=== PATIENT | male | born 1940 | race Caucasian/White ===

== ENCOUNTER → 2020-01-16 09:34 | Outpatient (CLI) | payer MEDICARE, OTHER, SELFPAY ==
--- NOTE | 2020-01-16 15:38 | PM.TREADMILL ---
Cardiac Stress Test Report Referral & Results Date Patient Seen: 01/16/20 Time Patient Seen: 15:38 Requesting provider: Vinicio Goodrich Indication: Atherosclerotic heart disease Rest ECG: sinus rhythm Procedure Note: After Lexiscan injection had minimal dyspnea, no chest discomfort No significant ST changes on ECG after Lexiscan injection; no ectopy No reversal agents needed Impression: Normal Lexiscan nuclear stress test Mibi images pending Please note: Actual ECG tracings can be found in the PACS system.
--- NOTE | 2020-01-17 02:52 | DI.NM.S_ITS ---
DATE OF SERVICE: 01/16/2020 PROCEDURE PERFORMED: Pharmacologic stress and rest myocardial perfusion study with gating to assess ejection fraction and regional wall motion, performed using a one-day protocol. ORDERING PROVIDER: Vinicio Goodrich PA-C INDICATIONS: The patient is an 79-year-old male status post CABG with recent evaluation for atypical chest discomfort. CARDIAC STRESS: Per protocol, 0.4 mg of regadenoson was infused, augmented by handgrip exercise. With this, he had minimal dyspnea, but no chest discomfort. His resting ECG shows sinus rhythm with subtle, nonspecific ST-segment abnormalities, which remain unchanged with stress. There were rare isolated PVCs and PACs, but no complex ectopy. Per protocol, 24.4 mCi of technetium-99m Myoview was injected and he was imaged 15 minutes later using a gated SPECT acquisition protocol. He had earlier been injected with 14.4 mCi of technetium- 99m Myoview at rest and imaged 30 minutes later again using a gated SPECT protocol. FINDINGS: 1. Raw data: There is fair myocardial tracer uptake. The lung-heart ratio was borderline elevated at 0.43, which can be a sign of pulmonary congestion. TID ratio is normal at 0.80. 2. Quantitated gated SPECT: Post-stress ejection fraction is estimated at 71% with probable subtle hypokinesis in the mid to distal anterior septum extending slightly into the anterior wall and apex, and possible hypokinesis in the proximal inferior wall. The resting ejection is calculated at 54%, although visually appears to be similar to the post stress images, again with a subtle wall motion abnormality in the distal anterior wall, anterior septum, and apex, as well as in the proximal inferior wall. Both that remain unchanged. Resting end-diastolic volume is at the upper limits of normal at 112 mL. 3. The post-stress supine images show a significant perfusion defect in the proximal to mid inferior wall with fairly normal perfusion distally. This defect persists on the prone images, suggesting it reflects a true perfusion defect. In addition, there is a moderate perfusion defect in the mid to distal anterior septum extending out to the apex. This defect improves, although does not completely resolve on the prone images, again suggesting that it reflects a true perfusion defect. The resting images show an identical perfusion pattern to that of the post-stress supine images without any significant improvement in either the inferior defect or the anteroseptal and apical defect. CONCLUSION: 1. Abnormal myocardial perfusion study. 2. Moderate-sized, severe fixed perfusion defect in the proximal to mid inferior wall consistent with previous inferior infarction. In addition, there is a small to moderate sized, moderate fixed perfusion defect in the mid to distal anterior septum extending slightly into the anterior wall and apex, consistent with previous nontransmural infarction. There is no reversibility to suggest myocardial ischemia. 3. Preserved left ventricular systolic function with subtle hypokinesis in the mid to distal anterior septum and apex and mild hypokinesis in the proximal to mid inferior wall that is more prominent on the resting images. The heart-lung ratio is borderline increased at 0.43, which can be a sign of pulmonary congestion. Clinical correlation is recommended. 4. No angina or ECG evidence of ischemia with pharmacologic stress. Regino Walker - NUHA/ricardo/jana doc#: [id number]/job#: [id number] dd: 01/16/2020 17:25:00 dt: 01/16/2020 18:36:00 DICTATING MD/COPIES TO: Bakari Avendaño MD; ELAINE Vazquez; Ariel Mota MD COPIES MNE: EUGENIE; ;
== END ==
PROVIDERS: Family Provider Family Medicine; PCP Family Medicine; Referring Provider Family Medicine; Visit Provider Physician Assistant
DX: R07.89 Other chest pain (principal); R94.39 Abnormal result of other cardiovascular function study; I25.10 Atherosclerotic heart disease of native coronary artery without angina pectoris; Z95.1 Presence of aortocoronary bypass graft
CPT/HCPCS: 78452; 93017; A9502; J2785

== ENCOUNTER 2020-06-05 12:51 | Emergency (ER) | payer OTHER, MEDICARE, SELFPAY ==
[2020-06-05] VITALS (12 sets, daily range): BP systolic 119–143; BP diastolic 61–75; PULSE 65–73; RESP 11–23; TEMP 35.7; O2SAT 94–96
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
[2020-06-05 13:22] LABS: Add Manual Diff / Slide Review NO; Basophils Absolute Auto 0 /uL (0-100); Basophils Percent Auto 0.5 % (0-2); Eosinophils Absolute Auto 100 /uL (0-450); Eosinophils Percent Auto 1.5 % (2-4); Hematocrit 39.8 % (41-53); Hemoglobin 12.7 g/dL (13.5-17.5); Lymphocytes Absolute Auto 1300 /uL (1100-4500); Lymphocytes Percent Auto 20.8 % (25-40); Mean Corpuscular HGB Conc 31.9 % (30-36); Mean Corpuscular Hemoglobin 25.9 PG (26-34); Mean Corpuscular Volume 81.2 fL (80-100); Monocytes Absolute Auto 400 /uL (0-900); Monocytes Percent Auto 6.5 % (3-14); Neutrophils Absolute Auto 4600 /uL (1500-7000); Neutrophils Percent Auto 70.7 % (50-75); Platelet Count 120 X10^3/uL (150-400); Red Cell Distribution Width 17.1 % (11.6-14.8); White Blood Cell Count 6.5 X10^3/uL (4.5-11.0)
[2020-06-05 13:37] LABS: Alanine Aminotransferase 21 IU/L (<50); Albumin 4.2 g/dL (3.5-5.0); Albumin Globulin Ratio 1.4 (1.0-2.8); Alkaline Phosphatase 95 U/L (38-126); Aspartate Aminotransferase 37 IU/L (17-59); BUN Creatinine Ratio 15.9 (6-22); Bilirubin Total 1.1 mg/dL (0.2-1.3); Blood Urea Nitrogen 21 mg/dL (9-20); Calcium 9.2 mg/dL (8.4-10.2); Carbon Dioxide 29 mmol/L (22-32); Chloride 104 mmol/L (98-107); Estimated Glomerular Filt Rate 52.2 mL/min (>60); Globulin 2.9 g/dL (1.7-4.1); Glucose 131 mg/dL (80-110); HEMOLYSIS < 15 (0-50); Lipase 266 U/L (23-300); Magnesium 1.7 mg/dL (1.6-2.3); Potassium 4.3 mmol/L (3.4-5.1); Sodium 141 mmol/L (137-145); Total Protein 7.1 g/dL (6.3-8.2)
[2020-06-05 13:47] LABS: Troponin I < 0.012 ng/mL (0.01-0.034)
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
[2020-06-05] MEDS: ACETAMINOPHEN 325 MG TABLET PO (16:05)
[2020-06-05] MEDS: OXYCODONE/ACETAMINOPHEN 5/325 TABLET 1 TAB PO (16:05)
== END 2020-06-05 16:41 | disposition home or self-care (01) ==
PROVIDERS: Emergency Provider Emergency Medicine; Family Provider Family Medicine; PCP Family Medicine
DX: R07.89 Other chest pain (principal); S09.90XA Unspecified injury of head, initial encounter; M54.2 Cervicalgia; Z79.01 Long term (current) use of anticoagulants; V89.2XXA Person injured in unspecified motor-vehicle accident, traffic, initial encounter
CPT/HCPCS: 36415; 70450; 71260; 72125; 74177; 80053; 83690; 83735; 84484; 85025; 93005; 99284; Q9967

== ENCOUNTER 2020-08-15 09:25 | Observation (INO) | payer MEDICARE, OTHER, SELFPAY ==
[2020-08-15] VITALS (10 sets, daily range): BP systolic 109–146; BP diastolic 64–82; PULSE 68–83; RESP 12–34; TEMP 36.6–36.8; O2SAT 89–97; BMI 31.4
--- NOTE | 2020-08-15 | DI.ECHO.S_ITS ---
[facility] +---------+ : : [address] : [address] : : : : [id number] : : : : Phone: [phone] Echocardiogram Report + + :Name: LIZBETH HUNTER Study Date: 08/15/2020 Height: 68 in : :[facility] Weight: 209 lb : : Gender: Male BSA: 2.1 m2 : :: 1940 Age: 79 yrs BP: 138/75 mmHg: :Reason For Study: TIA : :Ordering Physician: AFTAB, : :WANG Performed By: Jayla Griffin : :Referring: WANG UGALDE : + + Interpretation Summary Left ventricular ejection fraction is estimated to be 50 +/- 5%. Bubble study was inconclusive no definite evidence of an atrial septal defect. Suggest repeat bubble study with better visualization or consider [place] with bubble study Procedure: A two-dimensional transthoracic echocardiogram with color flow and Doppler was performed. Comparison is made with the echocardiogram of 04/29/2016. A saline contrast injection was performed to assess for cardiac shunting. The injection was performed through an intravenous line in the right arm. The study quality was technically difficult. The patient was in sinus rhythm with heart rates between 73-79 bpm during the exam. Left Ventricle: The left ventricle is normal in size. Left ventricular wall thickness is borderline increased. Left ventricular ejection fraction is estimated to be 50 +/- 5%. There are no obvious focal wall motion abnormalities noted but poor endocardial definition reduces the sensitivity for the detection of such. Diastolic parameters suggest probable normal left ventricular diastolic function and normal filling pressures. Right Ventricle: The right ventricle is normal in size, thickness and function. Right ventricular systolic function is mildly reduced. Atria: Both atria are normal in size. Bubble study was inconclusive no definite evidence of an atrial septal defect. Mitral Valve: The mitral valve is normal in structure and function. There is trace mitral regurgitation. Aortic Valve: The aortic valve is trileaflet. The aortic valve opens well. There is no aortic valve stenosis. No aortic regurgitation is present. Tricuspid Valve: The tricuspid valve is normal in structure and function. There is trace tricuspid regurgitation. Pulmonary artery pressures cannot be estimated because of the lack of a measurable TR jet velocity but the IVC suggests a CVP of around 3 mmHg. Pulmonic Valve: The pulmonic valve is not well visualized. There is no pulmonic valvular regurgitation. Great Vessels: The aortic root is normal size. The ascending aorta is mildly enlarged. The IVC is of normal diameter and collapses greater than 50% with a sniff. This suggests a low right atrial pressure of 3 mm Hg. Pericardium/ Pleura There is no pericardial effusion. There is no pleural effusion. MMode/2D Measurements & Calculations LVIDd: 4.5 cm LVOT diam: 2.1 cm LVIDs: 3.0 cm Ao root diam: 3.8 cm FS: 33.8 % asc Aorta Diam: 3.5 cm EPSS: 0.73 cm Ao Arch Diam (Prox Trans): 3.2 cm IVSd: 1.1 cm LVPWd: 1.1 cm LV gunderson. diameter/BSA (cm/m^2): 2.2 LV sys. diameter/BSA (cm/m^2): 1.4 LA A2 area: 21.4 cm2 RA long axis: 5.3 cm LA A4 area: 13.9 cm2 RA area: 15.0 cm2 LA length (vol): 4.8 cm RA vol: 35.7 ml LA vol: 52.4 ml RA : 17.1 ml/m2 LA vol index: 25.2 ml/m2 IVC diam: 1.1 cm RVD1 (basal): 3.3 cm TAPSE: 1.5 cm Doppler Measurements & Calculations Ao V2 max: 147.8 cm/sec LVOT Max Andrade: 107.9 cm/sec Ao V2 mean: 113.8 cm/sec LV V1 max P.7 mmHg Ao max P.7 mmHg LV V1 VTI: 19.4 cm Ao mean P.5 mmHg LAITH(I,D): 2.6 cm2 Ao V2 VTI: 26.1 cm LAITH(V,D): 2.6 cm2 sev ratio: 0.75 LAITH indexed to BSA (cm^2/m^2): 1.3 MV E max andrade: 80.4 cm/sec PA V2 max: 68.6 cm/sec MV A max andrade: 90.9 cm/sec PA V2 mean: 38.5 cm/sec MV E/A: 0.89 PA mean P.73 mmHg Med Peak E' Andrade: 6.0 cm/sec PA Accel Time: 0.06 sec E/E' med: 13.3 Lat Peak E' Andrade: 7.5 cm/sec E/E' lat: 10.7 E/e' average: 12.0 MV dec time: 0.20 sec SV(LVOT): 68.8 ml Reading Physician:02:10 PM
--- NOTE | 2020-08-15 09:32 | ED.AMS ---
HPI - Altered Mental Status General Chief Complaint: Neuro Symptoms/Deficit Stated Complaint: Altered mental status Time Seen by Provider: 08/15/20 09:31 Source: patient and EMS Mode of arrival: EMS History of Present Illness HPI narrative: Patient brought here from his cardiology office by EMS for altered mental status/expressive aphasia. No numbness tingling or weakness. Patient drove himself to the cardiology office for routine office visit. [facility]. Accu-Chek by EMS 66. Given dextrose and improved to 150. Symptoms seem to improved at this time patient still has some expressive aphasia. Onset uncertain at this time. Patient arrived at 8:55 a.m. at the cardiology office. He states he had no problems focusing or concentrating on arrival to the office. It is 9:34 a.m. right now. Patient is awake alert oriented x4. Code stroke called. Blood glucose 123 here in the department. Denies any recent lost fever chills cough cold congestion. No nausea vomiting diarrhea. MD complaint: altered mental status Related Data Home Medications Medication Instructions Recorded Confirmed ESOMEPRAZOLE SODIUM (NEXIUM) 20 mg PO QDAY #0 02/19/13 08/15/20 Lantus U-100 Insulin 50 unit SUBCUT DAILY #0 02/19/13 08/15/20 metformin [Glucophage] 500 mg PO BID #0 02/19/13 08/15/20 simvastatin [Zocor] 40 mg PO DAILY #0 02/19/13 08/15/20 gabapentin 300 mg PO BEDTIME 08/15/20 08/15/20 rivaroxaban [Xarelto] 15 mg PO QPM 08/15/20 08/15/20 Previous Rx's Medication Instructions Recorded oxycodone-acetaminophen 1 tab PO Q6H PRN #14 tab 06/05/20 polyethylene glycol 3350 [Miralax] 17 gram PO DAILY PRN #14 each 06/05/20 Allergies Allergy/AdvReac Type Severity Reaction Status Date / Time adhesive AdvReac Verified 08/15/20 10:05 Review of Systems Review of Systems Narrative: GENERAL: Denies chills, fatigue, malaise, fever, sweats. HEENT: Denies sinus pain, ear pain, sore throat, difficulty swallowing RESPIRATORY: Denies dyspnea, cough CARDIOVASCULAR: Denies chest pain, palpitations, edema, GASTROINTESTINAL: Denies nausea, vomiting, abdominal pain, diarrhea, constipation, melena. : Denies dysuria, frequency, hematuria MUSCULOSKELETAL: denies muscle or bony pain SKIN: Denies rash, skin lesions NEUROLOGIC: Denies weakness, headache, numbness, change in speech, complains confusion PSYCHIATRIC: No SI or HI or hallucinations ROS Unobtainable: All systems reviewed & are unremarkable except as noted in HPI and below Patient History Medical History (Updated 08/16/20 @ 03:47 by BRADEN Puga) Anticoagulated (Acute) ASCVD (arteriosclerotic cardiovascular disease) (Acute) Colon cancer (Acute) Diabetes type 2, controlled (Acute) Diabetic neuropathy (Acute) History of stroke (Acute) Hyperlipidemia (Acute) Hypertension (Acute) Surgical History (Updated 08/16/20 @ 03:46 by BRADEN Puga) History of partial colectomy (Acute) Status post aorto-coronary artery bypass graft (Inactive) Family History (Updated 08/16/20 @ 03:49 by BRADEN Puga) Father Medical history unknown Mother Hypertension Brother Cancer Grandmother Diabetes mellitus Brother Cancer Social History household members: none Smoking Status: Former smoker alcohol intake: current Exam Narrative Exam Narrative: GENERAL: patient appears stated age. Well-nourished, well-developed patient, in no distress, not toxic not dyspneic HEAD: Normocephalic. EYES: Pupils equal round and reactive. No scleral icterus. No injection no discharge ENT: Mucous membranes moist. No drooling no tongue elevation no trismus no malocclusion NECK: Trachea midline. Non tender CARDIOVASCULAR: Regular rate and rhythm without murmurs, gallops, or rubs. RESPIRATORY: Clear to auscultation. Breath sounds equal bilaterally. No wheezes, rales, or rhonchi. GASTROINTESTINAL: Abdomen soft, non-tender, nondistended. EXTREMITIES: No gross deformities. BACK: Nontender without deformity or crepitance. No flank tenderness. NEURO: AOx4. Clear speech but does have expressive aphasia. Having hard time identifying words to answer questions. Strong equal renal nurse, clear speech no facial droop, negative pronator drift. Strong bilateral ankle flexion extension. Light touch intact to bilateral face hands and legs. No tongue deviation. SKIN: Warm and dry PSYCH: Not anxious, is cooperative Initial Vital Signs Initial Vital Signs: Vital Signs Temperature 97.9 F 08/15/20 09:38 Pulse Rate 80 08/15/20 09:38 Respiratory Rate 14 08/15/20 09:38 Blood Pressure 138/75 08/15/20 09:38 Pulse Oximetry 97 08/15/20 09:38 Scores NIH Stroke Scale Level of Conciousness: Alert, keenly responsive Ask month/age: Answers both questions correctly. Open/close eyes, close hand: Performs both tasks correctly Best gaze horizontal: Normal Visual noyola: No visual loss Facial palsy: Normal symetrical movement Left arm drift: No drift for full 10 sec Right arm drift: No drift for full 10 sec Left leg drift: No drift for full 5 sec Right leg drift: No drift for full 5 sec Limb ataxia: Absent Sensory on face/arms/legs: Normal, no sensory loss Best language: Mild to moderate, slurs some words Dysarthria: Normal Extinction or inattention: No abnormality Total NIH Stroke scale score: 1 Course Course Course Narrative: Spoke with radiologist CT scan head plain CT, no acute process. Time 9:51 a.m.. Time 10:02 a.m.. Tele stroke physician on robotic camera in room with patient now. Decision to Admit Date: 08/15/20 Decision to Admit time: 11:06 Orders Ordered: Acetaminophen (Tylenol) 650 mg PO Q6HR PRN PRN Reason: Fever/Mild Pain (1-3) Last Admin: 08/15/20 21:34 Dose: 650 mg Documented by: LAURYN Al Hydrox/Mg Hydrox/Simethicone (Maalox Plus) 30 ml PO Q6HR PRN PRN Reason: Dyspepsia Aspirin (Aspirin Ec) 81 mg PO DAILY [facility] Last Admin: 08/16/20 08:12 Dose: 81 mg Documented by: Admin: 08/15/20 13:44 Dose: 81 mg Documented by: ISMAEL Atorvastatin Calcium (Lipitor) 40 mg PO BEDTIME [facility] Last Admin: 08/15/20 21:33 Dose: 40 mg Documented by: LAURYN Bisacodyl (Dulcolax) 10 mg MO DAILY PRN PRN Reason: Constipation Calcium Carbonate (Tums) 1,000 mg PO Q4HR PRN PRN Reason: Dyspepsia Dextrose (D50w) 25 gm IV PRN PRN; Protocol PRN Reason: Hypoglycemia Gabapentin (Neurontin) 300 mg PO BEDTIME [facility] Insulin Aspart (Novolog Flexpen) 0 unit SUBCUT ACHS [facility]; Protocol Last Admin: 08/16/20 07:59 Dose: 1 unit Documented by: ISMAEL Cosigned by: BRIAN Admin: 08/15/20 21:34 Dose: Not Given Documented by: Admin: 08/15/20 17:45 Dose: 300 unit Documented by: LAURYN Cosigned by: NATHANIEL Insulin Glargine (Lantus Solostar (Pen)) 50 unit SUBCUT DAILY [facility] Last Admin: 08/16/20 08:26 Dose: 50 unit Documented by: ISMAEL Cosigned by: NARAYAN Magnesium Hydroxide (Milk Of Magnesia) 30 ml PO DAILY PRN PRN Reason: Constipation Metformin HCl (Glucophage) 500 mg PO BID [facility] Last Admin: 08/16/20 08:12 Dose: 500 mg Documented by: ISMAEL Naloxone HCl (Narcan) 0.2 mg IV Q2MIN PRN PRN Reason: Opiate Reversal Ondansetron HCl (Zofran) 4 mg IV Q8HR PRN PRN Reason: Nausea And Vomiting Oxycodone/Acetaminophen (Percocet 5/325) 1 tab PO Q6H PRN PRN Reason: pain Polyethylene Glycol (Miralax) 17 gm PO DAILY PRN PRN Reason: constipation Rivaroxaban (Xarelto) 15 mg PO QPM [facility] Simvastatin (Zocor) 40 mg PO DAILY [facility] Last Admin: 08/16/20 08:12 Dose: 40 mg Documented by: ISMAEL Discontinued Medications Enoxaparin Sodium (Lovenox) 40 mg SUBCUT DAILY [facility] Sodium Chloride (Normal Saline 0.9%) 500 mls @ 1,000 mls/hr IV BOLUS ONE Stop: 08/15/20 10:14 Last Infusion: 08/15/20 11:45 Dose: 0 mls/hr Documented by: Admin: 08/15/20 09:56 Dose: 1,000 mls/hr Documented by: ANAYA Sodium Chloride (Normal Saline 0.9%) 1,000 mls @ 100 mls/hr IV CONT [facility] Last Infusion: 08/16/20 04:01 Dose: 100 mls/hr Documented by: Admin: 08/15/20 13:44 Dose: 100 mls/hr Documented by: ISMAEL Magnesium Sulfate (Magnesium Sulfate) 2 gm in 50 mls @ 25 mls/hr IV NOW ONE Stop: 08/15/20 21:53 Last Infusion: 08/15/20 23:47 Dose: 0 mls/hr Documented by: NEEMA Cosigned by: ZULEYKA Admin: 08/15/20 21:33 Dose: 25 mls/hr Documented by: LAURYN Cosigned by: JUANCARLOS Insulin Glargine (Lantus (Vial)) 50 unit SUBCUT DAILY JAREK Magnesium Chloride (Slow-Mag) 128 mg PO NOW ONE Stop: 08/15/20 17:31 Last Admin: 08/15/20 17:45 Dose: 128 mg Documented by: LAURYN Ondansetron HCl (Zofran) 4 mg IV NOW ONE Stop: 08/15/20 09:46 Last Admin: 08/15/20 09:56 Dose: 4 mg Documented by: ANAYA Reevaluation(s) Reevaluation #1: Patient waxing waning with his expressive aphasia. Time: 10:11 Reevaluation #2: Expressive aphasia has resolved Time: 11:06 Consultations Consultation #1: Spoke with stroke doctor, he is on robotic tele stroke in room patient right now. Time: 10:11 Consultation #2: Dr. Zaid Jones, stroke doctor, reviewed with patient by robot/video... No tPA at this time. Patient to be observed admitted. Patient has history of left-sided encephalomalacia on CT. Possible exacerbation due to hypoglycemia Time: :17 Consultation #3: Spoke with hospitalist Dr. Saravia, will admit observation Time: 11:06 Vital Signs Vital signs: Vital Signs - 8 hr 08/15/20 09:38 Temperature 97.9 F Pulse Rate 80 Respiratory Rate 14 Blood Pressure 138/75 Pulse Oximetry 97 MDM - Altered Mental Status Differential Diagnosis Differential diagnosis: Likely altered mental status and other (TIA/stroke) Medical Records Attestation: I reviewed the patient's medical records. Lab Data Attestation: I reviewed the patient's lab results. Result diagrams: 08/15/20 09:55 08/16/20 06:02 Labs: Lab Results 08/15/20 08/15/20 08/15/20 Range/Units 09:55 09:55 09:55 WBC 7.4 (4.5-11.0) X10^3/uL RBC 4.97 (4.5-5.9) X10^6/uL Hgb 13.3 L (13.5-17.5) g/dL Hct 41.7 (41-53) % MCV 83.9 (80-100) fL MCH 26.8 (26-34) PG MCHC 31.9 (30-36) % RDW 16.8 H (11.6-14.8) % Plt Count 117 L (150-400) X10^3/uL Neut % (Auto) 82.3 H (50-75) % Lymph % (Auto) 9.5 L (25-40) % [place] % (Auto) 6.8 (3-14) % Eos % (Auto) 0.4 L (2-4) % Baso % (Auto) 1.0 (0-2) % Neut # (Auto) 6100 (4023-4729) /uL Lymph # (Auto) 700 L (0390-9638) /uL [place] # (Auto) 500 (0-900) /uL Eos # (Auto) 0 (0-450) /uL Baso # (Auto) 100 (0-100) /uL PT 12.2 (10.1-12.7) SECONDS INR 1.1 (0.9-1.3) APTT 31 (26.4-36.2) SECONDS Sodium 137 (137-145) mmol/L Potassium 4.0 (3.4-5.1) mmol/L Chloride 102 (98-107) mmol/L Carbon Dioxide 29 (22-32) mmol/L BUN 22 H (9-20) mg/dL Creatinine 1.53 H (0.66-1.25) mg/dL Estimated GFR 44.0 L (>60) mL/min BUN/Creatinine Ratio 14.4 (6-22) Glucose 104 (80-110) mg/dL Hemoglobin A1c (4.0-6.0) % Calcium 9.2 (8.4-10.2) mg/dL Magnesium (1.6-2.3) mg/dL Total Bilirubin 1.4 H (0.2-1.3) mg/dL AST 34 (17-59) IU/L ALT 29 (<50) IU/L Alkaline Phosphatase 100 (38-126) U/L Total Creatine Kinase 69 (55-170) U/L CK-MB (CK-2) TNP CK-MB (CK-2) Rel Index TNP Troponin I < 0.012 (0.01-0.034) ng/mL Total Protein 7.3 (6.3-8.2) g/dL Albumin 4.2 (3.5-5.0) g/dL Globulin 3.1 (1.7-4.1) g/dL Albumin/Globulin Ratio 1.4 (1.0-2.8) Triglycerides (35-150) mg/dL Cholesterol (140-199) mg/dL LDL Cholesterol, Calc (<100) mg/dL HDL Cholesterol (40-60) mg/dL TSH (0.47-4.68) uIU/mL COVID-19 PCR (Negative) 08/15/20 08/15/20 08/15/20 Range/Units 09:55 09:55 09:55 WBC (4.5-11.0) X10^3/uL RBC (4.5-5.9) X10^6/uL Hgb (13.5-17.5) g/dL Hct (41-53) % MCV (80-100) fL MCH (26-34) PG MCHC (30-36) % RDW (11.6-14.8) % Plt Count (150-400) X10^3/uL Neut % (Auto) (50-75) % Lymph % (Auto) (25-40) % [place] % (Auto) (3-14) % Eos % (Auto) (2-4) % Baso % (Auto) (0-2) % Neut # (Auto) (9999-6024) /uL Lymph # (Auto) (2418-0021) /uL [place] # (Auto) (0-900) /uL Eos # (Auto) (0-450) /uL Baso # (Auto) (0-100) /uL PT (10.1-12.7) SECONDS INR (0.9-1.3) APTT (26.4-36.2) SECONDS Sodium (137-145) mmol/L Potassium (3.4-5.1) mmol/L Chloride (98-107) mmol/L Carbon Dioxide (22-32) mmol/L BUN (9-20) mg/dL Creatinine (0.66-1.25) mg/dL Estimated GFR (>60) mL/min BUN/Creatinine Ratio (6-22) Glucose (80-110) mg/dL Hemoglobin A1c 7.6 H (4.0-6.0) % Calcium (8.4-10.2) mg/dL Magnesium 1.5 L (1.6-2.3) mg/dL Total Bilirubin (0.2-1.3) mg/dL AST (17-59) IU/L ALT (<50) IU/L Alkaline Phosphatase (38-126) U/L Total Creatine Kinase (55-170) U/L CK-MB (CK-2) CK-MB (CK-2) Rel Index Troponin I (0.01-0.034) ng/mL Total Protein (6.3-8.2) g/dL Albumin (3.5-5.0) g/dL Globulin (1.7-4.1) g/dL Albumin/Globulin Ratio (1.0-2.8) Triglycerides 253 H (35-150) mg/dL Cholesterol 158 (140-199) mg/dL LDL Cholesterol, Calc 71 (<100) mg/dL HDL Cholesterol 36 L (40-60) mg/dL TSH 2.11 (0.47-4.68) uIU/mL COVID-19 PCR (Negative) 08/15/20 Range/Units 10:05 WBC (4.5-11.0) X10^3/uL RBC (4.5-5.9) X10^6/uL Hgb (13.5-17.5) g/dL Hct (41-53) % MCV (80-100) fL MCH (26-34) PG MCHC (30-36) % RDW (11.6-14.8) % Plt Count (150-400) X10^3/uL Neut % (Auto) (50-75) % Lymph % (Auto) (25-40) % [place] % (Auto) (3-14) % Eos % (Auto) (2-4) % Baso % (Auto) (0-2) % Neut # (Auto) (0238-2932) /uL Lymph # (Auto) (2807-9818) /uL [place] # (Auto) (0-900) /uL Eos # (Auto) (0-450) /uL Baso # (Auto) (0-100) /uL PT (10.1-12.7) SECONDS INR (0.9-1.3) APTT (26.4-36.2) SECONDS Sodium (137-145) mmol/L Potassium (3.4-5.1) mmol/L Chloride (98-107) mmol/L Carbon Dioxide (22-32) mmol/L BUN (9-20) mg/dL Creatinine (0.66-1.25) mg/dL Estimated GFR (>60) mL/min BUN/Creatinine Ratio (6-22) Glucose (80-110) mg/dL Hemoglobin A1c (4.0-6.0) % Calcium (8.4-10.2) mg/dL Magnesium (1.6-2.3) mg/dL Total Bilirubin (0.2-1.3) mg/dL AST (17-59) IU/L ALT (<50) IU/L Alkaline Phosphatase (38-126) U/L Total Creatine Kinase (55-170) U/L CK-MB (CK-2) CK-MB (CK-2) Rel Index Troponin I (0.01-0.034) ng/mL Total Protein (6.3-8.2) g/dL Albumin (3.5-5.0) g/dL Globulin (1.7-4.1) g/dL Albumin/Globulin Ratio (1.0-2.8) Triglycerides (35-150) mg/dL Cholesterol (140-199) mg/dL LDL Cholesterol, Calc (<100) mg/dL HDL Cholesterol (40-60) mg/dL TSH (0.47-4.68) uIU/mL COVID-19 PCR Negative (Negative) Point of Care Testing Glucose POC [address] scan - head: Radiologist's Impression: [address] [address] [address] Scan Report Signed Patient: Regino Walker JMR#: [id number] : 1940Acct:[id number] Age/Sex: 79 / MDate of Service: 08/15/20 Loc: ED Accession Number: [id number] Procedure: CT Stroke Ordering Provider: Daniel Ramirez MD PROCEDURE: CT STROKE INDICATIONS: Altered mental status TECHNIQUE: Noncontrast 4.5 mm thick angled axial sections acquired from the foramen magnum to the vertex, with coronal reformats. For radiation dose reduction, the following was used: automated exposure control, adjustment of mA and/or kV according to patient size. COMPARISON: [facility], CT, CT HEAD/BRAIN WO CON, 06/05/2020, 13:06. FINDINGS: Image quality: Excellent. CSF spaces: Basal cisterns are patent. No extra-axial fluid collections. The ventricles are symmetric in size and shape. Brain: No intracranial bleeds or masses. There is cerebral volume loss for age, with resultant ventricular and sulcal prominence. There are periventricular and deep white matter chronic small vessel ischemic changes. Chronic left cerebellar hemisphere and left centrum semiovale lacunar infarcts are stable. Chronic left parietal infarct is stable. There is intracranial internal carotid artery atherosclerosis. Skull and face: Calvarium and visualized facial bones appear intact, without suspicious lesions. Sinuses: Visualized sinuses and mastoids are clear. IMPRESSION: No acute intracranial disease process. Findings telephoned to Dr. Ramirez on August 15, 2020 at 9:51 a.m. This study fulfills neurological imaging criteria for inclusion or exclusion of acute stroke therapies based on available published neurological guidelines. Dictated by: Jessie Richey MD, PhD on 08/15/2020 at 9:48 Approved by: Jessie Richey MD, PhD on 08/15/2020 at 9:52 ECG Data Attestation: I personally reviewed and interpreted this ECG as follows: Interpretation: Normal sinus rhythm, rate 84, no ST elevation depression MDM Narrative Medical decision making narrative: Patient being evaluated for stroke/TIA. Blood glucose levels monitored and patient is symptomatic with glucose at 123 as well as 150. Appropriate for admission observation. Reviewed with stroke doctor. Informed hospitalist that patient did not get aspirin here, did gets well test but however staff to patient upstairs after swallow test, Dr. Saravia states she will give patient aspirin Discharge Plan Departure Patient Disposition: Admitted as Observation Clinical Impression: Transient cerebral ischemia Qualifiers: Transient cerebral ischemia type: unspecified Qualified Code(s): G45.9 - Transient cerebral ischemic attack, unspecified Discharge Date/Time: 08/15/20 11:31 Instructions: DI for Transient Ischemic Attack Referrals: Jona Chavez MD [Primary Care Provider] - Admit Date/Time: 08/15/20 11:05 Admit Provider: Mariza Saravia
--- NOTE | 2020-08-15 09:50 | DI.CT.S_ITS ---
PROCEDURE: CT STROKE INDICATIONS: Altered mental status TECHNIQUE: Noncontrast 4.5 mm thick angled axial sections acquired from the foramen magnum to the vertex, with coronal reformats. For radiation dose reduction, the following was used: automated exposure control, adjustment of mA and/or kV according to patient size. COMPARISON: [facility], CT, CT HEAD/BRAIN WO CON, 06/05/2020, 13:06. FINDINGS: Image quality: Excellent. CSF spaces: Basal cisterns are patent. No extra-axial fluid collections. The ventricles are symmetric in size and shape. Brain: No intracranial bleeds or masses. There is cerebral volume loss for age, with resultant ventricular and sulcal prominence. There are periventricular and deep white matter chronic small vessel ischemic changes. Chronic left cerebellar hemisphere and left centrum semiovale lacunar infarcts are stable. Chronic left parietal infarct is stable. There is intracranial internal carotid artery atherosclerosis. Skull and face: Calvarium and visualized facial bones appear intact, without suspicious lesions. Sinuses: Visualized sinuses and mastoids are clear. IMPRESSION: No acute intracranial disease process. Findings telephoned to Dr. Ramirez on August 15, 2020 at 9:51 a.m. This study fulfills neurological imaging criteria for inclusion or exclusion of acute stroke therapies based on available published neurological guidelines. Dictated by: Jessie Richey MD, PhD on 08/15/2020 at 9:48 Approved by: Jessie Richey MD, PhD on 08/15/2020 at 9:52
[2020-08-15] MEDS: SODIUM CHLORIDE 0.9% 500 ML 1000 ML IV (09:56)
[2020-08-15] MEDS: ONDANSETRON 4 MG/2 ML INJ IV (09:56)
[2020-08-15 10:01] LABS: Add Manual Diff / Slide Review NO; Basophils Absolute Auto 100 /uL (0-100); Eosinophils Absolute Auto 0 /uL (0-450); Eosinophils Percent Auto 0.4 % (2-4); Hematocrit 41.7 % (41-53); Hemoglobin 13.3 g/dL (13.5-17.5); Lymphocytes Absolute Auto 700 /uL (1100-4500); Lymphocytes Percent Auto 9.5 % (25-40); Mean Corpuscular HGB Conc 31.9 % (30-36); Mean Corpuscular Hemoglobin 26.8 PG (26-34); Mean Corpuscular Volume 83.9 fL (80-100); Monocytes Absolute Auto 500 /uL (0-900); Monocytes Percent Auto 6.8 % (3-14); Neutrophils Absolute Auto 6100 /uL (1500-7000); Neutrophils Percent Auto 82.3 % (50-75); Platelet Count 117 X10^3/uL (150-400); Red Blood Cell Count 4.97 X10^6/uL (4.5-5.9); Red Cell Distribution Width 16.8 % (11.6-14.8); White Blood Cell Count 7.4 X10^3/uL (4.5-11.0)
[2020-08-15 10:07] LABS: INR 1.1 (0.9-1.3); Prothrombin Time 12.2 SECONDS (10.1-12.7)
[2020-08-15 10:10] LABS: PTT Partial Thromboplastin Tim 31 SECONDS (26.4-36.2)
[2020-08-15 10:12] LABS: Alanine Aminotransferase 29 IU/L (<50); Albumin 4.2 g/dL (3.5-5.0); Albumin Globulin Ratio 1.4 (1.0-2.8); Alkaline Phosphatase 100 U/L (38-126); Aspartate Aminotransferase 34 IU/L (17-59); BUN Creatinine Ratio 14.4 (6-22); Bilirubin Total 1.4 mg/dL (0.2-1.3); Blood Urea Nitrogen 22 mg/dL (9-20); Calcium 9.2 mg/dL (8.4-10.2); Carbon Dioxide 29 mmol/L (22-32); Chloride 102 mmol/L (98-107); Creatine Kinase 69 U/L (55-170); Globulin 3.1 g/dL (1.7-4.1); Glucose 104 mg/dL (80-110); HEMOLYSIS < 15 (0-50); Sodium 137 mmol/L (137-145); Total Protein 7.3 g/dL (6.3-8.2)
--- NOTE | 2020-08-15 10:12 | PC.NURSE ---
Patient with some word finding difficulty.
--- NOTE | 2020-08-15 10:13 | PC.NURSE ---
At this time patient reports he feels as though he is back to normal. Still has some word finding difficulty but states this is normal for him and reports some short term memory problems. Since the beginning of this year.
[2020-08-15 10:23] LABS: Troponin I < 0.012 ng/mL (0.01-0.034)
[2020-08-15 10:31] LABS: COVID19 -Nasal RAPID Negative (Negative)
--- NOTE | 2020-08-15 11:28 | PC.NURSE ---
Report given to JESSICA Ferreira on AC #[id number]
--- NOTE | 2020-08-15 12:03 | DI.MRI.S_ITS ---
PROCEDURE: MR STROKE Pre- and post-contrast brain MRI, non-contrast brain MR angiogram, pre- and postcontrast neck MR angiogram INDICATIONS: Expressive aphasia r/o CVA/TIA TECHNIQUE: Brain: Noncontrast axial T1 spin echo, axial T2 fast spin echo, sagittal and axial FLAIR, coronal T2 fast spin echo, axial gradient echo, axial diffusion and ADC through the brain. After the administration of contrast, axial 3D VIBE of the cranial vasculature and brain. Brain MRA: Non-contrast 3-D time of flight MR angiogram, with multiple rvtslqh-pxqnndsmu-frcfevgmfi (MIP) reformats performed. Neck MRA: Axial and sagittal TruFISP through the neck. Coronal dynamic MR angiogram during administration of contrast in the arterial and venous phases, with 3-dimenstional qibqqon-uufiviboj-vdxdraeemn (MIP) reformats constructed from subtraction images. COMPARISON: None. FINDINGS: Image quality: Excellent. BRAIN: CSF spaces: Ventricles are normal in size and shape. Basal cisterns are patent. No extra-axial fluid collections. Brain: No intracranial bleeds or mass effects. Edmonds-white matter interface is normal. Diffusion weighted images show no acute ischemic insults. Brainstem appears normal. There are extensive deep and periventricular white matter changes. Encephalomalacia is noted within the left parietal lobe. Multiple lacunar infarcts are also noted. Normal intravascular flow voids are present. No abnormal intracranial enhancement. Skull and face: Calvarial marrow signal is normal. Orbits appear normal. Sinuses: Sinuses and mastoids are clear. BRAIN MR ANGIOGRAM: Anterior circulation: Intracranial internal carotid arteries are normal in size and enhancement. The flow within the paired anterior cerebral arteries is normal and symmetric. The flow within the middle cerebral arteries is normal and symmetric. The anterior communicating artery is seen. No stenoses, occlusions, or aneurysms. Posterior circulation: The visualized portions of the vertebral arteries demonstrate normal caliber, and join to form a normal appearing basilar artery. The flow within the posterior cerebral arteries is normal and symmetric. No stenoses, occlusions, or aneurysms. NECK MR ANGIOGRAM: Carotids: Motion artifact limits evaluation of the origin of the great vessels. There is likely bovine anatomy. No definite stenosis visualized at the origin of the miramontes carotid arteries. No definite stenosis at the origin of the left subclavian artery. The calibers and courses of both common carotid arteries are normal. The bifurcation regions appear normal bilaterally. The internal carotid arteries demonstrate normal course and caliber. Posterior circulation: The origins of the vertebral arteries appear patent. More superior portions of both vertebral arteries demonstrate normal course and caliber, and join to form a normal appearing basilar artery. Miscellaneous: Subclavian arteries appear patent. Pre-contrast images through the neck show no soft tissue abnormalities. IMPRESSION: BRAIN MRI: 1. No acute intracranial findings. Specifically, no increased restricted diffusion to suggest acute or subacute infarct. 2. Extensive findings likely associated with chronic microvascular ischemic changes and old left parietal lobe infarct. BRAIN MR ANGIOGRAM: 1. No stenosis, occlusion, or aneurysm. NECK MR ANGIOGRAM: 1. Limited evaluation of the origin of the great vessels secondary to motion artifact. However, there are no definite stenoses present. If further characterization of this region is warranted, CTA could be used. Dictated by: Emily Zelaya M.D. on 08/15/2020 at 17:33 Approved by: Emily Zelaya M.D. on 08/15/2020 at 17:40
[2020-08-15 12:30] LABS: Cholesterol 158 mg/dL (140-199); HDL Cholesterol 36 mg/dL (40-60); LDL Cholesterol Calculated 71 mg/dL (<100); Magnesium 1.5 mg/dL (1.6-2.3); Triglycerides 253 mg/dL (35-150)
[2020-08-15 12:32] LABS: Hemoglobin A1C% w Est Avg Glu 7.6 % (4.0-6.0)
--- NOTE | 2020-08-15 12:56 | PC.NURSE ---
pt admitted to room 209- completely alert oriented and appropriate- speech is clear and repeat NIH score 0, pt unsure of routine medications and will follow up on this with pcp/pharmacy- lungs are clear - he wears 0-2 liters nc o2 intermittently at home due to his interstitial lung disease. no noted edema but skin is poor with many scattered open areas on all limbs and upper back please refer to skin assessment. echo is being performed at present and tele shows sr 70's - ua sent per ed orders-
[2020-08-15 13:03] LABS: TSH w/ Reflex to FT4 2.11 uIU/mL (0.47-4.68)
[2020-08-15 13:07] LABS: Bacteria Urine None Seen; RBC Urine None Seen (0-5/HPF); WBC Urine None Seen (0-5/HPF)
[2020-08-15 13:08] LABS: Appearance Urine UA CLEAR; Bilirubin Urine UA NEGATIVE (NEGATIVE); Color Urine UA YELLOW; Glucose Urine UA NEGATIVE (Negative); Ketones Urine UA NEGATIVE (NEGATIVE); Leukocyte Esterase Urine UA NEGATIVE (NEGATIVE); Nitrite Urine UA NEGATIVE (Negative); Occult Blood Urine UA NEGATIVE (Negative); Protein Urine UA NEGATIVE (Negative); Urobilinogen Urine UA 0.2 E.U./dL (0.2)
[2020-08-15 13:18] LABS: Culture Indicated Urine Cult Not Indicated; Urine Comments Microscopic Normal
[2020-08-15] MEDS: ASPIRIN EC 81 MG TABLET PO (13:44)
[2020-08-15] MEDS: SODIUM CHLORIDE 0.9% 1,000 ML 100 ML IV (13:44)
--- NOTE | 2020-08-15 13:50 | PT.IIE ---
Surgical History (Last Reviewed 08/15/20 @ 09:39 by Daniel Ramirez MD) Status post aorto-coronary artery bypass graft (Inactive) Medical History (Last Reviewed 08/15/20 @ 09:39 by Daniel Ramirez MD) Anticoagulated (Acute) ASCVD (arteriosclerotic cardiovascular disease) (Acute) History of stroke (Acute) Hyperlipidemia (Acute) Hypertension (Acute) Physical Therapy Inpatient Evaluation/Re-Eval M1 PT/OT-IP Prior Functional Status Start: 08/15/20 15:39 Freq: NEEDED Status: Active Protocol: Document 08/15/20 13:50 AB (Rec: 08/15/20 16:05 [email or web address]) Medical Review Prior Functional Status Medical History Reviewed Yes Communication able to make needs known Mobility and Gait pt stated that he is modified independent with all mobilities and ambulation without AD Social History Household Members none Living Arrangements House Number of Floors (Floors) One Floor Number of Stairs To Enter/Railing? no steps to enter Home Environment High Toilet,Walk in Shower Home Equipment Four Wheel Walker,Straight Cane,Power Wheelchair/Scooter, Shower Seat with Backrest,Hand Held Shower,Grab Bars Near Toilet,Grab Bars In Shower Additional Social History Comment pt stated that he usually lives alone but currently, his grandson is staying with him but works from 10 am to 6 pm. daughter lives ~ 5 min away and checks on pt uses O2 24/7 M2 PT-IP Current Condition Start: 08/15/20 15:39 Freq: NEEDED Status: Active Protocol: Document 08/15/20 13:50 AB (Rec: 08/15/20 16:05 [email or web address]) Physical Therapy Current Condition Current Condition Evaluation Date 08/15/20 Treatment Diagnosis altered mental status; difficulty in walking Onset Date 08/15/20 Precautions Other Precautions O2 sat M3 PT-IP Subjective Start: 08/15/20 15:39 Freq: NEEDED Status: Active Protocol: Document 08/15/20 13:50 AB (Rec: 08/15/20 16:05 [email or web address]) Subjective Physical Therapy Visit Type Type Initial Evaluation Visit Start Time 13:50 Visit Stop Time 14:20 Total Visit Minutes 30 Number of DIRECTOR NURSING SERVICE Visits 0 Physical Therapy Visit Comments Patient Comments pt is agreeable to do PT Therapy Pain Assessment Pain Present Pain Present Denied Pain M4 PT-IP Mobility and Gait Start: 08/15/20 15:39 Freq: NEEDED Status: Active Protocol: Document 08/15/20 13:50 AB (Rec: 08/15/20 16:05 AB [email or web address]) PT-Bed Mobility Assessment Supine to Sit Supine to Sit Standby Assistance,Bedrails Sit to Supine Sit to Supine Standby Assistance PT-Transfer Assessment Sit to and From Stand Sit to and from Stand Standby Assistance,1 Person Assistance,Use of Upper Extremities Equipment Transfer Assistive Device None,Gait Belt Orthotic/Prosthetic Devices or Brace: No Comments Mobility Comments pt completed supine to sit SBA with bed rail. pt was able to sit on EOB SBA. completed sit to stand SBA and ambulated in room without AD SBA to CGA . presents with antalgic gait and pt stated that he feels ambulation is baseline. stated that he has h/o CVA with R sided weakness and still feels that R side is weak and also has decrease sensation on R plantar toes but has not had any falls at home. pt ambulated back to bed and completed sit to supine SBA. positioned pt in bed. call light and table placed within reach. Gait Assessment Gait Gait Assistance Required: Standby Assistance,Contact Guard Assist Distance (Feet) 30 Able to Maintain Weight Bearing Status Yes During Gait Assistive Devices Assistive Device Gait Belt Orthotic/Prosthetic Devices or Brace: No Gait Deviations General Gait Pattern Antalgic,Decreased Stride Length,Decreased Feet Clearance Factors Limiting Gait Function Factors Limiting Gait Function Decreased Activity Tolerance, Poor Balance,Respiratory Distress Comments Gait Comments pt ambulated in room ~ 30 ft with antalgic gait with unsteadiness during turns but without LOB. O2 sat decreased to 71% with 2L/min O2 and increased to 90% after ~ 30 sec seated rest. informed nurse. PT-Balance Assessment Sitting Balance and Reactions Static Sitting Balance Ability Good Dynamic Sitting Balance Ability Good Standing Balance and Reactions Static Standing Balance Ability Fair Dynamic Standing Balance Ability Fair M5 PT-IP Objective Assessments Start: 08/15/20 15:39 Freq: NEEDED Status: Active Protocol: Document 08/15/20 13:50 AB (Rec: 08/15/20 16:05 AB [email or web address]) Orientation Orientation/Cognition Level of Alertness Alert Orientation Name,Place,Situation Language Function Ability Hard of Hearing Safety Awareness Decreased Safety Awareness Gross Range of Motion Lower Extremity ROM Assessment Within Functional Limits Strength Lower Extremity Strength Assessment Right Impaired Hip 4-/5 Knee 4-/5 Sensation Assessment Sensation Gross Sensation Right LE Impaired Comments Sensation Comments stated that he can only feel ~ 25 % on L toes Muscle Tone Muscle Tone WNL Yes M6 PT-IP Treatment Start: 08/15/20 15:39 Freq: NEEDED Status: Active Protocol: Document 08/15/20 13:50 AB (Rec: 08/15/20 16:05 AB [email or web address]) Physical Therapy Treatment Education Education Provided Safety M7 PT-IP Assessment and Plan Start: 08/15/20 15:39 Freq: NEEDED Status: Active Protocol: Document 08/15/20 13:50 AB (Rec: 08/15/20 16:05 AB [email or web address]) PT Summary Assessment and Plan Potential Rehabilitation Potential Good Status of Condition at Evaluation Evolving Summary Impairments Pain,ROM,Strength,Balance, Coordination,Sensation,Tone, Cognition,Bed Mobility, Transfers,Gait,Activity Tolerance Assessment Summary pt requiring SBA to CGA with mobility and ambulated without AD. O2 sat decreased to 71% after ambulation with use of 2L/min O2. pt plans to go home and will be alone most of the day. may require outpt PT/cardiopulmonary rehab to improve activity tolerance. Goals Bed Mobility Goal Independent Transfer Goal Independent Gait Goal Independent Gait Distance 150 Days to Meet Goals 5 Frequency of Treatment Frequency Of Treatment Once a Day Treatment Plan Physical Therapy Treatment Plan Bed Mobility Training,Transfer Training,Gait Training, Therapeutic Exercise,Balance Retraining,Discharge Planning, Hot or Cold Pack,Neuromuscular Re-ed,Coordination Retraining Recommendations To Nursing Amount of Assist Needed 1 Person Assist Discharge Recommendations PT Discharge Recommendations Home with Assistance, Outpatient PT Transportation Needs at Discharge Private Vehicle
--- NOTE | 2020-08-15 14:43 | PC.NURSE ---
Patients lunch time blood sugar 82. No insulin needed. He did have a large incontinence of urine but states that he missed the urinal. NS infusing at 100cc/hr. He is on an ada diet and is tolerating food well. Called office in [place] and talked to repairer. They will be faxing his medication list over.
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
--- NOTE | 2020-08-15 17:03 | ST.OPIE ---
Visit Care Team Role Provider Type Jona Chavez MD Primary Care Provider Non-Staff Specialty: Medical Address: [address] [place] [address] [address], [place], [address] Email: Alejandro Romero MD Family Provider Non-Staff Specialty: Medical Address: [address] [place] [address], [id number] Email: Daniel Ramirez MD Emergency Provider Physician Referring Provider Specialty: Emergency Medicine Address: [address] [place] [address], [id number] Email: [email or web address] Mariza Saravia DO Admit Provider Physician Attending Provider Specialty: Internal Medicine Address: [address] [place] [address], [facility] Email: [email or web address] Speech-Language Pathology Initial Evaluation [employer] OPERATOR Adult Cognitive Linguistic Eval Start: 08/15/20 16:31 Freq: Status: Active Protocol: Document 08/15/20 16:31 [facility] (Rec: 08/15/20 17:01 [facility] [id number]) Adult Cognitive Linguistic Evaluation Session Time Visit Start Time 14:55 Visit Stop Time 15:30 Total Visit Minutes [address] Mariza Saravia Reason for Referral Expressive Aphasia Setting Assessment Location Acute Care Visit Type Note Type Initial evaluation Patient Information Identification Type Name,ID Card Medical History Per ED Report: Patient brought here from his cardiology office by EMS for altered mental status/ expressive aphasia. No numbness tingling or weakness. Patient drove himself to the cardiology office for routine office visit. [facility]. Accu-Chek by EMS 66. Given dextrose and improved to 150. Symptoms seem to improved at this time patient still has some expressive aphasia. Onset uncertain at this time. Patient arrived at 8:55 a.m. at the cardiology office. He states he had no problems focusing or concentrating on arrival to the office. It is 9:34 a.m. right now. Patient is awake alert oriented x4. Code stroke called. Blood glucose 123 here in the department. The pt has a hx of CVA x2 ( 2017 and 2019). He regularly uses 2L supplemental oxygen. Language(s) Spoken in the Home [place] Hearing Hearing Level Normal Vision Vision Status Not Impaired Previous Therapy Previous Speech-Language Therapy No Subjective Patient Report The pt was lying in bed watching TV with 2L O2 via nasal cannula. 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 Informal Assessment Receptive Language Normal Yes Receptive Language Impairment(s) Comprehension of simple yes/no questions,Comprehension of complex yes/no questions, Following 1-step commands, Following 2-step commands, Following 3-step commands, Right/left discrimination, Picture/Object identification, Comprehension of conversation, Reading Expressive Language Normal Yes Expressive Language Impairment(s) Automatic speech,Imitation, Sentence closure/completion, Confrontation naming,Divergent naming,Expression of basic wants/needs,Expression of complex thoughts/ideas,Written expression Pragmatic Language Normal Yes Speech Normal Yes Cognition Normal Appears to be in conversation; not formally tested Findings/Results Language Function Within normal limits Cognitive Function Within functional limits Findings The pt presents with speech and expressive/receptive language skills WNL. The pt scored 100% accuracy on all assessment tasks with exception of spelling the word knife, for which he wrote wu. When asked to read and use the word he wrote in a sentence, he did so using the word knife. After some prompting, the pt recognized and corrected his error. Throughout the evaluation, the pt exhibited good humor, appropriately used. Speech was 100% intelligible, and the pt stated he felt he was back to baseline. Swallow screen was administered with consecutive cup sips of water and a dry claudia cracker. The pt exhibited no overt s/sx of dysphagia and had no complaints of swallow difficulty. No speech, language, or dysphagia therapy is warranted at this time. The pt will be dc'd from FORGE PRESS OPERATOR services. Plan of Care Speech-Language Treatment No Patient/Caregiver Education Described results of evaluation,Patient expressed understanding of evaluation Discharge Recommendations Home
[2020-08-15] MEDS: INSULIN ASPART 100 UNIT/ML INSULN PEN SUBCUT (17:45)
[2020-08-15] MEDS: MAGNESIUM CHLORIDE 64 MG TABLET 128 MG PO (17:45)
[2020-08-15] MEDS: ATORVASTATIN 20 MG TABLET 40 MG PO (21:33)
[2020-08-15] MEDS: MAGNESIUM SULFATE 2 GM/50 ML PIGGYBACK IV (21:33)
[2020-08-15] MEDS: ACETAMINOPHEN 325 MG TABLET 650 MG PO (21:34)
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
[2020-08-16] MEDS: SODIUM CHLORIDE 0.9% 1,000 ML 100 ML IV (04:01)
[2020-08-16 04:32] VITALS: BP 146/86; PULSE 69; RESP 16; TEMP 36.1; O2SAT 93
[2020-08-16 06:42] LABS: BUN Creatinine Ratio 12.7 (6-22); Blood Urea Nitrogen 20 mg/dL (9-20); Calcium 9.1 mg/dL (8.4-10.2); Carbon Dioxide 34 mmol/L (22-32); Chloride 103 mmol/L (98-107); Estimated Glomerular Filt Rate 42.4 mL/min (>60); Glucose 161 mg/dL (80-110); HEMOLYSIS < 15 (0-50); Magnesium 2.2 mg/dL (1.6-2.3); Sodium 140 mmol/L (137-145)
[2020-08-16 06:43] LABS: Potassium 5.4 mmol/L (3.4-5.1)
[2020-08-16] MEDS: INSULIN ASPART 100 UNIT/ML INSULN PEN SUBCUT (07:59)
[2020-08-16 08:00] VITALS: BP 120/82; PULSE 69; RESP 16; TEMP 36.2; O2SAT 98
[2020-08-16] MEDS: ASPIRIN EC 81 MG TABLET PO (08:12)
[2020-08-16] MEDS: METFORMIN HCL 500 MG TABLET PO (08:12)
[2020-08-16] MEDS: SIMVASTATIN 40 MG TABLET PO (08:12)
[2020-08-16] MEDS: INSULIN GLARGINE 100 UNIT/ML 3ML PEN 50 UNIT SUBCUT (08:26)
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
[2020-08-16 11:22] VITALS: O2SAT 98
--- NOTE | 2020-08-16 11:26 | PC.NURSE ---
Assess- Patient is doing well this am. His blood sugar was 150. 1u of insulin given and 50u of lantus given. He is going to be discharging back home today. He denies pain. He is normally on 2l of 02 at home. Daughter will be here to pick patient up. NIH stroke scale score a 0. Up with 1person assist.
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
--- NOTE | 2020-08-16 13:35 | PT-IP ANOTE ---
Attempted to see pt @13:35, pt was already d/c.
--- NOTE | 2020-08-16 14:19 | CM.IDA ---
Initial DCP Assessment Note Pt is an 79 yo male, resident of [place], presents w/altered mental status and found to have had a TIA PCP: Raffaele Chavez/ [facility] Payer: [facility] Reviewed chart, pt discussed in multidisciplinary rounds this morning. Met w/patient, introduced role. Patient is in very good spirits, states he has been mostly indp at home, lives w/his 30 yo grandson, dtr lives down the street. Patient is on approx 2L of O2 at home. Patient's of 50 years w/in the last 6 months and patient states I have been waiting to join her patient tearful. Patient explains he has children, grandchildren and great grandchildren he enjoys greatly. Patient expects to return home if cleared by Dr Saravia today P: DC home w/family via private auto, no additional needs. RAYMOND Michael
== END 2020-08-16 13:31 | disposition home or self-care (01) ==
LOC: ED 10:47 → AC 11:06
PROVIDERS: Nurse Practitioner Adult Health; Admitting Provider Internal Medicine; Emergency Provider Emergency Medicine; Family Provider Family Medicine; PCP Family Medicine; Referring Provider Emergency Medicine; Visit Provider Internal Medicine
DX: G45.9 Transient cerebral ischemic attack, unspecified (principal); R29.818 Other symptoms and signs involving the nervous system; E11.40 Type 2 diabetes mellitus with diabetic neuropathy, unspecified; Z79.01 Long term (current) use of anticoagulants; I25.10 Atherosclerotic heart disease of native coronary artery without angina pectoris; E78.5 Hyperlipidemia, unspecified; I10 Essential (primary) hypertension; Z79.4 Long term (current) use of insulin; Z11.59 Encounter for screening for other viral diseases
CPT/HCPCS: 36415; 70450; 70548; 70553; 80048; 80053; 80061; 81001; 82550; 82962; 83036; 83735; 84443; 84484; 85025; 85610; 85730; 87635; 92523; 93005; 93306; 94618; 96361; 96372; 96374; 97162; 97165; 97530; 97535; 99285; 99291; 99292; G0378; J2405

== ENCOUNTER 2021-04-01 22:34 | Emergency (ER) | payer MEDICARE, OTHER, SELFPAY ==
[2020-08-15 12:03] VITALS: BMI 31.4
[2021-04-01 22:50] VITALS: BP 130/60; PULSE 90; RESP 20; TEMP 36.8; O2SAT 91; BMI 29.6
--- NOTE | 2021-04-01 23:08 | ED_ITS ---
HPI - Extremity Problem General Chief complaint: Extremity Problem,Nontraumatic Stated complaint: resolved foot pain Time Seen by Provider: 04/01/21 22:57 Source: patient Mode of arrival: EMS Limitations: no limitations History of Present Illness HPI Narrative: 80-year-old male former smoker with history of GERD, type 2 diabetes and hyperlipidemia, with a known neuropathy presents with episodes of sharp, lightening like pain on the dorsum of his left foot at the base of his 2nd toe over the course of the day. He denies any injury or overuse. He denies any fever or chills. He denies any redness, swelling nor numbness or tingling. He states he has tried taking various medications at home including Tylenol with no relief. The pain is worse with palpation and with attempt to ambulate and seems like it make it better with rest. There is no numbness, tingling or weakness. There are episodes of pain that seemed to come and go with no apparent pattern. MD Complaint: extremity pain and joint paint Onset (ago): hour(s) Pain Consistency: intermittent Location: left Quality: burning and stabbing Relieving factors: nothing Exacerbating factors: nothing Related Data Home Medications Medication Instructions Recorded Confirmed ESOMEPRAZOLE SODIUM (NEXIUM) 20 mg PO QDAY #0 02/19/13 08/15/20 Lantus U-100 Insulin 50 unit SUBCUT DAILY #0 02/19/13 08/15/20 metformin [Glucophage] 500 mg PO BID #0 02/19/13 08/15/20 simvastatin [Zocor] 40 mg PO DAILY #0 02/19/13 08/15/20 Xarelto 15 mg PO QPM 08/15/20 08/15/20 gabapentin 300 mg PO BEDTIME 08/15/20 08/15/20 Previous Rx's Medication Instructions Recorded oxycodone-acetaminophen 1 tab PO Q6H PRN #14 tab 06/05/20 polyethylene glycol 3350 [Miralax] 17 gram PO DAILY PRN #14 each 06/05/20 hydrocodone-acetaminophen 1 tab PO Q4-6H PRN #10 tab 04/02/21 Allergies Allergy/AdvReac Type Severity Reaction Status Date / Time adhesive AdvReac Verified 08/15/20 10:05 Review of Systems Constitutional Constitutional: Denies chills, Denies fatigue, Denies fever(s), Denies frequent falls, Denies lethargy and Denies weakness Eyes Eyes: Denies change in vision, Denies eye discharge, Denies irritation and Denies loss of vision ENT Ears, Nose, Mouth, and Throat: Denies change in voice, Denies dizziness, Denies neck pain, Denies sore throat and Denies throat swelling Cardiovascular Cardiovascular: Denies chest pain, Denies irregular heart rhythm, Denies lightheadedness, Denies palpitations, Denies dyspnea, Denies dyspnea on exertion and Denies orthopnea Respiratory Respiratory: Denies cough, Denies dyspnea, Denies dyspnea on exertion and Denies wheezing Gastrointestinal Gastrointestinal: Denies abdominal pain, Denies change in bowel habits, Denies diarrhea, Denies nausea and Denies vomiting Musculoskeletal Musculoskeletal: Reports arthralgias, Denies neck pain and Denies numbness Integumentary/Breasts Skin/Breast: Denies pruritus, Denies erythema, Denies rash and Denies wounds Neurologic Neurologic: Denies behavioral changes, Denies confusion, Denies dizziness, Den ies frequent falls, Denies loss of vision, Denies numbness and Denies weakness Psychiatric Psychiatric: Denies anxiety, Denies behavioral changes, Denies confusion, Denies depression, Denies homicidal ideation and Denies suicidal ideation Endocrine Endocrine: Denies fatigue, Denies flushing and Denies palpitations Hematologic/Lymphatic Hematologic/Lymphatic: Denies easy bruising Allergic/Immunologic Allergic/Immunologic: Denies urticaria, Denies throat swelling and Denies wheezing Patient History Medical History Anticoagulated ASCVD (arteriosclerotic cardiovascular disease) Colon cancer Diabetes type 2, controlled Diabetic neuropathy History of stroke Hyperlipidemia Hypertension Surgical History History of partial colectomy Status post aorto-coronary artery bypass graft Family History Father Medical history unknown Mother Hypertension Brother Cancer Grandmother Diabetes mellitus Brother Cancer Social History household members: none Smoking Status: Former smoker alcohol intake: current Smoking Status: Former smoker alcohol intake frequency: holidays/special occasions only Substance Use Type: does not use Exam Narrative Exam Narrative: GEN: AOx3 and in mild distress EYES: Pupils are equal, round, and reactive to light and accommodation. Extraoccular muscles are intact bilaterally. There is no subconjunctival hemorrhage or exudate. CHEST: Lungs are clear to auscultation bilaterally and free of wheezes, rales, or rhonchi. Heart rate is regular rhythm, there are no murmurs, clicks, rubs, or gallops. There is no chest wall tenderness. ABD: Abdomen is soft and nontender. There is no guarding or rebound. Bowel sounds are normal in all 4 quadrants. There is no mass or organomegaly. EXT: No obvious deformity, redness, warmth or swelling of left foot, neurovascularly intact. There is intermittent pain on palpation of the dorsum foot the bases 2nd toe. SKIN: Warm, pink, and dry. No erythema or rash Initial Vital Signs Initial Vital Signs: Vital Signs Temperature 98.2 F 04/01/21 22:50 Pulse Rate 90 04/01/21 22:50 Respiratory Rate 20 04/01/21 22:50 Blood Pressure 130/60 04/01/21 22:50 Pulse Oximetry 91 04/01/21 22:50 Course Orders Ordered: ED Orders 04/01/21 23:47 XR foot LT min 3V Stat C-Reactive Protein Quant Stat Complete Blood Count AUTO DIFF Stat Erythrocyte Sedimentation Rate Stat Uric Acid Stat Discontinued Medications Hydrocodone Bitart/Acetaminophen (Hydrocodone/Acet 5/325 Prepack) 1 bottle MISC SEEINSTR ONE Stop: 04/02/21 00:41 Last Admin: 04/02/21 01:07 Dose: 1 bottle Documented by: ERICA Vital Signs Vital signs: Vital Signs - 8 hr 04/01/21 22:50 Temperature 98.2 F Pulse Rate 90 Respiratory Rate 20 Blood Pressure 130/60 Pulse Oximetry 91 MDM - Extremity (Nontraumatic) Lab Data Result diagrams: 04/02/21 00:25 Labs: Lab Results 04/02/21 04/02/21 Range/Units 00:25 00:25 WBC 5.7 (4.5-11.0) X10^3/uL RBC 4.77 (4.5-5.9) X10^6/uL Hgb 13.9 (13.5-17.5) g/dL Hct 42.6 (41-53) % MCV 89.4 (80-100) fL MCH 29.2 (26-34) PG MCHC 32.7 (30-36) % RDW 14.3 (11.6-14.8) % Plt Count 113 L (150-400) X10^3/uL Neut % (Auto) 62.9 (50-75) % Lymph % (Auto) 27.1 (25-40) % [place] % (Auto) 7.9 (3-14) % Eos % (Auto) 1.1 L (2-4) % Baso % (Auto) 1.0 (0-2) % Neut # (Auto) 3600 (3745-0354) /uL Lymph # (Auto) 1600 (3370-0689) /uL [place] # (Auto) 500 (0-900) /uL Eos # (Auto) 100 (0-450) /uL Baso # (Auto) 100 (0-100) /uL ESR 4 (0-15) MM/HR Uric Acid 6.2 (3.5-8.5) mg/dL C-Reactive Protein 0.6 (<1.0) mg/dL Imaging Data Extremity x-ray #1: Radiologist's Impression: Soft tissue swelling in the dorsal forefoot, no bony abnormality MDM Narrative Medical decision making narrative: Multiple etiologies for patient's symptoms considered including: [Neuropathy versus gouty arthritis versus cellulitis versus other] Patient's symptoms improved over duration of stay with above-stated therapies. Swelling is noted on x-ray but hard to appreciate on physical exam. There is no erythema, warmth or reproducible pain. Cellulitis and gout considered but thought unlikely given lack of findings on exam or labs. Findings and discharge diagnosis discussed with patient/family followed by verbalization of understanding Return precautions discussed with patient/family whom verbalize understanding. Discharge Plan Departure Patient Disposition: Home Clinical Impression: Neuropathy Acute foot pain Qualifiers: Laterality: left Qualified Code(s): M79.672 - Pain in left foot Instructions: DI for Foot Pain Activity Restrictions/Additional Instructions: *You have been diagnosed with [left foot pain with very reassuring x-ray and labs, possibly a consequence of your neuropathy] *What to do: *Please continue to take your regular medications as directed. [x ] New medication prescriptions sent to your pharmacy: [ [facility]] [ ] New medication written as a paper prescription [ ] No new medications given *Please follow up with your primary care provider in 2-3 days, call for an appointment. Let them know you were seen in the Emergency Department and that we ask that you be seen in follow up. We will electronically transmit a record of today's note if your PCP is in our system *If you do not have a primary care provider please contact the [facility] Resource line at [phone]. They will ask some questions about your medical history and help get you set up with a doctor in the community. *Return to Emergency Department if you should have any new, worsening or concerning symptoms, such as [fever greater than 101 F, shaking chills, worsening pain, persistent vomiting or other bothersome symptoms] You have been prescribed narcotic medications. While on these medications you cannot drive or operate heavy machinery. Additionally you cannot sign legal documents or perform any duties such as this. Many people get constipated on narcotic medications so it would be advisable to discuss stool softeners with the pharmacist when you excelsior picker your prescription. Please understand that we cannot provide further refills of narcotics or controlled substances through the ED and your pain management will need to be through your Primary Care Provider Prescriptions: New hydrocodone-acetaminophen 5-325 mg tablet 1 tab PO Q4-6H PRN (Reason: pain) Qty: 10 RF: 0 No Action Lantus U-100 Insulin 100 UNIT/1 ML solution 50 unit SUBCUT DAILY Qty: 0 RF: 0 simvastatin [Zocor] 40 MG tablet 40 mg PO DAILY Qty: 0 RF: 0 metformin [Glucophage] 1,000 MG tablet 500 mg PO BID Qty: 0 RF: 0 ESOMEPRAZOLE SODIUM (NEXIUM) 20 mg PO QDAY Qty: 0 RF: 0 Xarelto 15 mg Tablet 15 mg PO QPM RF: 0 gabapentin 300 mg Capsule 300 mg PO BEDTIME RF: 0 oxycodone-acetaminophen 5-325 mg tablet 1 tab PO Q6H PRN (Reason: pain) Qty: 14 RF: 0 polyethylene glycol 3350 [Miralax] 17 gram powder in packet 17 gram PO DAILY PRN (Reason: constipation) Qty: 14 RF: 0 Referrals: Jona Chavez MD [Primary Care Provider] -
--- NOTE | 2021-04-01 23:47 | DI.RAD.S_ITS ---
PROCEDURE: XR FOOT LT MIN 3V INDICATIONS: left foot pain TECHNIQUE: 3 views of the foot were acquired. COMPARISON: None. FINDINGS: Bones: No fractures or dislocations. No suspicious bony lesions. Soft tissues: No tibiotalar joint effusion. Achilles tendon appears normal. Dorsal soft tissue swelling. IMPRESSION: Dorsal soft tissue swelling. No acute osseous abnormalities. Dictated by: Ashish Helton M.D. on 04/02/2021 at 8:47 Approved by: Ashish Helton M.D. on 04/02/2021 at 8:48
[2021-04-02 00:32] LABS: Add Manual Diff / Slide Review NO; Basophils Absolute Auto 100 /uL (0-100); Eosinophils Absolute Auto 100 /uL (0-450); Eosinophils Percent Auto 1.1 % (2-4); Hematocrit 42.6 % (41-53); Hemoglobin 13.9 g/dL (13.5-17.5); Lymphocytes Absolute Auto 1600 /uL (1100-4500); Lymphocytes Percent Auto 27.1 % (25-40); Mean Corpuscular HGB Conc 32.7 % (30-36); Mean Corpuscular Hemoglobin 29.2 PG (26-34); Mean Corpuscular Volume 89.4 fL (80-100); Monocytes Absolute Auto 500 /uL (0-900); Monocytes Percent Auto 7.9 % (3-14); Neutrophils Absolute Auto 3600 /uL (1500-7000); Neutrophils Percent Auto 62.9 % (50-75); Platelet Count 113 X10^3/uL (150-400); Red Blood Cell Count 4.77 X10^6/uL (4.5-5.9); Red Cell Distribution Width 14.3 % (11.6-14.8); White Blood Cell Count 5.7 X10^3/uL (4.5-11.0)
[2021-04-02 00:44] LABS: Uric Acid 6.2 mg/dL (3.5-8.5)
[2021-04-02 00:47] LABS: Erythrocyte Sedimentation Rate 4 MM/HR (0-15)
[2021-04-02 01:03] LABS: C-Reactive Protein Quant 0.6 mg/dL (<1.0)
[2021-04-02] MEDS: HYDROCODONE/ACET 5/325 PREPACK 1 BOTTLE MISC (01:07)
[2021-04-02 01:17] VITALS: BP 126/66; PULSE 82; RESP 18; O2SAT 97
== END 2021-04-02 02:16 | disposition home or self-care (01) ==
PROVIDERS: Emergency Provider Emergency Medicine; Family Provider Family Medicine; PCP Family Medicine
DX: G62.9 Polyneuropathy, unspecified (principal); M79.672 Pain in left foot
CPT/HCPCS: 36415; 73630; 84550; 85025; 85651; 86140; 99284

== ENCOUNTER 2022-04-08 12:27 | Emergency (ER) | payer MEDICARE, OTHER, SELFPAY ==
[2020-08-15 12:03] VITALS: BMI 31.4
[2022-04-08] VITALS (14 sets, daily range): BP systolic 107–175; BP diastolic 61–82; PULSE 59–86; RESP 17–24; TEMP 36.7; O2SAT 91–98; BMI 27.0
--- NOTE | 2022-04-08 12:36 | DI.RAD.S_ITS ---
PROCEDURE: XR CHEST 1V INDICATIONS: chest pain TECHNIQUE: One view of the chest was acquired. COMPARISON: [facility], , CHEST 1VW (PORTABLE), 08/01/2013, 17:12. FINDINGS: Surgical changes and devices: Sternal wires. Lungs and pleura: Diffuse interstitial opacities are present, mildly increased compared to prior exam. Mediastinum: Mediastinal contours appear normal. Heart size is normal. Bones and chest wall: No suspicious bony lesions. Overlying soft tissues appear unremarkable. IMPRESSION: Diffuse interstitial opacities suggestive of chronic lung disease. However, given increased appearance, opacities could be secondary to edema versus pneumonia. Dictated by: Junie Gomez M.D. on 04/08/2022 at 13:42 Approved by: Junie Gomez M.D. on 04/08/2022 at 13:43
--- NOTE | 2022-04-08 12:38 | ED.CHESTPAIN ---
HPI - Chest Pain <Lokesh Newman PA-C - Last Filed: 04/08/22 16:17> General Chief Complaint: Chest Pain Stated Complaint: Chest pain,SOB History of Present Illness HPI narrative: Pt is a 81 y/o male who presents to the ED C/o Right sided chest pain that started this morning. He states that he has never had this pain before, he describes the pain to be a sharp stabbing pain that radiates into the center of his chest. Pain is increased with inspiration. He has a HX of previous CVA and VT. He has had 2 CABG surgeries, last one was in 2018. He denies any nausea, vomiting, diarrhea, fever, cough. He is on home oxygen at 2 lpm. He was exposed to agent orange in the and has been told he has inflammatory lung disease. Pt denies taking any medication prior to arrival. Pt became concerned about his pain being a new pain, he called EMS. EMS reported no acute changes on EKG. He reported a history of DM Type II and is on Lantus. His sugar was elevated above 200. Related Data Home Medications Medication Instructions Recorded Confirmed ESOMEPRAZOLE SODIUM (NEXIUM) 20 mg PO QDAY ##0 02/19/13 08/15/20 insulin glargine 100 unit/mL 50 unit SUBCUT DAILY ##0 02/19/13 08/15/20 subcutaneous solution (Lantus U-100 Insulin) metformin 1,000 mg tablet 500 mg PO BID ##0 02/19/13 08/15/20 (Glucophage) simvastatin 40 mg tablet (Zocor) 40 mg PO DAILY ##0 02/19/13 08/15/20 gabapentin 300 mg capsule 300 mg PO BEDTIME 08/15/20 08/15/20 rivaroxaban 15 mg tablet (Xarelto) 15 mg PO QPM 08/15/20 08/15/20 Previous Rx's Medication Instructions Recorded oxycodone-acetaminophen 5 mg-325 1 tab PO Q6H PRN pain #14 tabs 06/05/20 mg tablet polyethylene glycol 3350 17 gram 17 gram PO DAILY PRN constipation 06/05/20 oral powder packet (Miralax) #14 ea hydrocodone 5 mg-acetaminophen 325 1 tab PO Q4-6H PRN pain #10 tabs 04/02/ mg tablet Allergies Allergy/AdvReac Type Severity Reaction Status Date / Time adhesive AdvReac Verified 08/15/20 10:05 Review of Systems <Lokesh Newman PA-C - Last Filed: 04/08/22 16:17> Review of Systems ROS Unobtainable: All systems reviewed & are unremarkable except as noted in HPI and below Constitutional Constitutional: Reports as per HPI Eyes Eyes: Reports system reviewed and no additional complaints, except as documented ENT Ears, Nose, Mouth, and Throat: Reports system reviewed and no additional complaints, except as documented Cardiovascular Cardiovascular: Reports system reviewed and no additional complaints, except as documented, Reports chest pain, Reports dyspnea and Reports dyspnea on exertion Respiratory Respiratory: Reports system reviewed and no additional complaints, except as documented, Reports dyspnea and Reports dyspnea on exertion Gastrointestinal Gastrointestinal: Reports system reviewed and no additional complaints, except as documented Patient History <Lokesh Newman PA-C - Last Filed: 04/08/22 16:17> Medical History Anticoagulated ASCVD (arteriosclerotic cardiovascular disease) Colon cancer Diabetes type 2, controlled Diabetic neuropathy History of stroke Hyperlipidemia Hypertension Surgical History History of partial colectomy Status post aorto-coronary artery bypass graft Family History Father Medical history unknown Mother Hypertension Brother Cancer Grandmother Diabetes mellitus Brother Cancer Social History household members: none Smoking Status: Former smoker alcohol intake: current Smoking Status: Former smoker alcohol intake frequency: holidays/special occasions only Substance Use Type: does not use Exam <Lokesh Newman PA-C - Last Filed: 04/08/22 16:17> Initial Vital Signs Initial Vital Signs: Vital Signs Temperature 98.1 F 04/08/22 12:30 Pulse Rate 79 04/08/22 12:30 Respiratory Rate 24 04/08/22 12:30 Blood Pressure 140/82 04/08/22 12:30 Pulse Oximetry 94 04/08/22 12:30 Oxygen Delivery Method 04/08/22 12:30 Oxygen Flow Rate 2 04/08/22 12:30 Const General: cooperative, healthy appearing and comfortable Nutritional Appearance: average body habitus [facility] Head: normal to inspection, normocephalic and atraumatic Ears: hearing grossly normal bilaterally and external ears normal Nose: external nose normal and nares normal Face and sinus: normal facial exam and sinuses nontender Mouth: oral mucosae normal Teeth and gingiva: dentition normal and gingiva normal Neck Neck: normal visual inspection, full ROM, no meningeal signs and supple Chest Chest: normal inspection of the chest and normal palpation of entire chest wall Breast inspection: normal inspection of the breasts Breast Palpation: normal palpation of the breasts Resp Effort & Inspection: normal respiratory effort and able to speak in complete sentences Auscultation: tactile fremitus present on the right Tactile Fremitus: tactile fremitus present Cardio Palpation: normal PMI Rate: regular rate Rhythm: regular rhythm Heart Sounds: S1 normal and S2 normal GI Inspection: normal to inspection Palpation: soft and no hepatosplenomegaly Percussion: normal to percussion Auscultation: normal bowel sounds <Domi Vidales DO - Last Filed: 04/09/22 09:16> Initial Vital Signs Initial Vital Signs: Vital Signs Temperature 98.1 F 04/08/22 12:30 Pulse Rate 79 04/08/22 12:30 Respiratory Rate 24 04/08/22 12:30 Blood Pressure 140/82 04/08/22 12:30 Pulse Oximetry 94 04/08/22 12:30 Oxygen Delivery Method 04/08/22 12:30 Oxygen Flow Rate 2 04/08/22 12:30 Scores <GRISELDA Kovacs Last Filed: 04/08/22 16:17> Wells' Criteria for PE Clinical signs and symptoms of DVT: No PE is #1 Dx or equally likely: No Heart rate > 100: No Immobilization at least 3 days or surg in previous 4 weeks: No History of PE or DVT: No Hemoptysis: No Malignancy w/Treatment within 6 months or palliative: No Wells' PE Score total: 0 <DO Kvng [place] Last Filed: 04/09/22 09:16> Wells' Criteria for PE Wells' PE Score total: 0 Course <GRISELDA Kovacs Last Filed: 04/08/22 16:17> Orders Ordered: Discontinued Medications Ketorolac Tromethamine (Ketorolac 30 Mg/Ml Vial) 30 mg IV NOW ONE Stop: 04/08/22 16:09 Last Admin: 04/08/22 16:12 Dose: 30 mg Documented By: MING Reevaluation(s) Reevaluation #1: Patient continuing to have right-sided abdominal pain that he believes is radiating into his right armpit. It is reproducible with palpation I think it is likely musculoskeletal related etiology. Some anti-inflammatories would be a good option for him at this point. Toradol was ordered Vital Signs Vital signs: Vital Signs - 8 hr 04/08/22 12:30 04/08/22 12:33 04/08/22 12:34 Temperature 98.1 F Pulse Rate 79 86 79 Respiratory Rate 24 22 Blood Pressure 140/82 Pulse Oximetry 94 Oxygen Delivery Method Nasal Cannula Oxygen Flow Rate 2 04/08/22 12:34 04/08/22 13:00 04/08/22 13:30 Temperature Pulse Rate 70 Respiratory Rate Blood Pressure 140/82 107/61 Pulse Oximetry 96 Oxygen Delivery Method Oxygen Flow Rate 04/08/22 13:30 04/08/22 14:00 04/08/22 14:31 Temperature Pulse Rate 69 66 65 Respiratory Rate 19 21 Blood Pressure Pulse Oximetry 96 91 98 Oxygen Delivery Method Oxygen Flow Rate 04/08/22 14:32 04/08/22 14:32 04/08/22 15:00 Temperature Pulse Rate 63 65 Respiratory Rate 19 22 Blood Pressure 175/80 H Pulse Oximetry 97 96 Oxygen Delivery Method Oxygen Flow Rate 04/08/22 15:01 04/08/22 15:01 04/08/22 15:30 Temperature Pulse Rate 64 66 Respiratory Rate 20 24 Blood Pressure 144/69 H Pulse Oximetry 95 92 Oxygen Delivery Method Oxygen Flow Rate 04/08/22 16:00 Temperature Pulse Rate 60 Respiratory Rate 18 Blood Pressure Pulse Oximetry 91 Oxygen Delivery Method Oxygen Flow Rate <Domi Vidales, DO - Last Filed: 04/09/22 09:16> Orders Ordered: Discontinued Medications Ketorolac Tromethamine (Ketorolac 30 Mg/Ml Vial) 30 mg IV NOW ONE Stop: 04/08/22 16:09 Last Admin: 04/08/22 16:12 Dose: 30 mg Documented By: MING Vital Signs Vital signs: Vital Signs - 8 hr 04/08/22 12:30 04/08/22 12:33 04/08/22 12:34 Temperature 98.1 F Pulse Rate 79 86 79 Respiratory Rate 24 22 Blood Pressure 140/82 Pulse Oximetry 94 Oxygen Delivery Method Nasal Cannula Oxygen Flow Rate 2 04/08/22 12:34 04/08/22 13:00 04/08/22 13:30 Temperature Pulse Rate 70 Respiratory Rate Blood Pressure 140/82 107/61 Pulse Oximetry 96 Oxygen Delivery Method Oxygen Flow Rate 04/08/22 13:30 04/08/22 14:00 04/08/22 14:31 Temperature Pulse Rate 69 66 65 Respiratory Rate 19 21 Blood Pressure Pulse Oximetry 96 91 98 Oxygen Delivery Method Oxygen Flow Rate 04/08/22 14:32 04/08/22 14:32 04/08/22 15:00 Temperature Pulse Rate 63 65 Respiratory Rate 19 22 Blood Pressure 175/80 H Pulse Oximetry 97 96 Oxygen Delivery Method Oxygen Flow Rate 04/08/22 15:01 04/08/22 15:01 04/08/22 15:30 Temperature Pulse Rate 64 66 Respiratory Rate 20 24 Blood Pressure 144/69 H Pulse Oximetry 95 92 Oxygen Delivery Method Oxygen Flow Rate 04/08/22 16:00 Temperature Pulse Rate 60 Respiratory Rate 18 Blood Pressure Pulse Oximetry 91 Oxygen Delivery Method Oxygen Flow Rate MDM - Chest Pain <Lokesh Newman PA-C - Last Filed: 04/08/22 16:17> Differential Diagnosis Differential diagnosis: Likely chest pain Lab Data Result diagrams: 04/08/22 12:41 04/08/22 12:41 Labs: Lab Results 04/08/22 04/08/22 04/08/22 Range/Units 12:41 12:41 12:41 WBC 5.9 (4.5-11.0) X10^3/uL RBC 4.70 (4.5-5.9) X10^6/uL Hgb 14.0 (13.5-17.5) g/dL Hct 42.1 (41-53) % MCV 89.5 (80-100) fL MCH 29.8 (26-34) PG MCHC 33.4 (30-36) % RDW 14.2 (11.6-14.8) % Plt Count 111 L (150-400) X10^3/uL Neut % (Auto) 65.4 (50-75) % Lymph % (Auto) 24.8 L (25-40) % [place] % (Auto) 7.0 (3-14) % Eos % (Auto) 2.0 (2-4) % Baso % (Auto) 0.8 (0-2) % Neut # (Auto) 3800 (3097-0649) /uL Lymph # (Auto) 1500 (3860-3165) /uL [place] # (Auto) 400 (0-900) /uL Eos # (Auto) 100 (0-450) /uL Baso # (Auto) 0 (0-100) /uL PT 11.8 (10.1-12.7) SECONDS INR 1.1 (0.9-1.3) APTT 32 (26.4-36.2) SECONDS D-Dimer 789 H (<230) ng/mL Sodium 139 (137-145) mmol/L Potassium 4.3 (3.4-5.1) mmol/L Chloride 103 (98-107) mmol/L Carbon Dioxide 30 (22-32) mmol/L BUN 19 (9-20) mg/dL Creatinine 1.22 (0.66-1.25) mg/dL Estimated GFR 59 L (>60) mL/min BUN/Creatinine Ratio 15.6 (6-22) Glucose 223 H (80-110) mg/dL Calcium 8.9 (8.4-10.2) mg/dL Total Bilirubin 1.6 H (0.2-1.3) mg/dL AST 43 (17-59) IU/L ALT 27 (<50) IU/L Alkaline Phosphatase 86 (38-126) U/L Total Creatine Kinase 50 L (55-170) U/L CK-MB (CK-2) TNP CK-MB (CK-2) Rel Index TNP Troponin I < 0.012 (0.01-0.034) ng/mL NT-Pro-B Natriuret Pep 207 (<450) pg/mL Total Protein 6.9 (6.3-8.2) g/dL Albumin 4.0 (3.5-5.0) g/dL Globulin 2.9 (1.7-4.1) g/dL Albumin/Globulin Ratio 1.4 (1.0-2.8) Lipase 130 (23-300) U/L SARS-CoV-2 (PCR) (Negative) 04/08/22 Range/Units 12:41 WBC (4.5-11.0) X10^3/uL RBC (4.5-5.9) X10^6/uL Hgb (13.5-17.5) g/dL Hct (41-53) % MCV (80-100) fL MCH (26-34) PG MCHC (30-36) % RDW (11.6-14.8) % Plt Count (150-400) X10^3/uL Neut % (Auto) (50-75) % Lymph % (Auto) (25-40) % [place] % (Auto) (3-14) % Eos % (Auto) (2-4) % Baso % (Auto) (0-2) % Neut # (Auto) (4842-4980) /uL Lymph # (Auto) (1434-6574) /uL [place] # (Auto) (0-900) /uL Eos # (Auto) (0-450) /uL Baso # (Auto) (0-100) /uL PT (10.1-12.7) SECONDS INR (0.9-1.3) APTT (26.4-36.2) SECONDS D-Dimer (<230) ng/mL Sodium (137-145) mmol/L Potassium (3.4-5.1) mmol/L Chloride (98-107) mmol/L Carbon Dioxide (22-32) mmol/L BUN (9-20) mg/dL Creatinine (0.66-1.25) mg/dL Estimated GFR (>60) mL/min BUN/Creatinine Ratio (6-22) Glucose (80-110) mg/dL Calcium (8.4-10.2) mg/dL Total Bilirubin (0.2-1.3) mg/dL AST (17-59) IU/L ALT (<50) IU/L Alkaline Phosphatase (38-126) U/L Total Creatine Kinase (55-170) U/L CK-MB (CK-2) CK-MB (CK-2) Rel Index Troponin I (0.01-0.034) ng/mL NT-Pro-B Natriuret Pep (<450) pg/mL Total Protein (6.3-8.2) g/dL Albumin (3.5-5.0) g/dL Globulin (1.7-4.1) g/dL Albumin/Globulin Ratio (1.0-2.8) Lipase (23-300) U/L SARS-CoV-2 (PCR) Negative (Negative) Imaging Data Chest x-ray: Radiologist's Impression: Close Chest CT (Signed) Emily Zelaya - 04/08/22 Chest X-Ray (Signed) Junie Gomez - 04/08/22 Foot X-Ray (Signed) SunithaPaddy hessalen - 04/01/21 Brain MRI (Signed) Emily Zelaya - 08/15/20 Telemetry Strips 08/15/[address] (Signed) Jessie Richey - 08/15/20 Echocardiogram Ultrasound (Signed) Jay Juarez - 08/15/[address] (Signed) Hiro Collins - 06/05/20 Chest/Abdomen/Pelvis CT (Signed) Hiro Collins - 06/05/[address] (Signed) Hiro Collins - 06/05/20 Radiology Report (Cancelled) Bakari Avendaño - 01/17/20 Myocardial Perfusion Scan Nuc Med (Signed) Bakari Avendaño - 01/17/20 Launch?[place] [address] XRay Report Signed Patient: Regino Walker MR#: [id number] : 1940 Acct:[id number] Age/Sex: 81 / M Date of Service: 04/08/22 Loc: ED Accession Number: [id number] ?? Procedure: XR chest 1V Ordering Provider: Lokesh Newman P.A-C PROCEDURE:? XR CHEST 1V ? INDICATIONS:? chest pain ? TECHNIQUE:? One view of the chest was acquired.? ? COMPARISON:? [facility], , CHEST 1VW (PORTABLE), 08/01/2013, 17:12. ? FINDINGS:? ? Surgical changes and devices:? Sternal wires. ? Lungs and pleura:? Diffuse interstitial opacities are present, mildly increased compared to prior exam. ? Mediastinum:? Mediastinal contours appear normal.? Heart size is normal.? ? Bones and chest wall:? No suspicious bony lesions.? Overlying soft tissues appear unremarkable.? ? IMPRESSION:? Diffuse interstitial opacities suggestive of chronic lung disease.? However, given increased appearance, opacities could be secondary to edema versus pneumonia. ? ? Dictated by: Junie Gomez M.D. on 04/08/2022 at 13:42 ? ? Approved by: Junie Gomez M.D. on 04/08/2022 at 13:43?? CT scan - chest: Radiologist's Impression: Close Chest CT (Signed) Emily Zelaya - 04/08/22 Chest X-Ray (Signed) Junie Gomez - 04/08/22 Foot X-Ray (Signed) Hope Helton - 04/01/21 Brain MRI (Signed) Emily Zelaya - 08/15/20 Telemetry Strips 08/15/[address] (Signed) Jessie Richey - 08/15/20 Echocardiogram Ultrasound (Signed) Jay Juarez - 08/15/[address] (Signed) Hiro Collins - 06/05/20 Chest/Abdomen/Pelvis CT (Signed) Hiro Collins - 06/05/[address] (Signed) Hiro Collins - 06/05/20 Radiology Report (Cancelled) Bakari Avendaño - 01/17/20 Myocardial Perfusion Scan Nuc Med (Signed) Bakari Avendaño - 01/17/20 Launch?[place] [address] XRay Report Signed Patient: Regino Walker MR#: [id number] : 1940 Acct:[id number] Age/Sex: 81 / M Date of Service: 04/08/22 Loc: Accession Number: [id number] ?? Procedure: XR chest 1V Ordering Provider: Lokesh Newman P.A-C PROCEDURE:? XR CHEST 1V ? INDICATIONS:? chest pain ? TECHNIQUE:? One view of the chest was acquired.? ? COMPARISON:? [facility], , CHEST 1VW (PORTABLE), 08/01/2013, 17:12. ? FINDINGS:? ? Surgical changes and devices:? Sternal wires. ? Lungs and pleura:? Diffuse interstitial opacities are present, mildly increased compared to prior exam. ? Mediastinum:? Mediastinal contours appear normal.? Heart size is normal.? ? Bones and chest wall:? No suspicious bony lesions.? Overlying soft tissues appear unremarkable.? ? IMPRESSION:? Diffuse interstitial opacities suggestive of chronic lung disease.? However, given increased appearance, opacities could be secondary to edema versus pneumonia. ? ? Dictated by: Junie Gomez M.D. on 04/08/2022 at 13:42 ? ? Approved by: Junie Gomez M.D. on 04/08/2022 at 13:43?? MDM Narrative Medical decision making narrative: Patient was seen today for his right-sided chest pain radiating into his right armpit. Pain was reproducible with palpation and is likely musculoskeletal in nature. Labs and x-rays do not show any evidence of any likely cause for his pain. Anti-inflammatories would be recommended and he should follow up with his PCP. Patient will be discharged home. <Domi Vidales DO - Last Filed: 04/09/22 09:16> Lab Data Labs: Lab Results 04/08/22 04/08/22 04/08/22 Range/Units 12:41 12:41 12:41 WBC 5.9 (4.5-11.0) X10^3/uL RBC 4.70 (4.5-5.9) X10^6/uL Hgb 14.0 (13.5-17.5) g/dL Hct 42.1 (41-53) % MCV 89.5 (80-100) fL MCH 29.8 (26-34) PG MCHC 33.4 (30-36) % RDW 14.2 (11.6-14.8) % Plt Count 111 L (150-400) X10^3/uL Neut % (Auto) 65.4 (50-75) % Lymph % (Auto) 24.8 L (25-40) % [place] % (Auto) 7.0 (3-14) % Eos % (Auto) 2.0 (2-4) % Baso % (Auto) 0.8 (0-2) % Neut # (Auto) 3800 (0178-9853) /uL Lymph # (Auto) 1500 (1899-1958) /uL [place] # (Auto) 400 (0-900) /uL Eos # (Auto) 100 (0-450) /uL Baso # (Auto) 0 (0-100) /uL PT 11.8 (10.1-12.7) SECONDS INR 1.1 (0.9-1.3) APTT 32 (26.4-36.2) SECONDS D-Dimer 789 H (<230) ng/mL Sodium 139 (137-145) mmol/L Potassium 4.3 (3.4-5.1) mmol/L Chloride 103 (98-107) mmol/L Carbon Dioxide 30 (22-32) mmol/L BUN 19 (9-20) mg/dL Creatinine 1.22 (0.66-1.25) mg/dL Estimated GFR 59 L (>60) mL/min BUN/Creatinine Ratio 15.6 (6-22) Glucose 223 H (80-110) mg/dL Calcium 8.9 (8.4-10.2) mg/dL Total Bilirubin 1.6 H (0.2-1.3) mg/dL AST 43 (17-59) IU/L ALT 27 (<50) IU/L Alkaline Phosphatase 86 (38-126) U/L Total Creatine Kinase 50 L (55-170) U/L CK-MB (CK-2) TNP CK-MB (CK-2) Rel Index TNP Troponin I < 0.012 (0.01-0.034) ng/mL NT-Pro-B Natriuret Pep 207 (<450) pg/mL Total Protein 6.9 (6.3-8.2) g/dL Albumin 4.0 (3.5-5.0) g/dL Globulin 2.9 (1.7-4.1) g/dL Albumin/Globulin Ratio 1.4 (1.0-2.8) Lipase 130 (23-300) U/L SARS-CoV-2 (PCR) (Negative) 04/08/22 Range/Units 12:41 WBC (4.5-11.0) X10^3/uL RBC (4.5-5.9) X10^6/uL Hgb (13.5-17.5) g/dL Hct (41-53) % MCV (80-100) fL MCH (26-34) PG MCHC (30-36) % RDW (11.6-14.8) % Plt Count (150-400) X10^3/uL Neut % (Auto) (50-75) % Lymph % (Auto) (25-40) % [place] % (Auto) (3-14) % Eos % (Auto) (2-4) % Baso % (Auto) (0-2) % Neut # (Auto) (2346-0072) /uL Lymph # (Auto) (4570-6283) /uL [place] # (Auto) (0-900) /uL Eos # (Auto) (0-450) /uL Baso # (Auto) (0-100) /uL PT (10.1-12.7) SECONDS INR (0.9-1.3) APTT (26.4-36.2) SECONDS D-Dimer (<230) ng/mL Sodium (137-145) mmol/L Potassium (3.4-5.1) mmol/L Chloride (98-107) mmol/L Carbon Dioxide (22-32) mmol/L BUN (9-20) mg/dL Creatinine (0.66-1.25) mg/dL Estimated GFR (>60) mL/min BUN/Creatinine Ratio (6-22) Glucose (80-110) mg/dL Calcium (8.4-10.2) mg/dL Total Bilirubin (0.2-1.3) mg/dL AST (17-59) IU/L ALT (<50) IU/L Alkaline Phosphatase (38-126) U/L Total Creatine Kinase (55-170) U/L CK-MB (CK-2) CK-MB (CK-2) Rel Index Troponin I (0.01-0.034) ng/mL NT-Pro-B Natriuret Pep (<450) pg/mL Total Protein (6.3-8.2) g/dL Albumin (3.5-5.0) g/dL Globulin (1.7-4.1) g/dL Albumin/Globulin Ratio (1.0-2.8) Lipase (23-300) U/L SARS-CoV-2 (PCR) Negative (Negative) Discharge Plan Departure Patient Disposition: Home Clinical Impression: Atypical chest pain Instructions: DI for Atypical Chest Pain Activity Restrictions/Additional Instructions: Your chest pain today is likely a result of musculoskeletal pain. You can take pain medications like ibuprofen for your pain and discomfort. If your symptoms worsen or you have any other difficulty you can always return to the emergency room for re-evaluation. Otherwise you can follow-up with your regular doctor. Thank you for the opportunity to care for you today. Prescriptions: No Action Lantus U-100 Insulin 100 UNIT/1 ML solution 50 unit SUBCUT DAILY Qty: 0 simvastatin [Zocor] 40 MG tablet 40 mg PO DAILY Qty: 0 metformin [Glucophage] 1,000 MG tablet 500 mg PO BID Qty: 0 ESOMEPRAZOLE SODIUM (NEXIUM) 20 mg PO QDAY Qty: 0 Xarelto 15 mg Tablet 15 mg PO QPM gabapentin 300 mg Capsule 300 mg PO BEDTIME hydrocodone-acetaminophen 5-325 mg tablet 1 tab PO Q4-6H PRN (Reason: pain) Qty: 10 0RF oxycodone-acetaminophen 5-325 mg tablet 1 tab PO Q6H PRN (Reason: pain) Qty: 14 0RF polyethylene glycol 3350 [Miralax] 17 gram powder in packet 17 gram PO DAILY PRN (Reason: constipation) Qty: 14 0RF Referrals: Jona Chavez MD [Primary Care Provider] - Visit Report Forms: Patient Portal/API <Domi Vidales, - Last Filed: 04/09/22 09:16> Cosign ED Attending Srinivasaature Attestation: I was immediately available in the department for consultation. Documentation has been reviewed. I agree with assessment and plan. After reviewing chart it appears that patient is on Xarelto and was told to take ibuprofen for possible musculoskeletal strain. Called patient this morning and spoke to him he says he still in quite a bit of pain it sounds like it is right upper quadrant and right-sided chest pain. Bilirubin is noted to be elevated patient says that he still has his gallbladder. Possible cholelithiasis. I instructed him to stop taking ibuprofen with sterile took a 2nd increased bleeding. I also strongly recommended him to return if pain continues to get worse as he may need further evaluation including his gallbladder. Patient understands. I also instructed him that he may call 911 and come by ambulance if needed.
[2022-04-08 13:05] LABS: Add Manual Diff / Slide Review NO; Basophils Absolute Auto 0 /uL (0-100); Basophils Percent Auto 0.8 % (0-2); Eosinophils Absolute Auto 100 /uL (0-450); Hematocrit 42.1 % (41-53); Lymphocytes Absolute Auto 1500 /uL (1100-4500); Lymphocytes Percent Auto 24.8 % (25-40); Mean Corpuscular HGB Conc 33.4 % (30-36); Mean Corpuscular Hemoglobin 29.8 PG (26-34); Mean Corpuscular Volume 89.5 fL (80-100); Monocytes Absolute Auto 400 /uL (0-900); Neutrophils Absolute Auto 3800 /uL (1500-7000); Neutrophils Percent Auto 65.4 % (50-75); Platelet Count 111 X10^3/uL (150-400); Red Cell Distribution Width 14.2 % (11.6-14.8); White Blood Cell Count 5.9 X10^3/uL (4.5-11.0)
--- NOTE | 2022-04-08 13:06 | PC.NURSE ---
Pt reports intermittent, sharp, chest pain in his upper right chest, 2/10 at rest and 9/10 at peak that began this morning around 0200. Pt given aspirin via EMS. Pt reports being on 2 L of O2 at home normally and it always a bit short of breath. Pt reports hx of 3 CT's and 3 strokes. RR 20, 97% on 2 L NC. Call light within reach.
[2022-04-08 13:17] LABS: Alanine Aminotransferase 27 IU/L (<50); Albumin Globulin Ratio 1.4 (1.0-2.8); Alkaline Phosphatase 86 U/L (38-126); Aspartate Aminotransferase 43 IU/L (17-59); BUN Creatinine Ratio 15.6 (6-22); Bilirubin Total 1.6 mg/dL (0.2-1.3); Blood Urea Nitrogen 19 mg/dL (9-20); Calcium 8.9 mg/dL (8.4-10.2); Carbon Dioxide 30 mmol/L (22-32); Chloride 103 mmol/L (98-107); Creatine Kinase 50 U/L (55-170); Estimated Glomerular Filt Rate 59 mL/min (>60); Globulin 2.9 g/dL (1.7-4.1); Glucose 223 mg/dL (80-110); HEMOLYSIS < 15 (0-50); Lipase 130 U/L (23-300); Potassium 4.3 mmol/L (3.4-5.1); Sodium 139 mmol/L (137-145); Total Protein 6.9 g/dL (6.3-8.2)
[2022-04-08 13:19] LABS: COVID19 -Nasal RAPID Negative (Negative); INR 1.1 (0.9-1.3); Prothrombin Time 11.8 SECONDS (10.1-12.7)
[2022-04-08 13:22] LABS: D Dimer 789 ng/mL (<230); PTT Partial Thromboplastin Tim 32 SECONDS (26.4-36.2)
[2022-04-08 13:28] LABS: NT-proBNP (BNP-Adult 18+) 207 pg/mL (<450); Troponin I < 0.012 ng/mL (0.01-0.034)
--- NOTE | 2022-04-08 14:20 | DI.CT.S_ITS ---
PROCEDURE: CT CHEST WO CON INDICATIONS: Chest pain (pneumonia vs edema) TECHNIQUE: Noncontrast 5 mm thick sections acquired from the pulmonary apices to the posterior costophrenic angles. 1 mm lung window, 5 mm thick coronal and sagittal and 7 mm axial MIP reformats were then acquired. For radiation dose reduction, the following was used: automated exposure control, adjustment of mA and/or kV according to patient size. COMPARISON: [facility], CT, CT CHEST ABD PEL W CON, 06/05/2020, 13:10. [facility], CR, CHEST 1VW (PORTABLE), 08/01/2013, 17:12. [facility], CR, XR CHEST 1V, 04/08/2022, 12:55. FINDINGS: Image quality: Excellent. Lungs and pleura: Extensive honeycombing fibrosis is present bilaterally, more confluent on the right than on the left. Bronchiectasis is present at the bilateral lung bases. The extent of fibrotic changes increased when compared with the CT dated June 05, 2020. There is some interlobular septal thickening within the fibrotic portions of the lungs suggesting superimposed edema. No pulmonary consolidation. No pleural effusion or pneumothorax. Mediastinum: Heart size is mildly enlarged. No pericardial effusion. No mediastinal adenopathy by size criteria. Thoracic aorta and central pulmonary arteries are normal in size. Scattered atheromatous calcifications are present within the aortic arch. Esophagus is normal in caliber. No hiatal hernia. Bones and chest wall: No suspicious bony lesions. No vertebral body compression fractures. No axillary or supraclavicular adenopathy by size criteria. Thyroid gland is unremarkable . Abdomen: Visualized upper abdominal solid organs and bowel loops appear normal in the absence of contrast. IMPRESSION: 1. Extensive bilateral honeycombing fibrosis, increased when compared with the study dated 06/05/20. Interlobular septal thickening suggests superimposed pulmonary edema. 2. No airspace consolidation to suggest aspiration or infection. Dictated by: Emily Zelaya M.D. on 04/08/2022 at 14:39 Approved by: Emily Zelaya M.D. on 04/08/2022 at 14:43
[2022-04-08] MEDS: KETOROLAC 30 MG/ML VIAL IV (16:12)
== END 2022-04-08 16:46 | disposition home or self-care (01) ==
PROVIDERS: Emergency Provider Physician Assistant; Family Provider Family Medicine; PCP Family Medicine
DX: R07.89 Other chest pain (principal); R06.00 Dyspnea, unspecified; Z20.822 Contact with and (suspected) exposure to COVID-19
CPT/HCPCS: 36415; 71045; 71250; 80053; 82550; 83690; 83880; 84484; 85025; 85379; 85610; 85730; 87635; 93005; 93010; 96374; 99284; 99285; C9803; J1885

== ENCOUNTER 2022-04-09 10:41 | Emergency (ER) | payer MEDICARE, OTHER, SELFPAY ==
[2020-08-15 12:03] VITALS: BMI 31.4
[2022-04-09] VITALS (10 sets, daily range): BP systolic 102–120; BP diastolic 57–80; PULSE 72–95; RESP 15–22; TEMP 37; O2SAT 88–94; BMI 27.0
--- NOTE | 2022-04-09 10:51 | ED_ITS ---
HPI - Chest Pain General Chief Complaint: Chest Pain Stated Complaint: Chest and Abdominal Pain, MD Requested back Time Seen by Provider: 04/09/22 10:45 Source: patient Mode of arrival: EMS Limitations: no limitations History of Present Illness HPI narrative: Patient is a 81-year-old male who has history of diabetes, coronary artery disease, CVA, on Xarelto hyperlipidemia, chronic oxygen, presenting today at my request. He was seen evaluated here yesterday for right-sided chest pain shooting up into his armpit. It started yesterday morning sharp and stabbing radiating to the center of his chest. He was instructed to take ibuprofen for the pain. It Was noted bilirubin was mildly elevated in he was instructed to return if pain got worse to return. Today patient actually does have some mild right upper quadrant pain. He denies any nausea or vomiting. He has not having any left-sided chest discomfort. Pain is still out of control Related Data Home Medications Medication Instructions Recorded Confirmed ESOMEPRAZOLE SODIUM (NEXIUM) 20 mg PO QDAY ##0 02/19/13 08/15/20 insulin glargine 100 unit/mL 50 unit SUBCUT DAILY ##0 02/19/13 08/15/20 subcutaneous solution (Lantus U-100 Insulin) metformin 1,000 mg tablet 500 mg PO BID ##0 02/19/13 08/15/20 (Glucophage) simvastatin 40 mg tablet (Zocor) 40 mg PO DAILY ##0 02/19/13 08/15/20 gabapentin 300 mg capsule 300 mg PO BEDTIME 08/15/20 08/15/20 rivaroxaban 15 mg tablet (Xarelto) 15 mg PO QPM 08/15/20 08/15/20 Previous Rx's Medication Instructions Recorded oxycodone-acetaminophen 5 mg-325 1 tab PO Q6H PRN pain #14 tabs 06/05/20 mg tablet polyethylene glycol 3350 17 gram 17 gram PO DAILY PRN constipation 06/05/20 oral powder packet (Miralax) #14 ea hydrocodone 5 mg-acetaminophen 325 1 tab PO Q4-6H PRN pain #10 tabs 04/02/ mg tablet hydrocodone 5 mg-acetaminophen 325 1 tab PO Q6H PRN pain #10 tabs 04/09/22 mg tablet hydrocodone 5 mg-acetaminophen 325 1 tab PO Q6H PRN pain #10 tabs 04/09/22 mg tablet Allergies Allergy/AdvReac Type Severity Reaction Status Date / Time adhesive AdvReac Verified 04/09/22 10:49 Review of Systems Review of Systems Narrative: GENERAL: Denies chills, fatigue, malaise, fever, sweats, travel HEENT: Denies sinus pain, ear pain, sore throat, difficulty swallowing, neck pain RESPIRATORY: Denies dyspnea, cough, wheezing, hemoptysis, sputum. CARDIOVASCULAR: See HPI GASTROINTESTINAL: See HPI : Denies dysuria, frequency, incontinence, hematuria, urinary retention, flank pain. MUSCULOSKELETAL: Denies weakness, joint pain, or bony pain SKIN: No rash, no erythema, no pruritus NEUROLOGIC: Denies weakness, dizziness, headache, numbness, change in speech, confusion PSYCHIATRIC: No concerning psychosocial issues. 12 point review of systems is negative except for those stated above and HPI Patient History Medical History Anticoagulated ASCVD (arteriosclerotic cardiovascular disease) Colon cancer Diabetes type 2, controlled Diabetic neuropathy History of stroke Hyperlipidemia Hypertension Surgical History History of partial colectomy Status post aorto-coronary artery bypass graft Family History Father Medical history unknown Mother Hypertension Brother Cancer Grandmother Diabetes mellitus Brother Cancer Social History household members: none Smoking Status: Former smoker alcohol intake: current Smoking Status: Former smoker alcohol intake frequency: holidays/special occasions only Substance Use Type: does not use Exam Initial Vital Signs Initial Vital Signs: Vital Signs Temperature 98.6 F 04/09/22 10:45 Pulse Rate 94 H 04/09/22 10:45 Respiratory Rate 15 04/09/22 10:45 Blood Pressure 120/75 04/09/22 10:45 Pulse Oximetry 91 04/09/22 10:45 Oxygen Delivery Method 04/09/22 10:45 Oxygen Flow Rate 2 04/09/22 10:45 GENERAL: Alert very pleasant 81-year-old male HEENT: Head atraumatic,EOMI, pupils reactive, face symmetric, moist mucous membranes CARDIOVASCULAR: Regular rate and rhythm without murmurs, rubs or gallops. RESPIRATORY: Breath sounds equal bilaterally, no wheezes rales or rhonchi. ABDOMEN: Soft, tender right upper quadrant positive Longo sign tender epigastric rest of abdomen is benign : No CVA tenderness EXTREMITIES: Normal range of motion, no clubbing or edema. Neurovascularly intact NEUROLOGICAL: Alert and oriented x4.Normal gait and speech. SKIN: Warm, dry, no laceration, no petechiae, no rashes or lesions. Course Orders Ordered: ED Orders 04/09/22 10:59 XR chest 1V Stat EKG-12 Lead Stat 04/09/22 11:00 US abdomen limited Stat 04/09/22 11:37 Complete Blood Count AUTO DIFF Stat Comprehensive Metabolic Panel Stat Lipase Stat Troponin & CK Cardiac Panel Stat 04/09/22 12:42 CT abdomen pelvis w con Stat Discontinued Medications Sodium Chloride (Normal Saline 0.9%) 1,000 mls @ 150 mls/hr IV CONT JAREK Last Infusion: 04/09/22 14:39 Dose: 0 mls/hr Documented By: Admin: 04/09/22 11:41 Dose: 150 mls/hr Documented By: MING Morphine Sulfate (Morphine 2 Mg/Ml Inj) 2 mg IV NOW ONE Stop: 04/09/22 11:01 Last Admin: 04/09/22 11:42 Dose: 2 mg Documented By: MING Vital Signs Vital signs: Vital Signs - 8 hr 04/09/22 11:30 04/09/22 11:51 04/09/22 11:51 Pulse Rate 83 84 Respiratory Rate Blood Pressure 102/57 L Pulse Oximetry 93 91 Oxygen Delivery Method Oxygen Flow Rate 04/09/22 12:00 04/09/22 12:02 04/09/22 12:05 Pulse Rate 79 78 76 Respiratory Rate 17 20 20 Blood Pressure Pulse Oximetry 93 93 93 Oxygen Delivery Method Oxygen Flow Rate 04/09/22 12:05 04/09/22 14:39 Pulse Rate 72 Respiratory Rate 22 Blood Pressure 102/61 115/80 Pulse Oximetry 94 Oxygen Delivery Method Nasal Cannula Oxygen Flow Rate 2 MDM - Chest Pain Lab Data Result diagrams: 04/09/22 11:37 04/09/22 11:37 Labs: Lab Results 04/09/22 04/09/22 Range/Units 11:37 11:37 WBC 5.9 (4.5-11.0) X10^3/uL RBC 4.67 (4.5-5.9) X10^6/uL Hgb 14.1 (13.5-17.5) g/dL Hct 42.1 (41-53) % MCV 90.3 (80-100) fL MCH 30.3 (26-34) PG MCHC 33.5 (30-36) % RDW 14.1 (11.6-14.8) % Plt Count 123 L (150-400) X10^3/uL Neut % (Auto) 69.0 (50-75) % Lymph % (Auto) 20.9 L (25-40) % [place] % (Auto) 7.0 (3-14) % Eos % (Auto) 2.0 (2-4) % Baso % (Auto) 1.1 (0-2) % Neut # (Auto) 4100 (3095-3343) /uL Lymph # (Auto) 1200 (3138-7032) /uL [place] # (Auto) 400 (0-900) /uL Eos # (Auto) 100 (0-450) /uL Baso # (Auto) 100 (0-100) /uL Sodium 140 (137-145) mmol/L Potassium 4.6 (3.4-5.1) mmol/L Chloride 103 (98-107) mmol/L Carbon Dioxide 31 (22-32) mmol/L BUN 22 H (9-20) mg/dL Creatinine 1.26 H (0.66-1.25) mg/dL Estimated GFR 57 L (>60) mL/min BUN/Creatinine Ratio 17.5 (6-22) Glucose 153 H (80-110) mg/dL Calcium 8.8 (8.4-10.2) mg/dL Total Bilirubin 1.9 H (0.2-1.3) mg/dL AST 31 (17-59) IU/L ALT 24 (<50) IU/L Alkaline Phosphatase 77 (38-126) U/L Total Creatine Kinase 44 L (55-170) U/L CK-MB (CK-2) TNP CK-MB (CK-2) Rel Index TNP Troponin I < 0.012 (0.01-0.034) ng/mL Total Protein 6.7 (6.3-8.2) g/dL Albumin 3.8 (3.5-5.0) g/dL Globulin 2.9 (1.7-4.1) g/dL Albumin/Globulin Ratio 1.3 (1.0-2.8) Lipase 600 H D (23-300) U/L Imaging Data US - abdomen: Radiologist's Impression: Ultrasound Report Signed Patient: Regino Walker MR#: [id number] : 1940 Acct:[id number] Age/Sex: 81 / M Date of Service: 04/09/22 Loc: ED Accession Number: [id number] ?? Procedure: US abdomen limited Ordering Provider: Domi Vidales D.O. PROCEDURE: US ABDOMEN LIMITED ? INDICATIONS:? RIGHT UPPER QUADRANT PAIN ? TECHNIQUE:? Real-time focused scanning was performed of the abdomen, with image documentation.? ? COMPARISON:? None. ? FINDINGS:? ? Liver is normal in size and echotexture. ? Liver has a diffusely increased echotexture which typically represents fatty infiltration; however, finding is nonspecific and other etiologies including hepatic cirrhosis can have a similar appearance. Please correlate with clinical and laboratory findings. ? Biliary tree is nondilated.? Common bile duct measures 4.9 millimeters. ? IMPRESSION:? No sonographic evidence of cholelithiasis or cholecystitis. If there is continued clinical concern for cholecystitis, a nuclear medicine HIDA scan should be considered for further evaluation. ? ? ? Dictated by: Jessie Richey MD, PhD on 04/09/2022 at 12:05 ? ? CT scan - abdomen/pelvis: Radiologist's Impression: Signed Patient: Regino Walker MR#: [id number] : 1940 Acct:[id number] Age/Sex: 81 / M Date of Service: 04/09/22 Loc: ED Accession Number: [id number] ?? Procedure: CT abdomen pelvis w con Ordering Provider: Domi Vidales D.O. PROCEDURE:? CT ABDOMEN PELVIS W CON ? INDICATIONS:? ruq pain, high lipase, high bili ? TECHNIQUE:? After the administration of oral and IV contrast, axial sections were acquired from the lung bases to the pubic symphysis.? Coronal and sagittal reformats were performed.? For radiation dose reduction, the following was used:? automated exposure control, adjustment of mA and/or kV according to patient size. ? COMPARISON:? [facility], CT, CT CHEST WO CON, 04/08/2022, 14:26.? [facility], CT, CT CHEST ABD PEL W CON, 06/05/2020, 13:10. ? FINDINGS:? Image quality:? Excellent.? ? Lung bases:? Bibasilar appearance of honeycombing and fibrosis as well as bronchiectasis are again noted. Heart:? No significant findings. ? ? ABDOMEN: Liver:? Diffuse hepatic steatosis is present. Gallbladder:? Unremarkable.? ? Biliary ducts:? Unremarkable.? ? Pancreas:? Unremarkable.? ? Spleen:? Enhancing splenic mass is unchanged.? This may represent hemangioma. Adrenal Glands:? Left adrenal nodularity is present, unchanged.? ? Kidneys and Ureters:? Punctate nonobstructing right superior pole renal calculus, unchanged. ? Stomach and Bowel:? Stomach, small bowel loops, and colon are unremarkable.? Peritoneum:? No abnormal intraperitoneal fluid.? No free air.? ? Ventral Wall: ? No hernia.? Abdominal Nodes:? No retroperitoneal or mesenteric adenopathy by size criteria.? Vessels:? Aortoiliac endovascular stent is noted, unchanged. ? PELVIS: Pelvic Organs:? Unremarkable.? ? Bladder:? Unremarkable.? ? Pelvic Nodes: No enlarged lymph nodes.? Miscellaneous:? Fat containing hernias are present. ? Bones:? Unremarkable.? IMPRESSION:? ? Hepatic steatosis. ? Gallbladder is unremarkable. ? No pancreatic inflammatory change. ? ? Dictated by: Junie Gomez M.D. on 04/09/2022 at 13:48 ? ? Approved by: Junie Gomez M.D. on 04/09/2022 at 13:54 ? ECG Data Interpretation: Normal sinus rhythm rate 75 AR interval 190 QRS [address] changes no T- wave inversions right bundle-branch block noted similar to previous EKG MDM Narrative Medical decision making narrative: Patient is quite tender in right upper quadrant epigastric area today. Blood work does show mild increase in bilirubin to 1.9 his history was 1.6 normal liver enzymes today lipase is also noted to be slightly elevated at 600. Patient's pain is significantly improved with morphine. Both ultrasound and CT do not show any cholelithiasis or dilation of common bile duct. He actually has no sign of sepsis which can also elevate bilirubin. 1415 Dr. Swan surgery has been updated patient's symptoms test results at this time as patient is able to tolerate fluids may go home no need for admission. Possible he has a small common bile duct stone but does not quite make sense. Test results are updated with patient and grandson. At this time no need is for admission monitor and increase fluids. Possible common bile duct stone meds very small. However without elevated liver enzymes according surgery no need for further testing. Patient's right-sided shoulder and chest pain may actually be referred pain from liver pancreas gallbladder area. It is not pinpoint or reproducible with specific palpation. Cardiac workup is again negative. Unlikely to be pulmonary embolism he is anticoagulated on Xarelto. Discharge Plan Departure Patient Disposition: Home Clinical Impression: Abdominal pain Activity Restrictions/Additional Instructions: *You have been diagnosed with abdominal pain *What to do: At this time please increase fluids is as tolerated. Take it easy. No obvious problem with gallbladder. You have very mild pancreatitis *Continue to take medications as directed [place] 1 tablet every 6 hours if needed for severe pain Do not take NSAIDs such as ibuprofen, Aleve, Advil, naproxen while you are taking Xarelto this will increased bleeding *Follow up with your primary care provider in 2-3 days or call [phone] *Return to ER if you should have increasing pain, chest pain, shortness of breath, fever, persistent vomiting or any new, worsening or concerning symptoms CONTROLLED SUBSTANCE DISCHARGE (Narcotoic/benzodiazepine/Flexeril/Phenergan) 1. You have been prescribed narcotic medications, it does have acetaminophen/Tylenol/paracetamol in it, DO NOT TAKE MORE THAN 4,00mg in 24 hours of Tylenol. TRAMADOL DOES NOT CONTAIN TYLENOL 2. Please understand that we cannot provide further refills of narcotics, benzodiazepines or controlled substances through the ED and her pain management will need to be through your provider. 3. While on these medications you cannot drive or operate heavy machinery. 4. You cannot sign legal documents or perform any duties such as this. 5. As long as you're taking opiate pain medications he should also be taking a stool softener such as Colace, Dulcolax, MiraLAX or prune juice, to help avoid constipation. Prescriptions: New hydrocodone-acetaminophen 5-325 mg tablet 1 tab PO Q6H PRN (Reason: pain) Qty: 10 0RF hydrocodone-acetaminophen 5-325 mg tablet 1 tab PO Q6H PRN (Reason: pain) Qty: 10 0RF No Action Lantus U-100 Insulin 100 UNIT/1 ML solution 50 unit SUBCUT DAILY Qty: 0 simvastatin [Zocor] 40 MG tablet 40 mg PO DAILY Qty: 0 metformin [Glucophage] 1,000 MG tablet 500 mg PO BID Qty: 0 ESOMEPRAZOLE SODIUM (NEXIUM) 20 mg PO QDAY Qty: 0 Xarelto 15 mg Tablet 15 mg PO QPM gabapentin 300 mg Capsule 300 mg PO BEDTIME hydrocodone-acetaminophen 5-325 mg tablet 1 tab PO Q4-6H PRN (Reason: pain) Qty: 10 0RF oxycodone-acetaminophen 5-325 mg tablet 1 tab PO Q6H PRN (Reason: pain) Qty: 14 0RF polyethylene glycol 3350 [Miralax] 17 gram powder in packet 17 gram PO DAILY PRN (Reason: constipation) Qty: 14 0RF Referrals: Jona Chavez MD [Primary Care Provider] - Visit Report Forms: Patient Portal/API
--- NOTE | 2022-04-09 10:59 | DI.RAD.S_ITS ---
PROCEDURE: XR CHEST 1V INDICATIONS: chest pain TECHNIQUE: One view of the chest was acquired. COMPARISON: [facility], CT, CT CHEST WO CON, 04/08/2022, 14:26. [facility], CR, XR CHEST 1V, 04/08/2022, 12:55. FINDINGS: Surgical changes and devices: Sternal wires. Lungs and pleura: There is an overall appearance of increased interstitial opacities. Unchanged elevation of the right hemidiaphragm. Mediastinum: Mediastinal contours appear normal. Heart size is enlarged. Bones and chest wall: No suspicious bony lesions. Overlying soft tissues appear unremarkable. IMPRESSION: Stable interval exam demonstrating interstitial opacities felt to be most likely related to chronic lung disease. No effusions or consolidations. Dictated by: Junie Gomez M.D. on 04/09/2022 at 12:07 Approved by: Junie Gomze M.D. on 04/09/2022 at 12:08
--- NOTE | 2022-04-09 11:00 | DI.US.S_ITS ---
PROCEDURE: US ABDOMEN LIMITED INDICATIONS: RIGHT UPPER QUADRANT PAIN TECHNIQUE: Real-time focused scanning was performed of the abdomen, with image documentation. COMPARISON: None. FINDINGS: Liver is normal in size and echotexture. Liver has a diffusely increased echotexture which typically represents fatty infiltration; however, finding is nonspecific and other etiologies including hepatic cirrhosis can have a similar appearance. Please correlate with clinical and laboratory findings. Biliary tree is nondilated. Common bile duct measures 4.9 millimeters. IMPRESSION: No sonographic evidence of cholelithiasis or cholecystitis. If there is continued clinical concern for cholecystitis, a nuclear medicine HIDA scan should be considered for further evaluation. Dictated by: Jessie Richey MD, PhD on 04/09/2022 at 12:05 Approved by: Jessie Richey MD, PhD on 04/09/2022 at 12:05
[2022-04-09] MEDS: SODIUM CHLORIDE 0.9% 1,000 ML 150 ML IV (11:41)
[2022-04-09] MEDS: MORPHINE 2 MG/ML INJ IV (11:42)
[2022-04-09 11:47] LABS: Add Manual Diff / Slide Review NO; Basophils Absolute Auto 100 /uL (0-100); Basophils Percent Auto 1.1 % (0-2); Eosinophils Absolute Auto 100 /uL (0-450); Hematocrit 42.1 % (41-53); Hemoglobin 14.1 g/dL (13.5-17.5); Lymphocytes Absolute Auto 1200 /uL (1100-4500); Lymphocytes Percent Auto 20.9 % (25-40); Mean Corpuscular HGB Conc 33.5 % (30-36); Mean Corpuscular Hemoglobin 30.3 PG (26-34); Mean Corpuscular Volume 90.3 fL (80-100); Monocytes Absolute Auto 400 /uL (0-900); Neutrophils Absolute Auto 4100 /uL (1500-7000); Platelet Count 123 X10^3/uL (150-400); Red Blood Cell Count 4.67 X10^6/uL (4.5-5.9); Red Cell Distribution Width 14.1 % (11.6-14.8); White Blood Cell Count 5.9 X10^3/uL (4.5-11.0)
[2022-04-09 12:01] LABS: Alanine Aminotransferase 24 IU/L (<50); Albumin 3.8 g/dL (3.5-5.0); Albumin Globulin Ratio 1.3 (1.0-2.8); Alkaline Phosphatase 77 U/L (38-126); Aspartate Aminotransferase 31 IU/L (17-59); BUN Creatinine Ratio 17.5 (6-22); Bilirubin Total 1.9 mg/dL (0.2-1.3); Blood Urea Nitrogen 22 mg/dL (9-20); Calcium 8.8 mg/dL (8.4-10.2); Carbon Dioxide 31 mmol/L (22-32); Chloride 103 mmol/L (98-107); Creatine Kinase 44 U/L (55-170); Estimated Glomerular Filt Rate 57 mL/min (>60); Globulin 2.9 g/dL (1.7-4.1); Glucose 153 mg/dL (80-110); HEMOLYSIS < 15 (0-50); Lipase 600 U/L (23-300); Potassium 4.6 mmol/L (3.4-5.1); Sodium 140 mmol/L (137-145); Total Protein 6.7 g/dL (6.3-8.2)
[2022-04-09 12:11] LABS: Troponin I < 0.012 ng/mL (0.01-0.034)
--- NOTE | 2022-04-09 12:42 | DI.CT.S_ITS ---
PROCEDURE: CT ABDOMEN PELVIS W CON INDICATIONS: ruq pain, high lipase, high bili TECHNIQUE: After the administration of oral and IV contrast, axial sections were acquired from the lung bases to the pubic symphysis. Coronal and sagittal reformats were performed. For radiation dose reduction, the following was used: automated exposure control, adjustment of mA and/or kV according to patient size. COMPARISON: [facility], CT, CT CHEST WO CON, 04/08/2022, 14:26. [facility], CT, CT CHEST ABD PEL W CON, 06/05/2020, 13:10. FINDINGS: Image quality: Excellent. Lung bases: Bibasilar appearance of honeycombing and fibrosis as well as bronchiectasis are again noted. Heart: No significant findings. ABDOMEN: Liver: Diffuse hepatic steatosis is present. Gallbladder: Unremarkable. Biliary ducts: Unremarkable. Pancreas: Unremarkable. Spleen: Enhancing splenic mass is unchanged. This may represent hemangioma. Adrenal Glands: Left adrenal nodularity is present, unchanged. Kidneys and Ureters: Punctate nonobstructing right superior pole renal calculus, unchanged. Stomach and Bowel: Stomach, small bowel loops, and colon are unremarkable. Peritoneum: No abnormal intraperitoneal fluid. No free air. Ventral Wall: No hernia. Abdominal Nodes: No retroperitoneal or mesenteric adenopathy by size criteria. Vessels: Aortoiliac endovascular stent is noted, unchanged. PELVIS: Pelvic Organs: Unremarkable. Bladder: Unremarkable. Pelvic Nodes: No enlarged lymph nodes. Miscellaneous: Fat containing hernias are present. Bones: Unremarkable. IMPRESSION: Hepatic steatosis. Gallbladder is unremarkable. No pancreatic inflammatory change. Dictated by: Junie Gomez M.D. on 04/09/2022 at 13:48 Approved by: Junie Gomez M.D. on 04/09/2022 at 13:54
--- NOTE | 2022-04-09 12:46 | PC.NURSE ---
Pt reports intermittent, right, upper chest pain that began early yesterday morning. Patient was seen in the ED yesterday. Pt reports hx of an appendectomy and 9 inches of colon removed. Pt normally on 2L of oxygen via [place] at home. On 2L NC here. Call light within reach. Encouraged to call for needs or any new or worsening symptoms.
== END 2022-04-09 15:00 | disposition home or self-care (01) ==
PROVIDERS: Emergency Provider Emergency Medicine; Family Provider Family Medicine; PCP Family Medicine
DX: R10.11 Right upper quadrant pain (principal); R79.89 Other specified abnormal findings of blood chemistry
CPT/HCPCS: 36415; 71045; 74177; 76705; 80053; 82550; 83690; 84484; 85025; 93005; 93010; 96361; 96374; 99284; 99285; J2270; Q9967

== ENCOUNTER 2022-09-25 06:54 | Emergency (ER) | payer MEDICARE, OTHER, SELFPAY ==
[2020-08-15 12:03] VITALS: BMI 31.4
[2022-09-25 06:54] VITALS: BP 144/66; PULSE 72; RESP 18; TEMP 36.6; O2SAT 98; BMI 28.1
--- NOTE | 2022-09-25 07:16 | ED.SKABFB ---
HPI - Skin/Abscess/Foreign Bdy General Chief complaint: Skin/Abscess/Foreign Body Stated complaint: Right Axilla pain Time Seen by Provider: 09/25/22 06:56 Source: patient Mode of arrival: Ambulatory Limitations: no limitations History of Present Illness HPI narrative: 81-year-old male former smoker with history of coronary artery disease, diabetes, hyperlipidemia and hypertension presents by EMS with a chief complaint of a painful rash underneath his right arm on the right side of his chest. He states it is popped up over the past week or so and anderson and tingles. He denies dizziness, weakness or lightheadedness. He denies any chest pain or shortness of breath, he denies other cardiac equivalent such as increased exercise intolerance, exertional type symptoms, unexplained diaphoresis, nausea, vomiting or other. He states he has this burning, sharp stabbing and sometimes tingly pain that is worse with palpation and sometimes use of his arm. He states even light palpation such as shirts and jackets seemed to worsen the pain. He denies any history of the same. He denies any trauma or overuse of his arm. Related Data Home Medications Medication Instructions Recorded Confirmed ESOMEPRAZOLE SODIUM (NEXIUM) 20 mg PO QDAY ##0 02/19/13 08/15/20 insulin glargine 100 unit/mL 50 unit SUBCUT DAILY ##0 02/19/13 08/15/20 subcutaneous solution (Lantus U-100 Insulin) metformin 1,000 mg tablet 500 mg PO BID ##0 02/19/13 08/15/20 (Glucophage) simvastatin 40 mg tablet (Zocor) 40 mg PO DAILY ##0 02/19/13 08/15/20 gabapentin 300 mg capsule 300 mg PO BEDTIME 08/15/20 08/15/20 rivaroxaban 15 mg tablet (Xarelto) 15 mg PO QPM 08/15/20 08/15/20 Previous Rx's Medication Instructions Recorded oxycodone-acetaminophen 5 mg-325 1 tab PO Q6H PRN pain #14 tabs 06/05/20 mg tablet polyethylene glycol 3350 17 gram 17 gram PO DAILY PRN constipation 06/05/20 oral powder packet (Miralax) #14 ea hydrocodone 5 mg-acetaminophen 325 1 tab PO Q4-6H PRN pain #10 tabs 04/02/ mg tablet hydrocodone 5 mg-acetaminophen 325 1 tab PO Q6H PRN pain #10 tabs 04/09/22 mg tablet hydrocodone 5 mg-acetaminophen 325 1 tab PO Q6H PRN pain #10 tabs 04/09/22 mg tablet hydrocodone 5 mg-acetaminophen 325 1 tab PO Q4-6H PRN pain #10 tabs 09/25/22 mg tablet valacyclovir 1 gram tablet 1,000 mg PO TID 10 days #30 tabs 09/25/22 Allergies Allergy/AdvReac Type Severity Reaction Status Date / Time adhesive AdvReac Verified 04/09/22 10:49 Review of Systems Review of Systems Narrative: GENERAL: Denies chills, fatigue, malaise, fever, sweats. HEENT: Denies sinus pain, ear pain, sore throat, difficulty swallowing, dizziness. RESPIRATORY: Denies dyspnea, cough, wheezing, hemoptysis, sputum. CARDIOVASCULAR: Denies chest pain, palpitations, orthopnea, edema, GASTROINTESTINAL: Denies nausea, vomiting, abdominal pain, diarrhea, constipation, melena. : Denies dysuria, frequency, incontinence, hematuria, urinary retention. MUSCULOSKELETAL: See HPI SKIN: See HPI NEUROLOGIC: Denies weakness, headache, numbness, change in speech, confusion, seizures, incoordination. PSYCHIATRIC: No concerning psychosocial issues. 12 point review of systems is negative except for those stated above Patient History Medical History Anticoagulated ASCVD (arteriosclerotic cardiovascular disease) Colon cancer Diabetes type 2, controlled Diabetic neuropathy History of stroke Hyperlipidemia Hypertension Surgical History History of partial colectomy Status post aorto-coronary artery bypass graft Family History Father Medical history unknown Mother Hypertension Brother Cancer Grandmother Diabetes mellitus Brother Cancer Social History household members: none Smoking Status: Former smoker alcohol intake: current Smoking Status: Former smoker alcohol intake frequency: holidays/special occasions only Substance Use Type: does not use Exam Narrative Exam Narrative: GENERAL: [81] year old patient appears stated age. Well-developed patient, in mild distress. HEAD: Atraumatic. Normocephalic. EYES: Pupils equal round and reactive. Extraocular motions intact. No scleral icterus. No injection or drainage. ENT: Nose without bleeding, purulent drainage. Throat without erythema, tonsillar hypertrophy or exudate. Airway patent. NECK: Trachea midline. Non tender CARDIOVASCULAR: Regular rate and rhythm without murmurs, gallops, or rubs. RESPIRATORY: Clear to auscultation. Breath sounds equal bilaterally. No wheezes, rales, or rhonchi. GASTROINTESTINAL: Abdomen soft, non-tender, nondistended. EXTREMITIES: No edema or joint tenderness. BACK: Nontender without deformity or crepitance. No flank tenderness. NEURO: AOx3. SKIN: Small painful vesicular lesions on an erythematous base on underside of right arm and small number on chest. These lesions are in the distribution of the T1 dermatome. Palpation along the dermatome elicits the pain that brought him in, he has no pain on the dorsal aspect of his arm. He is neurovascularly intact. There is no fluctuance or induration, no circumferential erythema Initial Vital Signs Initial Vital Signs: Vital Signs Temperature 97.9 F 09/25/22 06:54 Pulse Rate 72 09/25/22 06:54 Respiratory Rate 18 09/25/22 06:54 Blood Pressure 144/66 H 09/25/22 06:54 Pulse Oximetry 98 09/25/22 06:54 Oxygen Delivery Method 09/25/22 06:54 Course Course Course Narrative: Twelve lead performed by EMS without ischemic findings Orders Ordered: Discontinued Medications Hydrocodone Bitart/Acetaminophen (Hydrocodone/Acet 5/325 Prepack) 1 bottle MISC SEEINSTR ONE Stop: 09/25/22 07:16 Last Admin: 09/25/22 07:37 Dose: 1 bottle Documented By: SONAL Valacyclovir HCl (Valacyclovir 500 Mg Tablet) 1,000 mg PO NOW ONE Stop: 09/25/22 07:16 Last Admin: 09/25/22 07:37 Dose: 1,000 mg Documented By: SONAL Vital Signs Vital signs: Vital Signs - 8 hr 09/25/22 06:54 Temperature 97.9 F Pulse Rate 72 Respiratory Rate 18 Blood Pressure 144/66 H Pulse Oximetry 98 Oxygen Delivery Method Room Air MDM - Skin/Abscess/Foreign Bdy MDM Narrative Medical decision making narrative: 81-year-old male former smoker with history of coronary artery disease presents with a painful rash on the underside of his right arm for the past few days Multiple etiologies for patient's symptoms considered including: [Shingles, cellulitis, DVT, cardiac ischemia versus other Cardiac ischemia considered, but thought unlikely as patient reports no radiation, no diaphoresis, no provocation with exertion, and no vomiting. EKG nonischemic. Cellulitis and DVT considered, however there is very minimal erythema, no circumferential involvement. Additionally, patient is anticoagulated. Findings and discharge diagnosis discussed with patient/family followed by verbalization of understanding Return precautions discussed with patient/family whom verbalize understanding. Discharge Plan Departure Patient Disposition: Home Clinical Impression: Herpes zoster Instructions: DI for Shingles Activity Restrictions/Additional Instructions: *You have been diagnosed with [painful rash likely secondary to shingles. *What to do: *Please continue to take your regular medications as directed. [x ] New medication prescriptions sent to your pharmacy: [ [facility]] [ ] New medication written as a paper prescription [ ] No new medications given *Please follow up with your primary care provider in 2-3 days, call for an appointment. Let them know you were seen in the Emergency Department and that we ask that you be seen in follow up. We will electronically transmit a record of today's note if your PCP is in our system *If you do not have a primary care provider please contact the [facility] Resource line at [phone]. They will ask some questions about your medical history and help get you set up with a doctor in the community. *Return to Emergency Department if you should have any new, worsening or concerning symptoms, such as [fever greater than 101 F, shaking chills, worsening pain, persistent vomiting or other bothersome symptoms] You have been prescribed a short course of narcotic medications. These are potentially dangerous and addictive medications that should be used carefully. While on these medications you cannot drive or operate heavy machinery. Additionally, you cannot sign legal documents or perform any duties such as this. 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 Please understand that we cannot provide further refills of narcotics or controlled substances through the ED and your pain management will need to be through your Primary Care Provider Prescriptions: New valacyclovir 1 gram tablet 1,000 mg PO TID 10 Days Qty: 30 0RF hydrocodone-acetaminophen 5-325 mg tablet 1 tab PO Q4-6H PRN (Reason: pain) Qty: 10 0RF No Action Lantus U-100 Insulin 100 UNIT/1 ML solution 50 unit SUBCUT DAILY Qty: 0 simvastatin [Zocor] 40 MG tablet 40 mg PO DAILY Qty: 0 metformin [Glucophage] 1,000 MG tablet 500 mg PO BID Qty: 0 ESOMEPRAZOLE SODIUM (NEXIUM) 20 mg PO QDAY Qty: 0 Xarelto 15 mg Tablet 15 mg PO QPM gabapentin 300 mg Capsule 300 mg PO BEDTIME hydrocodone-acetaminophen 5-325 mg tablet 1 tab PO Q4-6H PRN (Reason: pain) Qty: 10 0RF hydrocodone-acetaminophen 5-325 mg tablet 1 tab PO Q6H PRN (Reason: pain) Qty: 10 0RF hydrocodone-acetaminophen 5-325 mg tablet 1 tab PO Q6H PRN (Reason: pain) Qty: 10 0RF oxycodone-acetaminophen 5-325 mg tablet 1 tab PO Q6H PRN (Reason: pain) Qty: 14 0RF polyethylene glycol 3350 [Miralax] 17 gram powder in packet 17 gram PO DAILY PRN (Reason: constipation) Qty: 14 0RF Referrals: Jona Chavez MD [Primary Care Provider] - Visit Report Forms: Patient Portal/API
[2022-09-25] MEDS: valACYclovir 500 MG TABLET 1000 MG PO (07:37)
[2022-09-25] MEDS: HYDROCODONE/ACET 5/325 PREPACK 1 BOTTLE MISC (07:37)
--- NOTE | 2022-09-25 07:46 | PC.NURSE ---
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 pt has prepack meds and given first dose of valcylcovir
[2022-09-25 07:47] VITALS: BP 136/70; PULSE 72; O2SAT 96
== END 2022-09-25 09:14 | disposition home or self-care (01) ==
PROVIDERS: Emergency Provider Emergency Medicine; Family Provider Family Medicine; PCP Family Medicine
DX: B02.9 Zoster without complications (principal)
CPT/HCPCS: 99283; 99284

== ENCOUNTER 2022-12-09 19:11 | Emergency (ER) | payer MEDICARE, OTHER, SELFPAY ==
[2020-08-15 12:03] VITALS: BMI 31.4
[2022-12-09] VITALS (9 sets, daily range): BP systolic 139–184; BP diastolic 78–95; PULSE 64–81; RESP 15–18; TEMP 36.4; O2SAT 94–99; BMI 28.0
--- NOTE | 2022-12-09 21:45 | PC.NURSE ---
received pt from Supriya RN, pt lying on stretcher aao x 3 waiting evaluation
--- NOTE | 2022-12-09 22:50 | PC.NURSE ---
pt continues to wait for evaluation states back is hurting and he has been lying in the same position since he has been here, offered to help the pt roll onto his side and place a pillow behind his back pt states no I need pain medicine first. Dr Vidales informed of pt's request for pain med
[2022-12-09] MEDS: HYDROMORPHONE 1 MG INJ IM (23:18)
--- NOTE | 2022-12-09 23:48 | ED.BACK ---
HPI - Back Pain/Injury <Domi Pambrenda, DO - Last Filed: 12/11/22 09:20> General Chief Complaint: Back Pain/Injury Stated Complaint: Back pain upon standing Time Seen by Provider: 12/09/22 23:48 Source: patient and EMS History of Present Illness HPI Narrative: Patient is an 82-year-old male chronic respiratory failure on 2 L of O2, coronary disease, diabetes, hyperlipidemia, hypertension presenting today with sudden onset of back pain. He said he was sitting in his recliner when he had sudden onset left sided flank and back pain. He says it hurts to move hurts so bad he had to call EMS. It is nonradiating. He is no chest pain he has no numbness tingling or weakness in his legs. No change in bowel or bladder habits. He says that this has happened to him previously he just has to get some pain medicines and in about a week he is able to move. He has not had fever chills. Earlier today he was able to get up and get around. He does live by himself. Related Data Home Medications Medication Instructions Recorded Confirmed ESOMEPRAZOLE SODIUM (NEXIUM) 20 mg PO QDAY ##0 02/19/13 08/15/20 insulin glargine 100 unit/mL 50 unit SUBCUT DAILY ##0 02/19/13 08/15/20 subcutaneous solution (Lantus U-100 Insulin) metformin 1,000 mg tablet 500 mg PO BID ##0 02/19/13 08/15/20 (Glucophage) simvastatin 40 mg tablet (Zocor) 40 mg PO DAILY ##0 02/19/13 08/15/20 gabapentin 300 mg capsule 300 mg PO BEDTIME 08/15/20 08/15/20 rivaroxaban 15 mg tablet (Xarelto) 15 mg PO QPM 08/15/20 08/15/20 Previous Rx's Medication Instructions Recorded oxycodone-acetaminophen 5 mg-325 1 tab PO Q6H PRN pain #14 tabs 06/05/20 mg tablet polyethylene glycol 3350 17 gram 17 gram PO DAILY PRN constipation 06/05/20 oral powder packet (Miralax) #14 ea hydrocodone 5 mg-acetaminophen 325 1 tab PO Q4-6H PRN pain #10 tabs 04/02/ mg tablet hydrocodone 5 mg-acetaminophen 325 1 tab PO Q6H PRN pain #10 tabs 04/09/ mg tablet hydrocodone 5 mg-acetaminophen 325 1 tab PO Q6H PRN pain #10 tabs 04/09/22 mg tablet hydrocodone 5 mg-acetaminophen 325 1 tab PO Q4-6H PRN pain #10 tabs 09/25/ mg tablet methocarbamol 750 mg tablet 750 mg PO Q6H PRN spasm #100 tabs 12/10/22 oxycodone-acetaminophen 5 mg-325 1 tab PO Q4H PRN pain #14 tabs 12/10/22 mg tablet (Percocet) Allergies Allergy/AdvReac Type Severity Reaction Status Date / Time adhesive AdvReac Verified 12/09/22 19:26 Review of Systems <Domi Vidales DO - Last Filed: 12/11/22 09:20> Review of Systems ROS Unobtainable: All systems reviewed & are unremarkable except as noted in HPI and below Patient History <Domi Vidales DO - Last Filed: 12/11/22 09:20> Medical History Anticoagulated ASCVD (arteriosclerotic cardiovascular disease) Colon cancer Diabetes type 2, controlled Diabetic neuropathy History of stroke Hyperlipidemia Hypertension Surgical History History of partial colectomy Status post aorto-coronary artery bypass graft Family History Father Medical history unknown Mother Hypertension Brother Cancer Grandmother Diabetes mellitus Brother Cancer Social History household members: none Smoking Status: Former smoker alcohol intake: current Smoking Status: Former smoker alcohol intake frequency: holidays/special occasions only Substance Use Type: does not use Exam <DO Kvng [place] Last Filed: 12/11/22 09:20> Initial Vital Signs Initial Vital Signs: Vital Signs Temperature 97.6 F 12/09/22 19:24 Pulse Rate 79 12/09/22 19:24 Respiratory Rate 15 12/09/22 19:24 Blood Pressure 160/87 H 12/09/22 19:24 Pulse Oximetry 99 12/09/22 19:24 Oxygen Delivery Method Room Air 12/09/22 19:24 GENERAL: Alert 82-year-old male no acute distress and in [no acute] distress. HEENT: Head atraumatic,EOMI, pupils reactive, face symmetric, [moist] mucous membranes CARDIOVASCULAR: Regular rate and rhythm without murmurs, rubs or gallops. RESPIRATORY: Breath sounds equal bilaterally, no wheezes rales or rhonchi. ABDOMEN: Soft, nontender. Normoactive bowel sounds all 4 quadrants. No guarding or rebound. BACK: No vertebral tenderness no step off left flank pain extremely tender to touch definitely worse with movement and palpation. : No CVA tenderness EXTREMITIES: Normal range of motion, no clubbing or edema. Neurovascularly intact NEUROLOGICAL: Alert and oriented x4. And no cranial nerve deficits SKIN: Warm, dry, no laceration, no petechiae, no rashes or lesions. <Bakari Chávez MD - Last Filed: 12/10/22 11:46> Initial Vital Signs Initial Vital Signs: Vital Signs Temperature 97.6 F 12/09/22 19:24 Pulse Rate 79 12/09/22 19:24 Respiratory Rate 15 12/09/22 19:24 Blood Pressure 160/87 H 12/09/22 19:24 Pulse Oximetry 99 12/09/22 19:24 Oxygen Delivery Method Room Air 12/09/22 19:24 Course <Domi Vidales DO - Last Filed: 12/11/22 09:20> Orders Ordered: Discontinued Medications Cyclobenzaprine HCl (Cyclobenzaprine 10 Mg Tablet) 10 mg PO NOW ONE Stop: 12/10/22 00:00 Last Admin: 12/10/22 00:13 Dose: 10 mg Documented By: OSCAR Hydromorphone HCl (Hydromorphone 1 Mg Inj) 1 mg IM NOW ONE Stop: 12/09/22 23:11 Last Admin: 12/09/22 23:18 Dose: 1 mg Documented By: OSCAR Sodium Chloride (Normal Saline 0.9%) 1,000 mls @ 200 mls/hr IV CONT JAREK Last Infusion: 12/10/22 10:00 Dose: 0 mls/hr Documented By: Admin: 12/10/22 08:31 Dose: 200 mls/hr Documented By: LENKA Vital Signs Vital signs: Vital Signs - 8 hr 12/10/22 04:38 12/10/22 04:38 12/10/22 05:00 Pulse Rate 78 Respiratory Rate Blood Pressure 140/81 116/65 Pulse Oximetry 94 Oxygen Delivery Method Oxygen Flow Rate 12/10/22 05:00 12/10/22 05:30 12/10/22 05:30 Pulse Rate 73 72 Respiratory Rate 20 15 Blood Pressure 123/62 Pulse Oximetry 97 97 Oxygen Delivery Method Oxygen Flow Rate 12/10/22 06:00 12/10/22 07:00 12/10/22 07:00 Pulse Rate 74 Respiratory Rate 15 Blood Pressure 111/55 L 129/69 Pulse Oximetry 96 Oxygen Delivery Method Oxygen Flow Rate 12/10/22 07:30 12/10/22 07:30 12/10/22 08:04 Pulse Rate 76 82 Respiratory Rate 18 24 Blood Pressure 132/67 Pulse Oximetry 98 Oxygen Delivery Method Oxygen Flow Rate 12/10/22 08:05 12/10/22 08:05 12/10/22 08:30 Pulse Rate 84 Respiratory Rate 15 Blood Pressure 149/78 H 142/65 H Pulse Oximetry Oxygen Delivery Method Oxygen Flow Rate 12/10/22 08:30 12/10/22 09:00 12/10/22 09:01 Pulse Rate 79 80 Respiratory Rate 15 22 Blood Pressure 127/69 Pulse Oximetry 93 95 Oxygen Delivery Method Oxygen Flow Rate 12/10/22 09:01 12/10/22 09:29 12/10/22 09:30 Pulse Rate 80 84 Respiratory Rate 16 32 H Blood Pressure 156/95 H Pulse Oximetry 96 94 Oxygen Delivery Method Oxygen Flow Rate 12/10/22 09:30 12/10/22 10:00 Pulse Rate 85 84 Respiratory Rate 23 Blood Pressure Pulse Oximetry 95 95 Oxygen Delivery Method Nasal Cannula Oxygen Flow Rate 2 <Bakari Chávez MD - Last Filed: 12/10/22 11:46> Course Additional Information: Care was assumed from Dr. Vidales at change of shift this morning. He has chronic low back pain, pain is more severe and he is focused in the left paraspinal region. He is no associated abdominal pain. Has no lower extremity numbness or weakness. He denies dysuria or hematuria. He is no history of kidney stones. He does have a history of AAA with a stent about 5 years ago. He is no chest pain, palpitations, weakness or dizziness. CTA of the chest, abdomen pelvis demonstrates the stent, shows no acute aortic pathology. He is improved with the analgesics provided by Dr. Vidales. I gave him a small prescription of oxycodone, as well as Robaxin to assist with his back pain. Physical therapy is recommended.Rl HARO Orders Ordered: Discontinued Medications Cyclobenzaprine HCl (Cyclobenzaprine 10 Mg Tablet) 10 mg PO NOW ONE Stop: 12/10/22 00:00 Last Admin: 12/10/22 00:13 Dose: 10 mg Documented By: OSCAR Hydromorphone HCl (Hydromorphone 1 Mg Inj) 1 mg IM NOW ONE Stop: 12/09/22 23:11 Last Admin: 12/09/22 23:18 Dose: 1 mg Documented By: OSCAR Sodium Chloride (Normal Saline 0.9%) 1,000 mls @ 200 mls/hr IV CONT JAREK Last Infusion: 12/10/22 10:00 Dose: 0 mls/hr Documented By: Admin: 12/10/22 08:31 Dose: 200 mls/hr Documented By: LENKA Vital Signs Vital signs: Vital Signs - 8 hr 12/10/22 04:38 12/10/22 04:38 12/10/22 05:00 Pulse Rate 78 Respiratory Rate Blood Pressure 140/81 116/65 Pulse Oximetry 94 Oxygen Delivery Method Oxygen Flow Rate 12/10/22 05:00 12/10/22 05:30 12/10/22 05:30 Pulse Rate 73 72 Respiratory Rate 20 15 Blood Pressure 123/62 Pulse Oximetry 97 97 Oxygen Delivery Method Oxygen Flow Rate 12/10/22 06:00 12/10/22 07:00 12/10/22 07:00 Pulse Rate 74 Respiratory Rate 15 Blood Pressure 111/55 L 129/69 Pulse Oximetry 96 Oxygen Delivery Method Oxygen Flow Rate 12/10/22 07:30 12/10/22 07:30 12/10/22 08:04 Pulse Rate 76 82 Respiratory Rate 18 24 Blood Pressure 132/67 Pulse Oximetry 98 Oxygen Delivery Method Oxygen Flow Rate 12/10/22 08:05 12/10/22 08:05 12/10/22 08:30 Pulse Rate 84 Respiratory Rate 15 Blood Pressure 149/78 H 142/65 H Pulse Oximetry Oxygen Delivery Method Oxygen Flow Rate 12/10/22 08:30 12/10/22 09:00 12/10/22 09:01 Pulse Rate 79 80 Respiratory Rate 15 22 Blood Pressure 127/69 Pulse Oximetry 93 95 Oxygen Delivery Method Oxygen Flow Rate 12/10/22 09:01 12/10/22 09:29 12/10/22 09:30 Pulse Rate 80 84 Respiratory Rate 16 32 H Blood Pressure 156/95 H Pulse Oximetry 96 94 Oxygen Delivery Method Oxygen Flow Rate 12/10/22 09:30 12/10/22 10:00 Pulse Rate 85 84 Respiratory Rate 23 Blood Pressure Pulse Oximetry 95 95 Oxygen Delivery Method Nasal Cannula Oxygen Flow Rate 2 MDM - Back Pain/Injury <Domi Vidales, DO - Last Filed: 12/11/22 09:20> Lab Data 12/10/22 03:42 12/10/22 03:42 Labs: Lab Results 12/10/22 12/10/22 12/10/22 Range/Units 03:42 03:42 03:42 WBC 5.5 (4.5-11.0) X10^3/uL RBC 4.97 (4.5-5.9) X10^6/uL Hgb 15.1 (13.5-17.5) g/dL Hct 46.5 (41-53) % MCV 93.4 (80-100) fL MCH 30.4 (26-34) PG MCHC 32.6 (30-36) % RDW 14.8 (11.6-14.8) % Plt Count 121 L (150-400) X10^3/uL Neut % (Auto) 61.3 (50-75) % Lymph % (Auto) 29.6 (25-40) % [place] % (Auto) 7.1 (3-14) % Eos % (Auto) 1.2 L (2-4) % Baso % (Auto) 0.8 (0-2) % Neut # (Auto) 3400 (5256-2886) /uL Lymph # (Auto) 1600 (1750-1132) /uL [place] # (Auto) 400 (0-900) /uL Eos # (Auto) 100 (0-450) /uL Baso # (Auto) 0 (0-100) /uL Sodium 139 (137-145) mmol/L Potassium 4.0 (3.4-5.1) mmol/L Chloride 97 L (98-107) mmol/L Carbon Dioxide 32 (22-32) mmol/L BUN 20 (9-20) mg/dL Creatinine 1.16 (0.66-1.25) mg/dL Estimated GFR > 60 (>60) mL/min BUN/Creatinine Ratio 17.2 (6-22) Glucose 200 H (80-110) mg/dL Lactate 2.5 H (0.7-2.1) mmol/L Calcium 8.9 (8.4-10.2) mg/dL Total Bilirubin 2.2 H (0.2-1.3) mg/dL AST 28 (17-59) IU/L ALT 23 (<50) IU/L Alkaline Phosphatase 106 (38-126) U/L Total Creatine Kinase 36 L (55-170) U/L CK-MB (CK-2) TNP CK-MB (CK-2) Rel Index TNP Troponin I < 0.012 (0.01-0.034) ng/mL Total Protein 7.3 (6.3-8.2) g/dL Albumin 4.1 (3.5-5.0) g/dL Globulin 3.2 (1.7-4.1) g/dL Albumin/Globulin Ratio 1.3 (1.0-2.8) Lipase 104 (23-300) U/L Procalcitonin (<0.5) ng/mL 12/10/22 12/10/22 12/10/22 Range/Units 03:42 06:45 06:45 WBC (4.5-11.0) X10^3/uL RBC (4.5-5.9) X10^6/uL Hgb (13.5-17.5) g/dL Hct (41-53) % MCV (80-100) fL MCH (26-34) PG MCHC (30-36) % RDW (11.6-14.8) % Plt Count (150-400) X10^3/uL Neut % (Auto) (50-75) % Lymph % (Auto) (25-40) % [place] % (Auto) (3-14) % Eos % (Auto) (2-4) % Baso % (Auto) (0-2) % Neut # (Auto) (1235-3972) /uL Lymph # (Auto) (6928-5243) /uL [place] # (Auto) (0-900) /uL Eos # (Auto) (0-450) /uL Baso # (Auto) (0-100) /uL Sodium (137-145) mmol/L Potassium (3.4-5.1) mmol/L Chloride (98-107) mmol/L Carbon Dioxide (22-32) mmol/L BUN (9-20) mg/dL Creatinine (0.66-1.25) mg/dL Estimated GFR (>60) mL/min BUN/Creatinine Ratio (6-22) Glucose (80-110) mg/dL Lactate 1.4 (0.7-2.1) mmol/L Calcium (8.4-10.2) mg/dL Total Bilirubin (0.2-1.3) mg/dL AST (17-59) IU/L ALT (<50) IU/L Alkaline Phosphatase (38-126) U/L Total Creatine Kinase (55-170) U/L CK-MB (CK-2) CK-MB (CK-2) Rel Index Troponin I < 0.012 (0.01-0.034) ng/mL Total Protein (6.3-8.2) g/dL Albumin (3.5-5.0) g/dL Globulin (1.7-4.1) g/dL Albumin/Globulin Ratio (1.0-2.8) Lipase (23-300) U/L Procalcitonin 0.06 (<0.5) ng/mL ECG Data Interpretation: Sinus rhythm rate 78 [place] interval 188 QRS [address] depression noted in V2 and V3 without ST elevation sedate from previous EKG in 2021. EKG 2. Sinus rhythm rate 73 [place] interval 194 QRS [address] depression in V2 without reciprocal elevation similar to EKG earlier today MDM Narrative Medical decision making narrative: Patient is an 82-year-old male with history of acute coronary disease hypertension presenting today with back pain. Back pain is non provoked started at rest in a chair. He is definitely reproducible with position and palpation. Patient is given cyclobenzaprine and Dilaudid in the ED he is able to move a little bit more. Difficult to ambulate even with walker. Patient lives alone. Blood work is done he is found have an elevated lactate of 2.5 without infectious symptoms. He is given fluid. It negative procalcitonin. Patient is also found to have possibly some ST depression. However tech reports that EKG was slightly technically difficult. There is no electrolyte abnormality or acute kidney injury. Dissection is considered especially with his risk factors however it really is reproducible and positional so I think less likely. He really is not tender over his lumbar spine. Patient will need evaluation by physical therapy. Patient is signed out to Dr. Chávez. Possible placement versus admission <Bakari Chávez MD - Last Filed: 12/10/22 11:46> Lab Data Labs: Lab Results 12/10/22 12/10/22 12/10/22 Range/Units 03:42 03:42 03:42 WBC 5.5 (4.5-11.0) X10^3/uL RBC 4.97 (4.5-5.9) X10^6/uL Hgb 15.1 (13.5-17.5) g/dL Hct 46.5 (41-53) % MCV 93.4 (80-100) fL MCH 30.4 (26-34) PG MCHC 32.6 (30-36) % RDW 14.8 (11.6-14.8) % Plt Count 121 L (150-400) X10^3/uL Neut % (Auto) 61.3 (50-75) % Lymph % (Auto) 29.6 (25-40) % [place] % (Auto) 7.1 (3-14) % Eos % (Auto) 1.2 L (2-4) % Baso % (Auto) 0.8 (0-2) % Neut # (Auto) 3400 (6758-3743) /uL Lymph # (Auto) 1600 (2263-6877) /uL [place] # (Auto) 400 (0-900) /uL Eos # (Auto) 100 (0-450) /uL Baso # (Auto) 0 (0-100) /uL Sodium 139 (137-145) mmol/L Potassium 4.0 (3.4-5.1) mmol/L Chloride 97 L (98-107) mmol/L Carbon Dioxide 32 (22-32) mmol/L BUN 20 (9-20) mg/dL Creatinine 1.16 (0.66-1.25) mg/dL Estimated GFR > 60 (>60) mL/min BUN/Creatinine Ratio 17.2 (6-22) Glucose 200 H (80-110) mg/dL Lactate 2.5 H (0.7-2.1) mmol/L Calcium 8.9 (8.4-10.2) mg/dL Total Bilirubin 2.2 H (0.2-1.3) mg/dL AST 28 (17-59) IU/L ALT 23 (<50) IU/L Alkaline Phosphatase 106 (38-126) U/L Total Creatine Kinase 36 L (55-170) U/L CK-MB (CK-2) TNP CK-MB (CK-2) Rel Index TNP Troponin I < 0.012 (0.01-0.034) ng/mL Total Protein 7.3 (6.3-8.2) g/dL Albumin 4.1 (3.5-5.0) g/dL Globulin 3.2 (1.7-4.1) g/dL Albumin/Globulin Ratio 1.3 (1.0-2.8) Lipase 104 (23-300) U/L Procalcitonin (<0.5) ng/mL 12/10/22 12/10/22 12/10/22 Range/Units 03:42 06:45 06:45 WBC (4.5-11.0) X10^3/uL RBC (4.5-5.9) X10^6/uL Hgb (13.5-17.5) g/dL Hct (41-53) % MCV (80-100) fL MCH (26-34) PG MCHC (30-36) % RDW (11.6-14.8) % Plt Count (150-400) X10^3/uL Neut % (Auto) (50-75) % Lymph % (Auto) (25-40) % [place] % (Auto) (3-14) % Eos % (Auto) (2-4) % Baso % (Auto) (0-2) % Neut # (Auto) (2192-7711) /uL Lymph # (Auto) (9447-5254) /uL [place] # (Auto) (0-900) /uL Eos # (Auto) (0-450) /uL Baso # (Auto) (0-100) /uL Sodium (137-145) mmol/L Potassium (3.4-5.1) mmol/L Chloride (98-107) mmol/L Carbon Dioxide (22-32) mmol/L BUN (9-20) mg/dL Creatinine (0.66-1.25) mg/dL Estimated GFR (>60) mL/min BUN/Creatinine Ratio (6-22) Glucose (80-110) mg/dL Lactate 1.4 (0.7-2.1) mmol/L Calcium (8.4-10.2) mg/dL Total Bilirubin (0.2-1.3) mg/dL AST (17-59) IU/L ALT (<50) IU/L Alkaline Phosphatase (38-126) U/L Total Creatine Kinase (55-170) U/L CK-MB (CK-2) CK-MB (CK-2) Rel Index Troponin I < 0.012 (0.01-0.034) ng/mL Total Protein (6.3-8.2) g/dL Albumin (3.5-5.0) g/dL Globulin (1.7-4.1) g/dL Albumin/Globulin Ratio (1.0-2.8) Lipase (23-300) U/L Procalcitonin 0.06 (<0.5) ng/mL Discharge Plan Departure Patient Disposition: Home Clinical Impression: Strain of lumbar region, Chronic back pain Instructions: DI for Low Back Pain Activity Restrictions/Additional Instructions: Continue your current medications for back pain. Oxycodone every 4-6 hours for added pain control. Robaxin every 6 hours for spasm. Talk to your PCM about physical therapy for the back pain. Return to the ER as needed. Prescriptions: New oxycodone-acetaminophen [Percocet] 5-325 mg tablet 1 tab PO Q4H PRN (Reason: pain) Qty: 14 0RF methocarbamol 750 mg tablet 750 mg PO Q6H PRN (Reason: spasm) Qty: 100 0RF No Action Lantus U-100 Insulin 100 UNIT/1 ML solution 50 unit SUBCUT DAILY Qty: 0 simvastatin [Zocor] 40 MG tablet 40 mg PO DAILY Qty: 0 metformin [Glucophage] 1,000 MG tablet 500 mg PO BID Qty: 0 ESOMEPRAZOLE SODIUM (NEXIUM) 20 mg PO QDAY Qty: 0 Xarelto 15 mg Tablet 15 mg PO QPM gabapentin 300 mg Capsule 300 mg PO BEDTIME hydrocodone-acetaminophen 5-325 mg tablet 1 tab PO Q4-6H PRN (Reason: pain) Qty: 10 0RF hydrocodone-acetaminophen 5-325 mg tablet 1 tab PO Q6H PRN (Reason: pain) Qty: 10 0RF hydrocodone-acetaminophen 5-325 mg tablet 1 tab PO Q6H PRN (Reason: pain) Qty: 10 0RF oxycodone-acetaminophen 5-325 mg tablet 1 tab PO Q6H PRN (Reason: pain) Qty: 14 0RF polyethylene glycol 3350 [Miralax] 17 gram powder in packet 17 gram PO DAILY PRN (Reason: constipation) Qty: 14 0RF hydrocodone-acetaminophen 5-325 mg tablet 1 tab PO Q4-6H PRN (Reason: pain) Qty: 10 0RF Referrals: Jona Chavez MD [Primary Care Provider] - Stand Alone Forms: Patient Portal/API
[2022-12-10] VITALS (23 sets, daily range): BP systolic 111–156; BP diastolic 55–95; PULSE 67–85; RESP 12–32; O2SAT 91–98
[2022-12-10] MEDS: CYCLOBENZAPRINE 10 MG TABLET PO (00:13)
--- NOTE | 2022-12-10 00:48 | PC.NURSE ---
pulled pt up in bed and raised the HOB, encouraged pt to move explaining that if he didn't move it would be worse as he would stiffen up. pt has not wanted to move because it might cause pain
--- NOTE | 2022-12-10 03:09 | PC.NURSE ---
attempted to assist pt up to walk, pt was able to sit up on side of bed with great effort but was unable to come to a standing position without having a lot of pain, instructed pt to just sit for a few minutes and let his back become used to that position and then we would try to walk
--- NOTE | 2022-12-10 03:32 | PC.NURSE ---
attempted to get pt up to walk with walker, pt attempted to stand x 2 and stated he was unable d/t the pain
[2022-12-10 06:03] LABS: Alanine Aminotransferase 23 IU/L (<50); Albumin 4.1 g/dL (3.5-5.0); Albumin Globulin Ratio 1.3 (1.0-2.8); Alkaline Phosphatase 106 U/L (38-126); Aspartate Aminotransferase 28 IU/L (17-59); BUN Creatinine Ratio 17.2 (6-22); Bilirubin Total 2.2 mg/dL (0.2-1.3); Blood Urea Nitrogen 20 mg/dL (9-20); Calcium 8.9 mg/dL (8.4-10.2); Carbon Dioxide 32 mmol/L (22-32); Chloride 97 mmol/L (98-107); Creatine Kinase 36 U/L (55-170); Estimated Glomerular Filt Rate > 60 mL/min (>60); Globulin 3.2 g/dL (1.7-4.1); Glucose 200 mg/dL (80-110); HEMOLYSIS 15 (0-50); Lactate (Lactic Acid) 2.5 mmol/L (0.7-2.1); Lipase 104 U/L (23-300); Sodium 139 mmol/L (137-145); Total Protein 7.3 g/dL (6.3-8.2); Troponin I < 0.012 ng/mL (0.01-0.034)
[2022-12-10 06:04] LABS: Add Manual Diff / Slide Review NO; Basophils Absolute Auto 0 /uL (0-100); Basophils Percent Auto 0.8 % (0-2); Eosinophils Absolute Auto 100 /uL (0-450); Eosinophils Percent Auto 1.2 % (2-4); Hematocrit 46.5 % (41-53); Hemoglobin 15.1 g/dL (13.5-17.5); Lymphocytes Absolute Auto 1600 /uL (1100-4500); Lymphocytes Percent Auto 29.6 % (25-40); Mean Corpuscular HGB Conc 32.6 % (30-36); Mean Corpuscular Hemoglobin 30.4 PG (26-34); Mean Corpuscular Volume 93.4 fL (80-100); Monocytes Absolute Auto 400 /uL (0-900); Monocytes Percent Auto 7.1 % (3-14); Neutrophils Absolute Auto 3400 /uL (1500-7000); Neutrophils Percent Auto 61.3 % (50-75); Platelet Count 121 X10^3/uL (150-400); Procalcitonin 0.06 ng/mL (<0.5); Red Blood Cell Count 4.97 X10^6/uL (4.5-5.9); Red Cell Distribution Width 14.8 % (11.6-14.8); White Blood Cell Count 5.5 X10^3/uL (4.5-11.0)
[2022-12-10 06:42] LABS: Reflexed Lactate in 2 Hours Y
[2022-12-10 07:12] LABS: Lactate 2HR (Lactic Acid Rflx) 1.4 mmol/L (0.7-2.1)
[2022-12-10 07:24] LABS: Troponin I < 0.012 ng/mL (0.01-0.034)
--- NOTE | 2022-12-10 07:26 | DI.CT.S_ITS ---
PROCEDURE: CT ANGIO CHEST ABDOMEN PELVIS INDICATIONS: Back pain. H/O AAA with stent placement TECHNIQUE: Precontrast 5 mm thick sections acquired from the lung apices to the iliac crests. After the administration of intravenous contrast, 2.5 mm thick sections again acquired from the lung apices to the iliac crests. Maximum intensity projection (MIP) oblique sagittal and coronal reformats were then acquired. For radiation dose reduction, the following was used: automated exposure control. COMPARISON: [facility], CT, CT CHEST WO CON, 04/08/2022, 14:26. [facility], CT, CT ABDOMEN PELVIS W CON, 04/09/2022, 12:48. FINDINGS: Image quality: Excellent. AORTA: No areas of hemodynamically significant stenosis or vascular occlusion. There are scattered areas of atherosclerotic calcification within the thoracic and abdominal aorta. Three is aneurysmal dilation of the distal aorta with mural thrombus and aortoiliac stent. CHEST: Lungs and pleura: No acute airspace opacities. No pleural effusions or pneumothorax. Central and peripheral airways are patent and normal in caliber. Extensive honeycombing/fibrosis is present, more prominent on the right. Bronchiectasis is present bilaterally. Overall appearance is stable. Mediastinum: Heart size is normal. No pericardial effusion. No mediastinal or hilar adenopathy by size criteria. Central pulmonary arteries are normal in size. Esophagus is normal in caliber. No hiatal hernias. Bones and chest wall: No axillary adenopathy by size criteria. Thyroid gland demonstrates 3 mm low-attenuation focus within the left lobe, unchanged. No suspicious bony lesions. No vertebral body compression fractures. ABDOMEN: Vasculature: Celiac trunk and mesenteric arteries are patent. Renal arteries are also patent. Solid organs: Liver is normal in size and enhancement. Gallbladder is unremarkable. Biliary system is non dilated. Pancreas enhances normally. Splenic enhancing lesion are unchanged. No adrenal nodules. Both kidneys are normal in size and enhancement, without hydronephrosis. Peritoneum and bowel: No free fluid or air. Bowel loops are nonobstructive. There is mild nonspecific thickening at the rectum. No discrete mass. Nodes and vessels: No retroperitoneal or mesenteric adenopathy by size criteria. Inferior vena cava is normal in morphology. Miscellaneous: No ventral hernias. PELVIS: Genitourinary: Bladder wall thickness is normal. Miscellaneous: No inguinal hernias or adenopathy. No ventral hernias. Bones: No suspicious bony lesions. No vertebral body compression fractures. IMPRESSION: Stable aneurysmal dilation of the distal aorta with aortoiliac stent. Mild nonspecific thickening at the rectum without discrete mass. While this may be secondary to incomplete distention, followup is recommended to exclude mass. Dictated by: Junie Gomez M.D. on 12/10/2022 at 8:23 Approved by: Junie Gomez M.D. on 12/10/2022 at 8:55
[2022-12-10] MEDS: SODIUM CHLORIDE 0.9% 1,000 ML 200 ML IV (08:31)
--- NOTE | 2022-12-10 11:28 | CM.SWNOTE ---
Addendum entered by RAYMOND Michael 12/10/22 15:15: ADD: BLAYNE Powell has kindly agreed to send this HH referral to [facility]. F2F completed and signed by Dr Chávez, order now in. 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 Patient lives alone and ED provider concerned about dispo, placement (?) Eventually, patient's back pain improved and patient was medically cleared from the ED. Patient passed an ambulation trial and was helped into wheelchair by RN, patient arranged a friend to transport him home Met w/patient briefly, reviewed discharge plan; patient confirms he lives alone and daughter Annabelle calls him daily. Patient has no current home health or caregiver services, states he would be agreeable to home health RN/PT/OT/POWER TRANSMISSION ENGINEER. Reviewed HH agency choices electronically via IPAD, patient states no preference Asked patient what he will do when he needs more help at home? Patient says he will hire caregivers and I have plenty of money. Patient's grandchildren and great grandchildren stop by often to help him as needed around his home Plan: Discharge home from the ED w/friends and family to assist as needed, services JW
--- NOTE | 2022-12-10 11:30 | PT-IP ANOTE ---
Pt already was leaving for DC per nursing and was set up w/HH.
== END 2022-12-10 11:57 | disposition home or self-care (01) ==
PROVIDERS: Emergency Medicine; Emergency Provider Emergency Medicine; Family Provider Family Medicine; PCP Family Medicine
DX: Z79.899 Other long term (current) drug therapy (principal); S39.012A Strain of muscle, fascia and tendon of lower back, initial encounter; M54.9 Dorsalgia, unspecified
CPT/HCPCS: 36415; 71275; 74174; 80053; 82550; 83605; 83690; 84145; 84484; 85025; 93005; 96360; 96372; 99284; 99285; J1170; Q9967

== ENCOUNTER 2023-05-06 13:24 | Inpatient (IN) | payer MEDICARE, OTHER, SELFPAY ==
[2020-08-15 12:03] VITALS: BMI 31.4
[2023-05-06] VITALS (65 sets, daily range): BP systolic 77–129; BP diastolic 47–64; PULSE 66–93; RESP 12–49; TEMP 37.1–37.9; O2SAT 88–98; BMI 27.3
--- NOTE | 2023-05-06 13:45 | DI.RAD.S_ITS ---
PROCEDURE: XR CHEST 1V INDICATIONS: suspected sepsis TECHNIQUE: One view of the chest was acquired. COMPARISON: CT, CT CHEST WO CON, 04/08/2022, 14:26. [facility], CR, XR CHEST 1V, 04/08/2022, 12:55. [facility], CR, XR CHEST 1V, 04/09/2022, 11:11. FINDINGS: Surgical changes and devices: Sternotomy. Lungs and pleura: Diffuse interstitial infiltrates bilaterally, unchanged. No pleural effusions or pneumothorax. Mediastinum: Mediastinal contours appear normal. Heart size is mildly increased. Bones and chest wall: No suspicious bony lesions. Overlying soft tissues appear unremarkable. IMPRESSION: Diffuse interstitial infiltrates appear unchanged. Differential diagnoses are pulmonary edema secondary to congestive heart failure versus chronic interstitial lung disease. Dictated by: Ashish Helton M.D. on 05/06/2023 at 14:22 Approved by: Ashish Helton M.D. on 05/06/2023 at 14:23
[2023-05-06] MEDS: SODIUM CHLORIDE 0.9% 1,000 ML 1000 ML IV (14:09)
--- NOTE | 2023-05-06 14:19 | DI.CT.S_ITS ---
PROCEDURE: CT HEAD/BRAIN WO CON INDICATIONS: Confusion TECHNIQUE: Noncontrast 4.5 mm thick angled axial sections acquired from the foramen magnum to the vertex, with coronal and sagittal reformats. For radiation dose reduction, the following was used: automated exposure control, adjustment of mA and/or kV according to patient size. COMPARISON: [facility], CT, CT HEAD/BRAIN WO CON, 06/05/2020, 13:06. FINDINGS: Image quality: Excellent. CSF spaces: Basal cisterns are patent. No extra-axial fluid collections. The ventricles are symmetric in size and shape. Brain: Encephalomalacia in the left parietal lobe appears unchanged compared to the last exam, consistent with old infarct. No intracranial bleeds or masses. There is cerebral volume loss for age, with resultant ventricular and sulcal prominence. There are periventricular and deep white matter chronic small vessel ischemic changes. There is intracranial internal carotid artery atherosclerosis. Skull and face: Calvarium and visualized facial bones appear intact, without suspicious lesions. Sinuses: Visualized sinuses and mastoids are clear. IMPRESSION: 1. No acute intracranial abnormalities. 2. Old left MCA infarct. 3. Cerebral volume loss and chronic microvascular ischemic changes. Dictated by: Ashish Helton M.D. on 05/06/2023 at 15:01 Approved by: Ashish Helton M.D. on 05/06/2023 at 15:02
--- NOTE | 2023-05-06 14:23 | DI.CT.S_ITS ---
PROCEDURE: CT CHEST ABD PEL W CON INDICATIONS: Sepsis TECHNIQUE: After the administration of intravenous contrast, axial sections acquired from the supraclavicular neck to the pubic symphysis. Coronal and sagittal reformats were performed. For radiation dose reduction, the following was used: automated exposure control, adjustment of mA and/or kV according to patient size. COMPARISON: [facility], CT, CT CHEST WO CON, 04/08/2022, 14:26. [facility], CT, CT ANGIO CHEST ABDOMEN PELVIS, 12/10/2022, 7:51. CT, CT ABDOMEN PELVIS W CON, 04/09/2022, 12:48. [facility], CR, XR CHEST 1V, 05/06/2023, 13:59. [facility], CT, CT CHEST ABD PEL W CON, 06/05/2020, 13:10. FINDINGS: Image quality: Excellent. CHEST: Lower Neck: No enlarged lymph nodes. Thyroid: There is a 3 mm low-density nodule in the left thyroid lobe, probably a cyst. Axillae: No enlarged lymph nodes. Chest Wall: Unremarkable. Lungs and Airways: Bilateral subpleural septal thickening and pulmonary fibrosis. No focal consolidation. Pleura: No pneumothorax or pleural effusions. Heart: Heart size is mildly increased. No pericardial effusion. CABG. Thoracic Vessels: The aorta and pulmonary arteries demonstrate normal size. Mediastinum and Elissa: No enlarged lymph nodes. Esophagus: No wall thickening. Small hiatal hernia. ABDOMEN: Liver: Unremarkable. Gallbladder: Unremarkable. Biliary ducts: Unremarkable. Pancreas: Unremarkable. Spleen: Normal size. Stable 1.5 cm enhancing nodule in spleen. Adrenal Glands: Unremarkable. Kidneys and Ureters: Unremarkable. Stomach and Bowel: Stomach, small bowel loops, and colon are unremarkable. Postsurgical changes in distal colon. There is a large amount of stool in colon. Peritoneum: No abnormal intraperitoneal fluid. No free air. Ventral Wall: No hernia. Abdominal Nodes: No retroperitoneal or mesenteric adenopathy by size criteria. Vessels: Infrarenal abdominal aortic aneurysm measuring 3.7 cm in diameter. There is an intraluminal graft in the distal aorta. Severe atherosclerosis. PELVIS: Pelvic Organs: Prostate is enlarged. Bladder: Unremarkable. Pelvic Nodes: No enlarged lymph nodes. Miscellaneous: No inguinal hernias are seen. 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 Degenerative changes in thoracic and lumbar spine. IMPRESSION: 1. Bilateral interstitial thickening and pulmonary fibrosis, consistent with chronic interstitial pneumonia such as UIP. 2. Cannot rule out superimposed acute pneumonic process. 3. No acute abnormalities in abdomen or pelvis. 4. Hepatic steatosis. 5. Stable 1.5 cm enhancing nodule in spleen. 6. A 3.7 cm diameter infrarenal abdominal aortic aneurysm with an in the luminal graft. Dictated by: Ashish Helton M.D. on 05/06/2023 at 15:39 Approved by: Ashish Helton M.D. on 05/06/2023 at 15:49
--- NOTE | 2023-05-06 14:24 | ED.GENADULT ---
HPI - General Adult General Chief complaint: Shortness of Breath/Dyspnea Stated complaint: fall, feeling unwell Time Seen by Provider: 05/06/23 14:09 Source: patient and EMS Mode of arrival: EMS History of Present Illness HPI narrative: Patient brought in by ambulance from home for complaints weakness dizziness nausea and vomiting. Denies any headache chest pain abdominal pain. Has not been able urinate very much. Has not eaten very much. Patient states symptoms started this past Thursday. I spoke with daughter, she saw him this past Thursday and he was doing well except for she was concerned about him keeping hydrated and eating. Patient today felt very weak he slid off the bed without falling. Denies any injury. He tried calling 911 but took a while to get to the phone, but once they arrive he declined transport. Daughter called to check on him and felt he was not doing well and called EMS again and they brought him here. Patient is awake alert oriented itself and date of and year and month and where he is at and where he lives. He does look disheveled and dehydrated. Blood pressure noted. He is on oxygen at home but requiring more supplemental oxygen. Blood pressure is low. However not toxic appearing Related Data Home Medications Medication Instructions Recorded Confirmed ESOMEPRAZOLE SODIUM (NEXIUM) 20 mg PO QDAY ##0 02/19/13 05/06/23 insulin glargine 100 unit/mL 50 unit SUBCUT DAILY ##0 02/19/13 05/06/23 subcutaneous solution (Lantus U-100 Insulin) simvastatin 40 mg tablet (Zocor) 40 mg PO DAILY ##0 02/19/13 05/06/23 rivaroxaban 15 mg tablet (Xarelto) 15 mg PO QPM 08/15/20 05/06/23 dulaglutide 3 mg/0.5 mL mg SUBCUT 05/06/23 subcutaneous pen injector (Trulicity) Previous Rx's Medication Instructions Recorded polyethylene glycol 3350 17 gram 17 gram PO DAILY PRN constipation 06/05/20 oral powder packet (Miralax) #14 ea hydrocodone 5 mg-acetaminophen 325 1 tab PO Q4-6H PRN pain #10 tabs 12/15/22 mg tablet gabapentin 300 mg capsule 300 mg PO BEDTIME 90 days #90 caps 05/12/23 Allergies Allergy/AdvReac Type Severity Reaction Status Date / Time adhesive AdvReac Verified 12/09/22 19:26 Review of Systems Review of Systems Narrative: GENERAL: negative chills, positive fatigue, malaise, negative fever, sweats. HEENT: negative sinus pain, ear pain, sore throat RESPIRATORY: negative dyspnea, cough CARDIOVASCULAR: negative chest pain, palpitations GASTROINTESTINAL: Positive nausea, vomiting, negative abdominal pain : negative dysuria, frequency, hematuria MUSCULOSKELETAL: negative muscle or bony pain SKIN: negative rash, skin lesions NEUROLOGIC: negative weakness, numbness positive confusion ROS Unobtainable: All systems reviewed & are unremarkable except as noted in HPI and below Patient History Medical History (Updated 05/06/23 @ 23:18 by Patric Durbin MD) Anticoagulated ASCVD (arteriosclerotic cardiovascular disease) Colon cancer Diabetes type 2, controlled Diabetic neuropathy History of stroke Hyperlipidemia Hypertension Transient cerebral ischemia Surgical History History of partial colectomy Status post aorto-coronary artery bypass graft Family History Father Medical history unknown Mother Hypertension Brother Cancer Grandmother Diabetes mellitus Brother Cancer Social History household members: none Smoking Status: Former smoker alcohol intake: current Smoking Status: Former smoker alcohol intake frequency: holidays/special occasions only Substance Use Type: does not use Exam Narrative Exam Narrative: GENERAL: in no distress, not toxic not dyspneic HEAD: Normocephalic. EYES: Pupils equal round ENT: Dry lips and tongue NECK: Trachea midline. CARDIOVASCULAR: Regular rate and rhythm without murmurs RESPIRATORY: Clear to auscultation. Breath sounds equal bilaterally. No wheezes, rales, or rhonchi. GASTROINTESTINAL: Abdomen soft, non-tender EXTREMITIES: No gross deformities. BACK: No flank tenderness. NEURO: AOx3. Patient has clear speech no facial droop light touch intact bilateral face and hands with strong equal jig operator. Fast exam is negative SKIN: Warm and dry, decreased skin turgor PSYCH: Not anxious, is cooperative Initial Vital Signs Initial Vital Signs: Vital Signs Temperature 98.7 F 05/06/23 13:34 Pulse Rate 90 05/06/23 13:34 Respiratory Rate 22 05/06/23 13:34 Blood Pressure 92/52 L 05/06/23 13:34 Pulse Oximetry 95 05/06/23 13:34 Oxygen Delivery Method Nasal Cannula 05/06/23 13:34 Oxygen Flow Rate 6 05/06/23 13:34 Course Orders Ordered: Hydrocodone Bitart/Acetaminophen (Hydrocodone/Acet 5/325 Tablet) 1 tab PO Q4H PRN PRN Reason: pain Last Admin: 05/11/23 21:08 Dose: 1 tab Documented By: Admin: 05/09/23 05:34 Dose: 1 tab Documented By: MIKE Atorvastatin Calcium (Atorvastatin 20 Mg Tablet) 20 mg PO BEDTIME [facility] Last Admin: 05/11/23 21:08 Dose: 20 mg Documented By: Admin: 05/10/23 20:19 Dose: 20 mg Documented By: BETSEY Dextrose (Dextrose 50 % In Water 25 Gm/50 Ml Syringe) 25 gm IV PRN PRN; Protocol PRN Reason: Hypoglycemia Gabapentin (Gabapentin 300 Mg Capsule) 300 mg PO BEDTIME [facility] Last Admin: 05/11/23 21:08 Dose: 300 mg Documented By: Admin: 05/10/23 20:19 Dose: 300 mg Documented By: Admin: 05/09/23 20:51 Dose: 300 mg Documented By: Admin: 05/08/23 21:23 Dose: 300 mg Documented By: Admin: 05/07/23 21:01 Dose: 300 mg Documented By: Insulin Glargine (Insulin Glargine 100 Unit/Ml 3ml Pen) 30 unit SUBCUT BID [facility] Last Admin: 05/12/23 08:42 Dose: 30 unit Documented By: SONAL Co-signed By: RUFINO Admin: 05/11/23 21:08 Dose: 30 unit Documented By: Co-signed By: FRANCISCO Admin: 05/11/23 08:19 Dose: 30 unit Documented By: NICOLAS Co-signed By: JOSEPHINE Admin: 05/10/23 20:20 Dose: 30 unit Documented By: BETSEY Co-signed By: Insulin Human Lispro (Insulin Lispro 100 Unit/Ml 3ml Vial) 0 unit SUBCUT ACHS JAREK; Protocol Last Admin: 05/12/23 12:05 Dose: Not Given Documented By: Admin: 05/12/23 08:09 Dose: Not Given Documented By: Admin: 05/11/23 21:15 Dose: 10 unit Documented By: Co-signed By: FRANCISCO Admin: 05/11/23 17:11 Dose: 7 unit Documented By: CLP Co-signed By: ROMANA Admin: 05/11/23 12:25 Dose: 10 unit Documented By: CLP Co-signed By: RUFINO Admin: 05/11/23 08:19 Dose: 2 unit Documented By: CLP Co-signed By: JOSEPHINE Admin: 05/10/23 20:20 Dose: 5 unit Documented By: TLS Co-signed By: Admin: 05/10/23 17:08 Dose: 10 unit Documented By: SAMANTHA Co-signed By: ROMANA Admin: 05/10/23 12:02 Dose: 12 unit Documented By: SAMANTHA Co-signed By: ROMANA Naloxone HCl (Naloxone 0.4 Mg/Ml Vial) 0.2 mg IV Q2MIN PRN PRN Reason: Opiate Reversal Ondansetron HCl (Ondansetron 4 Mg/2 Ml Inj) 4 mg IV NOW PRN PRN Reason: Nausea And Vomiting Ondansetron HCl (Ondansetron 4 Mg Odt) 4 mg SL NOW PRN PRN Reason: Nausea And Vomiting Pantoprazole Sodium (Pantoprazole Dr 40 Mg Tablet) 40 mg PO QACBREAK [facility] Last Admin: 05/12/23 06:08 Dose: 40 mg Documented By: Admin: 05/11/23 06:39 Dose: 40 mg Documented By: Admin: 05/10/23 06:29 Dose: 40 mg Documented By: Admin: 05/09/23 05:34 Dose: 40 mg Documented By: Admin: 05/08/23 05:36 Dose: 40 mg Documented By: Admin: 05/07/23 06:40 Dose: 40 mg Documented By: BELTRAN Prednisone (Prednisone 20 Mg Tablet) 20 mg PO DAILY [facility] Last Admin: 05/12/23 08:41 Dose: 20 mg Documented By: SONAL Rivaroxaban (Rivaroxaban 10 Mg Tablet) 15 mg PO QPM [facility] Last Admin: 05/11/23 17:14 Dose: 15 mg Documented By: Admin: 05/10/23 16:58 Dose: 15 mg Documented By: Admin: 05/09/23 16:37 Dose: 15 mg Documented By: Admin: 05/08/23 17:22 Dose: 15 mg Documented By: Admin: 05/07/23 17:04 Dose: 15 mg Documented By: MS(2) Sodium Chloride (Sodium Chloride 0.9% Flush) 10 ml IV PRN PRN PRN Reason: Flush Sodium Chloride (Sodium Chloride 0.9% Flush) 10 ml IV BID [facility] Last Admin: 05/12/23 08:42 Dose: 10 ml Documented By: Admin: 05/11/23 21:38 Dose: Not Given Documented By: FR Discontinued Medications Sodium Chloride (Normal Saline 0.9%) 1,000 mls @ 1,000 mls/hr IV BOLUS ONE Stop: 05/06/23 14:44 Last Infusion: 05/06/23 16:49 Dose: 0 mls/hr Documented By: SONAL(2) Admin: 05/06/23 14:09 Dose: 1,000 mls/hr Documented By: JOHN Lactated Ringer's (Lactated Ringers) 2,449.41 mls @ 816.47 mls/hr 30 ml/kg infuse over 3 hr (2449.41 ml) IV NOW ONE Stop: 05/06/23 19:23 Last Admin: 05/06/23 16:41 Dose: 816.47 mls/hr Documented By: SONAL(2) Piperacillin Sod/Tazobactam (Sod 4.5 gm/ Sodium Chloride) 100 mls @ 200 mls/hr IV NOW ONE Stop: 05/06/23 16:25 Last Infusion: 05/06/23 18:16 Dose: 0 mls/hr Documented By: SONAL(2) Admin: 05/06/23 16:48 Dose: 200 mls/hr Documented By: SONAL(2) Cefepime HCl 1 gm/ Sodium (Chloride) 100 mls @ 200 mls/hr IV Q12H [facility] Last Admin: 05/08/23 07:41 Dose: 200 mls/hr Documented By: Infusion: 05/07/23 22:26 Dose: 0 mls/hr Documented By: Admin: 05/07/23 21:00 Dose: 200 mls/hr Documented By: Infusion: 05/07/23 08:40 Dose: 0 mls/hr Documented By: Admin: 05/07/23 08:10 Dose: 200 mls/hr Documented By: Infusion: 05/06/23 21:56 Dose: 0 mls/hr Documented By: Admin: 05/06/23 21:03 Dose: 200 mls/hr Documented By: BELTRAN Ceftriaxone Sodium 1,000 mg/ (Sodium Chloride) 100 mls @ 200 mls/hr IV Q24H [facility] Stop: 05/10/23 18:00 Last Admin: 05/10/23 16:58 Dose: 200 mls/hr Documented By: Infusion: 05/09/23 17:07 Dose: 200 mls/hr Documented By: Admin: 05/09/23 16:37 Dose: 200 mls/hr Documented By: Infusion: 05/08/23 17:56 Dose: 0 mls/hr Documented By: Admin: 05/08/23 17:12 Dose: 200 mls/hr Documented By: JOSEPHINE Azithromycin 500 mg/ Dextrose 250 mls @ 250 mls/hr IV NOW ONE Stop: 05/08/23 18:59 Last Admin: 05/08/23 17:55 Dose: 250 mls/hr Documented By: JOSEPHINE Azithromycin 500 mg/ Dextrose 250 mls @ 250 mls/hr IV Q24H [facility] Stop: 05/10/23 18:59 Last Admin: 05/10/23 17:52 Dose: 250 mls/hr Documented By: Infusion: 05/09/23 19:05 Dose: 0 mls/hr Documented By: Admin: 05/09/23 18:01 Dose: 250 mls/hr Documented By: SAMANTHA Insulin Glargine (Insulin Glargine 100 Unit/Ml 3ml Pen) 20 unit SUBCUT DAILY [facility] Last Admin: 05/09/23 07:51 Dose: 20 unit Documented By: SAMANTHA Co-signed By: ROMANA Admin: 05/08/23 12:07 Dose: 20 unit Documented By: JOSEPHINE Co-signed By: ROMANA Insulin Glargine (Insulin Glargine 100 Unit/Ml 3ml Pen) 20 unit SUBCUT BID [facility] Last Admin: 05/10/23 08:22 Dose: 20 unit Documented By: SAMANTHA Co-signed By: ROMANA Admin: 05/09/23 20:51 Dose: 20 unit Documented By: MIKE Co-signed By: Insulin Glargine (Insulin Glargine 100 Unit/Ml 3ml Pen) 10 unit SUBCUT NOW ONE Stop: 05/10/23 10:16 Last Admin: 05/10/23 12:01 Dose: 10 unit Documented By: SAMANTHA Co-signed By: ROMANA Insulin Human Lispro (Insulin Lispro 100 Unit/Ml 3ml Vial) 0 unit SUBCUT [facility]; Protocol Last Admin: 05/06/23 23:34 Dose: 1 unit Documented By: BELTRAN Co-signed By: WENDI Insulin Human Lispro (Insulin Lispro 100 Unit/Ml 3ml Vial) 0 unit SUBCUT [facility]; Protocol Last Admin: 05/10/23 08:22 Dose: 1 unit Documented By: SAMANTHA Co-signed By: ROMANA Admin: 05/09/23 20:50 Dose: 7 unit Documented By: MIKE Co-signed By: Admin: 05/09/23 16:46 Dose: 8 unit Documented By: SAMANTHA Co-signed By: ROMANA Admin: 05/09/23 12:05 Dose: 7 unit Documented By: SAMANTHA Co-signed By: ROMANA Admin: 05/09/23 07:52 Dose: 3 unit Documented By: SAMANTHA Co-signed By: ROMANA Admin: 05/08/23 21:23 Dose: 5 unit Documented By: MIKE Co-signed By: FRANCISCO Admin: 05/08/23 17:03 Dose: 7 unit Documented By: JOSEPHINE Co-signed By: ROMANA Admin: 05/08/23 12:06 Dose: 3 unit Documented By: JOSEPHINE Co-signed By: ROMANA Admin: 05/08/23 08:08 Dose: 1 unit Documented By: JOSEPHINE Co-signed By: ROMANA Admin: 05/07/23 21:01 Dose: 5 unit Documented By: Co-signed By: WENDI Admin: 05/07/23 16:52 Dose: 8 unit Documented By: TENA2) Co-signed By: ANOOP Admin: 05/07/23 12:20 Dose: 3 unit Documented By: JOSEPHINE Co-signed By: (2) Admin: 05/07/23 08:11 Dose: 1 unit Documented By: JOSEPHINE Co-signed By: ANOOP Admin: 05/06/23 23:37 Dose: 1 unit Documented By: BELTRAN Co-signed By: WENDI Linezolid (Linezolid 600 Mg Tablet) 600 mg PO BID [facility] Last Admin: 05/07/23 08:10 Dose: 600 mg Documented By: Admin: 05/06/23 21:03 Dose: 600 mg Documented By: BELTRAN Prednisone (Prednisone 20 Mg Tablet) 40 mg PO DAILY AJREK Stop: 05/11/23 09:01 Last Admin: 05/11/23 08:21 Dose: 40 mg Documented By: Admin: 05/10/23 08:21 Dose: 40 mg Documented By: Admin: 05/09/23 08:03 Dose: 40 mg Documented By: Admin: 05/08/23 09:02 Dose: 40 mg Documented By: Admin: 05/07/23 08:09 Dose: 40 mg Documented By: JOSEPHINE Vital Signs Vital signs: Vital Signs - 8 hr 05/06/23 13:34 05/06/23 14:43 05/06/23 14:57 Temperature 98.7 F Pulse Rate 90 66 90 Respiratory Rate 22 23 Blood Pressure 92/52 L Pulse Oximetry 95 95 Oxygen Delivery Method Nasal Cannula Nasal Cannula Nasal Cannula Oxygen Flow Rate 6 5 5 05/06/23 14:58 05/06/23 14:58 05/06/23 15:00 Temperature Pulse Rate 89 Respiratory Rate 26 H Blood Pressure 106/60 106/55 L Pulse Oximetry 96 Oxygen Delivery Method Nasal Cannula Oxygen Flow Rate 5 05/06/23 15:00 05/06/23 15:16 05/06/23 15:17 Temperature Pulse Rate 89 90 Respiratory Rate 25 H 25 H Blood Pressure 92/55 L Pulse Oximetry 96 96 Oxygen Delivery Method Nasal Cannula Nasal Cannula Oxygen Flow Rate 5 5 05/06/23 15:17 05/06/23 15:30 05/06/23 15:30 Temperature Pulse Rate 90 89 Respiratory Rate 25 H 36 H Blood Pressure 94/54 L Pulse Oximetry 96 96 Oxygen Delivery Method Nasal Cannula Oxygen Flow Rate 5 05/06/23 15:35 05/06/23 15:35 05/06/23 15:40 Temperature Pulse Rate 87 Respiratory Rate 25 H Blood Pressure 100/55 L 99/55 L Pulse Oximetry 96 Oxygen Delivery Method Oxygen Flow Rate 05/06/23 15:40 05/06/23 15:45 05/06/23 15:45 Temperature Pulse Rate 87 87 Respiratory Rate 33 H 24 Blood Pressure 105/62 Pulse Oximetry 96 96 Oxygen Delivery Method Oxygen Flow Rate 05/06/23 15:50 05/06/23 15:50 05/06/23 15:55 Temperature Pulse Rate 87 Respiratory Rate 32 H Blood Pressure 97/55 L 95/53 L Pulse Oximetry 97 Oxygen Delivery Method Oxygen Flow Rate 05/06/23 15:55 05/06/23 16:00 05/06/23 16:00 Temperature Pulse Rate 87 87 Respiratory Rate 25 H 28 H Blood Pressure 81/50 L Pulse Oximetry 97 96 Oxygen Delivery Method Oxygen Flow Rate 05/06/23 16:05 05/06/23 16:05 05/06/23 16:10 Temperature Pulse Rate 87 Respiratory Rate 29 H Blood Pressure 82/51 L 85/53 L Pulse Oximetry 93 Oxygen Delivery Method Oxygen Flow Rate 05/06/23 16:10 05/06/23 16:15 05/06/23 16:15 Temperature Pulse Rate 87 88 Respiratory Rate 24 26 H Blood Pressure 88/54 L Pulse Oximetry 95 96 Oxygen Delivery Method Oxygen Flow Rate 05/06/23 16:20 05/06/23 16:20 05/06/23 16:25 Temperature Pulse Rate 88 Respiratory Rate 24 Blood Pressure 84/51 L 81/52 L Pulse Oximetry 97 Oxygen Delivery Method Oxygen Flow Rate 05/06/23 16:25 05/06/23 16:30 05/06/23 16:30 Temperature Pulse Rate 86 86 Respiratory Rate 25 H 25 H Blood Pressure 77/47 L Pulse Oximetry 96 96 Oxygen Delivery Method Oxygen Flow Rate 05/06/23 16:34 05/06/23 16:34 05/06/23 16:35 Temperature Pulse Rate 86 Respiratory Rate 30 H Blood Pressure 91/54 L 89/53 L Pulse Oximetry 96 Oxygen Delivery Method Nasal Cannula Oxygen Flow Rate 05/06/23 16:35 05/06/23 16:40 05/06/23 16:40 Temperature Pulse Rate 86 86 Respiratory Rate 27 H 27 H Blood Pressure 90/50 L Pulse Oximetry 96 97 Oxygen Delivery Method Nasal Cannula Oxygen Flow Rate 5 05/06/23 16:45 05/06/23 16:45 05/06/23 16:50 Temperature Pulse Rate 86 Respiratory Rate 27 H Blood Pressure 99/58 L 92/55 L Pulse Oximetry 97 Oxygen Delivery Method Oxygen Flow Rate 05/06/23 16:50 05/06/23 16:54 05/06/23 16:54 Temperature Pulse Rate 85 85 Respiratory Rate 25 H Blood Pressure 97/54 L Pulse Oximetry 97 97 Oxygen Delivery Method Nasal Cannula Oxygen Flow Rate 5 05/06/23 16:55 05/06/23 16:55 05/06/23 16:57 Temperature Pulse Rate 85 Respiratory Rate 28 H Blood Pressure 105/57 L 83/48 L Pulse Oximetry 97 Oxygen Delivery Method Oxygen Flow Rate 05/06/23 16:57 05/06/23 17:00 05/06/23 17:00 Temperature Pulse Rate 87 86 Respiratory Rate 24 12 Blood Pressure 106/55 L Pulse Oximetry 97 97 Oxygen Delivery Method Nasal Cannula Oxygen Flow Rate 5 05/06/23 17:03 05/06/23 17:03 05/06/23 17:06 Temperature Pulse Rate 86 85 Respiratory Rate 22 24 Blood Pressure 94/54 L Pulse Oximetry 97 98 Oxygen Delivery Method Oxygen Flow Rate 05/06/23 17:06 05/06/23 17:09 05/06/23 17:09 Temperature Pulse Rate 85 Respiratory Rate 33 H Blood Pressure 99/52 L 95/52 L Pulse Oximetry 97 Oxygen Delivery Method Oxygen Flow Rate 05/06/23 17:12 05/06/23 17:12 05/06/23 17:15 Temperature Pulse Rate 85 Respiratory Rate 25 H Blood Pressure 92/50 L 96/52 L Pulse Oximetry 97 Oxygen Delivery Method Oxygen Flow Rate 05/06/23 17:15 05/06/23 17:18 05/06/23 17:18 Temperature Pulse Rate 85 86 Respiratory Rate 46 H 25 H Blood Pressure 105/55 L Pulse Oximetry 96 96 Oxygen Delivery Method Oxygen Flow Rate 05/06/23 17:21 05/06/23 17:21 05/06/23 17:22 Temperature Pulse Rate 85 Respiratory Rate 24 Blood Pressure 95/51 L 98/57 L Pulse Oximetry 94 Oxygen Delivery Method Oxygen Flow Rate 05/06/23 17:22 05/06/23 17:24 05/06/23 17:24 Temperature Pulse Rate 85 86 Respiratory Rate 24 25 H Blood Pressure 100/55 L Pulse Oximetry 94 95 Oxygen Delivery Method Oxygen Flow Rate 05/06/23 17:27 05/06/23 17:27 05/06/23 17:30 Temperature Pulse Rate 86 Respiratory Rate 25 H Blood Pressure 98/54 L 97/53 L Pulse Oximetry 96 Oxygen Delivery Method Oxygen Flow Rate 05/06/23 17:30 05/06/23 17:33 05/06/23 17:33 Temperature Pulse Rate 85 84 Respiratory Rate 25 H 25 H Blood Pressure 94/51 L Pulse Oximetry 97 96 Oxygen Delivery Method Oximask Oxygen Flow Rate 5 05/06/23 17:36 05/06/23 17:36 05/06/23 17:39 Temperature Pulse Rate 85 Respiratory Rate 24 Blood Pressure 100/58 L 107/57 L Pulse Oximetry 97 Oxygen Delivery Method Oxygen Flow Rate 05/06/23 17:39 Temperature Pulse Rate 87 Respiratory Rate 25 H Blood Pressure Pulse Oximetry 96 Oxygen Delivery Method Oximask Oxygen Flow Rate 5 Medical Decision Making Lab Data 05/11/23 14:20 05/11/23 14:20 Labs: Lab Results 05/06/23 05/06/23 05/06/23 Range/Units 13:40 13:40 13:40 WBC 14.3 H (4.5-11.0) X10^3/uL RBC 4.51 (4.5-5.9) X10^6/uL Hgb 13.6 (13.5-17.5) g/dL Hct 41.0 (41-53) % MCV 91.0 (80-100) fL MCH 30.1 (26-34) PG MCHC 33.1 (30-36) % RDW 14.1 (11.6-14.8) % Plt Count 110 L (150-400) X10^3/uL Neut % (Auto) 91.3 H (50-75) % Lymph % (Auto) 3.5 L (25-40) % Graves % (Auto) 5.0 (3-14) % Eos % (Auto) 0.0 L (2-4) % Baso % (Auto) 0.2 (0-2) % Neut # (Auto) 50367 H (2627-5665) /uL Lymph # (Auto) 500 L (6702-8671) /uL Graves # (Auto) 700 (0-900) /uL Eos # (Auto) 0 (0-450) /uL Baso # (Auto) 0 (0-100) /uL PT 35.3 H (10.1-12.7) SECONDS INR 3.0 H (0.9-1.3) APTT 39 H (26-36) SECONDS Sodium 134 L (137-145) mmol/L Potassium 4.2 (3.4-5.1) mmol/L Chloride 98 (98-107) mmol/L Carbon Dioxide 27 (22-32) mmol/L BUN 21 H (9-20) mg/dL Creatinine 1.43 H (0.66-1.25) mg/dL Estimated GFR 49 L (>60) mL/min BUN/Creatinine Ratio 14.7 (6-22) Glucose 285 H (80-110) mg/dL Lactate (0.7-2.1) mmol/L Calcium 8.4 (8.4-10.2) mg/dL Total Bilirubin 3.3 H (0.2-1.3) mg/dL AST 26 (17-59) IU/L ALT 19 (<50) IU/L Alkaline Phosphatase 81 (38-126) U/L Total Protein 6.7 (6.3-8.2) g/dL Albumin 3.7 (3.5-5.0) g/dL Globulin 3.0 (1.7-4.1) g/dL Albumin/Globulin Ratio 1.2 (1.0-2.8) Lipase 52 (23-300) U/L Procalcitonin 0.32 (<0.5) ng/mL Chlamy pneumoniae PCR (Not Detect) Adenovirus (PCR) (Not Detect) B. pertussis DNA (PCR) (Not Detecte) B.parapertussis DNA PCR (Not Detecte) Coronavirus OC43 (PCR) (Not Detect) Coronavirus HKU1 (PCR) (Not Detect) Coronavirus 229E (PCR) (Not Detect) SARS-CoV-2 (PCR) (Not Detecte) Coronavirus NL63 (PCR) (Not Detect) Human Metapneumovir PCR (Not Detect) Influenza Type A (PCR) (Not Detect) Influenza Type B (PCR) (Not Detect) M. pneumoniae (PCR) (Not Detect) Parainfluenza 1 (PCR) (Not Detect) Parainfluenza 2 (PCR) (Not Detect) Parainfluenza 3 (PCR) (Not Detect) Parainfluenza 4 (PCR) (Not Detect) RSV (PCR) (Not Detect) Entero/Rhino (PCR) (Not Detect) 05/06/23 05/06/23 05/06/23 Range/Units 13:40 13:48 16:00 WBC (4.5-11.0) X10^3/uL RBC (4.5-5.9) X10^6/uL Hgb (13.5-17.5) g/dL Hct (41-53) % MCV (80-100) fL MCH (26-34) PG MCHC (30-36) % RDW (11.6-14.8) % Plt Count (150-400) X10^3/uL Neut % (Auto) (50-75) % Lymph % (Auto) (25-40) % Graves % (Auto) (3-14) % Eos % (Auto) (2-4) % Baso % (Auto) (0-2) % Neut # (Auto) (0645-6669) /uL Lymph # (Auto) (5800-3054) /uL Graves # (Auto) (0-900) /uL Eos # (Auto) (0-450) /uL Baso # (Auto) (0-100) /uL PT (10.1-12.7) SECONDS INR (0.9-1.3) APTT (26-36) SECONDS Sodium (137-145) mmol/L Potassium (3.4-5.1) mmol/L Chloride (98-107) mmol/L Carbon Dioxide (22-32) mmol/L BUN (9-20) mg/dL Creatinine (0.66-1.25) mg/dL Estimated GFR (>60) mL/min BUN/Creatinine Ratio (6-22) Glucose (80-110) mg/dL Lactate 2.2 H 1.6 (0.7-2.1) mmol/L Calcium (8.4-10.2) mg/dL Total Bilirubin (0.2-1.3) mg/dL AST (17-59) IU/L ALT (<50) IU/L Alkaline Phosphatase (38-126) U/L Total Protein (6.3-8.2) g/dL Albumin (3.5-5.0) g/dL Globulin (1.7-4.1) g/dL Albumin/Globulin Ratio (1.0-2.8) Lipase (23-300) U/L Procalcitonin (<0.5) ng/mL Chlamy pneumoniae PCR Not detected (Not Detect) Adenovirus (PCR) Not detected (Not Detect) B. pertussis DNA (PCR) Not detected (Not Detecte) B.parapertussis DNA PCR Not detected (Not Detecte) Coronavirus OC43 (PCR) Not detected (Not Detect) Coronavirus HKU1 (PCR) Not detected (Not Detect) Coronavirus 229E (PCR) Not detected (Not Detect) SARS-CoV-2 (PCR) Not detected (Not Detecte) Coronavirus NL63 (PCR) Not detected (Not Detect) Human Metapneumovir PCR Not detected (Not Detect) Influenza Type A (PCR) Not detected (Not Detect) Influenza Type B (PCR) Not detected (Not Detect) M. pneumoniae (PCR) Not detected (Not Detect) Parainfluenza 1 (PCR) Not detected (Not Detect) Parainfluenza 2 (PCR) Not detected (Not Detect) Parainfluenza 3 (PCR) Not detected (Not Detect) Parainfluenza 4 (PCR) Not detected (Not Detect) RSV (PCR) Not detected (Not Detect) Entero/Rhino (PCR) Not detected (Not Detect) Imaging Data Chest x-ray: Radiologist's Impression: [address] [address] XRay Report Signed Patient: Regino Walker MR#: [id number] : 1940 Acct:[id number] Age/Sex: 82 / M Date of Service: 05/06/23 Loc: Accession Number: [id number] ?? Procedure: XR chest 1V Ordering Provider: Daniel Ramirez MD PROCEDURE:? XR CHEST 1V ? INDICATIONS:? suspected sepsis ? TECHNIQUE:? One view of the chest was acquired.? ? COMPARISON:? CT, CT CHEST WO CON, 04/08/2022, 14:26.? [facility], CR, XR CHEST 1V, 04/08/2022, 12:55.? [facility], CR, XR CHEST 1V, 04/09/2022, 11:11. ? FINDINGS:? ? Surgical changes and devices:? Sternotomy.? ? Lungs and pleura:? Diffuse interstitial infiltrates bilaterally, unchanged.? No pleural effusions or pneumothorax.? ? Mediastinum:? Mediastinal contours appear normal.? Heart size is mildly increased.? ? Bones and chest wall:? No suspicious bony lesions.? Overlying soft tissues appear unremarkable.? ? IMPRESSION:? Diffuse interstitial infiltrates appear unchanged.? Differential diagnoses are pulmonary edema secondary to congestive heart failure versus chronic interstitial lung disease. ? ? Dictated by: Ashish Helton M.D. on 05/06/2023 at 14:22 ? ? Approved by: Ashish Helton M.D. on 05/06/2023 at 14:23 ? [facility] Narrative Medical decision making narrative: Patient brought in by ambulance from home for complaints weakness dizziness nausea and vomiting. Denies any headache chest pain abdominal pain. Has not been able urinate very much. Has not eaten very much. Patient states symptoms started this past Thursday. I spoke with daughter, she saw him this past Thursday and he was doing well except for she was concerned about him keeping hydrated and eating. Patient today felt very weak he slid off the bed without falling. Denies any injury. He tried calling 911 but took a while to get to the phone, but once they arrive he declined transport. Daughter called to check on him and felt he was not doing well and called EMS again and they brought him here. Patient is awake alert oriented itself and date of and year and month and where he is at and where he lives. He does look disheveled and dehydrated. Blood pressure noted. He is on oxygen at home but requiring more supplemental oxygen. Blood pressure is low. However not toxic appearing After history and exam CBC CMP EKG troponin chest x-ray CT head CT chest abdomen pelvis normal saline viral swab urinalysis [facility] CC: Dizzy weak Complicating co-morbidities: History of MT stroke Data collected from: Patient daughter and EMS, I did speak with daughter by phone Medical records reviewed: No recent visit for this complaint Differential considered: Includes but not limited to heart attack stroke dementia UTI sepsis pneumonia bowel obstruction Exam documented above, pertinent findings include: Disheveled appearing, dry lips and tongue Lab Test results independently reviewed as above. Pertinent findings: Independently reviewed EKG normal sinus rhythm right bundle-branch block rate [address] elevation or depression Imaging studies independently reviewed: Chest x-ray no acute finding Consultations: 5:[address] Brown, hospitalist, who will admit patient, however would like to observe blood pressure down here 1st to be over systolic of 100 Treatments: Normal saline lactated Ringer's Zosyn Re-evaluations: Reviewed results with patient. He does understand needs to be admitted for IV antibiotics and fluid resuscitation. Blood pressure much better after IV fluids not requiring vasopressors. No central line indicated at this time. Blood pressure 107/57. 2 L IV fluids given so far. No urine in the bladder with in and out catheterization. Discussion: Appropriate for admission. No central line indicated this time or vasopressors. Patient responding very well to IV fluids. Patient likely dehydrated, laboratory studies CMP shows likely prerenal source of low blood pressure. Address being with daughter he is not been eating or drinking very well at home. Likely malnourished Diagnosis: Sepsis/pneumonia Discharge Plan Departure Patient Disposition: Admitted As Inpatient Clinical Impression: Sepsis, Pneumonia Admit Date/Time: 05/06/23 18:01 Admit Provider: Prince Brown
[2023-05-06 14:25] LABS: Prothrombin Time 35.3 SECONDS (10.1-12.7)
[2023-05-06 14:27] LABS: PTT Partial Thromboplastin Tim 39 SECONDS (26-36)
[2023-05-06 14:28] LABS: Add Manual Diff / Slide Review NO; Basophils Absolute Auto 0 /uL (0-100); Basophils Percent Auto 0.2 % (0-2); Eosinophils Absolute Auto 0 /uL (0-450); Hemoglobin 13.6 g/dL (13.5-17.5); Lymphocytes Absolute Auto 500 /uL (1100-4500); Lymphocytes Percent Auto 3.5 % (25-40); Mean Corpuscular HGB Conc 33.1 % (30-36); Mean Corpuscular Hemoglobin 30.1 PG (26-34); Monocytes Absolute Auto 700 /uL (0-900); Neutrophils Absolute Auto 13100 /uL (1500-7000); Neutrophils Percent Auto 91.3 % (50-75); Platelet Count 110 X10^3/uL (150-400); Red Blood Cell Count 4.51 X10^6/uL (4.5-5.9); Red Cell Distribution Width 14.1 % (11.6-14.8); White Blood Cell Count 14.3 X10^3/uL (4.5-11.0)
[2023-05-06 14:29] LABS: Alanine Aminotransferase 19 IU/L (<50); Albumin 3.7 g/dL (3.5-5.0); Albumin Globulin Ratio 1.2 (1.0-2.8); Alkaline Phosphatase 81 U/L (38-126); Aspartate Aminotransferase 26 IU/L (17-59); BUN Creatinine Ratio 14.7 (6-22); Bilirubin Total 3.3 mg/dL (0.2-1.3); Blood Urea Nitrogen 21 mg/dL (9-20); Calcium 8.4 mg/dL (8.4-10.2); Carbon Dioxide 27 mmol/L (22-32); Chloride 98 mmol/L (98-107); Estimated Glomerular Filt Rate 49 mL/min (>60); Glucose 285 mg/dL (80-110); HEMOLYSIS < 15 (0-50); Lipase 52 U/L (23-300); Potassium 4.2 mmol/L (3.4-5.1); Sodium 134 mmol/L (137-145); Total Protein 6.7 g/dL (6.3-8.2)
[2023-05-06 14:30] LABS: Lactate (Lactic Acid) 2.2 mmol/L (0.7-2.1)
[2023-05-06 14:46] LABS: Procalcitonin 0.32 ng/mL (<0.5)
[2023-05-06 15:07] LABS: Adenovirus Not Detected (Not Detect); B. parapertussis Not Detected (Not Detecte); Bordetella pertussis Not Detected (Not Detecte); Chlamydophila pneumoniae Not Detected (Not Detect); Coronavirus 229E Not Detected (Not Detect); Coronavirus HKU1 Not Detected (Not Detect); Coronavirus NL 63 Not Detected (Not Detect); Coronavirus OC43 Not Detected (Not Detect); Human Metapneumovirus Not Detected (Not Detect); Human Rhinovirus/Enterovirus Not Detected (Not Detect); Influenza A Not Detected (Not Detect); Influenza B Not Detected (Not Detect); Mycoplasma pneumoniae Not Detected (Not Detect); Parainfluenza Virus 1 Not Detected (Not Detect); Parainfluenza Virus 2 Not Detected (Not Detect); Parainfluenza Virus 3 Not Detected (Not Detect); Parainfluenza Virus 4 Not Detected (Not Detect); Respiratory Syncytial Virus Not Detected (Not Detect); SARS- CoV-2 Not Detected (Not Detecte)
[2023-05-06 16:07] LABS: Reflexed Lactate in 2 Hours Y
[2023-05-06 16:37] LABS: Lactate 2HR (Lactic Acid Rflx) 1.6 mmol/L (0.7-2.1)
[2023-05-06] MEDS: LACTATED RINGERS 2,449.41 ML 816.47 ML IV (16:41)
[2023-05-06] MEDS: PIPERACILLIN/TAZO 4.5 GM in SODIUM CHLORIDE 0.9% 100 ML IV (16:48)
--- NOTE | 2023-05-06 18:15 | PC.NURSE ---
Straight cath pt after 2L fluids, no urine output. Bladder scan = 7ml. Physician aware.
--- NOTE | 2023-05-06 19:19 | PC.NURSE ---
Admit Note Pt to room 226 at approx 1830 from ER. Transferred via slider board. Alert and oriented x3. Cell phone at bedside and clothing in belongings bag and in room. Declines need to lock up any valuables. On 5L oxymask SpO2 95%. SOB with repositioning and desats to 87%. BP stable see VS. Temp 100.3. Denies need to void, IVF from ER finishing. Oriented to room and to call light/bed/tv controls. Bed alarm on and call light within reach.
--- NOTE | 2023-05-06 20:15 | PM.CN.EICU ---
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 By report patient admits to not eating much and has been feeling weak. On presentation, CT chest showed bilateral subpleural reticular changes c/w UIP pattern. He was noted to be hypotensive which he received 30 mL/kg crystalloid bolus and started on broad spectrum abx. Admitted to ICU for sepsis workup. At the time of my assessment patient is awake and on [address] chest: 1.? Bilateral interstitial thickening and pulmonary fibrosis, consistent with chronic interstitial pneumonia such as UIP.? ? 2.? Cannot rule out superimposed acute pneumonic process. ? 3.? No acute abnormalities in abdomen or pelvis. ? 4. Hepatic steatosis. ? 5. Stable 1.5 cm enhancing nodule in spleen.? ? 6. A 3.7 cm diameter infrarenal abdominal aortic aneurysm with an in the luminal graft. [facility] Medical History Anticoagulated ASCVD (arteriosclerotic cardiovascular disease) Colon cancer Diabetes type 2, controlled Diabetic neuropathy History of stroke Hyperlipidemia Hypertension Surgical History History of partial colectomy Status post aorto-coronary artery bypass graft Family History Father Medical history unknown Mother Hypertension Brother Cancer Grandmother Diabetes mellitus Brother Cancer Social History household members: none Smoking Status: Former smoker alcohol intake: current Current Medications Current Medications Medications: Home Medications ESOMEPRAZOLE SODIUM (NEXIUM) 20 mg PO QDAY ##0 02/19/13 [History Confirmed 05/06/23] insulin glargine 100 unit/mL subcutaneous solution (Lantus U-100 Insulin) 50 unit SUBCUT DAILY ##0 02/19/13 [History Confirmed 05/06/23] simvastatin 40 mg tablet (Zocor) 40 mg PO DAILY ##0 02/19/13 [History Confirmed 05/06/23] polyethylene glycol 3350 17 gram oral powder packet (Miralax) 17 gram PO DAILY PRN constipation #14 ea 06/05/20 [Rx Confirmed 05/06/23] gabapentin 300 mg capsule 300 mg PO BEDTIME 08/15/20 [History Confirmed 05/06/23] rivaroxaban 15 mg tablet (Xarelto) 15 mg PO QPM 08/15/20 [History Confirmed 05/06/23] hydrocodone 5 mg-acetaminophen 325 mg tablet 1 tab PO Q4-6H PRN pain #10 tabs 09/25/22 [Rx Confirmed 05/06/23] dulaglutide 3 mg/0.5 mL subcutaneous pen injector (Trulicity) mg SUBCUT 05/06/23 [History] Exam Vital Signs (past 8 hours): - 05/06/23 13:34 05/06/23 14:43 05/06/23 14:57 Temperature 98.7 F Pulse Rate 90 66 90 Respiratory Rate 22 23 Blood Pressure 92/52 L Pulse Oximetry 95 95 Oxygen Delivery Method Nasal Cannula Nasal Cannula Nasal Cannula Oxygen Flow Rate 6 5 5 05/06/23 14:58 05/06/23 14:58 05/06/23 15:00 Temperature Pulse Rate 89 Respiratory Rate 26 H Blood Pressure 106/60 106/55 L Pulse Oximetry 96 Oxygen Delivery Method Nasal Cannula Oxygen Flow Rate 5 05/06/23 15:00 05/06/23 15:16 05/06/23 15:17 Temperature Pulse Rate 89 90 Respiratory Rate 25 H 25 H Blood Pressure 92/55 L Pulse Oximetry 96 96 Oxygen Delivery Method Nasal Cannula Nasal Cannula Oxygen Flow Rate 5 5 05/06/23 15:17 05/06/23 15:30 05/06/23 15:30 Temperature Pulse Rate 90 89 Respiratory Rate 25 H 36 H Blood Pressure 94/54 L Pulse Oximetry 96 96 Oxygen Delivery Method Nasal Cannula Oxygen Flow Rate 5 05/06/23 15:35 05/06/23 15:35 05/06/23 15:40 Temperature Pulse Rate 87 Respiratory Rate 25 H Blood Pressure 100/55 L 99/55 L Pulse Oximetry 96 Oxygen Delivery Method Oxygen Flow Rate 05/06/23 15:40 05/06/23 15:45 05/06/23 15:45 Temperature Pulse Rate 87 87 Respiratory Rate 33 H 24 Blood Pressure 105/62 Pulse Oximetry 96 96 Oxygen Delivery Method Oxygen Flow Rate 05/06/23 15:50 05/06/23 15:50 05/06/23 15:55 Temperature Pulse Rate 87 Respiratory Rate 32 H Blood Pressure 97/55 L 95/53 L Pulse Oximetry 97 Oxygen Delivery Method Oxygen Flow Rate 05/06/23 15:55 05/06/23 16:00 05/06/23 16:00 Temperature Pulse Rate 87 87 Respiratory Rate 25 H 28 H Blood Pressure 81/50 L Pulse Oximetry 97 96 Oxygen Delivery Method Oxygen Flow Rate 05/06/23 16:05 05/06/23 16:05 05/06/23 16:10 Temperature Pulse Rate 87 Respiratory Rate 29 H Blood Pressure 82/51 L 85/53 L Pulse Oximetry 93 Oxygen Delivery Method Oxygen Flow Rate 05/06/23 16:10 05/06/23 16:15 05/06/23 16:15 Temperature Pulse Rate 87 88 Respiratory Rate 24 26 H Blood Pressure 88/54 L Pulse Oximetry 95 96 Oxygen Delivery Method Oxygen Flow Rate 05/06/23 16:20 05/06/23 16:20 05/06/23 16:25 Temperature Pulse Rate 88 Respiratory Rate 24 Blood Pressure 84/51 L 81/52 L Pulse Oximetry 97 Oxygen Delivery Method Oxygen Flow Rate 05/06/23 16:25 05/06/23 16:30 05/06/23 16:30 Temperature Pulse Rate 86 86 Respiratory Rate 25 H 25 H Blood Pressure 77/47 L Pulse Oximetry 96 96 Oxygen Delivery Method Oxygen Flow Rate 05/06/23 16:34 05/06/23 16:34 05/06/23 16:35 Temperature Pulse Rate 86 Respiratory Rate 30 H Blood Pressure 91/54 L 89/53 L Pulse Oximetry 96 Oxygen Delivery Method Nasal Cannula Oxygen Flow Rate 05/06/23 16:35 05/06/23 16:40 05/06/23 16:40 Temperature Pulse Rate 86 86 Respiratory Rate 27 H 27 H Blood Pressure 90/50 L Pulse Oximetry 96 97 Oxygen Delivery Method Nasal Cannula Oxygen Flow Rate 5 05/06/23 16:45 05/06/23 16:45 05/06/23 16:50 Temperature Pulse Rate 86 Respiratory Rate 27 H Blood Pressure 99/58 L 92/55 L Pulse Oximetry 97 Oxygen Delivery Method Oxygen Flow Rate 05/06/23 16:50 05/06/23 16:54 05/06/23 16:54 Temperature Pulse Rate 85 85 Respiratory Rate 25 H Blood Pressure 97/54 L Pulse Oximetry 97 97 Oxygen Delivery Method Nasal Cannula Oxygen Flow Rate 5 05/06/23 16:55 05/06/23 16:55 05/06/23 16:57 Temperature Pulse Rate 85 Respiratory Rate 28 H Blood Pressure 105/57 L 83/48 L Pulse Oximetry 97 Oxygen Delivery Method Oxygen Flow Rate 05/06/23 16:57 05/06/23 17:00 05/06/23 17:00 Temperature Pulse Rate 87 86 Respiratory Rate 24 12 Blood Pressure 106/55 L Pulse Oximetry 97 97 Oxygen Delivery Method Nasal Cannula Oxygen Flow Rate 5 05/06/23 17:03 05/06/23 17:03 05/06/23 17:06 Temperature Pulse Rate 86 85 Respiratory Rate 22 24 Blood Pressure 94/54 L Pulse Oximetry 97 98 Oxygen Delivery Method Oxygen Flow Rate 05/06/23 17:06 05/06/23 17:09 05/06/23 17:09 Temperature Pulse Rate 85 Respiratory Rate 33 H Blood Pressure 99/52 L 95/52 L Pulse Oximetry 97 Oxygen Delivery Method Oxygen Flow Rate 05/06/23 17:12 05/06/23 17:12 05/06/23 17:15 Temperature Pulse Rate 85 Respiratory Rate 25 H Blood Pressure 92/50 L 96/52 L Pulse Oximetry 97 Oxygen Delivery Method Oxygen Flow Rate 05/06/23 17:15 05/06/23 17:18 05/06/23 17:18 Temperature Pulse Rate 85 86 Respiratory Rate 46 H 25 H Blood Pressure 105/55 L Pulse Oximetry 96 96 Oxygen Delivery Method Oxygen Flow Rate 05/06/23 17:21 05/06/23 17:21 05/06/23 17:22 Temperature Pulse Rate 85 Respiratory Rate 24 Blood Pressure 95/51 L 98/57 L Pulse Oximetry 94 Oxygen Delivery Method Oxygen Flow Rate 05/06/23 17:22 05/06/23 17:24 05/06/23 17:24 Temperature Pulse Rate 85 86 Respiratory Rate 24 25 H Blood Pressure 100/55 L Pulse Oximetry 94 95 Oxygen Delivery Method Oxygen Flow Rate 05/06/23 17:27 05/06/23 17:27 05/06/23 17:30 Temperature Pulse Rate 86 Respiratory Rate 25 H Blood Pressure 98/54 L 97/53 L Pulse Oximetry 96 Oxygen Delivery Method Oxygen Flow Rate 05/06/23 17:30 05/06/23 17:33 05/06/23 17:33 Temperature Pulse Rate 85 84 Respiratory Rate 25 H 25 H Blood Pressure 94/51 L Pulse Oximetry 97 96 Oxygen Delivery Method Oximask Oxygen Flow Rate 5 05/06/23 17:36 05/06/23 17:36 05/06/23 17:39 Temperature Pulse Rate 85 Respiratory Rate 24 Blood Pressure 100/58 L 107/57 L Pulse Oximetry 97 Oxygen Delivery Method Oxygen Flow Rate 05/06/23 17:39 05/06/23 17:42 05/06/23 17:42 Temperature Pulse Rate 87 87 Respiratory Rate 25 H 31 H Blood Pressure 97/54 L Pulse Oximetry 96 94 Oxygen Delivery Method Oximask Oxygen Flow Rate 5 05/06/23 17:45 05/06/23 17:45 05/06/23 17:48 Temperature Pulse Rate 86 86 Respiratory Rate 23 29 H Blood Pressure 100/57 L Pulse Oximetry 92 96 Oxygen Delivery Method Oximask Oxygen Flow Rate 5 05/06/23 17:48 05/06/23 17:51 05/06/23 17:51 Temperature Pulse Rate 87 Respiratory Rate 26 H Blood Pressure 98/56 L 102/58 L Pulse Oximetry 94 Oxygen Delivery Method Oxygen Flow Rate 05/06/23 17:54 05/06/23 17:54 05/06/23 17:57 Temperature Pulse Rate 90 89 Respiratory Rate 27 H 33 H Blood Pressure 106/56 L Pulse Oximetry 92 90 L Oxygen Delivery Method Oxygen Flow Rate 05/06/23 17:57 05/06/23 18:00 05/06/23 18:00 Temperature Pulse Rate 89 Respiratory Rate 39 H Blood Pressure 105/59 L 107/58 L Pulse Oximetry 89 L Oxygen Delivery Method Oxygen Flow Rate 05/06/23 18:03 05/06/23 18:03 05/06/23 18:07 Temperature Pulse Rate 87 93 H Respiratory Rate 33 H 29 H Blood Pressure 107/55 L Pulse Oximetry 88 L 96 Oxygen Delivery Method Oxygen Flow Rate 05/06/23 18:09 05/06/23 18:09 05/06/23 18:38 Temperature 100.3 F H Pulse Rate 90 87 Respiratory Rate 29 H 28 H Blood Pressure 113/56 L 129/62 Pulse Oximetry 98 96 Oxygen Delivery Method Oxygen Flow Rate 5 05/06/23 19:18 Temperature Pulse Rate Respiratory Rate Blood Pressure Pulse Oximetry Oxygen Delivery Method Oximask Oxygen Flow Rate Oxygen Delivery Method Oximask Oxygen Flow Rate 5 Narrative Exam Narrative: NAD; speaking in full sentence Objective Labs 05/06/23 13:40 05/06/23 13:40 Labs: Laboratory Results - last 24 hr 05/06/23 05/06/23 05/06/23 13:40 13:40 13:40 WBC 14.3 H RBC 4.51 Hgb 13.6 Hct 41.0 MCV 91.0 MCH 30.1 MCHC 33.1 RDW 14.1 Plt Count 110 L Neut % (Auto) 91.3 H Lymph % (Auto) 3.5 L [place] % (Auto) 5.0 Eos % (Auto) 0.0 L Baso % (Auto) 0.2 Neut # (Auto) 20410 H Lymph # (Auto) 500 L [place] # (Auto) 700 Eos # (Auto) 0 Baso # (Auto) 0 PT 35.3 H INR 3.0 H APTT 39 H Sodium 134 L Potassium 4.2 Chloride 98 Carbon Dioxide 27 BUN 21 H Creatinine 1.43 H Estimated GFR 49 L BUN/Creatinine Ratio 14.7 Glucose 285 H Lactate Calcium 8.4 Total Bilirubin 3.3 H AST 26 ALT 19 Alkaline Phosphatase 81 Total Protein 6.7 Albumin 3.7 Globulin 3.0 Albumin/Globulin Ratio 1.2 Lipase 52 Procalcitonin 0.32 Chlamy pneumoniae PCR Adenovirus (PCR) B. pertussis DNA (PCR) B.parapertussis DNA PCR Coronavirus OC43 (PCR) Coronavirus HKU1 (PCR) Coronavirus 229E (PCR) SARS-CoV-2 (PCR) Coronavirus NL63 (PCR) Human Metapneumovir PCR Influenza Type A (PCR) Influenza Type B (PCR) M. pneumoniae (PCR) Parainfluenza 1 (PCR) Parainfluenza 2 (PCR) Parainfluenza 3 (PCR) Parainfluenza 4 (PCR) RSV (PCR) Entero/Rhino (PCR) 05/06/23 05/06/23 05/06/23 13:40 13:48 16:00 WBC RBC Hgb Hct MCV MCH MCHC RDW Plt Count Neut % (Auto) Lymph % (Auto) [place] % (Auto) Eos % (Auto) Baso % (Auto) Neut # (Auto) Lymph # (Auto) [place] # (Auto) Eos # (Auto) Baso # (Auto) PT INR APTT Sodium Potassium Chloride Carbon Dioxide BUN Creatinine Estimated GFR BUN/Creatinine Ratio Glucose Lactate 2.2 H 1.6 Calcium Total Bilirubin AST ALT Alkaline Phosphatase Total Protein Albumin Globulin Albumin/Globulin Ratio Lipase Procalcitonin Chlamy pneumoniae PCR Not detected Adenovirus (PCR) Not detected B. pertussis DNA (PCR) Not detected B.parapertussis DNA PCR Not detected Coronavirus OC43 (PCR) Not detected Coronavirus HKU1 (PCR) Not detected Coronavirus 229E (PCR) Not detected SARS-CoV-2 (PCR) Not detected Coronavirus NL63 (PCR) Not detected Human Metapneumovir PCR Not detected Influenza Type A (PCR) Not detected Influenza Type B (PCR) Not detected M. pneumoniae (PCR) Not detected Parainfluenza 1 (PCR) Not detected Parainfluenza 2 (PCR) Not detected Parainfluenza 3 (PCR) Not detected Parainfluenza 4 (PCR) Not detected RSV (PCR) Not detected Entero/Rhino (PCR) Not detected Assessment & Plan Assessment & Plan narrative: # Acute on chronic hypoxeia respiratory failure -- Secondary to PNA vs AE-ILD vs COPD exacerbation -- Start prednisone 40 mg PO and linezolod/cefepime -- Check resp cx -- Recommend checking urinary legionella/strep -- HOB elevation -- Goal SpO2 > 88% # Severe sepsis -- Secondary to PNA -- Resp viral panel negative -- Cont abx as above -- Follow up cx data # DM -- Recommend adding ISS -- Goal BS < 180 D/w bedside RN Time Spent With Patient Time with patient: less than 30 minutes
[2023-05-06 20:20] LABS: MRSA (Nasal) PCR Not Detected (Not Detect)
[2023-05-06] MEDS: CEFEPIME 1 GM in SODIUM CHLORIDE 0.9% 100 ML IV (21:03)
[2023-05-06] MEDS: LINEZOLID 600 MG TABLET PO (21:03)
--- NOTE | 2023-05-06 23:04 | P.HP_ITS ---
History of Present Illness History of Present Illness Date Patient Seen: 05/06/23 Chief complaint: fall, feeling unwell Narrative: 82 y/o with PMH of oxygen dependent ILD, on 2 L of O2 continuously, developed nausea, lost appetite, became weaker and progressively more short of breath in l ast 3-4 days. [facility] Medical History (Updated 05/06/23 @ 23:18 by Patric Durbin MD) Anticoagulated ASCVD (arteriosclerotic cardiovascular disease) Colon cancer Diabetes type 2, controlled Diabetic neuropathy History of stroke Hyperlipidemia Hypertension Transient cerebral ischemia Surgical History History of partial colectomy Status post aorto-coronary artery bypass graft Family History Father Medical history unknown Mother Hypertension Brother Cancer Grandmother Diabetes mellitus Brother Cancer Social History household members: none Smoking Status: Former smoker alcohol intake: current Meds Home Medications and Allergies Home Medications Medication Instructions Recorded Confirmed Type ESOMEPRAZOLE SODIUM (NEXIUM) 20 mg PO QDAY ##0 02/19/13 05/06/23 History insulin glargine 100 unit/mL 50 unit SUBCUT DAILY ##0 02/19/13 05/06/23 History subcutaneous solution (Lantus U-100 Insulin) simvastatin 40 mg tablet (Zocor) 40 mg PO DAILY ##0 02/19/13 05/06/23 History polyethylene glycol 3350 17 gram 17 gram PO DAILY PRN constipation 06/05/20 05/06/23 Rx oral powder packet (Miralax) #14 ea gabapentin 300 mg capsule 300 mg PO BEDTIME 08/15/20 05/06/23 History rivaroxaban 15 mg tablet (Xarelto) 15 mg PO QPM 08/15/20 05/06/23 History hydrocodone 5 mg-acetaminophen 325 1 tab PO Q4-6H PRN pain #10 tabs 09/25/22 05/06/23 Rx mg tablet dulaglutide 3 mg/0.5 mL mg SUBCUT 05/06/23 History subcutaneous pen injector (Trulicity) Allergies Allergy/AdvReac Type Severity Reaction Status Date / Time adhesive AdvReac Verified 12/09/22 19:26 Review of Systems Review of Systems Narrative: poor historian Constitutional Comments: no fever or chills Cardiovascular Comments: w/o palpitations or chest pain Respiratory Comments: short of breath Gastrointestinal Comments: nausea Genitourinary Comments: w/o dysuria Exam Vital Signs (past 8 hours): - 05/06/23 15:16 05/06/23 15:17 05/06/23 15:17 Temperature Pulse Rate 90 90 Respiratory Rate 25 H 25 H Blood Pressure 92/55 L Pulse Oximetry 96 96 Oxygen Delivery Method Nasal Cannula Nasal Cannula Oxygen Flow Rate 5 5 05/06/23 15:30 05/06/23 15:30 05/06/23 15:35 Temperature Pulse Rate 89 87 Respiratory Rate 36 H 25 H Blood Pressure 94/54 L Pulse Oximetry 96 96 Oxygen Delivery Method Oxygen Flow Rate 05/06/23 15:35 05/06/23 15:40 05/06/23 15:40 Temperature Pulse Rate 87 Respiratory Rate 33 H Blood Pressure 100/55 L 99/55 L Pulse Oximetry 96 Oxygen Delivery Method Oxygen Flow Rate 05/06/23 15:45 05/06/23 15:45 05/06/23 15:50 Temperature Pulse Rate 87 Respiratory Rate 24 Blood Pressure 105/62 97/55 L Pulse Oximetry 96 Oxygen Delivery Method Oxygen Flow Rate 05/06/23 15:50 05/06/23 15:55 05/06/23 15:55 Temperature Pulse Rate 87 87 Respiratory Rate 32 H 25 H Blood Pressure 95/53 L Pulse Oximetry 97 97 Oxygen Delivery Method Oxygen Flow Rate 05/06/23 16:00 05/06/23 16:00 05/06/23 16:05 Temperature Pulse Rate 87 87 Respiratory Rate 28 H 29 H Blood Pressure 81/50 L Pulse Oximetry 96 93 Oxygen Delivery Method Oxygen Flow Rate 05/06/23 16:05 05/06/23 16:10 05/06/23 16:10 Temperature Pulse Rate 87 Respiratory Rate 24 Blood Pressure 82/51 L 85/53 L Pulse Oximetry 95 Oxygen Delivery Method Oxygen Flow Rate 05/06/23 16:15 05/06/23 16:15 05/06/23 16:20 Temperature Pulse Rate 88 Respiratory Rate 26 H Blood Pressure 88/54 L 84/51 L Pulse Oximetry 96 Oxygen Delivery Method Oxygen Flow Rate 05/06/23 16:20 05/06/23 16:25 05/06/23 16:25 Temperature Pulse Rate 88 86 Respiratory Rate 24 25 H Blood Pressure 81/52 L Pulse Oximetry 97 96 Oxygen Delivery Method Oxygen Flow Rate 05/06/23 16:30 05/06/23 16:30 05/06/23 16:34 Temperature Pulse Rate 86 Respiratory Rate 25 H Blood Pressure 77/47 L 91/54 L Pulse Oximetry 96 Oxygen Delivery Method Oxygen Flow Rate 05/06/23 16:34 05/06/23 16:35 05/06/23 16:35 Temperature Pulse Rate 86 86 Respiratory Rate 30 H 27 H Blood Pressure 89/53 L Pulse Oximetry 96 96 Oxygen Delivery Method Nasal Cannula Oxygen Flow Rate 5 05/06/23 16:40 05/06/23 16:40 05/06/23 16:45 Temperature Pulse Rate 86 Respiratory Rate 27 H Blood Pressure 90/50 L 99/58 L Pulse Oximetry 97 Oxygen Delivery Method Nasal Cannula Oxygen Flow Rate 5 05/06/23 16:45 05/06/23 16:50 05/06/23 16:50 Temperature Pulse Rate 86 85 Respiratory Rate 27 H Blood Pressure 92/55 L Pulse Oximetry 97 97 Oxygen Delivery Method Oxygen Flow Rate 05/06/23 16:54 05/06/23 16:54 05/06/23 16:55 Temperature Pulse Rate 85 85 Respiratory Rate 25 H 28 H Blood Pressure 97/54 L Pulse Oximetry 97 97 Oxygen Delivery Method Nasal Cannula Oxygen Flow Rate 5 05/06/23 16:55 05/06/23 16:57 05/06/23 16:57 Temperature Pulse Rate 87 Respiratory Rate 24 Blood Pressure 105/57 L 83/48 L Pulse Oximetry 97 Oxygen Delivery Method Nasal Cannula Oxygen Flow Rate 5 05/06/23 17:00 05/06/23 17:00 05/06/23 17:03 Temperature Pulse Rate 86 Respiratory Rate 12 Blood Pressure 106/55 L 94/54 L Pulse Oximetry 97 Oxygen Delivery Method Oxygen Flow Rate 05/06/23 17:03 05/06/23 17:06 05/06/23 17:06 Temperature Pulse Rate 86 85 Respiratory Rate 22 24 Blood Pressure 99/52 L Pulse Oximetry 97 98 Oxygen Delivery Method Oxygen Flow Rate 05/06/23 17:09 05/06/23 17:09 05/06/23 17:12 Temperature Pulse Rate 85 Respiratory Rate 33 H Blood Pressure 95/52 L 92/50 L Pulse Oximetry 97 Oxygen Delivery Method Oxygen Flow Rate 05/06/23 17:12 05/06/23 17:15 05/06/23 17:15 Temperature Pulse Rate 85 85 Respiratory Rate 25 H 46 H Blood Pressure 96/52 L Pulse Oximetry 97 96 Oxygen Delivery Method Oxygen Flow Rate 05/06/23 17:18 05/06/23 17:18 05/06/23 17:21 Temperature Pulse Rate 86 Respiratory Rate 25 H Blood Pressure 105/55 L 95/51 L Pulse Oximetry 96 Oxygen Delivery Method Oxygen Flow Rate 05/06/23 17:21 05/06/23 17:22 05/06/23 17:22 Temperature Pulse Rate 85 85 Respiratory Rate 24 24 Blood Pressure 98/57 L Pulse Oximetry 94 94 Oxygen Delivery Method Oxygen Flow Rate 05/06/23 17:24 05/06/23 17:24 05/06/23 17:27 Temperature Pulse Rate 86 86 Respiratory Rate 25 H 25 H Blood Pressure 100/55 L Pulse Oximetry 95 96 Oxygen Delivery Method Oxygen Flow Rate 05/06/23 17:27 05/06/23 17:30 05/06/23 17:30 Temperature Pulse Rate 85 Respiratory Rate 25 H Blood Pressure 98/54 L 97/53 L Pulse Oximetry 97 Oxygen Delivery Method Oxygen Flow Rate 05/06/23 17:33 05/06/23 17:33 05/06/23 17:36 Temperature Pulse Rate 84 85 Respiratory Rate 25 H 24 Blood Pressure 94/51 L Pulse Oximetry 96 97 Oxygen Delivery Method Oximask Oxygen Flow Rate 05/06/23 17:36 05/06/23 17:39 05/06/23 17:39 Temperature Pulse Rate 87 Respiratory Rate 25 H Blood Pressure 100/58 L 107/57 L Pulse Oximetry 96 Oxygen Delivery Method Oximask Oxygen Flow Rate 05/06/23 17:42 05/06/23 17:42 05/06/23 17:45 Temperature Pulse Rate 87 Respiratory Rate 31 H Blood Pressure 97/54 L 100/57 L Pulse Oximetry 94 Oxygen Delivery Method Oxygen Flow Rate 05/06/23 17:45 05/06/23 17:48 05/06/23 17:48 Temperature Pulse Rate 86 86 Respiratory Rate 23 29 H Blood Pressure 98/56 L Pulse Oximetry 92 96 Oxygen Delivery Method Oximask Oxygen Flow Rate 05/06/23 17:51 05/06/23 17:51 05/06/23 17:54 Temperature Pulse Rate 87 Respiratory Rate 26 H Blood Pressure 102/58 L 106/56 L Pulse Oximetry 94 Oxygen Delivery Method Oxygen Flow Rate 05/06/23 17:54 05/06/23 17:57 05/06/23 17:57 Temperature Pulse Rate 90 89 Respiratory Rate 27 H 33 H Blood Pressure 105/59 L Pulse Oximetry 92 90 L Oxygen Delivery Method Oxygen Flow Rate 05/06/23 18:00 05/06/23 18:00 05/06/23 18:03 Temperature Pulse Rate 89 Respiratory Rate 39 H Blood Pressure 107/58 L 107/55 L Pulse Oximetry 89 L Oxygen Delivery Method Oxygen Flow Rate 05/06/23 18:03 05/06/23 18:07 05/06/23 18:09 Temperature Pulse Rate 87 93 H 90 Respiratory Rate 33 H 29 H 29 H Blood Pressure Pulse Oximetry 88 L 96 98 Oxygen Delivery Method Oxygen Flow Rate 05/06/23 18:09 05/06/23 18:38 05/06/23 19:18 Temperature 100.3 F H Pulse Rate 87 Respiratory Rate 28 H Blood Pressure 113/56 L 129/62 Pulse Oximetry 96 Oxygen Delivery Method Oximask Oxygen Flow Rate 05/06/23 19:00 05/06/23 19:00 05/06/23 19:30 Temperature Pulse Rate 90 Respiratory Rate 23 Blood Pressure 115/60 118/64 Pulse Oximetry 95 Oxygen Delivery Method Oxygen Flow Rate 05/06/23 19:30 05/06/23 20:00 05/06/23 20:00 Temperature 99.8 F H Pulse Rate 90 91 H Respiratory Rate 35 H 18 Blood Pressure 116/63 Pulse Oximetry 95 96 Oxygen Delivery Method Oxygen Flow Rate 5 05/06/23 20:30 05/06/23 20:30 05/06/23 21:00 Temperature Pulse Rate 91 H 91 H Respiratory Rate 27 H 25 H Blood Pressure 110/57 L Pulse Oximetry 96 95 Oxygen Delivery Method Oxygen Flow Rate 05/06/23 21:01 05/06/23 21:01 05/06/23 19:00 Temperature Pulse Rate 92 H Respiratory Rate 31 H Blood Pressure 116/56 L Pulse Oximetry 95 Oxygen Delivery Method Oximask Oxygen Flow Rate 5 05/06/23 21:30 05/06/23 21:30 05/06/23 22:00 Temperature Pulse Rate 89 Respiratory Rate 25 H Blood Pressure 106/56 L 102/57 L Pulse Oximetry 96 Oxygen Delivery Method Oxygen Flow Rate 05/06/23 22:00 Temperature Pulse Rate 85 Respiratory Rate 49 H Blood Pressure Pulse Oximetry 97 Oxygen Delivery Method Oxygen Flow Rate 5 Oxygen Delivery Method Oximask Oxygen Flow Rate 5 Narrative Exam Narrative: laying in bed in no distress, appears tired, weak HENMT Other: hearing loss Chest Other: diminished breath sounds on bases, crackles Cardio Other: RRR GI Other: not distended Extrem Other: 1 + legs edema Psych Other: mild cognitive deficits Objective Labs 05/06/23 13:40 05/06/23 13:40 Labs: Laboratory Results - last 24 hr 05/06/23 05/06/23 05/06/23 13:40 13:40 13:40 WBC 14.3 H RBC 4.51 Hgb 13.6 Hct 41.0 MCV 91.0 MCH 30.1 MCHC 33.1 RDW 14.1 Plt Count 110 L Neut % (Auto) 91.3 H Lymph % (Auto) 3.5 L [place] % (Auto) 5.0 Eos % (Auto) 0.0 L Baso % (Auto) 0.2 Neut # (Auto) 23514 H Lymph # (Auto) 500 L [place] # (Auto) 700 Eos # (Auto) 0 Baso # (Auto) 0 PT 35.3 H INR 3.0 H APTT 39 H Sodium 134 L Potassium 4.2 Chloride 98 Carbon Dioxide 27 BUN 21 H Creatinine 1.43 H Estimated GFR 49 L BUN/Creatinine Ratio 14.7 Glucose 285 H Lactate Calcium 8.4 Total Bilirubin 3.3 H AST 26 ALT 19 Alkaline Phosphatase 81 Total Protein 6.7 Albumin 3.7 Globulin 3.0 Albumin/Globulin Ratio 1.2 Lipase 52 Procalcitonin 0.32 Nasal Screen MRSA (PCR) Chlamy pneumoniae PCR Adenovirus (PCR) B. pertussis DNA (PCR) B.parapertussis DNA PCR Coronavirus OC43 (PCR) Coronavirus HKU1 (PCR) Coronavirus 229E (PCR) SARS-CoV-2 (PCR) Coronavirus NL63 (PCR) Human Metapneumovir PCR Influenza Type A (PCR) Influenza Type B (PCR) M. pneumoniae (PCR) Parainfluenza 1 (PCR) Parainfluenza 2 (PCR) Parainfluenza 3 (PCR) Parainfluenza 4 (PCR) RSV (PCR) Entero/Rhino (PCR) 05/06/23 05/06/23 05/06/23 13:40 13:48 16:00 WBC RBC Hgb Hct MCV MCH MCHC RDW Plt Count Neut % (Auto) Lymph % (Auto) [place] % (Auto) Eos % (Auto) Baso % (Auto) Neut # (Auto) Lymph # (Auto) [place] # (Auto) Eos # (Auto) Baso # (Auto) PT INR APTT Sodium Potassium Chloride Carbon Dioxide BUN Creatinine Estimated GFR BUN/Creatinine Ratio Glucose Lactate 2.2 H 1.6 Calcium Total Bilirubin AST ALT Alkaline Phosphatase Total Protein Albumin Globulin Albumin/Globulin Ratio Lipase Procalcitonin Nasal Screen MRSA (PCR) Chlamy pneumoniae PCR Not detected Adenovirus (PCR) Not detected B. pertussis DNA (PCR) Not detected B.parapertussis DNA PCR Not detected Coronavirus OC43 (PCR) Not detected Coronavirus HKU1 (PCR) Not detected Coronavirus 229E (PCR) Not detected SARS-CoV-2 (PCR) Not detected Coronavirus NL63 (PCR) Not detected Human Metapneumovir PCR Not detected Influenza Type A (PCR) Not detected Influenza Type B (PCR) Not detected M. pneumoniae (PCR) Not detected Parainfluenza 1 (PCR) Not detected Parainfluenza 2 (PCR) Not detected Parainfluenza 3 (PCR) Not detected Parainfluenza 4 (PCR) Not detected RSV (PCR) Not detected Entero/Rhino (PCR) Not detected 05/06/23 18:55 WBC RBC Hgb Hct MCV MCH MCHC RDW Plt Count Neut % (Auto) Lymph % (Auto) [place] % (Auto) Eos % (Auto) Baso % (Auto) Neut # (Auto) Lymph # (Auto) [place] # (Auto) Eos # (Auto) Baso # (Auto) PT INR APTT Sodium Potassium Chloride Carbon Dioxide BUN Creatinine Estimated GFR BUN/Creatinine Ratio Glucose Lactate Calcium Total Bilirubin AST ALT Alkaline Phosphatase Total Protein Albumin Globulin Albumin/Globulin Ratio Lipase Procalcitonin Nasal Screen MRSA (PCR) Not detected Chlamy pneumoniae PCR Adenovirus (PCR) B. pertussis DNA (PCR) B.parapertussis DNA PCR Coronavirus OC43 (PCR) Coronavirus HKU1 (PCR) Coronavirus 229E (PCR) SARS-CoV-2 (PCR) Coronavirus NL63 (PCR) Human Metapneumovir PCR Influenza Type A (PCR) Influenza Type B (PCR) M. pneumoniae (PCR) Parainfluenza 1 (PCR) Parainfluenza 2 (PCR) Parainfluenza 3 (PCR) Parainfluenza 4 (PCR) RSV (PCR) Entero/Rhino (PCR) Assessment & Plan Assessment and plan (1) Pneumonia: Status: Acute (2) Sepsis: Status: Acute (3) History of stroke: Problem details: Following bypass surgery, with a 2nd stroke event. Status: Acute (4) Hypertension: Status: Acute (5) Acute on chronic respiratory failure with hypoxemia: Status: Acute (6) ILD (interstitial lung disease): Status: Acute Plan 1. Acute on Chronic Hypoxemic Respiratory Failure / ILD / PNA / Sepsis Admitted to ICU with significantly higher oxygen requirement. Underlying PNA, sepsis and ILD, Started on broad coverage with Linezolide and Cefepime, as recommended by video production intern. Prednisone, IVFs. Wean of current 5 L when possible. 2. Hx of recurrent CVAs, Impaired mobility / CAD - s/p CABG - Xarelto, at home - statin - w/o evidence of ACS 3. DM - SS for now - controlled with insulin, metformin, trulicuty - neuropathic pain - gabapentin, norco GI prophylaxis - PPI
[2023-05-06] MEDS: INSULIN LISPRO 100 UNIT/ML 3ML VIAL SUBCUT ×2 (23:34→23:37)
[2023-05-07] VITALS (25 sets, daily range): BP systolic 99–143; BP diastolic 56–83; PULSE 76–93; RESP 17–34; TEMP 36.5–37.5; O2SAT 89–98
--- NOTE | 2023-05-07 00:46 | PC.NURSE ---
2019--Dr Yuan beamed into pt's room via monitor; spoke w/ pt; status report given and orders rec'd
--- NOTE | 2023-05-07 00:52 | PC.NURSE ---
1973--telehealth w/ Dr Durbin; heart and breath sounds sent electronically; he spoke w/ pt and status report given; orders rec'd
[2023-05-07] MEDS: PANTOPRAZOLE DR 40 MG TABLET PO (06:40)
--- NOTE | 2023-05-07 06:57 | PC.NURSE ---
pt going in and out of A-fib; EKG done;
[2023-05-07] MEDS: predniSONE 20 MG TABLET 40 MG PO (08:09)
[2023-05-07] MEDS: CEFEPIME 1 GM in SODIUM CHLORIDE 0.9% 100 ML IV ×2 (08:10→21:00)
[2023-05-07] MEDS: LINEZOLID 600 MG TABLET PO (08:10)
[2023-05-07] MEDS: INSULIN LISPRO 100 UNIT/ML 3ML VIAL SUBCUT ×4 (08:11→21:01)
[2023-05-07 11:54] LABS: Add Manual Diff / Slide Review NO; Basophils Absolute Auto 0 /uL (0-100); Basophils Percent Auto 0.2 % (0-2); Eosinophils Absolute Auto 0 /uL (0-450); Eosinophils Percent Auto 0.1 % (2-4); Hematocrit 39.8 % (41-53); Hemoglobin 13.3 g/dL (13.5-17.5); Lymphocytes Absolute Auto 700 /uL (1100-4500); Lymphocytes Percent Auto 7.3 % (25-40); Mean Corpuscular HGB Conc 33.4 % (30-36); Mean Corpuscular Hemoglobin 30.4 PG (26-34); Monocytes Absolute Auto 500 /uL (0-900); Neutrophils Absolute Auto 8500 /uL (1500-7000); Neutrophils Percent Auto 87.4 % (50-75); Platelet Count 82 X10^3/uL (150-400); Red Blood Cell Count 4.37 X10^6/uL (4.5-5.9); Red Cell Distribution Width 14.4 % (11.6-14.8); White Blood Cell Count 9.7 X10^3/uL (4.5-11.0)
[2023-05-07 12:11] LABS: Alanine Aminotransferase 22 IU/L (<50); Albumin 3.4 g/dL (3.5-5.0); Albumin Globulin Ratio 1.1 (1.0-2.8); Alkaline Phosphatase 77 U/L (38-126); Aspartate Aminotransferase 34 IU/L (17-59); BUN Creatinine Ratio 13.8 (6-22); Blood Urea Nitrogen 18 mg/dL (9-20); Calcium 8.2 mg/dL (8.4-10.2); Carbon Dioxide 27 mmol/L (22-32); Chloride 98 mmol/L (98-107); Estimated Glomerular Filt Rate 55 mL/min (>60); Glucose 273 mg/dL (80-110); HEMOLYSIS < 15 (0-50); Potassium 4.1 mmol/L (3.4-5.1); Sodium 133 mmol/L (137-145); Total Protein 6.4 g/dL (6.3-8.2)
--- NOTE | 2023-05-07 13:10 | CM.DANOTE ---
Patient is an 82 yo male who was admitted on 05/06/23 for Weakness/Pneumonia. Pt has [employer] and [employer] for insurance and his PCP is Jona Chavez. EMR was reviewed. Per MD, pt oxygen dependent at baseline 2LO2 and admitted for pneumonia and sepsis and not yet medically stable to discharge. Pt with increased O2 needs. Met w/patient, introduced role. Patient states he has been mostly indp at home, used to have his 30 yo grandson living with him but grandson has moved out recently but stops by a couple days a week for assist and to go shopping at the store and frank/DEEJAY Annabelle still lives down the street along with additional local supportive family. Patient is on approx 2L of O2 at home. Patient's of 50 years last year. Patient explains he has children, grandchildren and great grandchildren he enjoys greatly. Patient expects to return home. Pt denies any hx of SNF or HH and has DME if needed and states family can provide transport. No PT orders yet at this time and unclear if he needs PT or if nursing staff can assess for ambulation needs. Plan: SW to follow closely to determine if PT eval needed to r/o return home with family assist and HH and any further identified discharge planning needs. RAYMOND Ramos Discharge Planning/Care Management Advanced directive, confirm from FAMILY Start: 05/06/23 18:50 Freq: Q24H Status: Active Protocol: Document 05/06/23 18:50 AKP (Rec: 05/06/23 18:50 AKP [id number]) Advance Directive, confirm on record Time 18:50 Person contacted [facility] to bring in Copy received No CM Discharge Assessment Start: 05/07/23 13:05 Freq: Status: Active Protocol: Document 05/07/23 13:05 BF (Rec: 05/07/23 13:09 BF [id number]) Discharge Planning Assessment Assigned Yard Supervisor RAYMOND Parrish/Assigned Designee Name Annabelle Mobley Contact Information [phone] Advance Directives? Yes Advance Directives on File Yes History Provided By Patient,Family Member,Medical Record Has Patient been admitted in last 30 No days? Prior Living Arrangements House Household Members none Type of transporation used prior to Relies on Others admit Independent with ADL's Yes: mostly Is patient alert and oriented? Yes Needs Assistance With Meal Prep,Managing Medications ,Home Chores / Shopping Caregiver for Another No DME Already Rented / Owned FWW / Walker Comment r/o HH pending progress Barriers to Discharge No Discharge Plan Home Transportation Arrangement family to transport at d/c Referrals Initiated None needed Additional Comment r/o HH needs Whiteboard Updated in Patient Room with Yes name and ext. # of Yard Supervisor Review Status In Process Please Provide Date Initial DC 05/07/23 Assessment Was Performed Next Review Type Continued Stay Review
--- NOTE | 2023-05-07 16:59 | P.PN_ITS ---
Subjective Subjective Interval history: Less dyspnea and confusion. No pain. Exam Vital Signs (past 8 hours): - 05/07/23 09:00 05/07/23 09:01 05/07/23 09:01 Temperature Pulse Rate 93 H 92 H Respiratory Rate 28 H 34 H Blood Pressure 116/83 Pulse Oximetry 95 94 Oxygen Flow Rate 05/07/23 10:00 05/07/23 12:50 05/07/23 12:53 Temperature 97.9 F Pulse Rate 82 83 Respiratory Rate 22 24 Blood Pressure 121/58 L Pulse Oximetry 92 89 L 93 Oxygen Flow Rate 4 4 Oxygen Delivery Method Nasal Cannula Oxygen Flow Rate 4 Narrative Exam Narrative: NAD, fluent speech Lungs clear Heart regular Abdomen soft and non-tender No leg edema Objective Labs 05/07/23 11:40 05/07/23 11:40 Labs: Laboratory Results - last 24 hr 05/06/23 05/07/23 05/07/23 18:55 11:40 11:40 WBC 9.7 RBC 4.37 L Hgb 13.3 L Hct 39.8 L MCV 91.0 MCH 30.4 MCHC 33.4 RDW 14.4 Plt Count 82 L Neut % (Auto) 87.4 H Lymph % (Auto) 7.3 L [place] % (Auto) 5.0 Eos % (Auto) 0.1 L Baso % (Auto) 0.2 Neut # (Auto) 8500 H Lymph # (Auto) 700 L [place] # (Auto) 500 Eos # (Auto) 0 Baso # (Auto) 0 Sodium 133 L Potassium 4.1 Chloride 98 Carbon Dioxide 27 BUN 18 Creatinine 1.30 H Estimated GFR 55 L BUN/Creatinine Ratio 13.8 Glucose 273 H Calcium 8.2 L Total Bilirubin 3.0 H AST 34 ALT 22 Alkaline Phosphatase 77 Total Protein 6.4 Albumin 3.4 L Globulin 3.0 Albumin/Globulin Ratio 1.1 Nasal Screen MRSA (PCR) Not detected [facility] Medical History (Updated 05/06/23 @ 23:18 by Patric Durbin MD) Anticoagulated ASCVD (arteriosclerotic cardiovascular disease) Colon cancer Diabetes type 2, controlled Diabetic neuropathy History of stroke Hyperlipidemia Hypertension Transient cerebral ischemia Surgical History History of partial colectomy Status post aorto-coronary artery bypass graft Family History Father Medical history unknown Mother Hypertension Brother Cancer Grandmother Diabetes mellitus Brother Cancer Social History household members: none Smoking Status: Former smoker alcohol intake: current Assessment & Plan Assessment & Plan narrative: 1. Pneumonia, POAI. 2. Acute on chronic hypoxic respiratory failure, POAI 3. ILD with dyspnea, POAI 4. Remove CVA 5. DM 2 Plan: -stop vanco -cont cefepime -increase correctional insulin -cont prednisone -wean O2 as able. Time Spent With Patient Time with patient: less than 30 minutes
[2023-05-07] MEDS: RIVAROXABAN 10 MG TABLET 15 MG PO (17:04)
[2023-05-07] MEDS: GABAPENTIN 300 MG CAPSULE PO (21:01)
[2023-05-08] VITALS (31 sets, daily range): BP systolic 110–142; BP diastolic 68–78; PULSE 65–103; RESP 16–38; TEMP 36.2–36.6; O2SAT 79–98
[2023-05-08] MEDS: PANTOPRAZOLE DR 40 MG TABLET PO (05:36)
[2023-05-08] MEDS: CEFEPIME 1 GM in SODIUM CHLORIDE 0.9% 100 ML IV (07:41)
[2023-05-08] MEDS: INSULIN LISPRO 100 UNIT/ML 3ML VIAL SUBCUT ×4 (08:08→21:23)
--- NOTE | 2023-05-08 08:09 | DI.RAD.S_ITS ---
PROCEDURE: XR CHEST 1V INDICATIONS: dyspnea TECHNIQUE: One view of the chest was acquired. COMPARISON: [facility], CT, CT CHEST ABD PEL W CON, 05/06/2023, 14:52. [facility], CR, XR CHEST 1V, 05/06/2023, 13:59. [facility], CR, XR CHEST 1V, 04/09/2022, 11:11. FINDINGS: Surgical changes and devices: None. Lungs and pleura: Diffuse interstitial lung disease, unchanged from prior. No superimposed airspace opacities. Mediastinum: Mediastinal contours appear normal. Heart size is normal. Bones and chest wall: No suspicious bony lesions. Overlying soft tissues appear unremarkable. IMPRESSION: Diffuse interstitial lung disease, without superimposed airspace disease. Dictated by: Robert Cross M.D. on 05/08/2023 at 8:26 Approved by: Robert Cross M.D. on 05/08/2023 at 8:27
[2023-05-08] MEDS: predniSONE 20 MG TABLET 40 MG PO (09:02)
--- NOTE | 2023-05-08 09:19 | P.PN_ITS ---
Subjective Subjective Interval history: Feeling better, less dyspnea. Feels weak, not out of bed yesterday. Exam Vital Signs (past 8 hours): - 05/08/23 04:00 05/08/23 08:00 05/08/23 09:10 Temperature 97.2 F L 97.4 F L Pulse Rate 86 77 Respiratory Rate 19 21 Blood Pressure 142/75 H 140/77 Pulse Oximetry 95 96 94 Oxygen Delivery Method Nasal Cannula Oxygen Flow Rate 4 4 4 Oxygen Delivery Method Nasal Cannula Oxygen Flow Rate 4 Narrative Exam Narrative: NAD, oriented, normal speech. Lungs clear except base rales. Heart regular and without murmur Abdomen soft and non-tender No leg edema Objective Imaging Chest x-ray: Radiologist's impression: IMPRESSION:? Diffuse interstitial lung disease, without superimposed airspace disease. Labs 05/07/23 11:40 05/07/23 11:40 Labs: Laboratory Results - last 24 hr 05/07/23 05/07/23 11:40 11:40 WBC 9.7 RBC 4.37 L Hgb 13.3 L Hct 39.8 L MCV 91.0 MCH 30.4 MCHC 33.4 RDW 14.4 Plt Count 82 L Neut % (Auto) 87.4 H Lymph % (Auto) 7.3 L [place] % (Auto) 5.0 Eos % (Auto) 0.1 L Baso % (Auto) 0.2 Neut # (Auto) 8500 H Lymph # (Auto) 700 L [place] # (Auto) 500 Eos # (Auto) 0 Baso # (Auto) 0 Sodium 133 L Potassium 4.1 Chloride 98 Carbon Dioxide 27 BUN 18 Creatinine 1.30 H Estimated GFR 55 L BUN/Creatinine Ratio 13.8 Glucose 273 H Calcium 8.2 L Total Bilirubin 3.0 H AST 34 ALT 22 Alkaline Phosphatase 77 Total Protein 6.4 Albumin 3.4 L Globulin 3.0 Albumin/Globulin Ratio 1.1 [facility] Medical History (Updated 05/06/23 @ 23:18 by Patric Durbin MD) Anticoagulated ASCVD (arteriosclerotic cardiovascular disease) Colon cancer Diabetes type 2, controlled Diabetic neuropathy History of stroke Hyperlipidemia Hypertension Transient cerebral ischemia Surgical History History of partial colectomy Status post aorto-coronary artery bypass graft Family History Father Medical history unknown Mother Hypertension Brother Cancer Grandmother Diabetes mellitus Brother Cancer Social History household members: none Smoking Status: Former smoker alcohol intake: current Assessment & Plan Assessment & Plan narrative: 1. Pneumonia, POAI (present on admission and improving). 2. Acute on chronic hypoxic respiratory failure, POAI 3. ILD with dyspnea, POAI 4. Remove CVA 5. DM 2 Plan: -stop vanco as of 05/08 -change antibiotics to ceftriaxone and azitho standard course -increase correctional insulin -cont prednisone -wean O2 as able. -out of bed, PT and OT Dispo: home 1-2 days pending PT. On 2 liters O2 at home. Time Spent With Patient Time with patient: less than 30 minutes
--- NOTE | 2023-05-08 10:47 | OT.IP.EVAL ---
Current Diagnoses Sepsis, unspecified organism (05/06/23) Essential (primary) hypertension (05/06/23) Pneumonia, unspecified organism (05/06/23) Interstitial pulmonary disease, unspecified (05/06/23) Acute and chronic respiratory failure with hypoxia (05/06/23) Personal history of transient ischemic attack (TIA), and cerebral infarction without residual deficits (05/06/23) Past Medical History (Last Updated 05/06/23 @ 23:17 by Patric Durbin MD) Anticoagulated ASCVD (arteriosclerotic cardiovascular disease) Colon cancer Diabetes type 2, controlled Diabetic neuropathy History of stroke Hyperlipidemia Hypertension Transient cerebral ischemia Surgical History (Last Reviewed 05/06/23 @ 23:09 by Patric Durbin MD) History of partial colectomy Status post aorto-coronary artery bypass graft Occupational Therapy Inpatient Evaluation/Re-Eval M1 PT/OT-IP Prior Functional Status Start: 05/08/23 11:43 Freq: NEEDED Status: Active Protocol: Document 05/08/23 16:31 CGR (Rec: 05/08/23 16:47 CGR [id number]) Medical Review Prior Functional Status Medical History Reviewed Yes Diet/Fluid Consistency Regular Communication No communication issues at baseline noted Mobility and Gait Pt states that he gait trained short distances without AD at baseline Activities of Daily Living and IADL's Pt reports he was I for ADLs and that he did wear his 2L O2 in the shower Social History Household Members none Living Arrangements House Number of Floors (Floors) One Floor Number of Stairs To Enter/Railing? no steps to enter Home Environment High Toilet,Walk in Shower Home Equipment Four Wheel Walker,Straight Cane,Power Wheelchair/Scooter, Hand Held Shower,Grab Bars Near Toilet,Grab Bars In Shower Employment Status Retired Additional Social History Comment Pt states that he has a standard walker at home and he wears 2L O2 all the time. His grandson checks in on him and assists with errands and transportation. His grandson comes over on Thursday to do cleaning and some cooking and takes the patient shopping on thursday. M2 OT-IP Current Condition Start: 05/08/23 16:31 Freq: Status: Active Protocol: Document 05/08/23 16:31 CGR (Rec: 05/08/23 16:47 CGR [id number]) Occupational Therapy Current Condition Current Condition Evaluation Date 05/08/23 Treatment Diagnosis weakness, PNA Diagnosis Onset Date 05/06/23 M3 OT- IP Subjective and Pain Start: 05/08/23 16:31 Freq: Status: Active Protocol: Document 05/08/23 16:31 CGR (Rec: 05/08/23 16:47 CGR [id number]) OT- Subjective Occupational Therapy Visit Type Type Initial Evaluation Visit Start Time 10:22 Visit Stop Time 10:47 Total Visit Minutes 25 Notes Nursing entered the room after transfer to chair d/t decline in O2 stats OT Pain Assessment Pain When Pain Assessed At Rest Pain Present Pain Present Denied Pain M4 OT- IP ADL's Start: 05/08/23 16:31 Freq: Status: Active Protocol: Document 05/08/23 16:31 CGR (Rec: 05/08/23 16:47 CGR [id number]) OT [id number] Comments OT Self-Feeding Comments not meal time OT ADL-Grooming General Evaluation Grooming Ability Standby Assistance Areas Needing Assistance Face Washing Comments OT Grooming Comments seated in chair OT ADL-Oral Care General Eval Oral Care Ability Standby Assistance Areas of Assistance Brushing Teeth Comments Oral Care Comments seated in chair OT ADL-Dressing General Eval Lower Body Dressing Ability Total Assistance Areas Needing Assistance Socks Comments OT Dressing Comments supine in bed OT ADL-Toileting Comments OT Toileting Comments not performed OT ADL-Bathing Comments OT Bathing Comments not performed M5 OT- IP IADL's Start: 05/08/23 16:31 Freq: Status: Active Protocol: Document 05/08/23 16:31 CGR (Rec: 05/08/23 16:47 CGR [id number]) OT-Instrumental Activities of Daily Living Deficits IADL Deficits Identified No Deficits Home Safety Awareness Awareness of Need for Assistance at Home Good Awareness Ability to Problem Solve Emergency Able to Problem Solve Situations Medication Management Medication Management No Deficits Identified Money Management Money Management Caregiver Provides Assistance Meal Preparation Meal Preparation Caregiver Provides Assist Silo Erector Silo Erector Caregiver Provides Assist Driving Driving Comments Pt does not drive at baseline M6 OT- IP Functional Cognition Start: 05/08/23 16:31 Freq: Status: Active Protocol: Document 05/08/23 16:31 CGR (Rec: 05/08/23 16:47 CGR [id number]) Cognitive Factors Limiting Selfcare Function Cognitive Ability Level of Alertness Alert Patient Orientation Name,Age,Birthday,Month,Date, Year,Day of Week,Place, Situation Attention Span Ability Capable of Focused Attention, Capable of Sustained Attention Ability to Follow Commands Able to Follow Multi-Step Commands OT- Vision and Hearing OT- Hearing Assessment OT- Hearing Assessment Hearing Impaired OT- Vision Assessment Visual Acuity Glasses For Reading Visual Attentiveness WFL Occular Pursuits WFL Visual Convergence WFL M7 OT- IP Mobility and Balance Start: 05/08/23 16:31 Freq: Status: Active Protocol: Document 05/08/23 16:31 CGR (Rec: 05/08/23 16:47 CGR [id number]) OT- Bed Mobility Assessment Supine to Sit Supine to Sit Assist Standby Assistance Scooting Scooting to Edge of Bed Standby Assistance OT-Transfer Assessment Sit to and From Stand Sit to and from Stand Standby Assistance Transfers Transfer Ability Standby Assistance Technique Transfer Destination Bed,Chair Transfer Technique Stand Step Pivot Devices Transfer Assistive Devices Gait Belt,Front Wheeled Walker Comments Mobility Comments Pt transfered from flat bed to chair. o2 drop delayed after activity. dropped to 82% with transfer to chair. O2 increased to 5 L by nursing ( was at 4L) and it increased to mid 90s. OT- Gait Assessment Comments Gait Ability Comments not performed OT- Balance Assessment Sitting Balance and Reactions Static Sitting Balance Ability Normal Dynamic Sitting Balance Ability Normal M8 OT- IP Objective Assessments Start: 05/08/23 16:31 Freq: Status: Active Protocol: Document 05/08/23 16:31 CGR (Rec: 05/08/23 16:47 CGR [id number]) OT Gross Range of Motion Upper Extremity Range of Motion Assessment Within Functional Limits OT Strength Upper Extremity Strength Assessment Within Functional Limits Comments Strength Comments B shlds 3+/5, arms and hands 4 /5 OT- Coordination Assessment Upper Extremity Finger to Nose Test Within Functional Limits Finger Tapping Test Within Functional Limits OT-Muscle Tone Assessment Muscle Tone WNL Yes M9 OT- IP Assessment and Plan Start: 05/08/23 16:31 Freq: Status: Active Protocol: Document 05/08/23 16:31 CGR (Rec: 05/08/23 16:47 CGR [id number]) OT Summary Assessment and Plan Potential Rehabilitation Potential Good Analytic Complexity at Evaluation Moderate Summary OT Impairments Strength,Balance,Functional Mobility,Grooming,Dressing, Toileting,Bathing,Toilet Transfers,Shower Transfers, Activity Tolerance Progress Towards Goals Progressing Toward Goals Assessment Summary Pt presents as a moderate complexity evaluation s/p admit for PNA. Pt with low o2 stats with movement. Pt is on 2l at baseline and states significant decline in o2 stats with movement. At this time, pt would benefit from sNF, however, it is hopeful that pt will progress quickly for discharge home with family assist. Goals Self-Feeding Goal Independent Grooming Goal Independent Dressing Goal Independent Toileting Goal Independent Bathing Goal Independent Toilet Transfer Goal Independent Shower Transfer Goal Independent Days to Meet Goals 10 Frequency of Treatment Frequency Of Treatment Once a Day Treatment Plan OT Treatment Plan ADL Training,Functional Mobility,Patient/Family Education,Discharge Planning Other Treatment Recommendations and Next ADLs standing Treatment Focus Discharge Recommendations OT Discharge Recommendations Home with 04/05 Assist Available Transportation Needs at Discharge Private Vehicle
[2023-05-08 11:54] LABS: Add Manual Diff / Slide Review NO; Basophils Absolute Auto 100 /uL (0-100); Basophils Percent Auto 0.5 % (0-2); Eosinophils Absolute Auto 0 /uL (0-450); Eosinophils Percent Auto 0.3 % (2-4); Hematocrit 43.6 % (41-53); Hemoglobin 14.5 g/dL (13.5-17.5); Lymphocytes Absolute Auto 800 /uL (1100-4500); Lymphocytes Percent Auto 7.4 % (25-40); Mean Corpuscular HGB Conc 33.3 % (30-36); Mean Corpuscular Hemoglobin 30.2 PG (26-34); Mean Corpuscular Volume 90.8 fL (80-100); Monocytes Absolute Auto 700 /uL (0-900); Monocytes Percent Auto 6.2 % (3-14); Neutrophils Absolute Auto 9100 /uL (1500-7000); Neutrophils Percent Auto 85.6 % (50-75); Platelet Count 113 X10^3/uL (150-400); Red Cell Distribution Width 14.4 % (11.6-14.8); White Blood Cell Count 10.6 X10^3/uL (4.5-11.0)
[2023-05-08] MEDS: INSULIN GLARGINE 100 UNIT/ML 3ML PEN 20 UNIT SUBCUT (12:07)
[2023-05-08 12:17] LABS: Alanine Aminotransferase 23 IU/L (<50); Albumin 3.7 g/dL (3.5-5.0); Albumin Globulin Ratio 1.1 (1.0-2.8); Alkaline Phosphatase 84 U/L (38-126); Aspartate Aminotransferase 28 IU/L (17-59); BUN Creatinine Ratio 17.5 (6-22); Blood Urea Nitrogen 22 mg/dL (9-20); Calcium 8.8 mg/dL (8.4-10.2); Carbon Dioxide 34 mmol/L (22-32); Chloride 97 mmol/L (98-107); Estimated Glomerular Filt Rate 57 mL/min (>60); Globulin 3.4 g/dL (1.7-4.1); Glucose 215 mg/dL (80-110); HEMOLYSIS < 15 (0-50); Sodium 136 mmol/L (137-145); Total Protein 7.1 g/dL (6.3-8.2)
--- NOTE | 2023-05-08 12:26 | PT.IIE ---
Current Diagnoses Sepsis, unspecified organism (05/06/23) Essential (primary) hypertension (05/06/23) Pneumonia, unspecified organism (05/06/23) Interstitial pulmonary disease, unspecified (05/06/23) Acute and chronic respiratory failure with hypoxia (05/06/23) Personal history of transient ischemic attack (TIA), and cerebral infarction without residual deficits (05/06/23) Surgical History (Last Reviewed 05/06/23 @ 23:09 by Patric Durbin MD) History of partial colectomy Status post aorto-coronary artery bypass graft Medical History (Last Updated 05/06/23 @ 23:17 by Patric Durbin MD) Anticoagulated ASCVD (arteriosclerotic cardiovascular disease) Colon cancer Diabetes type 2, controlled Diabetic neuropathy History of stroke Hyperlipidemia Hypertension Transient cerebral ischemia Physical Therapy Inpatient Evaluation/Re-Eval M1 PT/OT-IP Prior Functional Status Start: 05/08/23 11:43 Freq: NEEDED Status: Active Protocol: Document 05/08/23 11:50 MB (Rec: 05/08/23 12:25 MB [id number]) Medical Review Prior Functional Status Medical History Reviewed Yes Diet/Fluid Consistency Regular Communication No communication issues at baseline noted Mobility and Gait Pt states that he gait trained short distances without AD at baseline Activities of Daily Living and IADL's Pt reports he was I for ADLs and that he did wear his 2L O2 in the shower Social History Household Members none Living Arrangements House Number of Floors (Floors) One Floor Home Environment Tub/Shower Home Equipment Straight Cane Employment Status Retired Additional Social History Comment Pt states that he has a standard walker at home and he wears 2L O2 all the time. His grandson checks in on him and assists with errands and transportation. M2 PT-IP Current Condition Start: 05/08/23 11:43 Freq: NEEDED Status: Active Protocol: Document 05/08/23 11:50 MB (Rec: 05/08/23 12:25 MB [id number]) Physical Therapy Current Condition Current Condition Evaluation Date 05/08/23 Treatment Diagnosis Fall out of bed, O2 desaturation M3 PT-IP Subjective Start: 05/08/23 11:43 Freq: NEEDED Status: Active Protocol: Document 05/08/23 11:50 MB (Rec: 05/08/23 12:25 MB [id number]) Subjective Physical Therapy Visit Type Type Initial Evaluation Visit Start Time 11:50 Visit Stop Time 12:06 Total Visit Minutes 16 Number of MEDICAL PATHOLOGY TEACHER Visits 0 Physical Therapy Visit Comments Patient Comments It always drops. When I walk out to the garage, it drops to the 60s. When PT asks pt about his O2 desaturation with OT earlier this a.m. Patient Goals To go home once he is stronger and can walk M4 PT-IP Mobility and Gait Start: 05/08/23 11:43 Freq: NEEDED Status: Active Protocol: Document 05/08/23 11:50 MB (Rec: 05/08/23 12:25 MB [id number]) PT-Bed Mobility Assessment Rolling Type of Rolling Roll to Right,Roll to Left Level of Assist Standby Assistance Supine to Sit Supine to Sit Standby Assistance,1 Person Assistance Sit to Supine Sit to Supine Standby Assistance,1 Person Assistance Scooting Scooting Up and Down in Bed Standby Assistance PT-Transfer Assessment Sit to and From Stand Sit to and from Stand Contact Guard Assistance,1 Person Assistance,Use of Upper Extremities Equipment Transfer Assistive Device Gait Belt,Front Wheeled Walker Orthotic/Prosthetic Devices or Brace: No Gait Assessment Gait Gait Assistance Required: Contact Guard Assist Distance (Feet) 5 Able to Maintain Weight Bearing Status No During Gait Assistive Devices Assistive Device Gait Belt,Front Wheeled Walker Orthotic/Prosthetic Devices or Brace: No Gait Deviations General Gait Pattern Decreased Stride Length, Decreased Feet Clearance Factors Limiting Gait Function Factors Limiting Gait Function Decreased Activity Tolerance Comments Gait Comments Pt presents with O2 desaturation on 4L O2 with mobility. His O2 sats are 93% at rest and decrease to 83% after getting back OOB to chair and it takes 3 minutes of cued nasal breathing in sitting for sats to increase to 88% and then to 93%. Pt moves with slow gait and forward, flexed posture, decreased step-length and foot clearance. PT-Balance Assessment Sitting Balance and Reactions Static Sitting Balance Ability Good Dynamic Sitting Balance Ability Good Standing Balance and Reactions Static Standing Balance Ability Fair Dynamic Standing Balance Ability Fair Device Used RW M5 PT-IP Objective Assessments Start: 05/08/23 11:43 Freq: NEEDED Status: Active Protocol: Document 05/08/23 11:50 MB (Rec: 05/08/23 12:25 MB [id number]) Orientation Orientation/Cognition Level of Alertness Alert Orientation Name,Age,Birthday,Month,Date, Year,Day of Week,Place, Situation Language Function Ability No Deficits Noted Safety Awareness Understands Safety Issues Memory Description No Deficits Noted Gross Range of Motion Lower Extremity ROM Assessment Within Functional Limits Strength Lower Extremity Strength Assessment Within Functional Limits Hip R 3+/5, left 4/5 Knee B 4-/5 flexion and extension Ankle B DF 4/5 Comments Strength Comments Pt has mild B foot edema M7 PT-IP Assessment and Plan Start: 05/08/23 11:43 Freq: NEEDED Status: Active Protocol: Document 05/08/23 11:50 MB (Rec: 05/08/23 12:25 MB [id number]) PT Summary Assessment and Plan Potential Rehabilitation Potential Fair Status of Condition at Evaluation Evolving Summary Impairments Bed Mobility,Transfers,Gait, Activity Tolerance Progress Towards Goals Progressing Toward Goals Assessment Summary Pt is an 82 y/o male presenting with O2 desaturation on 4L with mobility today. He wears 2L O2 at all times at baseline and had a fall/slide OOB at home. His grandson checks in on him regularly, as well as his daughter. They both live nearby in [place], where he lives. He would like to return home with services. He understands that medical alert button may be an appropriate thing for him at this time. He does well with bed mobility and requires standby to [facility] for transfer and short stepping with RW but he has limited activity tolerance. He has a SW at home and he may benefit from RW to assist with balance and decreased work effort with gait. Will con't to assess gait with RW. Goals Bed Mobility Goal Independent Transfer Goal Independent,Front Wheeled Walker Gait Goal Independent,Front Wheel Walker Gait Distance 75 Days to Meet Goals 5 Frequency of Treatment Frequency Of Treatment Once a Day Treatment Plan Physical Therapy Treatment Plan Bed Mobility Training,Transfer Training,Gait Training, Therapeutic Exercise,Balance Retraining,Discharge Planning, Neuromuscular Re-ed Recommendations To Nursing Amount of Assist Needed 1 Person Assist Discharge Recommendations PT Discharge Recommendations Home with 24/ Assist Available,Home Health Other Discharge Recommendations Pt may need a RW for use at d/ c Transportation Needs at Discharge Private Vehicle
--- NOTE | 2023-05-08 13:00 | PC.NURSE ---
Day shift: Pt A&Ox4. Pt using bedpan for BMs, reports having numerous stools at home at baseline. Stool appears loose, minimum odor, very small, frequent movements. Provider aware. Pt up with OT, oxygen desaturation delayed a minute or two after exertion, briefly increased O2 from 4L to 5L, pt recovered quickly. Pt back down to 4L NC 96%. Pt 1 PA to ambulate, desaturates to 88%, recovers briskly. Daughter and granddaughter visiting with pt. VSS, telemetry a fib CVR with short bursts of RVR that are self limited (5-10 beats). Pt able to work with PT in afternoon, desaturation to 84%, able to recover after approximately 2-3 minutes without O2 titration up with oxygen saturation 96%. Care ongoing, will continue to monitor.
--- NOTE | 2023-05-08 15:44 | CM.DPC ---
DCP Cont: Hospitalist indicated that patient is not yet ready for discharge, is currently on 4 liters, is normally on 2 liters at home. P.T. did recommend home health. Met with patient in his room. Introduced self and role. He was sitting up in chair, alert. Confirmed that he resides alone, daughter, Annabelle, who is also a caregiver, lives nearby. Mentioned home health services, and what they provide, patient is ok with this, does not know any of the agencies, but can contact his daughter, Annabelle. Called Annabelle, she thinks home health is a good idea, has no preferences on agencies. She did state that she was [facility] with [facility] to [facility] to get home caregivers, but unable to qualify. Let her know that this [place] [employer] Service Representative can also get an HIDE TRIMMER to go over caregiving resources. [facility] is listed on calendar this week. Called Ana Winter, home health community health coordinator and updated her on referral. Faxed over face sheet, H&P, face to face, and P.t. notes to [facility]. Asking for RN, P.T, O.T, and HIDE TRIMMER. P: DCP to continue to follow. Plan is home with [facility] when stable, they will just need orders and DC Summary. Valentina Mustafa, JESSICA/Pharmacists
[2023-05-08] MEDS: cefTRIAXone 1,000 MG in SODIUM CHLORIDE 0.9% 100 ML 200 MG IV (17:12)
[2023-05-08] MEDS: RIVAROXABAN 10 MG TABLET 15 MG PO (17:22)
[2023-05-08] MEDS: AZITHROMYCIN 500 MG in DEXTROSE 5% IN WATER 250 ML 250 MG IV (17:55)
[2023-05-08] MEDS: GABAPENTIN 300 MG CAPSULE PO (21:23)
[2023-05-09] VITALS (10 sets, daily range): BP systolic 128–159; BP diastolic 70–85; PULSE 70–91; RESP 16–27; TEMP 36.2–36.4; O2SAT 92–98
[2023-05-09] MEDS: HYDROCODONE/ACET 5/325 TABLET 1 TAB PO (05:34)
[2023-05-09] MEDS: PANTOPRAZOLE DR 40 MG TABLET PO (05:34)
[2023-05-09 06:13] LABS: BUN Creatinine Ratio 24.8 (6-22); Blood Urea Nitrogen 30 mg/dL (9-20); Calcium 8.9 mg/dL (8.4-10.2); Carbon Dioxide 31 mmol/L (22-32); Chloride 98 mmol/L (98-107); Estimated Glomerular Filt Rate 59 mL/min (>60); Glucose 260 mg/dL (80-110); HEMOLYSIS < 15 (0-50); Sodium 136 mmol/L (137-145)
[2023-05-09 06:15] LABS: Add Manual Diff / Slide Review NO; Basophils Absolute Auto 0 /uL (0-100); Basophils Percent Auto 0.2 % (0-2); Eosinophils Absolute Auto 0 /uL (0-450); Hematocrit 42.1 % (41-53); Hemoglobin 14.2 g/dL (13.5-17.5); Lymphocytes Absolute Auto 600 /uL (1100-4500); Lymphocytes Percent Auto 10.1 % (25-40); Mean Corpuscular HGB Conc 33.7 % (30-36); Mean Corpuscular Hemoglobin 30.2 PG (26-34); Mean Corpuscular Volume 89.6 fL (80-100); Monocytes Absolute Auto 300 /uL (0-900); Monocytes Percent Auto 5.1 % (3-14); Neutrophils Absolute Auto 5500 /uL (1500-7000); Neutrophils Percent Auto 84.6 % (50-75); Platelet Count 108 X10^3/uL (150-400); Red Cell Distribution Width 14.3 % (11.6-14.8); White Blood Cell Count 6.5 X10^3/uL (4.5-11.0)
[2023-05-09] MEDS: INSULIN GLARGINE 100 UNIT/ML 3ML PEN 20 UNIT SUBCUT ×2 (07:51→20:51)
[2023-05-09] MEDS: INSULIN LISPRO 100 UNIT/ML 3ML VIAL SUBCUT ×4 (07:52→20:50)
[2023-05-09] MEDS: predniSONE 20 MG TABLET 40 MG PO (08:03)
--- NOTE | 2023-05-09 10:32 | CM.DPNOTE ---
Discharge Planning Note: Met with patient who is sitting up in chair this morning. He is alert and oriented and very pleasant. He has a supportive local family in [place] but he lives alone. He has been self care and his daughter Annabelle and grandson either visit or call him daily. Spoke with Annabelle and discussed his discharge planning. She nor grandson are able to stay with him upon his return home but will check on him physically daily and help as needed; Annabelle is a caregiver for her sister 04/05. We discussed getting him on Meals on Wheels, provided contact information for patient in the [facility] booklet and let Annabelle know this. Patient desires to return home upon discharge. PLAN: When medically cleared, discharge home, transport by family. Lily Levi RN/DCP
--- NOTE | 2023-05-09 12:35 | PT.IPTN ---
Current Diagnoses Sepsis, unspecified organism (05/06/23) Essential (primary) hypertension (05/06/23) Pneumonia, unspecified organism (05/06/23) Interstitial pulmonary disease, unspecified (05/06/23) Acute and chronic respiratory failure with hypoxia (05/06/23) Personal history of transient ischemic attack (TIA), and cerebral infarction without residual deficits (05/06/23) Physical Therapy Treatment Note M2 PT-IP Current Condition Start: 05/08/23 11:43 Freq: NEEDED Status: Active Protocol: Document 05/08/23 11:50 MB (Rec: 05/08/23 12:25 MB [id number]) Physical Therapy Current Condition Current Condition Evaluation Date 05/08/23 Treatment Diagnosis Fall out of bed, O2 desaturation M3 PT-IP Subjective Start: 05/08/23 11:43 Freq: NEEDED Status: Active Protocol: Document 05/09/23 13:01 TS (Rec: 05/09/23 13:19 TS [id number]) Subjective Physical Therapy Visit Type Type Treatment Note Visit Start Time 12:35 Visit Stop Time 12:58 Total Visit Minutes 23 Number of WEATHERIZATION OPERATIONS MANAGER Visits 1 Physical Therapy Visit Comments Patient Comments PT reports he is feeling better but still feels weak in his legs, reports some lightheadedness earlier in the day, agreeable to PT. Patient Goals To go home once he is stronger and can walk M4 PT-IP Mobility and Gait Start: 05/08/23 11:43 Freq: NEEDED Status: Active Protocol: Document 05/09/23 13:01 TS (Rec: 05/09/23 13:19 TS [id number]) PT-Transfer Assessment Sit to and From Stand Sit to and from Stand Contact Guard Assistance Equipment Transfer Assistive Device Gait Belt,Front Wheeled Walker Orthotic/Prosthetic Devices or Brace: No Comments Mobility Comments Pt found resting on 2L of o2, 93%-95%, increased to 4L for mobility. Pt reported some lightheadedness sitting earlier in the day. Sit to stand CGA with FWW, pt provided cues for pushing up on arms of chair to come into standing. Pt ambulated CGA ~60 ' with slow step thru gait with FWW, after ~40' pt reported he felt like he was going to pass out, was brought back to chair. Spo2 86% on 4L of o2, required ~30secs to recover to 95%. Pts o2 drops to ~83% when talking to therapist on 4L. BP taken sitting in chair 135/73, in standing 140/63. Pt was left back in chair with nursing, on 2L of o2 @93%, pt requesting to use bathroom. Gait Assessment Gait Gait Assistance Required: Contact Guard Assist Distance (Feet) 60 Able to Maintain Weight Bearing Status No During Gait Assistive Devices Assistive Device Gait Belt,Front Wheeled Walker Orthotic/Prosthetic Devices or Brace: No Gait Deviations General Gait Pattern Decreased Stride Length, Decreased Feet Clearance Factors Limiting Gait Function Factors Limiting Gait Function Decreased Activity Tolerance, Decreased Strength,Poor Balance,Respiratory Distress Comments Gait Comments See mobility comments. PT-Balance Assessment Sitting Balance and Reactions Static Sitting Balance Ability Normal Dynamic Sitting Balance Ability Good Standing Balance and Reactions Static Standing Balance Ability Fair Dynamic Standing Balance Ability Fair Device Used RW M5 PT-IP Objective Assessments Start: 05/08/23 11:43 Freq: NEEDED Status: Active Protocol: Document 05/08/23 11:50 MB (Rec: 05/08/23 12:25 MB [id number]) Orientation Orientation/Cognition Level of Alertness Alert Orientation Name,Age,Birthday,Month,Date, Year,Day of Week,Place, Situation Language Function Ability No Deficits Noted Safety Awareness Understands Safety Issues Memory Description No Deficits Noted Gross Range of Motion Lower Extremity ROM Assessment Within Functional Limits Strength Lower Extremity Strength Assessment Within Functional Limits Hip R 3+/5, left 4/5 Knee B 4-/5 flexion and extension Ankle B DF 4/5 Comments Strength Comments Pt has mild B foot edema M7 PT-IP Assessment and Plan Start: 05/08/23 11:43 Freq: NEEDED Status: Active Protocol: Document 05/09/23 13:01 TS (Rec: 05/09/23 13:19 TS [id number]) PT Summary Assessment and Plan Potential Rehabilitation Potential Fair Summary Impairments Bed Mobility,Transfers,Gait, Activity Tolerance Progress Towards Goals Progressing Toward Goals Assessment Summary Pt made some progress with his mobility this session. Pt continues to be CGA for sit to stand with FWW. He progressed his gait to ~60' CGA w/FWW, c /o increasing dizziness after ~40', was brought back to chair. Pt continues to desat to low-mid 80's on 4L of o2 with mobility, recovers ~30 secs to 95%. PT continues to recommend 24/7 assist available at home with HHPT. Pt states he will not go to SNF. Goals Bed Mobility Goal Independent Transfer Goal Independent,Front Wheeled Walker Gait Goal Independent,Front Wheel Walker Gait Distance 75 Days to Meet Goals 5 Frequency of Treatment Frequency Of Treatment Once a Day Treatment Plan Physical Therapy Treatment Plan Bed Mobility Training,Transfer Training,Gait Training, Therapeutic Exercise,Balance Retraining,Discharge Planning, Neuromuscular Re-ed Recommendations To Nursing Amount of Assist Needed 1 Person Assist Discharge Recommendations PT Discharge Recommendations Home with 24/7 Assist Available,Home Health Other Discharge Recommendations Pt may need a RW for use at d/ c Transportation Needs at Discharge Private Vehicle
[2023-05-09] MEDS: cefTRIAXone 1,000 MG in SODIUM CHLORIDE 0.9% 100 ML 200 MG IV (16:37)
[2023-05-09] MEDS: RIVAROXABAN 10 MG TABLET 15 MG PO (16:37)
--- NOTE | 2023-05-09 16:56 | P.PN_ITS ---
Subjective Subjective Interval history: Nursing concerned that blood sugars not well controlled at this time. Discussed with nursing increasing glargine dose. Slowly improving but still very weak. Exam Vital Signs (past 8 hours): - 05/09/23 09:00 05/09/23 11:50 05/09/23 16:23 Temperature 97.2 F L Pulse Rate 72 79 Respiratory Rate 20 25 H Blood Pressure 128/80 159/85 H Pulse Oximetry 98 95 Oxygen Delivery Method Nasal Cannula Oxygen Flow Rate 2 Fraction of Inspired Oxygen 36 Oxygen Delivery Method Nasal Cannula Oxygen Flow Rate 2 Narrative Exam Narrative: NAD, oriented, normal speech. Lungs clear with no wheezes or crackles. Heart regular and without murmur Abdomen soft and non-tender No leg edema Normal mood and affect. Objective Labs 05/09/23 05:53 05/09/23 05:53 Labs: Laboratory Results - last 24 hr 05/09/23 05/09/23 05:53 05:53 WBC 6.5 RBC 4.70 Hgb 14.2 Hct 42.1 MCV 89.6 MCH 30.2 MCHC 33.7 RDW 14.3 Plt Count 108 L Neut % (Auto) 84.6 H Lymph % (Auto) 10.1 L [place] % (Auto) 5.1 Eos % (Auto) 0.0 L Baso % (Auto) 0.2 Neut # (Auto) 5500 Lymph # (Auto) 600 L [place] # (Auto) 300 Eos # (Auto) 0 Baso # (Auto) 0 Sodium 136 L Potassium 4.0 Chloride 98 Carbon Dioxide 31 BUN 30 H Creatinine 1.21 Estimated GFR 59 L BUN/Creatinine Ratio 24.8 H Glucose 260 H Calcium 8.9 PFSH Medical History (Updated 05/06/23 @ 23:18 by Patric Durbin MD) Anticoagulated ASCVD (arteriosclerotic cardiovascular disease) Colon cancer Diabetes type 2, controlled Diabetic neuropathy History of stroke Hyperlipidemia Hypertension Transient cerebral ischemia Surgical History History of partial colectomy Status post aorto-coronary artery bypass graft Family History Father Medical history unknown Mother Hypertension Brother Cancer Grandmother Diabetes mellitus Brother Cancer Social History household members: none Smoking Status: Former smoker alcohol intake: current Assessment & Plan Assessment & Plan narrative: 1. Pneumonia, POAI (present on admission and improving). Being treated with a combination of azithromycin and ceftriaxone. Continue. 2. Acute on chronic hypoxic respiratory failure, POAI. Currently on 2 liters/minute and 95% continue to follow clinically. 3. ILD with dyspnea, POAI . On prednisone 40 mg daily. 4. Remote CVA -chronic impaired mobility 5. DM 2 -not well controlled. Increase glargine to 20 units b.i.d. subQ Follow labs and clinically. Inpatient visit 35 minutes, greater than 50% of the time spent with counseling/coordination of care. Code status: Full code DVT prophylaxis: Patient is on rivaroxaban 15 mg daily and does not need added treatment Surrogate decision maker: Daughter Annabelle Templeton
[2023-05-09] MEDS: AZITHROMYCIN 500 MG in DEXTROSE 5% IN WATER 250 ML 250 MG IV (18:01)
[2023-05-09] MEDS: GABAPENTIN 300 MG CAPSULE PO (20:51)
[2023-05-10] VITALS (8 sets, daily range): BP systolic 114–159; BP diastolic 59–83; PULSE 69–84; RESP 16–20; TEMP 36.1–37.1; O2SAT 92–99
[2023-05-10 04:55] LABS: Add Manual Diff / Slide Review NO; Basophils Absolute Auto 0 /uL (0-100); Basophils Percent Auto 0.3 % (0-2); Eosinophils Absolute Auto 100 /uL (0-450); Eosinophils Percent Auto 0.9 % (2-4); Hematocrit 43.4 % (41-53); Hemoglobin 14.5 g/dL (13.5-17.5); Lymphocytes Absolute Auto 600 /uL (1100-4500); Lymphocytes Percent Auto 9.5 % (25-40); Mean Corpuscular HGB Conc 33.4 % (30-36); Mean Corpuscular Hemoglobin 30.2 PG (26-34); Mean Corpuscular Volume 90.5 fL (80-100); Monocytes Absolute Auto 400 /uL (0-900); Monocytes Percent Auto 7.6 % (3-14); Neutrophils Absolute Auto 4800 /uL (1500-7000); Neutrophils Percent Auto 81.7 % (50-75); Platelet Count 127 X10^3/uL (150-400); White Blood Cell Count 5.9 X10^3/uL (4.5-11.0)
[2023-05-10 05:12] LABS: Alanine Aminotransferase 20 IU/L (<50); Albumin 3.5 g/dL (3.5-5.0); Albumin Globulin Ratio 1.2 (1.0-2.8); Alkaline Phosphatase 85 U/L (38-126); Aspartate Aminotransferase 22 IU/L (17-59); BUN Creatinine Ratio 22.2 (6-22); Bilirubin Total 0.9 mg/dL (0.2-1.3); Blood Urea Nitrogen 26 mg/dL (9-20); C-Reactive Protein Quant 5.3 mg/dL (<1.0); Calcium 8.9 mg/dL (8.4-10.2); Carbon Dioxide 32 mmol/L (22-32); Chloride 99 mmol/L (98-107); Estimated Glomerular Filt Rate > 60 mL/min (>60); Glucose 201 mg/dL (80-110); HEMOLYSIS < 15 (0-50); Potassium 3.8 mmol/L (3.4-5.1); Sodium 138 mmol/L (137-145); Total Protein 6.5 g/dL (6.3-8.2)
[2023-05-10] MEDS: PANTOPRAZOLE DR 40 MG TABLET PO (06:29)
[2023-05-10] MEDS: predniSONE 20 MG TABLET 40 MG PO (08:21)
[2023-05-10] MEDS: INSULIN GLARGINE 100 UNIT/ML 3ML PEN 20 UNIT SUBCUT (08:22)
[2023-05-10] MEDS: INSULIN LISPRO 100 UNIT/ML 3ML VIAL SUBCUT ×4 (08:22→20:20)
--- NOTE | 2023-05-10 09:33 | P.PN_ITS ---
Subjective Subjective Interval history: Starting to be mobile. Was able to walk to the bathroom today. On his usual dose of oxygen at 2 liters/minute that his his regular supplementation 04/05. Blood sugar remains an issue for control and patient's states that he is significant weaker than baseline Exam Vital Signs (past 8 hours): - 05/10/23 04:00 05/10/23 09:04 05/10/23 09:00 Temperature 97.0 F L 98.8 F Pulse Rate 69 70 Respiratory Rate 16 17 Blood Pressure 123/68 114/59 L Pulse Oximetry 97 97 Oxygen Delivery Method Nasal Cannula Oxygen Flow Rate 2 2 Fraction of Inspired Oxygen 28 SaO2/FiO2 Ratio 335 Oxygen Delivery Method Nasal Cannula Oxygen Flow Rate 2 Narrative Exam Narrative: NAD, oriented, normal speech. Lungs clear with no wheezes or crackles. Heart regular and without murmur Abdomen soft and non-tender No leg edema Normal mood and affect. Objective Labs 05/10/23 04:25 05/10/23 04:25 Labs: Laboratory Results - last 24 hr 05/10/23 05/10/23 04:25 04:25 WBC 5.9 RBC 4.80 Hgb 14.5 Hct 43.4 MCV 90.5 MCH 30.2 MCHC 33.4 RDW 14.0 Plt Count 127 L Neut % (Auto) 81.7 H Lymph % (Auto) 9.5 L [place] % (Auto) 7.6 Eos % (Auto) 0.9 L Baso % (Auto) 0.3 Neut # (Auto) 4800 Lymph # (Auto) 600 L [place] # (Auto) 400 Eos # (Auto) 100 Baso # (Auto) 0 Sodium 138 Potassium 3.8 Chloride 99 Carbon Dioxide 32 BUN 26 H Creatinine 1.17 Estimated GFR > 60 BUN/Creatinine Ratio 22.2 H Glucose 201 H Calcium 8.9 Total Bilirubin 0.9 AST 22 ALT 20 Alkaline Phosphatase 85 C-Reactive Protein 5.3 H Total Protein 6.5 Albumin 3.5 Globulin 3.0 Albumin/Globulin Ratio 1.2 [facility] Medical History (Updated 05/06/23 @ 23:18 by Patric Durbin MD) Anticoagulated ASCVD (arteriosclerotic cardiovascular disease) Colon cancer Diabetes type 2, controlled Diabetic neuropathy History of stroke Hyperlipidemia Hypertension Transient cerebral ischemia Surgical History History of partial colectomy Status post aorto-coronary artery bypass graft Family History Father Medical history unknown Mother Hypertension Brother Cancer Grandmother Diabetes mellitus Brother Cancer Social History household members: none Smoking Status: Former smoker alcohol intake: current Assessment & Plan Assessment & Plan narrative: 1. Pneumonia, POAI (present on admission and improving).? Being treated with a combination of azithromycin and ceftriaxone.? Continue.? 2. Acute on chronic hypoxic respiratory failure, POA.? Currently on 2 liter s/minute and 97% continue to follow clinically. Stable. Normally at home patient is on 2 liters/minute. 3. ILD with dyspnea, POAI .? On prednisone 40 mg daily. After 5 days we will decrease dose. 4. Remote CVA -chronic impaired mobility. Continue rivaroxaban and simvastatin. 5. DM 2 -not well controlled.? Increase glargine to 30 units b.i.d. subQ and increase sliding scale insulin to high dose. Follow labs and clinically. Code status: Full code DVT prophylaxis:? Patient is on rivaroxaban 15 mg daily and does not need added treatment Surrogate decision maker:? Jorge Templeton Time Spent With Patient Time with patient: 30 to 49 minutes with 50% spent counseling/coordinating care
--- NOTE | 2023-05-10 10:20 | PT.IPTN ---
Current Diagnoses Sepsis, unspecified organism (05/06/23) Essential (primary) hypertension (05/06/23) Pneumonia, unspecified organism (05/06/23) Interstitial pulmonary disease, unspecified (05/06/23) Acute and chronic respiratory failure with hypoxia (05/06/23) Personal history of transient ischemic attack (TIA), and cerebral infarction without residual deficits (05/06/23) Physical Therapy Treatment Note M2 PT-IP Current Condition Start: 05/08/23 11:43 Freq: NEEDED Status: Active Protocol: Document 05/08/23 11:50 MB (Rec: 05/08/23 12:25 MB [id number]) Physical Therapy Current Condition Current Condition Evaluation Date 05/08/23 Treatment Diagnosis Fall out of bed, O2 desaturation M3 PT-IP Subjective Start: 05/08/23 11:43 Freq: NEEDED Status: Active Protocol: Document 05/10/23 10:00 KS (Rec: 05/10/23 11:35 KS [id number]) Subjective Physical Therapy Visit Type Type Treatment Note Visit Start Time 10:00 Visit Stop Time 10:20 Total Visit Minutes 20 Number of LITHOGRAPHIC PRESS FEEDER Visits 2 Physical Therapy Visit Comments Patient Comments Increased O2 to 3L for mobility. Patient Goals To go home once he is stronger and can walk M4 PT-IP Mobility and Gait Start: 05/08/23 11:43 Freq: NEEDED Status: Active Protocol: Document 05/10/23 10:00 KS (Rec: 05/10/23 11:35 KS [id number]) PT-Transfer Assessment Sit to and From Stand Sit to and from Stand Contact Guard Assistance,1 Person Assistance,Use of Upper Extremities Equipment Transfer Assistive Device Gait Belt,Front Wheeled Walker Orthotic/Prosthetic Devices or Brace: No Transfers Transfer Destination Chair Transfer Technique ambulated Transfer Ability Level of Assist Contact Guard Assistance,1 Person Assistance,Use of Upper Extremities Comments Mobility Comments Pt in chair upon arrival on 2L , O2 low 90s. CGA for sit<> Stand, ambulation w/ FWW ~25ft . Pt returned to chair and O2 desat to 77%, pt feeling light headed. O2 increased to 3L and improved to 93% in 1 min. Pt performed additional 20 ft ambulation w/ FWW CGA and desat to 88% on 3L denied lightheadedness. Decreased O2 back to 2L and stable back at 92-93%. Pt left in chair w/ all needs in reach. Gait Assessment Gait Gait Assistance Required: Contact Guard Assist Distance (Feet) 45 Able to Maintain Weight Bearing Status No During Gait Assistive Devices Assistive Device Gait Belt,Front Wheeled Walker Orthotic/Prosthetic Devices or Brace: No Gait Deviations General Gait Pattern Decreased Stride Length, Decreased Feet Clearance Factors Limiting Gait Function Factors Limiting Gait Function Decreased Activity Tolerance, Decreased Strength,Poor Balance,Respiratory Distress Comments Gait Comments See mobility comments. PT-Balance Assessment Sitting Balance and Reactions Static Sitting Balance Ability Normal Dynamic Sitting Balance Ability Good Standing Balance and Reactions Static Standing Balance Ability Fair Dynamic Standing Balance Ability Fair Device Used FWW M5 PT-IP Objective Assessments Start: 05/08/23 11:43 Freq: NEEDED Status: Active Protocol: Document 05/08/23 11:50 MB (Rec: 05/08/23 12:25 MB [id number]) Orientation Orientation/Cognition Level of Alertness Alert Orientation Name,Age,Birthday,Month,Date, Year,Day of Week,Place, Situation Language Function Ability No Deficits Noted Safety Awareness Understands Safety Issues Memory Description No Deficits Noted Gross Range of Motion Lower Extremity ROM Assessment Within Functional Limits Strength Lower Extremity Strength Assessment Within Functional Limits Hip R 3+/5, left 4/5 Knee B 4-/5 flexion and extension Ankle B DF 4/5 Comments Strength Comments Pt has mild B foot edema M6 PT-IP Treatment Start: 05/08/23 11:43 Freq: NEEDED Status: Active Protocol: Document 05/10/23 11:35 KS (Rec: 05/10/23 11:35 KS [id number]) Physical Therapy Treatment Education Education Provided Safety M7 PT-IP Assessment and Plan Start: 05/08/23 11:43 Freq: NEEDED Status: Active Protocol: Document 05/10/23 10:00 KS (Rec: 05/10/23 11:35 KS [id number]) PT Summary Assessment and Plan Potential Rehabilitation Potential Fair Summary Impairments Bed Mobility,Transfers,Gait, Activity Tolerance Progress Towards Goals Progressing Toward Goals Assessment Summary Pt cont to desat w/ mobility, but overall required less supplemental O2 today as compared to yesterday. Desat to high 70s on 2L during mobility, but high 80s on 3L during mobility. Stable in low 90s on 2 while sitting. CGA for mobility w/ FWW. Pt prefers SW and has one at home . PT continues to recommend 24 /7 assist available at home with HHPT. Pt states he will not go to SNF and has good family support. Goals Bed Mobility Goal Independent Transfer Goal Independent,Front Wheeled Walker Gait Goal Independent,Front Wheel Walker Gait Distance 75 Days to Meet Goals 5 Frequency of Treatment Frequency Of Treatment Once a Day Treatment Plan Physical Therapy Treatment Plan Bed Mobility Training,Transfer Training,Gait Training, Therapeutic Exercise,Balance Retraining,Discharge Planning, Neuromuscular Re-ed Recommendations To Nursing Amount of Assist Needed 1 Person Assist Discharge Recommendations PT Discharge Recommendations Home with 24/7 Assist Available,Home Health Transportation Needs at Discharge Private Vehicle
[2023-05-10] MEDS: INSULIN GLARGINE 100 UNIT/ML 3ML PEN 10 UNIT SUBCUT (12:01)
[2023-05-10] MEDS: cefTRIAXone 1,000 MG in SODIUM CHLORIDE 0.9% 100 ML 200 MG IV (16:58)
[2023-05-10] MEDS: RIVAROXABAN 10 MG TABLET 15 MG PO (16:58)
[2023-05-10] MEDS: AZITHROMYCIN 500 MG in DEXTROSE 5% IN WATER 250 ML 250 MG IV (17:52)
[2023-05-10] MEDS: GABAPENTIN 300 MG CAPSULE PO (20:19)
[2023-05-10] MEDS: ATORVASTATIN 20 MG TABLET PO (20:19)
[2023-05-10] MEDS: INSULIN GLARGINE 100 UNIT/ML 3ML PEN 30 UNIT SUBCUT (20:20)
[2023-05-11] VITALS (7 sets, daily range): BP systolic 114–139; BP diastolic 68–77; PULSE 66–88; RESP 16–24; TEMP 36.1–36.6; O2SAT 93–97
[2023-05-11] MEDS: PANTOPRAZOLE DR 40 MG TABLET PO (06:39)
[2023-05-11] MEDS: INSULIN GLARGINE 100 UNIT/ML 3ML PEN 30 UNIT SUBCUT ×2 (08:19→21:08)
[2023-05-11] MEDS: INSULIN LISPRO 100 UNIT/ML 3ML VIAL SUBCUT ×4 (08:19→21:15)
[2023-05-11] MEDS: predniSONE 20 MG TABLET 40 MG PO (08:21)
--- NOTE | 2023-05-11 09:28 | PT.IPTN ---
Current Diagnoses Sepsis, unspecified organism (05/06/23) Essential (primary) hypertension (05/06/23) Pneumonia, unspecified organism (05/06/23) Interstitial pulmonary disease, unspecified (05/06/23) Acute and chronic respiratory failure with hypoxia (05/06/23) Personal history of transient ischemic attack (TIA), and cerebral infarction without residual deficits (05/06/23) Physical Therapy Treatment Note M2 PT-IP Current Condition Start: 05/08/23 11:43 Freq: NEEDED Status: Active Protocol: Document 05/08/23 11:50 MB (Rec: 05/08/23 12:25 MB [id number]) Physical Therapy Current Condition Current Condition Evaluation Date 05/08/23 Treatment Diagnosis Fall out of bed, O2 desaturation M3 PT-IP Subjective Start: 05/08/23 11:43 Freq: NEEDED Status: Active Protocol: Document 05/11/23 10:00 TS (Rec: 05/11/23 10:22 TS [id number]) Subjective Physical Therapy Visit Type Type Treatment Note Visit Start Time 09:28 Visit Stop Time 09:53 Total Visit Minutes 25 Notes Vitals BP: 124/68 sitting, 110/56 standing, 95/53 after mobility in standing. Spo2 94% 2L at rest, 81% 3L with mobility, 84% on 4L with mobility. Number of EMBOSSING MACHINE TENDER Visits 3 Physical Therapy Visit Comments Patient Comments Pt reports he's feeling better this morning and feels he may be doing well enough to go home, does not want to go to rehab, agreeable to PT. M4 PT-IP Mobility and Gait Start: 05/08/23 11:43 Freq: NEEDED Status: Active Protocol: Document 05/11/23 10:00 TS (Rec: 05/11/23 10:22 TS [id number]) PT-Transfer Assessment Sit to and From Stand Sit to and from Stand Standby Assistance,Use of Upper Extremities Equipment Transfer Assistive Device Gait Belt,Front Wheeled Walker Orthotic/Prosthetic Devices or Brace: No Comments Mobility Comments Pt found resting in chair on 2L of o2 @94%, BP 124/68. Sit to stand SBA with FWW, pt denied any dizziness, BP 110/ 56. Increased o2 to 3L for ambulation, pt ambulated ~80' CGA, after ~40' o2 desat to 81 % on 3L, increased to 4L. Pt ambulated back to room, c/o increasing dizziness, BP 95/53 , Spo2 84% on 4L. Pt put back on 2L at rest, recovered to low 90's after ~30 secs. Pt was left in chair with call light nearby, all needs met, RN notified. Gait Assessment Gait Gait Assistance Required: Contact Guard Assist Distance (Feet) 80 Able to Maintain Weight Bearing Status No During Gait Assistive Devices Assistive Device Gait Belt,Front Wheeled Walker Orthotic/Prosthetic Devices or Brace: No Gait Deviations General Gait Pattern Decreased Stride Length, Decreased Feet Clearance Factors Limiting Gait Function Factors Limiting Gait Function Decreased Activity Tolerance, Decreased Strength,Poor Balance,Respiratory Distress Comments Gait Comments See mobility comments. PT-Balance Assessment Sitting Balance and Reactions Static Sitting Balance Ability Normal Dynamic Sitting Balance Ability Good Standing Balance and Reactions Static Standing Balance Ability Good Dynamic Standing Balance Ability Fair Device Used FWW M5 PT-IP Objective Assessments Start: 05/08/23 11:43 Freq: NEEDED Status: Active Protocol: Document 05/08/23 11:50 MB (Rec: 05/08/23 12:25 MB [id number]) Orientation Orientation/Cognition Level of Alertness Alert Orientation Name,Age,Birthday,Month,Date, Year,Day of Week,Place, Situation Language Function Ability No Deficits Noted Safety Awareness Understands Safety Issues Memory Description No Deficits Noted Gross Range of Motion Lower Extremity ROM Assessment Within Functional Limits Strength Lower Extremity Strength Assessment Within Functional Limits Hip R 3+/5, left 4/5 Knee B 4-/5 flexion and extension Ankle B DF 4/5 Comments Strength Comments Pt has mild B foot edema M6 PT-IP Treatment Start: 05/08/23 11:43 Freq: NEEDED Status: Active Protocol: Document 05/11/23 10:00 TS (Rec: 05/11/23 10:22 TS [id number]) Physical Therapy Treatment Education Education Provided Safety M7 PT-IP Assessment and Plan Start: 05/08/23 11:43 Freq: NEEDED Status: Active Protocol: Document 05/11/23 10:00 TS (Rec: 05/11/23 10:22 TS [id number]) PT Summary Assessment and Plan Potential Rehabilitation Potential Fair Summary Impairments Bed Mobility,Transfers,Gait, Activity Tolerance Progress Towards Goals Progressing Toward Goals Assessment Summary Pt continues to c/o increasing dizziness with ambulation and desat of o2. BP in sitting was 124/68, decreased to 95/53 after gait. He did progress his gait to ~80' CGA this session. Spo2 at rest 94% on 2L, decreased to 81% on 3L and 84% on 4L with mobility. Pt took ~30 secs at rest to recover to low 90's on 2L. Pt continues to be CGA/SBA for all mobility. PT continues to recommend home with 24/7 assist and HHPT. Pt will not go to rehab. Goals Bed Mobility Goal Independent Transfer Goal Independent,Front Wheeled Walker Gait Goal Independent,Front Wheel Walker Gait Distance 75 Days to Meet Goals 5 Frequency of Treatment Frequency Of Treatment Once a Day Treatment Plan Physical Therapy Treatment Plan Bed Mobility Training,Transfer Training,Gait Training, Therapeutic Exercise,Balance Retraining,Discharge Planning, Neuromuscular Re-ed Recommendations To Nursing Amount of Assist Needed 1 Person Assist Discharge Recommendations PT Discharge Recommendations Home with 24/7 Assist Available,Home Health Transportation Needs at Discharge Private Vehicle
--- NOTE | 2023-05-11 11:14 | OT.IP.TRT ---
Current Diagnoses Sepsis, unspecified organism (05/06/23) Essential (primary) hypertension (05/06/23) Pneumonia, unspecified organism (05/06/23) Interstitial pulmonary disease, unspecified (05/06/23) Acute and chronic respiratory failure with hypoxia (05/06/23) Personal history of transient ischemic attack (TIA), and cerebral infarction without residual deficits (05/06/23) Occupational Therapy Treatment Note M2 OT-IP Current Condition Start: 05/08/23 16:31 Freq: Status: Active Protocol: Document 05/08/23 16:31 CGR (Rec: 05/08/23 16:47 CGR [id number]) Occupational Therapy Current Condition Current Condition Evaluation Date 05/08/23 Treatment Diagnosis weakness, PNA Diagnosis Onset Date 05/06/23 M3 OT- IP Subjective and Pain Start: 05/08/23 16:31 Freq: Status: Active Protocol: Document 05/11/23 13:26 CGR (Rec: 05/11/23 13:33 CGR [id number]) OT- Subjective Occupational Therapy Visit Type Type Progress Note Visit Start Time 11:02 Visit Stop Time 11:14 Total Visit Minutes 12 Notes Pt agreeable to getting up to toilet. OT Pain Assessment Pain When Pain Assessed At Rest Pain Present Pain Present Denied Pain M4 OT- IP ADL's Start: 05/08/23 16:31 Freq: Status: Active Protocol: Document 05/11/23 13:26 CGR (Rec: 05/11/23 13:33 CGR [id number]) OT [id number] Comments OT Self-Feeding Comments not meal time OT ADL-Grooming Comments OT Grooming Comments not performed, pt states he just completed OT ADL-Oral Care Comments Oral Care Comments not performed, pt states he just completed OT ADL-Dressing Comments OT Dressing Comments not performed OT ADL-Toileting General Evaluation Toileting Ability Standby Assistance Comments OT Toileting Comments Pt performed all aspects of toileting without physical assist OT ADL-Bathing Comments OT Bathing Comments Pt declined, pt states his daughter should be here soon and he doesn't want to be fatigued. M5 OT- IP IADL's Start: 05/08/23 16:31 Freq: Status: Active Protocol: Document 05/08/23 16:31 CGR (Rec: 05/08/23 16:47 CGR [id number]) OT-Instrumental Activities of Daily Living Deficits IADL Deficits Identified No Deficits Home Safety Awareness Awareness of Need for Assistance at Home Good Awareness Ability to Problem Solve Emergency Able to Problem Solve Situations Medication Management Medication Management No Deficits Identified Money Management Money Management Caregiver Provides Assistance Meal Preparation Meal Preparation Caregiver Provides Assist Gear Hobber Operator Gear Hobber Operator Caregiver Provides Assist Driving Driving Comments Pt does not drive at baseline M6 OT- IP Functional Cognition Start: 05/08/23 16:31 Freq: Status: Active Protocol: Document 05/08/23 16:31 CGR (Rec: 05/08/23 16:47 CGR [id number]) Cognitive Factors Limiting Selfcare Function Cognitive Ability Level of Alertness Alert Patient Orientation Name,Age,Birthday,Month,Date, Year,Day of Week,Place, Situation Attention Span Ability Capable of Focused Attention, Capable of Sustained Attention Ability to Follow Commands Able to Follow Multi-Step Commands OT- Vision and Hearing OT- Hearing Assessment OT- Hearing Assessment Hearing Impaired OT- Vision Assessment Visual Acuity Glasses For Reading Visual Attentiveness WFL Occular Pursuits WFL Visual Convergence WFL M7 OT- IP Mobility and Balance Start: 05/08/23 16:31 Freq: Status: Active Protocol: Document 05/11/23 13:26 CGR (Rec: 05/11/23 13:33 CGR [id number]) OT-Transfer Assessment Sit to and From Stand Sit to and from Stand Standby Assistance Transfers Transfer Ability Standby Assistance Technique Transfer Destination Chair,Toilet Transfer Technique Stand Step Pivot Devices Transfer Assistive Devices Gait Belt,Front Wheeled Walker Comments Mobility Comments Pt with increased mobility on this date. Pt was able to ambulate to and from the toilet while maintaining O2 stats in the 90s. OT- Balance Assessment Sitting Balance and Reactions Static Sitting Balance Ability Normal Dynamic Sitting Balance Ability Normal M8 OT- IP Objective Assessments Start: 05/08/23 16:31 Freq: Status: Active Protocol: Document 05/08/23 16:31 CGR (Rec: 05/08/23 16:47 CGR [id number]) OT Gross Range of Motion Upper Extremity Range of Motion Assessment Within Functional Limits OT Strength Upper Extremity Strength Assessment Within Functional Limits Comments Strength Comments B shlds 3+/5, arms and hands 4 /5 OT- Coordination Assessment Upper Extremity Finger to Nose Test Within Functional Limits Finger Tapping Test Within Functional Limits OT-Muscle Tone Assessment Muscle Tone WNL Yes M9 OT- IP Assessment and Plan Start: 05/08/23 16:31 Freq: Status: Active Protocol: Document 05/11/23 13:26 CGR (Rec: 05/11/23 13:33 CGR [id number]) OT Summary Assessment and Plan Potential Rehabilitation Potential Good Analytic Complexity at Evaluation Moderate Summary OT Impairments Strength,Balance,Functional Mobility,Grooming,Dressing, Toileting,Bathing,Toilet Transfers,Shower Transfers, Activity Tolerance Progress Towards Goals Progressing Toward Goals Assessment Summary Pt presents as a moderate complexity evaluation s/p admit for PNA. Pt with maintained O2 stats in the 90s throughout session. Pt declined further activity at this time. Goals Self-Feeding Goal Independent Grooming Goal Independent Dressing Goal Independent Toileting Goal Independent Bathing Goal Independent Toilet Transfer Goal Independent Shower Transfer Goal Independent Days to Meet Goals 10 Frequency of Treatment Frequency Of Treatment Once a Day Treatment Plan OT Treatment Plan ADL Training,Functional Mobility,Patient/Family Education,Discharge Planning Other Treatment Recommendations and Next ADLs standing Treatment Focus Discharge Recommendations OT Discharge Recommendations Home with 04/05 Assist Available Transportation Needs at Discharge Private Vehicle
--- NOTE | 2023-05-11 13:42 | PM.PN.1 ---
Subjective Subjective Interval history: Feeling better and walking more. However after walking the patient gets somewhat lightheaded when he is just going to sit down. Therefore does not have the stamina yet to be discharged to home. No new complaints. Exam Vital Signs (past 8 hours): - 05/11/23 08:00 05/11/23 09:30 05/11/23 13:00 Temperature 97.8 F Pulse Rate 86 88 Respiratory Rate 16 Blood Pressure 124/68 139/76 Pulse Oximetry 95 97 Oxygen Delivery Method Nasal Cannula Oxygen Flow Rate 2 2 Fraction of Inspired Oxygen 28 SaO2/FiO2 Ratio 339 Oxygen Delivery Method Nasal Cannula Oxygen Flow Rate 2 Narrative Exam Narrative: NAD, oriented, normal speech. Lungs clear with no wheezes or crackles. Heart regular and without murmur Abdomen soft and non-tender No leg edema Normal mood and affect. Objective Labs 05/10/23 04:25 05/10/23 04:25 [facility] Medical History (Updated 05/06/23 @ 23:18 by Patric Durbin MD) Anticoagulated ASCVD (arteriosclerotic cardiovascular disease) Colon cancer Diabetes type 2, controlled Diabetic neuropathy History of stroke Hyperlipidemia Hypertension Transient cerebral ischemia Surgical History History of partial colectomy Status post aorto-coronary artery bypass graft Family History Father Medical history unknown Mother Hypertension Brother Cancer Grandmother Diabetes mellitus Brother Cancer Social History household members: none Smoking Status: Former smoker alcohol intake: current Assessment & Plan Assessment & Plan narrative: 1. Pneumonia, POAI (present on admission and improving).? Being treated with a combination of azithromycin and ceftriaxone.? Antibiotics have completed.? 2. Acute on chronic hypoxic respiratory failure, POA.? Currently on 2 liters/minute and 97% continue to follow clinically.? Stable.? Normally at home patient is on 2 liters/minute. 3. ILD with dyspnea, POAI .? On prednisone 40 mg daily.? After 5 days we will decrease dose. That occurs tomorrow. 4. Remote CVA -chronic impaired mobility.? Continue rivaroxaban and simvastatin. 5. DM 2 -not well controlled.? Increase glargine to 30 units b.i.d. subQ and increase sliding scale insulin to high dose. Continue to follow. Follow labs and clinically. Code status: Full code DVT prophylaxis:? Patient is on rivaroxaban 15 mg daily and does not need added treatment Surrogate decision maker:? Daughter Annabelle Templeton Time Spent With Patient Time with patient: 30 to 49 minutes with 50% spent counseling/coordinating care
[2023-05-11 14:31] LABS: Hematocrit 43.8 % (41-53); Hemoglobin 14.5 g/dL (13.5-17.5); Mean Corpuscular HGB Conc 33.1 % (30-36); Mean Corpuscular Hemoglobin 30.1 PG (26-34); Mean Corpuscular Volume 91.1 fL (80-100); Platelet Count 138 X10^3/uL (150-400); Red Blood Cell Count 4.81 X10^6/uL (4.5-5.9); Red Cell Distribution Width 14.1 % (11.6-14.8); White Blood Cell Count 6.8 X10^3/uL (4.5-11.0)
[2023-05-11 14:34] LABS: Add Manual Diff / Slide Review YES
[2023-05-11 14:44] LABS: Alanine Aminotransferase 29 IU/L (<50); Albumin 3.7 g/dL (3.5-5.0); Albumin Globulin Ratio 1.2 (1.0-2.8); Alkaline Phosphatase 114 U/L (38-126); Aspartate Aminotransferase 35 IU/L (17-59); BUN Creatinine Ratio 21.1 (6-22); Blood Urea Nitrogen 24 mg/dL (9-20); Calcium 8.8 mg/dL (8.4-10.2); Carbon Dioxide 29 mmol/L (22-32); Chloride 95 mmol/L (98-107); Estimated Glomerular Filt Rate > 60 mL/min (>60); Glucose 379 mg/dL (80-110); HEMOLYSIS < 15 (0-50); Potassium 4.1 mmol/L (3.4-5.1); Sodium 134 mmol/L (137-145); Total Protein 6.7 g/dL (6.3-8.2)
[2023-05-11 14:45] LABS: Neutrophils Absolute Manual 6120 /uL (3000-5900); RBC Morphology Normal Morphology; Total Cells Counted 100
--- NOTE | 2023-05-11 15:02 | CM.DPC ---
DCP Continued: TABLE GAMES DUAL RATE SUPERVISOR reviewed EMR. Per provider in rounds, patient will not d/c today. TABLE GAMES DUAL RATE SUPERVISOR entered room and introduced self and role. Patient was sitting up and appeared A/Ox4. Patient is verbally okay with [facility] d/c plan. Patient would like something in writing that was a prescription for a fall/emergency alert system for home. Patient reports that his family lives nearby and are very supportive of him and taking care of him. TABLE GAMES DUAL RATE SUPERVISOR called Ana at [facility] to confirm they can accept patient. They can and have tried to call multiple numbers to schedule services with no answer from patient or family. Plan: patient will d/c home when medically stable with family support and [facility]. Likely transport with family. CM team will continue to follow closely. RAYMOND Bautista
[2023-05-11] MEDS: RIVAROXABAN 10 MG TABLET 15 MG PO (17:14)
[2023-05-11] MEDS: HYDROCODONE/ACET 5/325 TABLET 1 TAB PO (21:08)
[2023-05-11] MEDS: ATORVASTATIN 20 MG TABLET PO (21:08)
[2023-05-11] MEDS: GABAPENTIN 300 MG CAPSULE PO (21:08)
[2023-05-12] VITALS: BP 122/76; PULSE 72; RESP 22; TEMP 36.2; O2SAT 91
[2023-05-12 04:00] VITALS: BP 120/72; PULSE 75; RESP 17; TEMP 36.7; O2SAT 96
[2023-05-12] MEDS: PANTOPRAZOLE DR 40 MG TABLET PO (06:08)
[2023-05-12 08:21] VITALS: BP 123/84; PULSE 66; RESP 17; TEMP 36.6; O2SAT 98
[2023-05-12] MEDS: predniSONE 20 MG TABLET PO (08:41)
[2023-05-12] MEDS: SODIUM CHLORIDE 0.9% FLUSH 10 ML IV (08:42)
[2023-05-12] MEDS: INSULIN GLARGINE 100 UNIT/ML 3ML PEN 30 UNIT SUBCUT (08:42)
[2023-05-12 08:56] VITALS: O2SAT 96
--- NOTE | 2023-05-12 09:20 | P.DS_ITS ---
History of Present Illness History of Present Illness Date Patient Seen: 05/12/23 Time Patient Seen: 09:20 Chief complaint: fall, feeling unwell Narrative: Per admitting provider, 82 y/o with PMH of oxygen dependent ILD, on 2 L of O2 continuously, developed nausea, lost appetite, became weaker and progressively more short of breath in last 3-4 days. Discharge Providers Provider Date of admission: 05/06/23 18:01 Discharge Date: 05/12/23 Primary care physician: Jona Chavez MD Consults: 05/06/23 18:15 Consult to Tele-clinical implementation specialist Routine Comment: Consulting Provider: Mariia Tele-intensivists Reason for consultation: Statistical Typist services 05/06/23 22:30 Consult to Tele-clinical implementation specialist Routine Comment: Consulting Provider: Mariia [employer] Reason for consultation: Statistical Typist services 05/08/23 08:10 Consult to Occupational Therapy Evaluate & Treat Comment: Physician Instructions: Evaluate and treat Consult to Physical Therapy Evaluate & Treat Comment: Physician Instructions: Evaluate and Treat Discharge provider: Andre London DO Summary Hospital Course Discharge Diagnosis: 1. Bacterial Pneumonia, present on admission 2. Acute on chronic hypoxic respiratory failure 3. ILD with possible exacerbation 4. Remote CVA -chronic impaired mobility. 5. DM 2 on insulin Hospital Course: This is an 82 year old male with PMH of ILD, chronic respirtaory failure, prior CVA and diabetes who was admitted with acute on chronic respiratory failure seco ndary to a bacterial pnuemonia and possible ILD flare he improved with steroids and antibiotics to the point of resuming on previous 2 L of home oxygen. He completed antiboitics and steroid courses while in the hospital. No other changes to his home medications were recommended at the time of discharge. Time Spent with Patient Time spent: Greater than 30 minutes Exam Vital Signs (past 8 hours): - 05/12/23 04:00 05/12/23 08:21 05/12/23 08:56 Temperature 98.1 F 98 F Pulse Rate 75 66 Respiratory Rate 17 17 Blood Pressure 120/72 123/84 Pulse Oximetry 96 98 96 Oxygen Delivery Method Nasal Cannula Oxygen Flow Rate 2 2 2 Fraction of Inspired Oxygen 28 SaO2/FiO2 Ratio 339 Oxygen Delivery Method Nasal Cannula Oxygen Flow Rate 2 Narrative Exam Narrative: NAD, oriented, normal speech. Lungs clear with no wheezes or crackles. Heart regular and without murmur Abdomen soft and non-tender No leg edema Normal mood and affect. Objective Labs 05/11/23 14:20 05/11/23 14:20 Labs: Laboratory Results - last 24 hr 05/11/23 05/11/23 14:20 14:20 WBC 6.8 RBC 4.81 Hgb 14.5 Hct 43.8 MCV 91.1 MCH 30.1 MCHC 33.1 RDW 14.1 Plt Count 138 L Neut % (Auto) Not Reportable Lymph % (Auto) Not Reportable [place] % (Auto) Not Reportable Eos % (Auto) Not Reportable Baso % (Auto) Not Reportable Lymph # (Auto) Not Reportable [place] # (Auto) Not Reportable Baso # (Auto) Not Reportable Total Counted 100 Seg Neutrophils % 90.0 H Lymphocytes % (Manual) 6.0 L Monocytes % (Manual) 2.0 Metamyelocytes % 1.0 H Myelocytes % 1.0 H Neutrophils # (Manual) 6120 H RBC Morphology Normal morphology Sodium 134 L Potassium 4.1 Chloride 95 L Carbon Dioxide 29 BUN 24 H Creatinine 1.14 Estimated GFR > 60 BUN/Creatinine Ratio 21.1 Glucose 379 H D Calcium 8.8 Total Bilirubin 1.0 AST 35 ALT 29 Alkaline Phosphatase 114 Total Protein 6.7 Albumin 3.7 Globulin 3.0 Albumin/Globulin Ratio 1.2 [facility] Medical History (Updated 05/06/23 @ 23:18 by Patric Durbin MD) Anticoagulated ASCVD (arteriosclerotic cardiovascular disease) Colon cancer Diabetes type 2, controlled Diabetic neuropathy History of stroke Hyperlipidemia Hypertension Transient cerebral ischemia Surgical History History of partial colectomy Status post aorto-coronary artery bypass graft Family History Father Medical history unknown Mother Hypertension Brother Cancer Grandmother Diabetes mellitus Brother Cancer Social History household members: none Smoking Status: Former smoker alcohol intake: current Discharge Plan Discharge Plan Patient Disposition: Home Health Service Provider Discharge Comment: You were admitted to the hospital with pneumonia and possible flare of your lung disease, now improved. No further antibiotics or steroids are needed. No changes to home medications are recommended at discharge. Please follow up with your primary care provider in the next few w eeks to review hospitalization. Discharge orders & Medications Prescriptions: Continued insulin glargine [Lantus U-100 Insulin] 100 UNIT/1 ML solution 50 unit SUBCUT DAILY Qty: 0 simvastatin [Zocor] 40 MG tablet 40 mg PO DAILY Qty: 0 ESOMEPRAZOLE SODIUM (NEXIUM) 20 mg PO QDAY Qty: 0 Xarelto 15 mg Tablet 15 mg PO QPM polyethylene glycol 3350 [Miralax] 17 gram powder in packet 17 gram PO DAILY PRN (Reason: constipation) Qty: 14 0RF hydrocodone-acetaminophen 5-325 mg tablet 1 tab PO Q4-6H PRN (Reason: pain) Qty: 10 0RF Trulicity 3 mg/0.5 mL pen injector SUBCUT Patient Comments: [NO ORIGINAL SIG] Rx Instructions: patient can not recall how many MG he takes each Thursday gabapentin 300 mg Capsule 300 mg PO BEDTIME 90 Days Qty: 90 0RF Follow up/Referrals: Jona Chavez MD [Primary Care Provider] - Diet/Activity/Treatments Diet: Diet as Tolerated Diet comment: No restrictions Activity: As tolerated no restrictions Visit Report/Discharge Packet Stand Alone Forms: Patient Portal/API, Stroke Signs & Symptoms Discharge Data Primary Care Provider: Jona Chavez Discharges patient from system. Discharge Date/Time: 05/12/23 13:17
--- NOTE | 2023-05-12 09:46 | PT.IPTN ---
Current Diagnoses Sepsis, unspecified organism (05/06/23) Essential (primary) hypertension (05/06/23) Pneumonia, unspecified organism (05/06/23) Interstitial pulmonary disease, unspecified (05/06/23) Acute and chronic respiratory failure with hypoxia (05/06/23) Personal history of transient ischemic attack (TIA), and cerebral infarction without residual deficits (05/06/23) Physical Therapy Treatment Note M2 PT-IP Current Condition Start: 05/08/23 11:43 Freq: NEEDED Status: Active Protocol: Document 05/08/23 11:50 MB (Rec: 05/08/23 12:25 MB [id number]) Physical Therapy Current Condition Current Condition Evaluation Date 05/08/23 Treatment Diagnosis Fall out of bed, O2 desaturation M3 PT-IP Subjective Start: 05/08/23 11:43 Freq: NEEDED Status: Active Protocol: Document 05/12/23 10:08 TS (Rec: 05/12/23 10:33 TS [id number]) Subjective Physical Therapy Visit Type Type Treatment Note Visit Start Time 09:46 Visit Stop Time 10:06 Total Visit Minutes 20 Notes Vitals:BP 117/71 sitting, 95/ 55 standing. Spo2 96% on 2L, Spo2 low 70's on 4L after mobility. Number of COYOTE HUNTER Visits 4 Physical Therapy Visit Comments Patient Comments Pt reports he is going home today and his daughter will pick him up at noon, agreeable to PT. M4 PT-IP Mobility and Gait Start: 05/08/23 11:43 Freq: NEEDED Status: Active Protocol: Document 05/12/23 10:08 TS (Rec: 05/12/23 10:33 TS [id number]) PT-Transfer Assessment Sit to and From Stand Sit to and from Stand Standby Assistance Equipment Transfer Assistive Device Gait Belt,Front Wheeled Walker Orthotic/Prosthetic Devices or Brace: No Comments Mobility Comments Pt found resting in chair resting on 2L Spo2 96%, BP 117 /71 in sitting. Sit to stand SBA with BUE support pushing from arms of chair transfering to FWW. BP in standing 95/55, pt denied any dizziness or lightheadedness. Pt ambulated on 4L of o2 ~175' with FWW SBA . Pt with some confusion on where his room is, required x2 cues for redirection to correct room. Spo2 on 4L after mobility low 70's, pt c/o increasing dizziness, required to sit down. Pt recovered on 4L at rest to low 90's after ~ 30 secs. Pt was left in chair with call light nearby, nursing staff in room. Gait Assessment Gait Gait Assistance Required: Standby Assistance Distance (Feet) 175 Able to Maintain Weight Bearing Status No During Gait Assistive Devices Assistive Device Gait Belt,Front Wheeled Walker Orthotic/Prosthetic Devices or Brace: No Factors Limiting Gait Function Factors Limiting Gait Function Decreased Activity Tolerance, Decreased Strength,Poor Balance,Respiratory Distress Comments Gait Comments Pt ambulated ~175 on 4L of o2 with FWW and step thru gait. He is slgihtly unsteady but has no buckling or LOB. Spo2 desat to low 70's with gait on 4L. See mobility comments. PT-Balance Assessment Sitting Balance and Reactions Static Sitting Balance Ability Normal Dynamic Sitting Balance Ability Good Standing Balance and Reactions Static Standing Balance Ability Good Dynamic Standing Balance Ability Fair Device Used FWW M5 PT-IP Objective Assessments Start: 05/08/23 11:43 Freq: NEEDED Status: Active Protocol: Document 05/08/23 11:50 MB (Rec: 05/08/23 12:25 MB [id number]) Orientation Orientation/Cognition Level of Alertness Alert Orientation Name,Age,Birthday,Month,Date, Year,Day of Week,Place, Situation Language Function Ability No Deficits Noted Safety Awareness Understands Safety Issues Memory Description No Deficits Noted Gross Range of Motion Lower Extremity ROM Assessment Within Functional Limits Strength Lower Extremity Strength Assessment Within Functional Limits Hip R 3+/5, left 4/5 Knee B 4-/5 flexion and extension Ankle B DF 4/5 Comments Strength Comments Pt has mild B foot edema M6 PT-IP Treatment Start: 05/08/23 11:43 Freq: NEEDED Status: Active Protocol: Document 05/12/23 10:08 TS (Rec: 05/12/23 10:33 TS [id number]) Physical Therapy Treatment Education Education Provided Safety M7 PT-IP Assessment and Plan Start: 05/08/23 11:43 Freq: NEEDED Status: Active Protocol: Document 05/12/23 10:08 TS (Rec: 05/12/23 10:33 TS [id number]) PT Summary Assessment and Plan Potential Rehabilitation Potential Fair Summary Impairments Bed Mobility,Transfers,Gait, Activity Tolerance Progress Towards Goals Progressing Toward Goals Assessment Summary Pt progressed his gait to ~175 ' this session SBA with FWW. He denied any dizziness or lightheadedness prior to mobility, after mobility pt c/ o increasing dizziness(see above for vitals). His o2 continues to desat to ~low 70' s with gait on 4L, pt uses 2L at baseline. PT continues to recommend return home with 24/ 7 assist available and HHPT. Goals Bed Mobility Goal Independent Transfer Goal Independent,Front Wheeled Walker Gait Goal Independent,Front Wheel Walker Gait Distance 75 Days to Meet Goals 5 Frequency of Treatment Frequency Of Treatment Once a Day Treatment Plan Physical Therapy Treatment Plan Bed Mobility Training,Transfer Training,Gait Training, Therapeutic Exercise,Balance Retraining,Discharge Planning, Neuromuscular Re-ed Recommendations To Nursing Amount of Assist Needed Standby Assistance Discharge Recommendations PT Discharge Recommendations Home with 24/7 Assist Available,Home Health Transportation Needs at Discharge Private Vehicle
--- NOTE | 2023-05-12 11:24 | DIET.CONS2 ---
Dietary Inpatient Consultation Note Admission Date: 05/06/2023 18:01 RD consulted for DM education. Pt on DM meds at home. RD not available onsite for consultation. Nursing printed [email or web address] education and meal plan for pt and gave education. Diet: 05/07/23 Breakfast Heart Healthy Diet Diet Modifications: Sodium Level: 2 gm Sodium Nutrition Percent Meal Consumed 90% 05/12/23 09:27 Percent Meal Consumed 100% 05/11/23 18:00 Percent Meal Consumed 100% 05/11/23 13:00 Percent Meal Consumed 100% 05/11/23 09:30 Percent Meal Consumed 100% 05/10/23 18:04 Electronically Signed by: Tiffany Joyner 05/12/23 11:24 Clinical Dietitian [address] [address]
--- NOTE | 2023-05-12 11:40 | CM.DPC ---
Addendum entered by RAYMOND Bautista 05/12/23 11:49: COMMERCIAL ENERGY RATER called Ana at [facility] to report patient will be d/c today. Ana said patient's start date for care is tomorrow and they are all set. SL Original Note: DCP Continued: COMMERCIAL ENERGY RATER reviewed EMR. COMMERCIAL ENERGY RATER entered room and re-introduced self and role. Patient reports he's excited to go home. Patient reports his daughter is working on getting him a fall alert device and he does not need resources for that. Patient reports he's good to go home with [facility] and he will call back to get that set up when he gets home. CM Manager Of Sustainability Sherry will fax d/c information and face to face to [facility]. Plan: patient will d/c home with daughter and other family support. [facility] will start services when able. CM team will continue to follow closely. RAYMOND Bautista
[2023-05-12 12:17] VITALS: BP 93/60; PULSE 83; RESP 18; TEMP 36.4; O2SAT 96
== END 2023-05-12 13:17 | disposition home or self-care (01) | DRG 193 ==
LOC: ED 17:26 → AC 18:01 → ICU 18:02
PROVIDERS: Hospitalist; Neuromusculoskeletal Medicine, Sports Medicine; Admitting Provider Student in an Organized Health Care Education/Training Program; Emergency Provider Emergency Medicine; Family Provider Family Medicine; PCP Family Medicine; Referring Provider Emergency Medicine; Visit Provider Student in an Organized Health Care Education/Training Program
DX: J18.9 Pneumonia, unspecified organism (principal); J96.21 Acute and chronic respiratory failure with hypoxia; J84.9 Interstitial pulmonary disease, unspecified; I25.10 Atherosclerotic heart disease of native coronary artery without angina pectoris; E11.40 Type 2 diabetes mellitus with diabetic neuropathy, unspecified; I10 Essential (primary) hypertension; E11.65 Type 2 diabetes mellitus with hyperglycemia; E78.5 Hyperlipidemia, unspecified; Z79.4 Long term (current) use of insulin; Z79.85 Long-term (current) use of injectable non-insulin antidiabetic drugs; Z79.84 Long term (current) use of oral hypoglycemic drugs; Z95.1 Presence of aortocoronary bypass graft; Z86.73 Personal history of transient ischemic attack (TIA), and cerebral infarction without residual deficits; Z99.81 Dependence on supplemental oxygen; Z87.891 Personal history of nicotine dependence; Z79.52 Long term (current) use of systemic steroids
CPT/HCPCS: 36415; 51798; 70450; 71045; 71260; 74177; 80048; 80053; 82962; 83605; 83690; 84145; 85007; 85025; 85610; 85730; 86140; 87040; 87633; 87797; 93005; 94760; 94762; 96365; 97116; 97161; 97166; 97530; 97535; 99285; J0692; J0696; J1815; J2543; Q9967

== ENCOUNTER 2024-09-13 07:46 | Emergency (ER) | payer MEDICARE, OTHER, SELFPAY ==
[2023-05-06 18:44] VITALS: BMI 27.3
[2024-09-13] VITALS (37 sets, daily range): BP systolic 93–148; BP diastolic 57–100; PULSE 68–109; RESP 20–28; O2SAT 69–100; BMI 27.3
--- NOTE | 2024-09-13 07:57 | DI.RAD.S_ITS ---
PROCEDURE: XR CHEST 1V INDICATIONS: sob, low 02, hx interstitial lung disease/asbestos TECHNIQUE: One view of the chest was acquired. COMPARISON: Outside Facility, CR, XR CHEST 1V, 05/09/2024, 8:36. FINDINGS: Surgical changes and devices: Sternal wires. Lungs and pleura: Poor inspiratory effort. Increased reticular opacities are present unchanged. Mediastinum: Mediastinal contours appear normal. Heart size is enlarged. Bones and chest wall: No suspicious bony lesions. Overlying soft tissues appear unremarkable. IMPRESSION: Unchanged appearance of reticular opacities likely reflective chronic interstitial pulmonary disease. No focal consolidations. Dictated by: Junie Gomez M.D. on 09/13/2024 at 8:30 Approved by: Junie Gomez M.D. on 09/13/2024 at 8:42
--- NOTE | 2024-09-13 07:57 | EKG_ITS ---
[address] [address] Test Date: 2024-09-13 Pat Name: Regino Walker Department: Room: Gender: Male Political Scientist: WHITNEY : 1940 Requested By: Order Number: [id number] Reading MD: Thiago Martinez MD Measurements Intervals [place] Rate: 97 P: VT: QRS: 19 QRSD: 130 T: -35 QT: 376 QTc: 477 Interpretive Statements Sinus Rhythm Right bundle branch block Minimal voltage criteria for LVH, may be normal variant ( R in aVL ) Inferior infarct , age undetermined NO SIGNIFICANT CHANGE FROM PRIOR TRACING Electronically Signed On 09-13-2024 10:37:23 PST by Thiago Martinez MD
--- NOTE | 2024-09-13 07:59 | ED.SOB ---
HPI - SOB/Dyspnea General Chief Complaint: Shortness of Breath/Dyspnea Stated Complaint: SOB Time Seen by Provider: 09/13/24 07:47 Source: patient, RN notes reviewed and old records reviewed Mode of arrival: EMS Limitations: no limitations History of Present Illness HPI Narrative: 83-year-old male history of interstitial lung disease/asbestos he was on 4-6 L nasal cannula, CABG, prior strokes, prior myocardial infarctions, diabetes type 2, atrial fibrillation on Eliquis presents with complaint of shortness of breath. Patient got up at about 5:00 a.m. this morning to go use the bathroom states that he got short of breath. He relates it to he has had increasing O2 requirements over the past several months and his supervisor photoengraving has ordered concentrate or that can go up to 10 L because he has been requiring up to 6 L, [facility] and his concentrate or only goes to 4 L. he states he has not had any other changes no fevers or chills, no cold cough or congestion. He denies chest pain. He states his shortness breath resolved after being placed on O2 with EMS at 6 L. patient states he normally around 98% but his supervisor photoengraving told him he is fine and 88-92%. Patient denies any nausea or vomiting. No diarrhea or constipation. He does note a little bit of increased swelling in his left leg compared to his right. He has had chronic issues with lower extremity swelling. Patient states he feels improved here. States his only recent medication change was he was started on Eliquis. Patient states it was a former smoker, rare alcohol, no recreational drugs. Sees Dr. Saravia as his primary care provider. Follows with pulmonology here at [facility]. Related Data Home Medications Medication Instructions Recorded Confirmed insulin glargine 100 unit/mL 50 unit SUBCUT DAILY ##0 02/19/13 09/05/24 subcutaneous solution (Lantus U-100 Insulin) dulaglutide 3 mg/0.5 mL mg SUBCUT 05/06/23 09/05/24 subcutaneous pen injector (Trulicity) apixaban 5 mg tablet (Eliquis) 5 mg PO BID 09/05/24 09/05/24 esomeprazole magnesium 20 mg 20 mg PO DAILY 09/05/24 09/05/24 capsule,delayed release (Nexium 24HR) gabapentin 300 mg capsule 300 mg PO DAILY 09/05/24 09/05/24 metoprolol tartrate 25 mg tablet 25 mg PO BID 09/05/24 09/05/24 Previous Rx's Medication Instructions Recorded oxygen #1 ea 09/05/24 nintedanib 150 mg capsule (Ofev) 150 mg PO Q12H #60 caps 09/06/24 Allergies Allergy/AdvReac Type Severity Reaction Status Date / Time metformin AdvReac Severe Diarrhea Verified 09/05/24 14:29 adhesive AdvReac Verified 09/05/24 14:29 Review of Systems Review of Systems ROS Unobtainable: All systems reviewed & are unremarkable except as noted in HPI and below Patient History Medical History Diabetes type 2, controlled Diabetic neuropathy Colon cancer Transient cerebral ischemia Hyperlipidemia Hypertension Anticoagulated History of stroke ASCVD (arteriosclerotic cardiovascular disease) Surgical History History of partial colectomy Status post aorto-coronary artery bypass graft Family History Father Medical history unknown Mother Hypertension Brother Cancer Grandmother Diabetes mellitus Brother Cancer Social History household members: none Smoking Status: Former smoker (Quit:08/12/1999;smoked for 40 years;1 pack daily. ) alcohol intake: current Smoking Status: Former smoker (Quit:08/12/1999;smoked for 40 years;1 pack daily. ) alcohol intake frequency: holidays/special occasions only Substance Use Type: does not use Exam Narrative Exam Narrative: GENERAL: Alert and oriented x three, well-appearing elderly male, HEENT: Head normocephalic, atraumatic, EOMI, pupils reactive, face symmetric, moist mucous membranes, nasal cannula in place NECK: Supple, full range of motion CARDIOVASCULAR: Irregular but rate controlled without murmurs, rubs or gallops. Patient has some mild swelling bilateral lower extremities left slightly greater than right. RESPIRATORY: Breath sounds equal bilaterally, no wheezes rales or rhonchi. No tachypnea or accessory muscle use patient is able to speak in full sentences. ABDOMEN: Soft, nontender. Normoactive bowel sounds all 4 quadrants. No guarding or rebound, rigidity, no mass : No CVA tenderness EXTREMITIES: Normal range of motion, no clubbing. No warmth, erythema or other skin changes. Neurovascularly intact NEUROLOGICAL: Cranial nerves II through XII grossly intact. Moving all extremities SKIN: Warm, dry, no petechiae, no rashes or lesions. Initial Vital Signs Initial Vital Signs: Vital Signs Pulse Rate 98 H 09/13/24 07:50 Blood Pressure 144/79 H 09/13/24 07:50 Course Orders Ordered: ED Orders 09/13/24 11:03 Trop I [Troponin I] Stat Discontinued Medications Apixaban (Apixaban 5 Mg Tablet) 5 mg PO NOW ONE Stop: 09/13/24 10:24 Last Admin: 09/13/24 11:45 Dose: 5 mg Documented By: SONAL Gabapentin (Gabapentin 300 Mg Capsule) 300 mg PO NOW ONE Stop: 09/13/24 10:24 Last Admin: 09/13/24 11:45 Dose: 300 mg Documented By: SONAL Metoprolol Tartrate (Metoprolol Ir 25 Mg Tablet) 25 mg PO NOW ONE Stop: 09/13/24 10:24 Last Admin: 09/13/24 11:45 Dose: 25 mg Documented By: SONAL Pantoprazole Sodium (Pantoprazole Dr 20 Mg Tablet) 20 mg PO NOW ONE Stop: 09/13/24 10:24 Last Admin: 09/13/24 11:45 Dose: 20 mg Documented By: SONAL Vital Signs Vital signs: Vital Signs - 8 hr 09/13/24 11:30 09/13/24 11:30 09/13/24 12:00 Pulse Rate 81 76 Respiratory Rate Blood Pressure 93/58 L Pulse Oximetry 99 100 Oxygen Delivery Method Oxygen Flow Rate 09/13/24 12:01 09/13/24 12:01 09/13/24 12:30 Pulse Rate 75 Respiratory Rate Blood Pressure 131/67 135/100 H Pulse Oximetry 100 Oxygen Delivery Method Oxygen Flow Rate 09/13/24 12:30 09/13/24 13:00 09/13/24 13:00 Pulse Rate 82 93 H Respiratory Rate 24 Blood Pressure 120/68 Pulse Oximetry 96 92 Oxygen Delivery Method Nasal Cannula Nasal Cannula Oxygen Flow Rate 8 4 09/13/24 13:32 09/13/24 13:33 09/13/24 13:33 Pulse Rate 109 H Respiratory Rate 28 H Blood Pressure 102/57 L Pulse Oximetry 73 L 69 L Oxygen Delivery Method Nasal Cannula Nasal Cannula Oxygen Flow Rate 4 4 09/13/24 13:33 09/13/24 13:35 09/13/24 13:35 Pulse Rate 109 H Respiratory Rate 26 H Blood Pressure 126/65 Pulse Oximetry 70 L 91 Oxygen Delivery Method Nasal Cannula Nasal Cannula Oxygen Flow Rate 4 8 09/13/24 14:00 09/13/24 14:00 09/13/24 14:11 Pulse Rate 84 72 Respiratory Rate 23 Blood Pressure 93/58 L 94/58 L Pulse Oximetry 98 97 Oxygen Delivery Method Nasal Cannula Nasal Cannula Oxygen Flow Rate 8 6 09/13/24 14:11 09/13/24 14:11 09/13/24 14:16 Pulse Rate 74 76 Respiratory Rate 22 Blood Pressure 94/58 L 97/60 Pulse Oximetry 97 95 Oxygen Delivery Method Nasal Cannula Oxygen Flow Rate 6 09/13/24 14:20 09/13/24 14:20 09/13/24 14:30 Pulse Rate 80 Respiratory Rate Blood Pressure 101/63 100/64 Pulse Oximetry 97 Oxygen Delivery Method Oxygen Flow Rate 09/13/24 14:30 09/13/24 14:40 09/13/24 14:40 Pulse Rate 74 68 Respiratory Rate Blood Pressure 105/68 Pulse Oximetry 97 96 Oxygen Delivery Method Oxygen Flow Rate 09/13/24 14:50 09/13/24 14:50 09/13/24 15:00 Pulse Rate 74 Respiratory Rate Blood Pressure 101/64 115/66 Pulse Oximetry 95 Oxygen Delivery Method Oxygen Flow Rate 09/13/24 15:00 09/13/24 15:10 09/13/24 15:10 Pulse Rate 71 77 Respiratory Rate Blood Pressure 115/69 Pulse Oximetry 98 98 Oxygen Delivery Method Oxygen Flow Rate 09/13/24 15:20 09/13/24 15:20 09/13/24 15:32 Pulse Rate 78 87 Respiratory Rate Blood Pressure 117/72 Pulse Oximetry 97 Oxygen Delivery Method Nasal Cannula Oxygen Flow Rate 6 09/13/24 15:32 09/13/24 15:41 09/13/24 15:41 Pulse Rate 77 Respiratory Rate 22 Blood Pressure 119/59 L 130/74 Pulse Oximetry 98 99 Oxygen Delivery Method Nasal Cannula Oxygen Flow Rate 6 09/13/24 15:50 09/13/24 15:50 09/13/24 16:00 Pulse Rate 75 Respiratory Rate Blood Pressure 121/71 120/71 Pulse Oximetry 100 Oxygen Delivery Method Oxygen Flow Rate 09/13/24 16:00 09/13/24 16:21 09/13/24 16:21 Pulse Rate 77 76 Respiratory Rate 22 20 Blood Pressure 113/58 L Pulse Oximetry 97 97 Oxygen Delivery Method Oxygen Flow Rate 09/13/24 16:30 09/13/24 16:30 Pulse Rate 70 Respiratory Rate 20 Blood Pressure 104/59 L Pulse Oximetry 100 Oxygen Delivery Method Oxygen Flow Rate MDM - SOB/Dyspnea Lab Data 09/13/24 08:00 09/13/24 08:59 Labs: Lab Results 09/13/24 09/13/24 09/13/24 Range/Units 08:00 08:10 08:59 WBC 6.1 (4.5-11.0) X10^3/uL RBC 4.94 (4.5-5.9) X10^6/uL Hgb 13.8 (13.5-17.5) g/dL Hct 43.6 (41-53) % MCV 88.4 (80-100) fL MCH 28.0 (26-34) PG MCHC 31.7 (30-36) % RDW 14.5 (11.6-14.8) % Plt Count 108 L (150-400) X10^3/uL Neut % (Auto) 69.1 (50-75) % Lymph % (Auto) 19.9 L (25-40) % [place] % (Auto) 7.1 (3-14) % Eos % (Auto) 2.6 (2-4) % Baso % (Auto) 1.3 (0-2) % Neut # (Auto) 4200 (6125-7030) /uL Lymph # (Auto) 1200 (0445-9164) /uL [place] # (Auto) 400 (0-900) /uL Eos # (Auto) 200 (0-450) /uL Baso # (Auto) 100 (0-100) /uL Sodium 138 (137-145) mmol/L Potassium 4.2 (3.4-5.1) mmol/L Chloride 103 (98-107) mmol/L Carbon Dioxide 34 H (22-32) mmol/L BUN 20 (9-20) mg/dL Creatinine 1.24 (0.66-1.25) mg/dL Estimated GFR 57 L (>60) mL/min BUN/Creatinine Ratio 16.1 (6-22) Glucose 175 H (80-110) mg/dL Calcium 9.2 (8.4-10.2) mg/dL Total Bilirubin 1.4 H (0.2-1.3) mg/dL AST 29 (17-59) IU/L ALT 16 (<50) IU/L Alkaline Phosphatase 107 (38-126) U/L Total Creatine Kinase 37 L (55-170) U/L Troponin I 0.033 (0.01-0.034) ng/mL NT-Pro-B Natriuret Pep 434 (<450) pg/mL Total Protein 6.7 (6.3-8.2) g/dL Albumin 3.6 (3.5-5.0) g/dL Globulin 3.1 (1.7-4.1) g/dL Albumin/Globulin Ratio 1.2 (1.0-2.8) Lipase 49 (23-300) U/L SARS-CoV-2 (PCR) Negative (Negative) Influenza A (RT-PCR) Flu a negative (NEGATIVE) Influenza B (RT-PCR) Flu b negative (NEGATIVE) RSV (PCR) Negative (Negative) 09/13/24 Range/Units 11:03 WBC (4.5-11.0) X10^3/uL RBC (4.5-5.9) X10^6/uL Hgb (13.5-17.5) g/dL Hct (41-53) % MCV (80-100) fL MCH (26-34) PG MCHC (30-36) % RDW (11.6-14.8) % Plt Count (150-400) X10^3/uL Neut % (Auto) (50-75) % Lymph % (Auto) (25-40) % [place] % (Auto) (3-14) % Eos % (Auto) (2-4) % Baso % (Auto) (0-2) % Neut # (Auto) (8403-8711) /uL Lymph # (Auto) (7057-7956) /uL [place] # (Auto) (0-900) /uL Eos # (Auto) (0-450) /uL Baso # (Auto) (0-100) /uL Sodium (137-145) mmol/L Potassium (3.4-5.1) mmol/L Chloride (98-107) mmol/L Carbon Dioxide (22-32) mmol/L BUN (9-20) mg/dL Creatinine (0.66-1.25) mg/dL Estimated GFR (>60) mL/min BUN/Creatinine Ratio (6-22) Glucose (80-110) mg/dL Calcium (8.4-10.2) mg/dL Total Bilirubin (0.2-1.3) mg/dL AST (17-59) IU/L ALT (<50) IU/L Alkaline Phosphatase (38-126) U/L Total Creatine Kinase (55-170) U/L Troponin I 0.030 (0.01-0.034) ng/mL NT-Pro-B Natriuret Pep (<450) pg/mL Total Protein (6.3-8.2) g/dL Albumin (3.5-5.0) g/dL Globulin (1.7-4.1) g/dL Albumin/Globulin Ratio (1.0-2.8) Lipase (23-300) U/L SARS-CoV-2 (PCR) (Negative) Influenza A (RT-PCR) (NEGATIVE) Influenza B (RT-PCR) (NEGATIVE) RSV (PCR) (Negative) Point of Care Testing Glucose POC 170 Imaging Data Chest x-ray: Radiologist's Impression: Close Vascular Ultrasound (Signed) Efrain Monk - 09/13/24 Chest X-Ray (Signed) Junie Gomez - 09/13/24 Chest X-Ray (Signed) Robert Cross - 05/08/23 Telemetry Strips 05/06/23 Chest/Abdomen/Pelvis CT (Signed) Ashish Helton - 05/06/[address] (Signed) Ashish Helton - 05/06/23 Chest X-Ray (Signed) Ashish Helton - 05/06/23 Chest/Abdomen/Pelvis CTA (Signed) Junie Gomez - 12/10/22 Abdomen/Pelvis CT (Signed) Junie Gomez - 04/09/22 Abdomen Ultrasound (Signed) Jessie Richey - 04/09/22 Chest X-Ray (Signed) Junie Gomez 04/09/[address] (Signed) Emily Zelaya - 04/08/22 Chest X-Ray (Signed) Junie Gomez - 04/08/22 Foot X-Ray (Signed) Hope Helton - 04/01/21 Brain MRI (Signed) Emily Zelaya - 08/15/20 Telemetry Strips 08/15/[address] (Signed) Jessie Richey - 08/15/20 Echocardiogram Ultrasound (Signed) NathanielneelJay - 08/15/[address] (Signed) DennisPatrickHiro - 06/05/20 Chest/Abdomen/Pelvis CT (Signed) GlencliffHiro sanchez - 06/05/[address] (Signed) Hiro Collins - 06/05/20 Radiology Report (Cancelled) Bakari Avendaño - 01/17/20 Myocardial Perfusion Scan Nuc Med (Signed) Bakari Avendaño - 01/17/20 Launch?[place] [address] XRay Report Signed Patient: Regino Walker MR#: [id number] : 1940 Acct:[id number] Age/Sex: 83 / M Date of Service: 09/13/24 Loc: ED Accession Number: [id number] Procedure: XR chest 1V Ordering Provider: Keren Devi D.O. PROCEDURE: XR CHEST 1V INDICATIONS: sob, low 02, hx interstitial lung disease/asbestos TECHNIQUE: One view of the chest was acquired. COMPARISON: Outside Facility, CR, XR CHEST 1V, 05/09/2024, 8:36. FINDINGS: Surgical changes and devices: Sternal wires. Lungs and pleura: Poor inspiratory effort. Increased reticular opacities are present unchanged. Mediastinum: Mediastinal contours appear normal. Heart size is enlarged. Bones and chest wall: No suspicious bony lesions. Overlying soft tissues appear unremarkable. IMPRESSION: Unchanged appearance of reticular opacities likely reflective chronic interstitial pulmonary disease. No focal consolidations. Dictated by: Junie Gomez M.D. on 09/13/2024 at 8:30 Approved by: Junie Gomez M.D. on 09/13/2024 at 8:42 US - DVT: Radiologist's Impression: Regino Walker??83??M??1940 ? Allergy/Adv: metformin, adhesive Close Vascular Ultrasound (Signed) Efrain Monk - 09/13/24 Chest X-Ray (Signed) Junie Gomez - 09/13/24 Chest X-Ray (Signed) Robert Cross - 05/08/23 Telemetry Strips 05/06/23 Chest/Abdomen/Pelvis CT (Signed) SunithaSrinivascoy - 05/06/[address] (Signed) Ashish Helton - 05/06/23 Chest X-Ray (Signed) Ashish Helton - 05/06/23 Chest/Abdomen/Pelvis CTA (Signed) Junie Gomez - 12/10/22 Abdomen/Pelvis CT (Signed) Junie Gomez - 04/09/22 Abdomen Ultrasound (Signed) Jessie Richey - 04/09/22 Chest X-Ray (Signed) Junie Gomez - 04/09/[address] (Signed) Emily Zelaya - 04/08/22 Chest X-Ray (Signed) Junie Gomez - 04/08/22 Foot X-Ray (Signed) Hope Helton - 04/01/21 Brain MRI (Signed) Emily Zelaya - 08/15/20 Telemetry Strips 08/15/[address] (Signed) Jessie Richey - 08/15/20 Echocardiogram Ultrasound (Signed) Jay Juarez - 08/15/[address] (Signed) Hiro Collins - 06/05/20 Chest/Abdomen/Pelvis CT (Signed) Hiro Collins - 06/05/[address] (Signed) Hiro Collins - 06/05/20 Radiology Report (Cancelled) Bakari Avendaño - 01/17/20 Myocardial Perfusion Scan Nuc Med (Signed) Bakari Avendaño - 01/17/20 Launch?[address] [address] Ultrasound Report Signed Patient: Regino Walker MR#: [id number] : 1940 Acct:[id number] Age/Sex: 83 / M Date of Service: 09/13/24 Loc: ED Accession Number: [id number] Procedure: periph venous low extrem bi Ordering Provider: Keren Devi D.O. PROCEDURE: US PERIPH VENOUS LOW EXTREM BI INDICATIONS: Swelling LE, L > R TECHNIQUE: Real-time imaging, as well as color and pulse Doppler interrogation, were performed of the deep veins of both legs from the inguinal ligament to the popliteal fossa, with documentation of the visualized calf veins. COMPARISON: None. FINDINGS: Right: The common femoral, femoral, popliteal, and the visualized calf veins are normally compressible, and free of intraluminal thrombus. Color and pulse Doppler demonstrate normal phasic intravascular flow. There is normal augmentation response to distal compression maneuver. Left: The common femoral, femoral, popliteal, and the visualized calf veins are normally compressible, and free of intraluminal thrombus. Color and pulse Doppler demonstrate normal phasic intravascular flow. There is normal augmentation response to distal compression maneuver. IMPRESSION: No findings of deep venous thrombosis in either lower extremity. Approved by: Efrain Monk M.D. on 09/13/2024 at 8:56 ECG Data Attestation: I personally reviewed and interpreted this ECG as follows: Prior ECG tracings: available for review Interpretation: AFib occasional PVC rate of 97 QRS of 130 QTC of 477, right bundle-branch block. Nonspecific change. Patient has prior from 05/07/2023 some nonspecific change but overall appears similar patient has a right bundle-branch block on prior EKGs as well. MDM Narrative Medical decision making narrative: 83-year-old male with increased shortness of breath he notes that he has had increasing requirements over time his supervisor photoengraving has ordered and written for a concentrator that can go up to 10 L and he has been requiring closer to 6 regularly but his home concentrator only goes out of 4 L nasal cannula. EMS states that he improved into the mid 90s immediately after being placed over onto their oxygen at 6 L. Patient states he feels normal at this time. He is anticoagulated but does note a little bit increased swelling left compared to right some twin ultrasound of lower extremities, chest x-ray labs. Patient's EKG shows AFib with occasional PVCs. Patient politely request that he not be placed on telemetry as the adhesive causes him to have an allergic reaction. He was agreeable to EKG. Labs CBC shows white count of 6.1 hemoglobin 13.8 platelets are 108 patient has been chronically thrombocytopenic. CO2 is 34, sodium potassium chloride are normal BUN 20 creatinine 1.24 prior was 1.14 in April 2023 glucose is 175 bilirubin is 1.4 with AST ALT alk-phos and lipase normal. Total CK is 37, BNP is 434, troponin is 0.033. Patient's show no clear source of his increased shortness of breath. His troponins negative but we will still repeat to make sure it has not trending upwards. Repeat troponin is 0.030. EKG AFib rate controlled occasional PVCs. Chest x-ray unchanged appearance reticular opacities likely could have chronic interstitial pulmonary disease no focal consolidations. DVT ultrasound, negative for dvt. Covid/influenza/rsv swab is negative. Spoke with Respiratory therapy there reaching out to their contractors to see if we can help facilitate setting patient up with more appropriate concentrator as he has been attempting to get a new one since mid August. [facility] and has been [facility] out to [facility] regularly. Patient's home medications were ordered has not had his morning medications. He has been maintaining in the 90s at 6 L nasal cannula any time he has his O2 dropped he decreases his O2 saturation into the mid sometimes low 80s. No other clear exacerbating factors or found this time I suspect patient having increasing O2 requirements secondary to his interstitial disease/asbestos exposure discussed with patient Reviewed patient's pulmonary note, from 09/05/2024 they note they perform modified 6 minute walk test desaturated 81% on 6 L desatted to 86% on 8 L requiring 10 L supplemental oxygen to maintain 90% or had a new prescription sent. Also discussed palliative care and patient does have a DNR/DNI in place. Respiratory therapy was able to set up patient with a 10 L concentrator. Transport is being arranged so that patient can meet with the Respiratory Service after they have delivered the concentrator. Discharge Plan Departure Patient Disposition: Home Clinical Impression: Dyspnea, Chronic hypoxemic respiratory failure Activity Restrictions/Additional Instructions: I hope you continue to feel improved and that you are new concentrator is helpful. The respiratory company should be delivering at this afternoon before or when you are arriving home. You did receive your home doses of medications this morning except for your Lantus. Please return if you are having new or worsening symptoms, increasing chest pain or shortness of breath, lightheadedness or passing out, increasing swelling or other new or concerning changes. Prescriptions: No Action insulin glargine [Lantus U-100 Insulin] 100 UNIT/1 ML solution 50 unit SUBCUT DAILY Qty: 0 Ofev 150 mg capsule 150 mg PO Q12H Qty: 60 11RF Trulicity 3 mg/0.5 mL pen injector SUBCUT Patient Comments: [NO ORIGINAL SIG] Rx Instructions: patient can not recall how many MG he takes each Thursday esomeprazole magnesium [Nexium 24HR] 20 mg capsule,delayed release(DR/EC) 20 mg PO DAILY gabapentin 300 mg capsule 300 mg PO DAILY Eliquis 5 mg tablet 5 mg PO BID metoprolol tartrate 25 mg tablet 25 mg PO BID (DME) oxygen See Rx Instructions .Route .MEDSUPPLY Qty: 1 0RF Rx Instructions: 10 L [facility]) Referrals: Hunter Saravia PA-C [Primary Care Provider] - Stand Alone Forms: Patient Portal/API/Survey
[2024-09-13 08:09] LABS: Add Manual Diff / Slide Review NO; Basophils Absolute Auto 100 /uL (0-100); Basophils Percent Auto 1.3 % (0-2); Eosinophils Absolute Auto 200 /uL (0-450); Eosinophils Percent Auto 2.6 % (2-4); Hematocrit 43.6 % (41-53); Hemoglobin 13.8 g/dL (13.5-17.5); Lymphocytes Absolute Auto 1200 /uL (1100-4500); Lymphocytes Percent Auto 19.9 % (25-40); Mean Corpuscular HGB Conc 31.7 % (30-36); Mean Corpuscular Volume 88.4 fL (80-100); Monocytes Absolute Auto 400 /uL (0-900); Monocytes Percent Auto 7.1 % (3-14); Neutrophils Absolute Auto 4200 /uL (1500-7000); Neutrophils Percent Auto 69.1 % (50-75); Platelet Count 108 X10^3/uL (150-400); Red Blood Cell Count 4.94 X10^6/uL (4.5-5.9); Red Cell Distribution Width 14.5 % (11.6-14.8); White Blood Cell Count 6.1 X10^3/uL (4.5-11.0)
--- NOTE | 2024-09-13 08:09 | DI.US.S_ITS ---
PROCEDURE: US PERIPH VENOUS LOW EXTREM BI INDICATIONS: Swelling LE, L > R TECHNIQUE: Real-time imaging, as well as color and pulse Doppler interrogation, were performed of the deep veins of both legs from the inguinal ligament to the popliteal fossa, with documentation of the visualized calf veins. COMPARISON: None. FINDINGS: Right: The common femoral, femoral, popliteal, and the visualized calf veins are normally compressible, and free of intraluminal thrombus. Color and pulse Doppler demonstrate normal phasic intravascular flow. There is normal augmentation response to distal compression maneuver. Left: The common femoral, femoral, popliteal, and the visualized calf veins are normally compressible, and free of intraluminal thrombus. Color and pulse Doppler demonstrate normal phasic intravascular flow. There is normal augmentation response to distal compression maneuver. IMPRESSION: No findings of deep venous thrombosis in either lower extremity. Approved by: Efrain Monk M.D. on 09/13/2024 at 8:56
--- NOTE | 2024-09-13 08:16 | PC.NURSE ---
Pt requesting to hold on air sampling and monitoring due to allergy to adhesives. Materials paged and stated we do not have sensitive skin safe electrodes.
--- NOTE | 2024-09-13 08:17 | PC.NURSE ---
Pt reports shortness of breath when walking to bathroom. Pt states he is requiring more oxygen at home; but does not have an adequate concentrator at home and states [facility]. Pt states he was diagnosed with Interstitial Lung Disease earlier this year. Pt mentating well.
[2024-09-13 08:32] LABS: NT-proBNP (BNP-Adult 18+) 434 pg/mL (<450)
[2024-09-13 08:53] LABS: COVID-19 CEPHEID 4-PLEX PCR Negative (Negative); Influenza A - CEPHEID Flu A NEGATIVE (NEGATIVE); Influenza B - CEPHEID Flu B NEGATIVE (NEGATIVE); Respiratory Syncytial Virus Negative (Negative)
[2024-09-13 09:26] LABS: Alanine Aminotransferase 16 IU/L (<50); Albumin 3.6 g/dL (3.5-5.0); Albumin Globulin Ratio 1.2 (1.0-2.8); Alkaline Phosphatase 107 U/L (38-126); Aspartate Aminotransferase 29 IU/L (17-59); BUN Creatinine Ratio 16.1 (6-22); Bilirubin Total 1.4 mg/dL (0.2-1.3); Blood Urea Nitrogen 20 mg/dL (9-20); Calcium 9.2 mg/dL (8.4-10.2); Carbon Dioxide 34 mmol/L (22-32); Chloride 103 mmol/L (98-107); Creatine Kinase 37 U/L (55-170); Estimated Glomerular Filt Rate 57 mL/min (>60); Globulin 3.1 g/dL (1.7-4.1); Glucose 175 mg/dL (80-110); HEMOLYSIS < 15 (0-50); Lipase 49 U/L (23-300); Potassium 4.2 mmol/L (3.4-5.1); Sodium 138 mmol/L (137-145); Total Protein 6.7 g/dL (6.3-8.2)
[2024-09-13 09:37] LABS: Troponin I 0.033 ng/mL (0.01-0.034)
--- NOTE | 2024-09-13 10:44 | PC.NURSE ---
Attmept[facility] to [facility] x 4 no answer and connection hangs up after message to select 0 for staff with no ability to leave a voicemail # [phone] & Attempted to call [facility] x1, no answer just continued ringing x 1 call, waited 8 mins.
[2024-09-13] MEDS: METOPROLOL IR 25 MG TABLET PO (11:45)
[2024-09-13] MEDS: GABAPENTIN 300 MG CAPSULE PO (11:45)
[2024-09-13] MEDS: PANTOPRAZOLE DR 20 MG TABLET PO (11:45)
[2024-09-13] MEDS: APIXABAN 5 MG TABLET PO (11:45)
--- NOTE | 2024-09-13 15:58 | PC.NURSE ---
attempted to [facility] again, no answer, unable to obtain staff member on phone, no option to leave a message. ph# [phone]
== END 2024-09-13 16:55 | disposition home or self-care (01) ==
PROVIDERS: Emergency Provider Emergency Medicine; Family Provider Family Medicine; PCP Student in an Organized Health Care Education/Training Program; Referring Provider Emergency Medicine
DX: J96.11 Chronic respiratory failure with hypoxia (principal); Z79.01 Long term (current) use of anticoagulants; I45.10 Unspecified right bundle-branch block; I25.2 Old myocardial infarction
CPT/HCPCS: 0241U; 36415; 71045; 80053; 82550; 82962; 83690; 83880; 84484; 85025; 93005; 93010; 93970; 99284

== ENCOUNTER 2024-10-24 02:11 | Emergency (ER) | payer MEDICARE, OTHER, SELFPAY ==
[2023-05-06 18:44] VITALS: BMI 27.3
[2024-10-24] VITALS (21 sets, daily range): BP systolic 97–138; BP diastolic 53–91; PULSE 73–88; RESP 19–32; TEMP 36.6; O2SAT 75–96; BMI 26.3
--- NOTE | 2024-10-24 02:12 | EKG_ITS ---
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
--- NOTE | 2024-10-24 02:12 | DI.RAD.S_ITS ---
PROCEDURE: XR CHEST 1V INDICATIONS: Chest pain TECHNIQUE: One view of the chest was acquired. COMPARISON: [facility], CR, XR CHEST 1V, 05/08/2023, 8:07. Outside Facility, CT, CT CHEST WO CON, 04/27/2024, 14:05. [facility], CR, XR CHEST 1V, 09/13/2024, 8:09. FINDINGS: Surgical changes and devices: Unchanged sternotomy wires. Lungs and pleura: Asymmetric elevation of the right hemidiaphragm with decreased right lung volume. Stable increased bilateral subpleural ground-glass opacities. Mediastinum: Persistent moderate rightward deviation of the trachea related to positioning and tortuosity. Bones and chest wall: No suspicious bony lesions. Overlying soft tissues appear unremarkable. IMPRESSION: 1. Similar appearing x-ray of the chest in comparison with prior imaging. 2. Subpleural bilateral pulmonary interstitial disease. Dictated by: Kolby Cheung M.D. on 10/24/2024 at 8:03 Approved by: Kolby Cheung M.D. on 10/24/2024 at 8:13
--- NOTE | 2024-10-24 02:26 | ED.CHESTPAIN ---
HPI - Chest Pain General Chief Complaint: Chest Pain Stated Complaint: L arm pain Time Seen by Provider: 10/24/24 02:11 Source: patient and EMS Mode of arrival: EMS Limitations: no limitations History of Present Illness HPI narrative: Patient was an 83-year-old male. Has a history of interstitial lung disease. Is on oxygen at baseline. Is currently on 6 L of oxygen at home however he states he still gets very short of breath with any sort of exertion. He states his oxygen saturations are normally in the 92-98% range when he was sitting but when he gets up and moves around very frequently goes into the 70s to 80s. He was here for evaluation of left arm pain. He states he was had persistent pain in his left arm since some time yesterday afternoon (approximately 12 hours). He states he was not having chest pain. No change in his respiratory status. No cough. No fevers. No abdominal pain. No nausea vomiting or change in bowel habits. No urinary symptoms. He states it is left arm pain has been persistent and it feels very similar to when he had a heart attack several years ago but not as bad. He has had a coronary artery bypass graft. He was on apixaban. His last dose of apixaban was 1800 hours. He does have lower extremity swelling but this is baseline for him. He did receive aspirin by EMS prior to arrival. Related Data Home Medications Medication Instructions Recorded Confirmed insulin glargine 100 unit/mL 50 unit SUBCUT DAILY ##0 02/19/13 09/05/24 subcutaneous solution (Lantus U-100 Insulin) dulaglutide 3 mg/0.5 mL mg SUBCUT 05/06/23 09/05/24 subcutaneous pen injector (Trulicity) apixaban 5 mg tablet (Eliquis) 5 mg PO BID 09/05/24 09/05/24 esomeprazole magnesium 20 mg 20 mg PO DAILY 09/05/24 09/05/24 capsule,delayed release (Nexium 24HR) gabapentin 300 mg capsule 300 mg PO DAILY 09/05/24 09/05/24 metoprolol tartrate 25 mg tablet 25 mg PO BID 09/05/24 09/05/24 Previous Rx's Medication Instructions Recorded nintedanib 150 mg capsule (Ofev) 150 mg PO Q12H #60 caps 09/06/24 oxygen #1 ea 09/28/24 Allergies Allergy/AdvReac Type Severity Reaction Status Date / Time metformin AdvReac Severe Diarrhea Verified 09/05/24 14:29 adhesive AdvReac Verified 09/05/24 14:29 Review of Systems Review of Systems ROS Unobtainable: All systems reviewed & are unremarkable except as noted in HPI and below Patient History Medical History Diabetes type 2, controlled Diabetic neuropathy Colon cancer Transient cerebral ischemia Hyperlipidemia Hypertension Anticoagulated History of stroke ASCVD (arteriosclerotic cardiovascular disease) Surgical History History of partial colectomy Status post aorto-coronary artery bypass graft Family History Father Medical history unknown Mother Hypertension Brother Cancer Grandmother Diabetes mellitus Brother Cancer Social History household members: none Smoking Status: Former smoker alcohol intake: current Smoking Status: Former smoker alcohol intake frequency: holidays/special occasions only Exam Initial Vital Signs Initial Vital Signs: Vital Signs Temperature 97.9 F 10/24/24 02:11 Pulse Rate 75 10/24/24 02:11 Respiratory Rate 22 10/24/24 02:11 Blood Pressure 128/78 10/24/24 02:11 Pulse Oximetry 82 L 10/24/24 02:11 Oxygen Delivery Method Nasal Cannula 10/24/24 02:11 Oxygen Flow Rate 6 10/24/24 02:11 Const General: cooperative, comfortable and No in distress [facility] Head: normal to inspection and normocephalic Resp Effort & Inspection: no cough, labored, no respiratory distress, no retractions and tachypneic Auscultation: clear to auscultation bilaterally Cardio Rate: regular rate Rhythm: regular rhythm GI Inspection: normal to inspection Neuro General: patient alert, patient awake, patient oriented x3 and moves all extremities Extrem General: edema Course Orders Ordered: Discontinued Medications Furosemide (Furosemide 40 Mg/4 Ml Vial) 40 mg IV NOW ONE Stop: 10/24/24 03:33 Last Admin: 10/24/24 03:55 Dose: 40 mg Documented By: KATTY Heparin Sodium (Porcine) (Heparin 5,000 Unit/Ml Vial) 4,500 unit 60 unit/kg (4500 unit) IV NOW ONE Stop: 10/24/24 06:01 Last Admin: 10/24/24 06:00 Dose: 4,500 unit Documented By: KATTY Heparin Sodium/Dextrose (Heparin Drip) 25,000 unit in 500 mls @ 18.833 mls/hr IV CONT JAREK; Protocol Last Titration: 10/24/24 09:29 Dose: 12 units/kg/hr, 18.833 mls/hr Documented By: LENKA Co-signed By: MARIBEL Admin: 10/24/24 06:06 Dose: 12 units/kg/hr, 18.833 mls/hr Documented By: KATTY Co-signed By: OSCAR Vital Signs Vital signs: Vital Signs - 8 hr 10/24/24 02:11 10/24/24 02:20 10/24/24 02:20 Temperature 97.9 F Pulse Rate 75 76 Respiratory Rate 22 28 H Blood Pressure 128/78 128/78 Pulse Oximetry 82 L 80 L Oxygen Delivery Method Nasal Cannula Oxygen Flow Rate 6 10/24/24 02:30 10/24/24 02:30 10/24/24 02:53 Temperature Pulse Rate 75 Respiratory Rate 20 Blood Pressure 124/78 Pulse Oximetry 86 L 93 Oxygen Delivery Method Nasal Cannula Oxygen Flow Rate 6 6 10/24/24 03:00 10/24/24 03:00 10/24/24 03:30 Temperature Pulse Rate 73 Respiratory Rate 21 Blood Pressure 129/68 117/91 H Pulse Oximetry 94 Oxygen Delivery Method Nasal Cannula Oxygen Flow Rate 6 10/24/24 03:30 10/24/24 04:00 10/24/24 04:01 Temperature Pulse Rate 73 74 Respiratory Rate 25 H 26 H Blood Pressure 127/89 Pulse Oximetry 94 88 L Oxygen Delivery Method Oxygen Flow Rate 10/24/24 04:01 10/24/24 04:30 10/24/24 04:31 Temperature Pulse Rate 74 75 Respiratory Rate 24 27 H Blood Pressure 138/81 Pulse Oximetry 87 L 87 L Oxygen Delivery Method Oxygen Flow Rate 10/24/24 04:31 10/24/24 05:00 10/24/24 05:02 Temperature Pulse Rate 79 85 Respiratory Rate 28 H 29 H Blood Pressure 97/55 L Pulse Oximetry 89 L 75 L Oxygen Delivery Method Oxygen Flow Rate 10/24/24 05:02 10/24/24 05:30 10/24/24 05:30 Temperature Pulse Rate 87 76 Respiratory Rate 28 H 21 Blood Pressure 105/57 L Pulse Oximetry 76 L 94 Oxygen Delivery Method Oxygen Flow Rate 6 MDM - Chest Pain Medical Records Data Attestation: I reviewed the patient's medical records. Lab Data Attestation: I reviewed the patient's lab results. 10/24/24 02:20 10/24/24 02:20 Labs: Lab Results 10/24/24 10/24/24 Range/Units 02:20 03:49 WBC 6.0 (4.5-11.0) X10^3/uL RBC 4.44 L (4.5-5.9) X10^6/uL Hgb 12.3 L (13.5-17.5) g/dL Hct 38.4 L (41-53) % MCV 86.4 (80-100) fL MCH 27.6 (26-34) PG MCHC 31.9 (30-36) % RDW 15.6 H (11.6-14.8) % Plt Count 112 L (150-400) X10^3/uL Neut % (Auto) 64.8 (50-75) % Lymph % (Auto) 24.2 L (25-40) % [place] % (Auto) 7.4 (3-14) % Eos % (Auto) 2.6 (2-4) % Baso % (Auto) 1.0 (0-2) % Neut # (Auto) 3900 (1396-7395) /uL Lymph # (Auto) 1500 (1790-3035) /uL [place] # (Auto) 400 (0-900) /uL Eos # (Auto) 200 (0-450) /uL Baso # (Auto) 100 (0-100) /uL PT 17.7 H (9.4-12.5) SECONDS INR 1.6 H (0.9-1.3) APTT 38 H (25.1-36.5) SECONDS Sodium 142 (137-145) mmol/L Potassium 4.0 (3.4-5.1) mmol/L Chloride 106 (98-107) mmol/L Carbon Dioxide 33 H (22-32) mmol/L BUN 26 H (9-20) mg/dL Creatinine 1.43 H (0.66-1.25) mg/dL Estimated GFR 48 L (>60) mL/min BUN/Creatinine Ratio 18.2 (6-22) Glucose 120 H (80-110) mg/dL Calcium 8.7 (8.4-10.2) mg/dL Magnesium 1.8 (1.6-2.3) mg/dL Total Bilirubin 1.1 (0.2-1.3) mg/dL AST 55 (17-59) IU/L ALT 30 (<50) IU/L Alkaline Phosphatase 121 (38-126) U/L Total Creatine Kinase 108 (55-170) U/L Troponin I 3.520 H* (0.01-0.034) ng/mL NT-Pro-B Natriuret Pep 4990 H (<450) pg/mL Total Protein 6.5 (6.3-8.2) g/dL Albumin 3.7 (3.5-5.0) g/dL Globulin 2.8 (1.7-4.1) g/dL Albumin/Globulin Ratio 1.3 (1.0-2.8) Lipase 58 (23-300) U/L Imaging Data Chest x-ray: Radiologist's Impression: Multifocal bilateral pulmonary infiltrates. Follow-up chest radiograph after appropriate treatment to document resolution ECG Data Attestation: I personally reviewed and interpreted this ECG as follows: Interpretation: Sinus rhythm Ventricular rate is 78 LVH Normal QRS Inverted T-waves V4 V5 V6 which are new compared to EKG from September 2024 Inverted T-waves 3 AVF which are not new. MDM Narrative Medical decision making narrative: Patient did receive aspirin prior to arrival. The seems to be baseline respiratory status per his report on 6 L of nasal cannula. When he initially arrived he was hypoxic into the 70s and 80s however after a short period of time lying in bed his oxygen saturations are now in the 90s. I have low suspicion that the findings on the chest x-ray are an acute pneumonia. He clinically does not have pneumonia. No fevers. No cough. No leukocytosis. He had pulmonary infiltrates on prior x-rays as well. I will hold on any antibiotics for now. His troponin is elevated. He was new inverted T-waves laterally V4 through V6. His last dose of Eliquis was at 1800 hours. Will start heparin 12 hours after this dose. I did discuss the case with Cardiology at [facility] which is where his primary swim instructor is located. I did confirm with the patient that he was DNR/DNI however he would still consider other invasive procedures such as a cardiac catheterization. After discussion with on-call provider from patient's primary cardiology office we will attempt to find transfer for NSTEMI. Discussed the case with Dr. Dorsey cardiology at [facility] who accepts the patient in transfer. Patient is stable for transfer. Critical Care Time Critical Care Time Critical Care Time: Yes Total Critical Care Time: 40 Attestation: The high probability of a clinically significant, sudden or life threatening deterioration of the [cardiovascular, respiratory] system(s) required my full and direct attention, intervention and personal management. The aggregate critical care time was [40] minutes. This time is in addition to time spent performing reported procedures but includes the following: [X] Data Review and interpretation [X] Patient assessment and monitoring of vital signs [X] Documentation [X] Medication orders and management Discharge Plan Departure Patient Disposition: [facility] Clinical Impression: Non-ST elevation ID (NSTEMI), ILD (interstitial lung disease), Diabetes type 2, controlled, Hypoxia Prescriptions: No Action insulin glargine [Lantus U-100 Insulin] 100 UNIT/1 ML solution 50 unit SUBCUT DAILY Qty: 0 Ofev 150 mg capsule 150 mg PO Q12H Qty: 60 11RF (DME) oxygen See Rx Instructions .Route .MEDSUPPLY Qty: 1 0RF Rx Instructions: 10 L continuous supplemental [facility] through [facility] (which [facility] gets through [facility] [employer]) Trulicity 3 mg/0.5 mL pen injector SUBCUT Patient Comments: [NO ORIGINAL SIG] Rx Instructions: patient can not recall how many MG he takes each Thursday esomeprazole magnesium [Nexium 24HR] 20 mg capsule,delayed release(DR/EC) 20 mg PO DAILY gabapentin 300 mg capsule 300 mg PO DAILY Eliquis 5 mg tablet 5 mg PO BID metoprolol tartrate 25 mg tablet 25 mg PO BID Referrals: Hunter Saravia PA-C [Primary Care Provider] -
[2024-10-24 02:36] LABS: Add Manual Diff / Slide Review NO; Basophils Absolute Auto 100 /uL (0-100); Eosinophils Absolute Auto 200 /uL (0-450); Eosinophils Percent Auto 2.6 % (2-4); Hematocrit 38.4 % (41-53); Hemoglobin 12.3 g/dL (13.5-17.5); Lymphocytes Absolute Auto 1500 /uL (1100-4500); Lymphocytes Percent Auto 24.2 % (25-40); Mean Corpuscular HGB Conc 31.9 % (30-36); Mean Corpuscular Hemoglobin 27.6 PG (26-34); Mean Corpuscular Volume 86.4 fL (80-100); Monocytes Absolute Auto 400 /uL (0-900); Monocytes Percent Auto 7.4 % (3-14); Neutrophils Absolute Auto 3900 /uL (1500-7000); Neutrophils Percent Auto 64.8 % (50-75); Platelet Count 112 X10^3/uL (150-400); Red Blood Cell Count 4.44 X10^6/uL (4.5-5.9); Red Cell Distribution Width 15.6 % (11.6-14.8)
[2024-10-24 03:06] LABS: Alanine Aminotransferase 30 IU/L (<50); Albumin 3.7 g/dL (3.5-5.0); Albumin Globulin Ratio 1.3 (1.0-2.8); Alkaline Phosphatase 121 U/L (38-126); Aspartate Aminotransferase 55 IU/L (17-59); BUN Creatinine Ratio 18.2 (6-22); Bilirubin Total 1.1 mg/dL (0.2-1.3); Blood Urea Nitrogen 26 mg/dL (9-20); Calcium 8.7 mg/dL (8.4-10.2); Carbon Dioxide 33 mmol/L (22-32); Chloride 106 mmol/L (98-107); Creatine Kinase 108 U/L (55-170); Estimated Glomerular Filt Rate 48 mL/min (>60); Globulin 2.8 g/dL (1.7-4.1); Glucose 120 mg/dL (80-110); HEMOLYSIS < 15 (0-50); Lipase 58 U/L (23-300); Magnesium 1.8 mg/dL (1.6-2.3); Sodium 142 mmol/L (137-145); Total Protein 6.5 g/dL (6.3-8.2)
[2024-10-24 03:18] LABS: NT-proBNP (BNP-Adult 18+) 4990 pg/mL (<450)
[2024-10-24] MEDS: FUROSEMIDE 40 MG/4 ML VIAL IV (03:55)
[2024-10-24 04:01] LABS: INR 1.6 (0.9-1.3); Prothrombin Time 17.7 SECONDS (9.4-12.5)
[2024-10-24 04:04] LABS: PTT Partial Thromboplastin Tim 38 SECONDS (25.1-36.5)
--- NOTE | 2024-10-24 04:06 | PC.NURSE ---
Pt given snack with OK from Dr Welsh
[2024-10-24] MEDS: HEPARIN 5,000 UNIT/ML VIAL 4500 UNIT IV (06:00)
[2024-10-24] MEDS: HEPARIN DRIP 25,000 UNIT/500 ML IV.SOLN 18.833 UNIT IV (06:06)
--- NOTE | 2024-10-24 07:07 | PC.NURSE ---
Report given to dayshift nurse
== END 2024-10-24 09:31 | disposition short-term general hospital (02) ==
PROVIDERS: Emergency Medicine; Emergency Provider Emergency Medicine; Family Provider Family Medicine; PCP Student in an Organized Health Care Education/Training Program
DX: M79.602 Pain in left arm (principal); I25.2 Old myocardial infarction; I21.4 Non-ST elevation (NSTEMI) myocardial infarction; J84.9 Interstitial pulmonary disease, unspecified; Z99.81 Dependence on supplemental oxygen; R09.02 Hypoxemia; E11.9 Type 2 diabetes mellitus without complications
CPT/HCPCS: 36415; 71045; 80053; 82550; 83690; 83735; 83880; 84484; 85025; 85610; 85730; 93005; 96365; 96366; 96375; 99285; 99291; J1644; J1940

== ENCOUNTER 2024-11-10 05:02 | Emergency (ER) | payer MEDICARE, OTHER, SELFPAY ==
[2023-05-06 18:44] VITALS: BMI 27.3
[2024-11-10] VITALS (35 sets, daily range): BP systolic 92–136; BP diastolic 53–88; PULSE 85–139; RESP 18–28; TEMP 36.5; O2SAT 91–100; BMI 25.9
--- NOTE | 2024-11-10 05:08 | DI.RAD.S_ITS ---
PROCEDURE: XR CHEST 1V INDICATIONS: sob, low O2, hx asbestos/lung disease TECHNIQUE: One view of the chest was acquired. COMPARISON: [facility], CR, XR CHEST 1V, 10/24/2024, 2:16. FINDINGS: Surgical changes and devices: Median sternotomy wires are seen. Lungs and pleura: Chronic emphysematous changes are noted. Increased interstitial lung markings are noted bilaterally not significantly changed from prior study. No pneumothorax. No significant pleural effusion. Mediastinum: Mediastinal contours appear normal. Heart size is enlarged. Bones and chest wall: No suspicious bony lesions. Overlying soft tissues appear unremarkable. IMPRESSION: 1. Cardiomegaly and mild congestion. Suggestion of chronic interstitial lung parenchymal disease given patient's clinical history. Superimposed bilateral interstitial infiltrates cannot be excluded. No significant pleural effusion or pneumothorax. No significant discrepancies from preliminary reading. Dictated by: Schuyler Sexton M.D. on 11/10/2024 at 8:27 Approved by: Schuyler Sexton M.D. on 11/10/2024 at 8:28
--- NOTE | 2024-11-10 05:09 | EKG_ITS ---
[address] [address] Test Date: 2024-11-10 Pat Name: Regino Walker Department: Room: Gender: Male [employer]: [employer] : 1940 Requested By: Order Number: [id number] Reading MD: Andre London Measurements Intervals [place] Rate: 112 P: MA: 114 QRS: 45 QRSD: 130 T: -62 QT: 362 QTc: 494 Interpretive Statements Poor data quality, interpretation may be adversely affected Sinus tachycardia with occasional premature ventricular complexes and fusion complexes Right bundle branch block Inferior infarct , age undetermined Anterior infarct , age undetermined T wave abnormality, consider lateral ischemia Electronically Signed On 11-10-2024 20:04:40 PST by Andre London
--- NOTE | 2024-11-10 05:11 | ED_ITS ---
HPI - SOB/Dyspnea <Keren Devi, DO - Last Filed: 11/13/24 07:07> General Chief Complaint: Shortness of Breath/Dyspnea Stated Complaint: sob Time Seen by Provider: 11/10/24 05:06 Source: patient, EMS, RN notes reviewed and old records reviewed Mode of arrival: EMS Limitations: no limitations History of Present Illness HPI Narrative: 83-year-old male history of interstitial lung disease/asbestos he states he typically uses 6 L nasal cannula, CABG, prior strokes, prior myocardial infarctions, diabetes type 2, atrial fibrillation on Eliquis presents with ground level fall and low O2 sat. Patient had gone to the bathroom states that he got weak and sort of slid to the floor. Denies hitting her head denies any injuries. Patient's O2 sat was 68% for EMS his usual 6 L nasal cannula but they were able to get him up to 98% with 12 L non-rebreather. They noted patient was tachycardic. Patient was diaphoretic, pale initially but has not improved during his transport. Denies any chest pain or pressure. Denies any syncope. Feels much improved on the non-rebreather. Denies any nausea or vomiting. Denies any issues with bowel movements or urination. Denies any new swelling in extremities. Was provided a concentrator that goes up to 10 L on his prior ER visit in September of 2024 which he was still uses and states occasionally bumps up to 8 L. patient does note he had recent cardiac stents placed about 2 weeks ago when found to have an NSTEMI and transferred to [place]. Patient does follow with Dr. Curran for pulmonology. He notes his appointment today was canceled because his physician had an emergency. Dr. Saravia is his primary care physician. Patient was DNR/DNI. Related Data Home Medications Medication Instructions Recorded Confirmed insulin glargine 100 unit/mL 50 unit SUBCUT DAILY ##0 02/19/13 11/10/24 subcutaneous solution (Lantus U-100 Insulin) dulaglutide 3 mg/0.5 mL 1.5 mg SUBCUT WEEKLY 05/06/23 11/10/24 subcutaneous [facility] apixaban 5 mg tablet (Eliquis) 5 mg PO BID 09/05/24 11/10/24 esomeprazole magnesium 20 mg 20 mg PO DAILY 09/05/24 11/10/24 capsule,delayed release (Nexium 24HR) gabapentin 300 mg capsule 300 mg PO BID 09/05/24 11/10/24 metoprolol tartrate 25 mg tablet 25 mg PO BID 09/05/24 11/10/24 albuterol sulfate 90 mcg/actuation 2 puff QID 11/10/24 11/10/24 aerosol inhaler aspirin 81 mg tablet,delayed 81 mg PO DAILY 11/10/24 11/10/24 release insulin lispro 100 unit/mL 1 sliding scale dose SUBCUT 11/10/24 11/10/24 subcutaneous pen USEASDIRECTD magnesium oxide 400 mg DAILY 11/10/24 11/10/24 Previous Rx's Medication Instructions Recorded oxygen #1 ea 11/01/24 Allergies Allergy/AdvReac Type Severity Reaction Status Date / Time metformin AdvReac Severe Diarrhea Verified 09/05/24 14:29 adhesive AdvReac Verified 09/05/24 14:29 Review of Systems <Keren Devi DO - Last Filed: 11/13/24 07:07> Review of Systems ROS Unobtainable: All systems reviewed & are unremarkable except as noted in HPI and below Patient History <Keren Devi DO - Last Filed: 11/13/24 07:07> Medical History Diabetes type 2, controlled Diabetic neuropathy Colon cancer Transient cerebral ischemia Hyperlipidemia Hypertension Anticoagulated History of stroke ASCVD (arteriosclerotic cardiovascular disease) Surgical History History of partial colectomy Status post aorto-coronary artery bypass graft Family History Father Medical history unknown Mother Hypertension Brother Cancer Grandmother Diabetes mellitus Brother Cancer Social History household members: none Smoking Status: Former smoker alcohol intake: current Smoking Status: Former smoker alcohol intake frequency: holidays/special occasions only Exam <DO Kvng Proctor Last Filed: 11/13/24 07:07> Narrative Exam Narrative: GENERAL: Alert and oriented x three, male in mild distress. No diaphoresis. HEENT: Head normocephalic, atraumatic, EOMI, pupils reactive, face symmetric, moist mucous membranes NECK: Supple, full range of motion CARDIOVASCULAR: Regular rate and rhythm without murmurs, rubs or gallops. No edema bilateral lower extremities. RESPIRATORY: Breath sounds decreased right compared to left, no wheezes rales or rhonchi. Patient arrived with non-rebreather in place at 12 L. mild tachypnea. Able to speak in full sentences. ABDOMEN: Soft, nontender. Normoactive bowel sounds all 4 quadrants. No guarding or rebound, rigidity, no mass : No CVA tenderness EXTREMITIES: Normal range of motion, no clubbing or edema. Neurovascularly intact NEUROLOGICAL: Cranial nerves II through XII grossly intact. Moving all extremities SKIN: Warm, dry, no petechiae, no rashes or lesions. Patient does have an abrasion on his right shoulder, had some ecchymosis that is small patches about 2 cm in size on the left ribs which he states are old patient is nontender over that area. Initial Vital Signs Initial Vital Signs: Vital Signs Pulse Rate 105 H 11/10/24 05:03 Respiratory Rate 28 H 11/10/24 05:03 Blood Pressure 113/71 11/10/24 05:03 Pulse Oximetry 93 11/10/24 05:03 Oxygen Delivery Method Non -Rebreather 11/10/24 05:03 Oxygen Flow Rate 12 11/10/24 05:03 <Domi Ortega DO - Last Filed: 11/10/24 20:00> Initial Vital Signs Initial Vital Signs: Vital Signs Pulse Rate 105 H 11/10/24 05:03 Respiratory Rate 28 H 11/10/24 05:03 Blood Pressure 113/71 11/10/24 05:03 Pulse Oximetry 93 11/10/24 05:03 Oxygen Delivery Method Non -Rebreather 11/10/24 05:03 Oxygen Flow Rate 12 11/10/24 05:03 Course <Keren Devi, DO - Last Filed: 11/13/24 07:07> Orders Ordered: Discontinued Medications Gabapentin (Gabapentin 300 Mg Capsule) 300 mg PO NOW ONE Stop: 11/10/24 16:52 Last Admin: 11/10/24 16:55 Dose: 300 mg Documented By: BON Heparin Sodium (Porcine) (Heparin 5,000 Unit/Ml Vial) 4,500 unit 60 unit/kg (4500 unit) IV NOW ONE Stop: 11/10/24 10:27 Last Admin: 11/10/24 10:36 Dose: 4,500 unit Documented By: LUBNA Heparin Sodium/Dextrose (Heparin Drip) 25,000 unit in 500 mls @ 18.615 mls/hr IV CONT JAREK; Protocol Last Titration: 11/10/24 18:00 Dose: 0 units/kg/hr, 0 mls/hr Documented By: SONAL Co-signed By: BALDO Admin: 11/10/24 10:37 Dose: 12 units/kg/hr, 18.615 mls/hr Documented By: LUBNA Co-signed By: SONAL Vital Signs Vital signs: Vital Signs - 8 hr 11/10/24 12:00 11/10/24 12:00 11/10/24 12:30 Pulse Rate 91 H Respiratory Rate 21 Blood Pressure 93/53 L 95/57 L Pulse Oximetry 95 Oxygen Delivery Method Oxygen Flow Rate 11/10/24 12:30 11/10/24 13:00 11/10/24 13:00 Pulse Rate 90 95 H Respiratory Rate 21 24 Blood Pressure 107/61 Pulse Oximetry 93 94 Oxygen Delivery Method Oximask Oxygen Flow Rate 6 11/10/24 13:30 11/10/24 13:30 11/10/24 13:33 Pulse Rate 139 H 136 H Respiratory Rate 25 H 28 H Blood Pressure 114/71 Pulse Oximetry 93 95 Oxygen Delivery Method Oximask Oxygen Flow Rate 10 11/10/24 13:33 11/10/24 14:00 11/10/24 14:00 Pulse Rate 123 H Respiratory Rate 24 Blood Pressure 109/70 92/59 L Pulse Oximetry 93 Oxygen Delivery Method Oximask Oxygen Flow Rate 10 11/10/24 14:30 11/10/24 14:30 11/10/24 15:00 Pulse Rate 137 H 108 H Respiratory Rate 23 22 Blood Pressure 105/68 Pulse Oximetry 95 97 Oxygen Delivery Method Oxygen Flow Rate 11/10/24 15:00 11/10/24 15:30 11/10/24 15:30 Pulse Rate 90 Respiratory Rate 22 Blood Pressure 112/60 103/59 L Pulse Oximetry 97 Oxygen Delivery Method Oxygen Flow Rate 11/10/24 16:00 11/10/24 16:00 11/10/24 16:30 Pulse Rate 92 H Respiratory Rate 28 H Blood Pressure 114/72 99/58 L Pulse Oximetry 95 Oxygen Delivery Method Oxygen Flow Rate 11/10/24 16:30 11/10/24 17:00 11/10/24 17:00 Pulse Rate 92 H 90 Respiratory Rate 23 23 Blood Pressure 110/61 Pulse Oximetry 98 97 Oxygen Delivery Method Oximask Oxygen Flow Rate 10 11/10/24 17:30 11/10/24 17:30 11/10/24 18:00 Pulse Rate 93 H 91 H Respiratory Rate 19 Blood Pressure 105/57 L Pulse Oximetry 94 98 Oxygen Delivery Method Oxygen Flow Rate 11/10/24 18:00 Pulse Rate Respiratory Rate Blood Pressure 111/60 Pulse Oximetry Oxygen Delivery Method Oxygen Flow Rate <Domi Ortega DO - Last Filed: 11/10/24 20:00> Orders Ordered: Discontinued Medications Gabapentin (Gabapentin 300 Mg Capsule) 300 mg PO NOW ONE Stop: 11/10/24 16:52 Last Admin: 11/10/24 16:55 Dose: 300 mg Documented By: BON Heparin Sodium (Porcine) (Heparin 5,000 Unit/Ml Vial) 4,500 unit 60 unit/kg (4500 unit) IV NOW ONE Stop: 11/10/24 10:27 Last Admin: 11/10/24 10:36 Dose: 4,500 unit Documented By: LUBNA Heparin Sodium/Dextrose (Heparin Drip) 25,000 unit in 500 mls @ 18.615 mls/hr IV CONT JAREK; Protocol Last Titration: 11/10/24 18:00 Dose: 0 units/kg/hr, 0 mls/hr Documented By: SONAL Co-signed By: BALDO Admin: 11/10/24 10:37 Dose: 12 units/kg/hr, 18.615 mls/hr Documented By: LUBNA Co-signed By: SONAL Vital Signs Vital signs: Vital Signs - 8 hr 11/10/24 12:00 11/10/24 12:00 11/10/24 12:30 Pulse Rate 91 H Respiratory Rate 21 Blood Pressure 93/53 L 95/57 L Pulse Oximetry 95 Oxygen Delivery Method Oxygen Flow Rate 11/10/24 12:30 11/10/24 13:00 11/10/24 13:00 Pulse Rate 90 95 H Respiratory Rate 21 24 Blood Pressure 107/61 Pulse Oximetry 93 94 Oxygen Delivery Method Oximask Oxygen Flow Rate 6 11/10/24 13:30 11/10/24 13:30 11/10/24 13:33 Pulse Rate 139 H 136 H Respiratory Rate 25 H 28 H Blood Pressure 114/71 Pulse Oximetry 93 95 Oxygen Delivery Method Oximask Oxygen Flow Rate 10 11/10/24 13:33 11/10/24 14:00 11/10/24 14:00 Pulse Rate 123 H Respiratory Rate 24 Blood Pressure 109/70 92/59 L Pulse Oximetry 93 Oxygen Delivery Method Oximask Oxygen Flow Rate 10 11/10/24 14:30 11/10/24 14:30 11/10/24 15:00 Pulse Rate 137 H 108 H Respiratory Rate 23 22 Blood Pressure 105/68 Pulse Oximetry 95 97 Oxygen Delivery Method Oxygen Flow Rate 11/10/24 15:00 11/10/24 15:30 11/10/24 15:30 Pulse Rate 90 Respiratory Rate 22 Blood Pressure 112/60 103/59 L Pulse Oximetry 97 Oxygen Delivery Method Oxygen Flow Rate 11/10/24 16:00 11/10/24 16:00 11/10/24 16:30 Pulse Rate 92 H Respiratory Rate 28 H Blood Pressure 114/72 99/58 L Pulse Oximetry 95 Oxygen Delivery Method Oxygen Flow Rate 11/10/24 16:30 11/10/24 17:00 11/10/24 17:00 Pulse Rate 92 H 90 Respiratory Rate 23 23 Blood Pressure 110/61 Pulse Oximetry 98 97 Oxygen Delivery Method Oximask Oxygen Flow Rate 11/10/24 17:30 11/10/24 17:30 11/10/24 18:00 Pulse Rate 93 H 91 H Respiratory Rate 19 Blood Pressure 105/57 L Pulse Oximetry 94 98 Oxygen Delivery Method Oxygen Flow Rate 11/10/24 18:00 Pulse Rate Respiratory Rate Blood Pressure 111/60 Pulse Oximetry Oxygen Delivery Method Oxygen Flow Rate MDM - SOB/Dyspnea <Keren Devi, - Last Filed: 11/13/24 07:07> Lab Data 11/10/24 05:17 11/10/24 05:17 Labs: Lab Results 11/10/24 11/10/24 11/10/24 Range/Units 05:14 05:17 07:19 WBC 7.8 (4.5-11.0) X10^3/uL RBC 4.59 (4.5-5.9) X10^6/uL Hgb 12.5 L (13.5-17.5) g/dL Hct 40.3 L (41-53) % MCV 87.9 (80-100) fL MCH 27.3 (26-34) PG MCHC 31.0 (30-36) % RDW 16.5 H (11.6-14.8) % Plt Count 145 L (150-400) X10^3/uL Neut % (Auto) 80.4 H (50-75) % Lymph % (Auto) 10.4 L (25-40) % [place] % (Auto) 5.3 (3-14) % Eos % (Auto) 2.4 (2-4) % Baso % (Auto) 1.5 (0-2) % Neut # (Auto) 6300 (6049-4891) /uL Lymph # (Auto) 800 L (9505-3918) /uL [place] # (Auto) 400 (0-900) /uL Eos # (Auto) 200 (0-450) /uL Baso # (Auto) 100 (0-100) /uL PT 14.2 H (9.4-12.5) SECONDS INR 1.3 (0.9-1.3) APTT 37 H (25.1-36.5) SECONDS Sodium 139 (137-145) mmol/L Potassium 4.2 (3.4-5.1) mmol/L Chloride 103 (98-107) mmol/L Carbon Dioxide 28 (22-32) mmol/L BUN 21 H (9-20) mg/dL Creatinine 1.28 H (0.66-1.25) mg/dL Estimated GFR 55 L (>60) mL/min BUN/Creatinine Ratio 16.4 (6-22) Glucose 214 H (80-110) mg/dL Calcium 9.2 (8.4-10.2) mg/dL Total Bilirubin 2.3 H (0.2-1.3) mg/dL AST 33 (17-59) IU/L ALT 22 (<50) IU/L Alkaline Phosphatase 114 (38-126) U/L Total Creatine Kinase 58 (55-170) U/L Troponin I 0.060 H 0.193 H* (0.01-0.034) ng/mL NT-Pro-B Natriuret Pep 1900 H (<450) pg/mL Total Protein 6.8 (6.3-8.2) g/dL Albumin 4.0 (3.5-5.0) g/dL Globulin 2.8 (1.7-4.1) g/dL Albumin/Globulin Ratio 1.4 (1.0-2.8) Lipase 247 (23-300) U/L SARS-CoV-2 (PCR) Negative (Negative) Influenza A (RT-PCR) Flu a negative (NEGATIVE) Influenza B (RT-PCR) Flu b negative (NEGATIVE) RSV (PCR) Negative (Negative) 11/10/24 11/10/24 11/10/24 Range/Units 09:32 15:23 16:54 WBC (4.5-11.0) X10^3/uL RBC (4.5-5.9) X10^6/uL Hgb (13.5-17.5) g/dL Hct (41-53) % MCV (80-100) fL MCH (26-34) PG MCHC (30-36) % RDW (11.6-14.8) % Plt Count (150-400) X10^3/uL Neut % (Auto) (50-75) % Lymph % (Auto) (25-40) % Lenoir % (Auto) (3-14) % Eos % (Auto) (2-4) % Baso % (Auto) (0-2) % Neut # (Auto) (5993-8326) /uL Lymph # (Auto) (7456-5559) /uL Lenoir # (Auto) (0-900) /uL Eos # (Auto) (0-450) /uL Baso # (Auto) (0-100) /uL PT (9.4-12.5) SECONDS INR (0.9-1.3) APTT 120 H* D (25.1-36.5) SECONDS Sodium (137-145) mmol/L Potassium (3.4-5.1) mmol/L Chloride (98-107) mmol/L Carbon Dioxide (22-32) mmol/L BUN (9-20) mg/dL Creatinine (0.66-1.25) mg/dL Estimated GFR (>60) mL/min BUN/Creatinine Ratio (6-22) Glucose (80-110) mg/dL Calcium (8.4-10.2) mg/dL Total Bilirubin (0.2-1.3) mg/dL AST (17-59) IU/L ALT (<50) IU/L Alkaline Phosphatase (38-126) U/L Total Creatine Kinase (55-170) U/L Troponin I 0.423 H* 0.455 H* (0.01-0.034) ng/mL NT-Pro-B Natriuret Pep (<450) pg/mL Total Protein (6.3-8.2) g/dL Albumin (3.5-5.0) g/dL Globulin (1.7-4.1) g/dL Albumin/Globulin Ratio (1.0-2.8) Lipase (23-300) U/L SARS-CoV-2 (PCR) (Negative) Influenza A (RT-PCR) (NEGATIVE) Influenza B (RT-PCR) (NEGATIVE) RSV (PCR) (Negative) ECG Data Attestation: I personally reviewed and interpreted this ECG as follows: Prior ECG tracings: available for review Interpretation: Sinus tach occasional PVC right bundle-branch block rate of 112 RI 114 QRS of 130 QTC 494. Patient has prior from 10/24/2024 which appears similar. [facility] Narrative Medical decision making narrative: 83-year-old male with known lung disease but also known cardiac history presents with ground level fall likely from hypoxia patient was sort of got weak and slid to the floor did not hit his head denies any other injuries. He was found to be quite hypoxic on his normal 6 L nasal cannula does respond to oxygen and he was feeling improved after transport on 12 L non-rebreather. Weaning down he is currently on 8 L in the mid 90s. Patient did notably have an NSTEMI about 2 weeks ago and states he had cardiac stents placed at that time. We will attempt to get records. Labs white count of 7.8 hemoglobin of 12.5 consistent with prior earlier in October, platelets are 145 slightly improved from priors. INR is 1.3. Electrolytes are appropriate BUN 21 creatinine is 1.28 appears consistent with priors. Bilirubin is 2.3 LFTs are otherwise appropriate. Troponin is 0.06, bnp is 1900. EKG shows sinus tach if you RBCs right bundle-branch block. Chest x-ray multifocal bilateral pulmonary infiltrates no pneumothorax, pleural effusion or congestive changes heart size is normal and arterial sclerosis of the aorta postsurgical findings of CABG. Spondylitic changes of the thoracic spine. On review of patient's priors chest x-ray looks fairly similar chest x- ray is even into 2022. COVID/flu/RSV is negative On re-evaluation patient is comfortable, resting. Patient signed out to Dr. Ortega while awaiting repeat troponin. 08:20 Dr. Ortega, patient signed out to me by Dr. Devi I have seen evaluated patient myself. Had a recent NSTEMI with transfer to [place] with cardiac stents has chronic lung disease chronically hypoxic presents today with worsening shortness of breath. He typically wears 6 L of oxygen was hypoxic at 68%. Repeat troponin is positive at 0.193 Patient is awake alert reports he is breathing much better but requiring an OxyMask at 12 L. he does take Eliquis he has not missed a dose 1256 accept at [place] waiting for bed 1600 repeat troponin remains elevated but not rising as fast. <Domi Ortega, DO - Last Filed: 11/10/24 20:00> Lab Data Labs: Lab Results 11/10/24 11/10/24 11/10/24 Range/Units 05:14 05:17 07:19 WBC 7.8 (4.5-11.0) X10^3/uL RBC 4.59 (4.5-5.9) X10^6/uL Hgb 12.5 L (13.5-17.5) g/dL Hct 40.3 L (41-53) % MCV 87.9 (80-100) fL MCH 27.3 (26-34) PG MCHC 31.0 (30-36) % RDW 16.5 H (11.6-14.8) % Plt Count 145 L (150-400) X10^3/uL Neut % (Auto) 80.4 H (50-75) % Lymph % (Auto) 10.4 L (25-40) % Len[place] % (Auto) 5.3 (3-14) % Eos % (Auto) 2.4 (2-4) % Baso % (Auto) 1.5 (0-2) % Neut # (Auto) 6300 (7725-7646) /uL Lymph # (Auto) 800 L (7745-4928) /uL [place] # (Auto) 400 (0-900) /uL Eos # (Auto) 200 (0-450) /uL Baso # (Auto) 100 (0-100) /uL PT 14.2 H (9.4-12.5) SECONDS INR 1.3 (0.9-1.3) APTT 37 H (25.1-36.5) SECONDS Sodium 139 (137-145) mmol/L Potassium 4.2 (3.4-5.1) mmol/L Chloride 103 (98-107) mmol/L Carbon Dioxide 28 (22-32) mmol/L BUN 21 H (9-20) mg/dL Creatinine 1.28 H (0.66-1.25) mg/dL Estimated GFR 55 L (>60) mL/min BUN/Creatinine Ratio 16.4 (6-22) Glucose 214 H (80-110) mg/dL Calcium 9.2 (8.4-10.2) mg/dL Total Bilirubin 2.3 H (0.2-1.3) mg/dL AST 33 (17-59) IU/L ALT 22 (<50) IU/L Alkaline Phosphatase 114 (38-126) U/L Total Creatine Kinase 58 (55-170) U/L Troponin I 0.060 H 0.193 H* (0.01-0.034) ng/mL NT-Pro-B Natriuret Pep 1900 H (<450) pg/mL Total Protein 6.8 (6.3-8.2) g/dL Albumin 4.0 (3.5-5.0) g/dL Globulin 2.8 (1.7-4.1) g/dL Albumin/Globulin Ratio 1.4 (1.0-2.8) Lipase 247 (23-300) U/L SARS-CoV-2 (PCR) Negative (Negative) Influenza A (RT-PCR) Flu a negative (NEGATIVE) Influenza B (RT-PCR) Flu b negative (NEGATIVE) RSV (PCR) Negative (Negative) 11/10/24 11/10/24 11/10/24 Range/Units 09:32 15:23 16:54 WBC (4.5-11.0) X10^3/uL RBC (4.5-5.9) X10^6/uL Hgb (13.5-17.5) g/dL Hct (41-53) % MCV (80-100) fL MCH (26-34) PG MCHC (30-36) % RDW (11.6-14.8) % Plt Count (150-400) X10^3/uL Neut % (Auto) (50-75) % Lymph % (Auto) (25-40) % [place] % (Auto) (3-14) % Eos % (Auto) (2-4) % Baso % (Auto) (0-2) % Neut # (Auto) (0247-1010) /uL Lymph # (Auto) (8937-5180) /uL [place] # (Auto) (0-900) /uL Eos # (Auto) (0-450) /uL Baso # (Auto) (0-100) /uL PT (9.4-12.5) SECONDS INR (0.9-1.3) APTT 120 H* D (25.1-36.5) SECONDS Sodium (137-145) mmol/L Potassium (3.4-5.1) mmol/L Chloride (98-107) mmol/L Carbon Dioxide (22-32) mmol/L BUN (9-20) mg/dL Creatinine (0.66-1.25) mg/dL Estimated GFR (>60) mL/min BUN/Creatinine Ratio (6-22) Glucose (80-110) mg/dL Calcium (8.4-10.2) mg/dL Total Bilirubin (0.2-1.3) mg/dL AST (17-59) IU/L ALT (<50) IU/L Alkaline Phosphatase (38-126) U/L Total Creatine Kinase (55-170) U/L Troponin I 0.423 H* 0.455 H* (0.01-0.034) ng/mL NT-Pro-B Natriuret Pep (<450) pg/mL Total Protein (6.3-8.2) g/dL Albumin (3.5-5.0) g/dL Globulin (1.7-4.1) g/dL Albumin/Globulin Ratio (1.0-2.8) Lipase (23-300) U/L SARS-CoV-2 (PCR) (Negative) Influenza A (RT-PCR) (NEGATIVE) Influenza B (RT-PCR) (NEGATIVE) RSV (PCR) (Negative) Imaging Data Chest x-ray: Radiologist's Impression: PROCEDURE: XR CHEST 1V INDICATIONS: sob, low O2, hx asbestos/lung disease TECHNIQUE: One view of the chest was acquired. COMPARISON: [facility], CR, XR CHEST 1V, 10/24/2024, 2:16. FINDINGS: Surgical changes and devices: Median sternotomy wires are seen. Lungs and pleura: Chronic emphysematous changes are noted. Increased interstitial lung markings are noted bilaterally not significantly changed from prior study. No pneumothorax. No significant pleural effusion. Mediastinum: Mediastinal contours appear normal. Heart size is enlarged. Bones and chest wall: No suspicious bony lesions. Overlying soft tissues appear unremarkable. IMPRESSION: 1. Cardiomegaly and mild congestion. Suggestion of chronic interstitial lung parenchymal disease given patient's clinical history. Superimposed bilateral interstitial infiltrates cannot be excluded. No significant pleural effusion or pneumothorax. No significant discrepancies from preliminary reading. Dictated by: Schuyler Sexton M.D. on 11/10/2024 at 8:27 CT scan - chest: Radiologist's Impression: PROCEDURE: CT ANGIO CHEST PE PROTOCOL INDICATIONS: hypoxia TECHNIQUE: After the administration of intravenous contrast, 2 mm thick sections acquired from the pulmonary apices to the posterior costophrenic angles. 3-dimensional maximum intensity projection (MIP) coronal and sagittal reformats were then acquired through the thorax. For radiation dose reduction, the following was used: automated exposure control, adjustment of mA and/or kV according to patient size. COMPARISON: [facility], CT, CT CHEST WO CON, 04/08/2022, 14:26. [facility], CT, CT ABDOMEN PELVIS W CON, 04/09/2022, 12:48. FINDINGS: Image quality: Diagnostic. Pulmonary arteries: Pulmonary arteries are enlarged in size, and demonstrate no intraluminal filling defects to suggest central pulmonary embolism. Lower Neck: No enlarged lymph nodes. Thyroid: No thyroid nodules which require sonographic follow up, per consensus guidelines. Axillae: No enlarged lymph nodes. Chest Wall: Median sternotomy wires are seen. Bones: No aggressive appearing bony lesions. Lungs and Pleura: Advanced interstitial pulmonary fibrosis worsened compared to 2021 study. Hazy ground-glass opacity is seen in bilateral aerated lung noyola concerning for pulmonary edema. No pleural effusion or pneumothorax. Airway is patent. Heart: Heart size is markedly enlarged. No pericardial effusion. Thoracic Vessels: No aortic aneurysm. Mediastinum and Elissa: Mildly enlarged mediastinal lymph nodes are seen measures up to 1.1 cm in size in right paratracheal space and AP window. Esophagus: No wall thickening. Small hiatal hernia. Upper Abdomen: Visualized upper abdomen solid organs and bowel loops appear normal. IMPRESSION: 1. No pulmonary embolus. Enlarged size of main pulmonary artery which can be seen associated with pulmonary vascular hypertension. No thoracic aortic aneurysm or gross dissection. 2. Advanced interstitial pulmonary fibrosis. Suggestion of pulmonary edema. No definite focal infiltrate. No pleural effusion or pneumothorax. 3. Marked cardiomegaly, no pericardial effusion. Borderline enlarged mediastinal and hilar lymph nodes which may be reactive in nature. Dictated by: Schuyler Sexton M.D. on 11/10/2024 at 8:59 echo: Radiologist's Impression: [facility] : : [address] [place] [address]. : : [place], [place] : : [address] : : Phone: [phone] Echocardiogram Report + + :Name: LIZBETH HUNTER Study Date: 11/10/2024 Height: 68 in : :[facility] ReadingLocation: Weight: 171 lb : : Gender: Male BSA: 1.9 m2 : :: 1940 Age: 83 yrs BP: 116/88 mmHg: :Reason For Study: NSTEMI : :Ordering Physician: SHANNON, : :DOMI Performed By: Jayla Griffin : :Referring: DOMI ORTEGA : + + Interpretation Summary This is a technically difficult study enhanced with Definity echo contrast. Study was not complete and mitral valve inflow evaluation was not performed. Valvular evaluation in apical views was not performed. Indeterminant rhythm with wide QRS complexes. Heart rate is 81-100 bpm. Normal LV size and mildly increased wall thickness. Septal dyssynchrony. Ejection fraction is estimated at 45-50%. D-shaped left ventricle in systole and diastole consistent with RV pressure overload. Neither right atrium nor left atrium size was measured. Moderately dilated right ventricle with moderately reduced RV systolic function. Mild tricuspid regurgitation; otherwise no significant valvular abnormalities. Estimated PA systolic pressure is 62 mmHg assuming a right atrial pressure of 10 mmHg. Compared to prior echo August 15, 2020, D-shaped RV in systole and diastole is not new. RV dilation looks worse on current study. RV function was not evaluated on prior echocardiogram. RV dimension on apical views was not checked last time. Septal dyssynchrony is newly described and LV is less dynamic on current study. Procedure: A two-dimensional transthoracic echocardiogram with color flow Doppler was performed. The study quality was technically difficult. Comparison is made with the echocardiogram of 08/15/2020. A contrast injection of Definity was performed to improve assessment of LV function. The heart rate ranged between 81-100 bpm during the study. Left Ventricle: The left ventricle is normal in size. Left ventricular wall thickness is mildly increased. The ejection fraction is estimated to be 45- 50%. The interventricular septum is flattened, consistent with a right ventricular pressure/volume condition. Right Ventricle: The right ventricle is mild to moderately dilated. Right ventricular systolic function is moderately reduced. Aortic Valve: The aortic valve is trileaflet. The aortic valve opens well. Tricuspid Valve: The tricuspid valve leaflets are thin and pliable. There is mild to moderate tricuspid regurgitation. Right ventricular systolic pressure is estimated to be 52 mmHg plus the clinically estimated CVP which cannot be estimated on this exam. Great Vessels: The inferior vena cava was not well visualized. Pericardium/ Pleura There is no pericardial effusion. There is no pleural effusion. MMode/2D Measurements & Calculations LVIDd: 4.6 cm RVD1 (basal): 4.6 cm LVIDs: 3.4 cm TAPSE: 1.2 cm FS: 25.3 % EPSS: 0.79 cm IVSd: 1.1 cm LVPWd: 0.98 cm LV gunderson. diameter/BSA (cm/m^2): 2.4 LV sys. diameter/BSA (cm/m^2): 1.8 Doppler Measurements & Calculations TR max steve: 360.7 cm/sec TR max P.0 mmHg MDM Narrative Medical decision making narrative: 83-year-old male with known lung disease but also known cardiac history presents with ground level fall likely from hypoxia patient was sort of got weak and slid to the floor did not hit his head denies any other injuries. He was found to be quite hypoxic on his normal 6 L nasal cannula does respond to oxygen and he was feeling improved after transport on 12 L non-rebreather. Weaning down he is currently on 8 L in the mid s. Patient did notably have an NSTEMI about 2 weeks ago and states he had cardiac stents placed at that time. We will attempt to get records. Labs white count of 7.8 hemoglobin of 12.5 consistent with prior earlier in October, platelets are 145 slightly improved from priors. INR is 1.3. Electrolytes are appropriate BUN 21 creatinine is 1.28 appears consistent with priors. Bilirubin is 2.3 LFTs are otherwise appropriate. Troponin is 0.06, bnp is 1900. EKG shows sinus tach if you RBCs right bundle-branch block. Chest x-ray multifocal bilateral pulmonary infiltrates no pneumothorax, pleural effusion or congestive changes heart size is normal and arterial sclerosis of the aorta postsurgical findings of CABG. Spondylitic changes of the thoracic spine. On review of patient's priors chest x-ray looks fairly similar chest x- ray is even into 2022. COVID/flu/RSV is negative On re-evaluation patient is comfortable, resting. 08:20 Dr. Ortega, patient signed out to me by Dr. Devi I have seen evaluated patient myself. Had a recent NSTEMI with transfer to [place] with cardiac stents has chronic lung disease chronically hypoxic presents today with worsening shortness of breath. He typically wears 6 L of oxygen was hypoxic at 68%. Repeat troponin is positive at 0.193 Patient is awake alert reports he is breathing much better but requiring an OxyMask at 12 L. he does take Eliquis he has not missed a dose 1256 accept at [place] waiting for bed 1600 repeat troponin remains elevated but not rising as fast. Discharge Plan Departure Patient Disposition: [facility] Clinical Impression: Acute non-ST elevation myocardial infarction (NSTEMI) Prescriptions: No Action insulin glargine [Lantus U-100 Insulin] 100 UNIT/1 ML solution 50 unit SUBCUT DAILY Qty: 0 (DME) oxygen See Rx Instructions .Route .MEDSUPPLY Qty: 1 0RF Rx Instructions: 10 L continuous supplemental [facility] (which [facility] gets through [place] [facility] [employer]) Trulicity 3 mg/0.5 mL pen injector 1.5 mg SUBCUT WEEKLY Patient Comments: [NO ORIGINAL SIG] Rx Instructions: take on Thursday afternoon aspirin 81 mg tablet,delayed release (DR/EC) 81 mg PO DAILY albuterol sulfate 90 mcg/actuation Hfa Aerosol Inhaler 2 puff QID insulin lispro 100 unit/mL Insulin Pen 1 sliding scale dose SUBCUT USEASDIRECTD Rx Instructions: 0-140-0 units; 141-175-1 unit; 176-225-3 units; 226-275-5 units; 276-325-7 units; 326-375-9 units; 376-450-10 units; 451-550-11 units; Call MD for 551 or over magnesium oxide 400 mg magnesium Tablet 400 mg DAILY esomeprazole magnesium [Nexium 24HR] 20 mg capsule,delayed release(DR/EC) 20 mg PO DAILY gabapentin 300 mg capsule 300 mg PO BID Eliquis 5 mg tablet 5 mg PO BID metoprolol tartrate 25 mg tablet 25 mg PO BID Referrals: Hunter Saravia PA-C [Primary Care Provider] -
--- NOTE | 2024-11-10 05:18 | PC.NURSE ---
pt changed to an oxy mask at 10 liters upon arrival and then weaned to 8 Liters
[2024-11-10 05:26] LABS: Add Manual Diff / Slide Review NO; Basophils Absolute Auto 100 /uL (0-100); Basophils Percent Auto 1.5 % (0-2); Eosinophils Absolute Auto 200 /uL (0-450); Eosinophils Percent Auto 2.4 % (2-4); Hematocrit 40.3 % (41-53); Hemoglobin 12.5 g/dL (13.5-17.5); Lymphocytes Absolute Auto 800 /uL (1100-4500); Lymphocytes Percent Auto 10.4 % (25-40); Mean Corpuscular Hemoglobin 27.3 PG (26-34); Mean Corpuscular Volume 87.9 fL (80-100); Monocytes Absolute Auto 400 /uL (0-900); Monocytes Percent Auto 5.3 % (3-14); Neutrophils Absolute Auto 6300 /uL (1500-7000); Neutrophils Percent Auto 80.4 % (50-75); Platelet Count 145 X10^3/uL (150-400); Red Blood Cell Count 4.59 X10^6/uL (4.5-5.9); Red Cell Distribution Width 16.5 % (11.6-14.8); White Blood Cell Count 7.8 X10^3/uL (4.5-11.0)
[2024-11-10 05:35] LABS: INR 1.3 (0.9-1.3); Prothrombin Time 14.2 SECONDS (9.4-12.5)
[2024-11-10 05:37] LABS: PTT Partial Thromboplastin Tim 37 SECONDS (25.1-36.5)
[2024-11-10 05:39] LABS: Alanine Aminotransferase 22 IU/L (<50); Albumin Globulin Ratio 1.4 (1.0-2.8); Alkaline Phosphatase 114 U/L (38-126); Aspartate Aminotransferase 33 IU/L (17-59); BUN Creatinine Ratio 16.4 (6-22); Bilirubin Total 2.3 mg/dL (0.2-1.3); Blood Urea Nitrogen 21 mg/dL (9-20); Calcium 9.2 mg/dL (8.4-10.2); Carbon Dioxide 28 mmol/L (22-32); Chloride 103 mmol/L (98-107); Creatine Kinase 58 U/L (55-170); Estimated Glomerular Filt Rate 55 mL/min (>60); Globulin 2.8 g/dL (1.7-4.1); Glucose 214 mg/dL (80-110); HEMOLYSIS < 15 (0-50); Lipase 247 U/L (23-300); Potassium 4.2 mmol/L (3.4-5.1); Sodium 139 mmol/L (137-145); Total Protein 6.8 g/dL (6.3-8.2)
[2024-11-10 05:51] LABS: NT-proBNP (BNP-Adult 18+) 1900 pg/mL (<450)
[2024-11-10 06:01] LABS: Influenza A - CEPHEID Flu A NEGATIVE (NEGATIVE); Influenza B - CEPHEID Flu B NEGATIVE (NEGATIVE); Respiratory Syncytial Virus Negative (Negative)
[2024-11-10 06:09] LABS: COVID-19 CEPHEID 4-PLEX PCR Negative (Negative)
[2024-11-10 08:13] LABS: Troponin I 0.193 ng/mL (0.01-0.034)
--- NOTE | 2024-11-10 08:29 | DI.CT.S_ITS ---
PROCEDURE: CT ANGIO CHEST PE PROTOCOL INDICATIONS: hypoxia TECHNIQUE: After the administration of intravenous contrast, 2 mm thick sections acquired from the pulmonary apices to the posterior costophrenic angles. 3-dimensional maximum intensity projection (MIP) coronal and sagittal reformats were then acquired through the thorax. For radiation dose reduction, the following was used: automated exposure control, adjustment of mA and/or kV according to patient size. COMPARISON: [facility], CT, CT CHEST WO CON, 04/08/2022, 14:26. [facility], CT, CT ABDOMEN PELVIS W CON, 04/09/2022, 12:48. FINDINGS: Image quality: Diagnostic. Pulmonary arteries: Pulmonary arteries are enlarged in size, and demonstrate no intraluminal filling defects to suggest central pulmonary embolism. Lower Neck: No enlarged lymph nodes. Thyroid: No thyroid nodules which require sonographic follow up, per consensus guidelines. Axillae: No enlarged lymph nodes. Chest Wall: Median sternotomy wires are seen. Bones: No aggressive appearing bony lesions. Lungs and Pleura: Advanced interstitial pulmonary fibrosis worsened compared to 2021 study. Hazy ground-glass opacity is seen in bilateral aerated lung noyola concerning for pulmonary edema. No pleural effusion or pneumothorax. Airway is patent. Heart: Heart size is markedly enlarged. No pericardial effusion. Thoracic Vessels: No aortic aneurysm. Mediastinum and Elissa: Mildly enlarged mediastinal lymph nodes are seen measures up to 1.1 cm in size in right paratracheal space and AP window. Esophagus: No wall thickening. Small hiatal hernia. Upper Abdomen: Visualized upper abdomen solid organs and bowel loops appear normal. IMPRESSION: 1. No pulmonary embolus. Enlarged size of main pulmonary artery which can be seen associated with pulmonary vascular hypertension. No thoracic aortic aneurysm or gross dissection. 2. Advanced interstitial pulmonary fibrosis. Suggestion of pulmonary edema. No definite focal infiltrate. No pleural effusion or pneumothorax. 3. Marked cardiomegaly, no pericardial effusion. Borderline enlarged mediastinal and hilar lymph nodes which may be reactive in nature. Dictated by: Schuyler Sexton M.D. on 11/10/2024 at 8:59 Approved by: Schuyler Sexton M.D. on 11/10/2024 at 9:05
--- NOTE | 2024-11-10 08:29 | EKG_ITS ---
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
[2024-11-10 10:26] LABS: Troponin I 0.423 ng/mL (0.01-0.034)
[2024-11-10] MEDS: HEPARIN 5,000 UNIT/ML VIAL 4500 UNIT IV (10:36)
[2024-11-10] MEDS: HEPARIN DRIP 25,000 UNIT/500 ML IV.SOLN 18.615 UNIT IV (10:37)
--- NOTE | 2024-11-10 10:41 | DI.ECHO.S_ITS ---
[facility] : : [address] : : [place] : : [id number] : : Phone: [phone] Echocardiogram Report + + :Name: LIZBETH HUNTER Study Date: 11/10/2024 Height: 68 in : :[facility] ReadingLocation: Weight: 171 lb : : Gender: Male BSA: 1.9 m2 : :: 1940 Age: 83 yrs BP: 116/88 mmHg: :Reason For Study: NSTEMI : :Ordering Physician: SHANNON, : :MIKA Performed By: Jayla Griffin : :Referring: MIKA ORTEGA : + + Interpretation Summary This is a technically difficult study enhanced with Definity echo contrast. Study was not complete and mitral valve inflow evaluation was not performed. Valvular evaluation in apical views was not performed. Indeterminant rhythm with wide QRS complexes. Heart rate is 81-100 bpm. Normal LV size and mildly increased wall thickness. Septal dyssynchrony. Ejection fraction is estimated at 45-50%. D-shaped left ventricle in systole and diastole consistent with RV pressure overload. Neither right atrium nor left atrium size was measured. Moderately dilated right ventricle with moderately reduced RV systolic function. Mild tricuspid regurgitation; otherwise no significant valvular abnormalities. Estimated PA systolic pressure is 62 mmHg assuming a right atrial pressure of 10 mmHg. Compared to prior echo August 15, 2020, D-shaped RV in systole and diastole is not new. RV dilation looks worse on current study. RV function was not evaluated on prior echocardiogram. RV dimension on apical views was not checked last time. Septal dyssynchrony is newly described and LV is less dynamic on current study. Procedure: A two-dimensional transthoracic echocardiogram with color flow Doppler was performed. The study quality was technically difficult. Comparison is made with the echocardiogram of 08/15/2020. A contrast injection of Definity was performed to improve assessment of LV function. The heart rate ranged between 81-100 bpm during the study. Left Ventricle: The left ventricle is normal in size. Left ventricular wall thickness is mildly increased. The ejection fraction is estimated to be 45- 50%. The interventricular septum is flattened, consistent with a right ventricular pressure/volume condition. Right Ventricle: The right ventricle is mild to moderately dilated. Right ventricular systolic function is moderately reduced. Aortic Valve: The aortic valve is trileaflet. The aortic valve opens well. Tricuspid Valve: The tricuspid valve leaflets are thin and pliable. There is mild to moderate tricuspid regurgitation. Right ventricular systolic pressure is estimated to be 52 mmHg plus the clinically estimated CVP which cannot be estimated on this exam. Great Vessels: The inferior vena cava was not well visualized. Pericardium/ Pleura There is no pericardial effusion. There is no pleural effusion. MMode/2D Measurements & Calculations LVIDd: 4.6 cm RVD1 (basal): 4.6 cm LVIDs: 3.4 cm TAPSE: 1.2 cm FS: 25.3 % EPSS: 0.79 cm IVSd: 1.1 cm LVPWd: 0.98 cm LV gunderson. diameter/BSA (cm/m^2): 2.4 LV sys. diameter/BSA (cm/m^2): 1.8 Doppler Measurements & Calculations TR max steve: 360.7 cm/sec TR max P.0 mmHg Electronically signed by: Bettie Silva M.D. on Reading Physician:11/10/2024 12:44 PM
--- NOTE | 2024-11-10 11:37 | PC.NURSE ---
Addendum entered by Ana Hernandez CNA 11/10/24 13:14: 1227: [facility] called back, information was given, they are working on the case Addendum entered by Ana Hernandez CNA 11/10/24 11:46: 1145: [facility], left voicemail Original Note: Hospital Call List for Patient Transfer 1004: [facility], spoke to Divya, patient on wait list, currently boarding 1009: [facility], spoke to Avinash, patient not on wait list, currently at capacity 1027: [facility], spoke to Mac, patient on wait list, currently boarding 1051: [facility], spoke to transfer station nurse, patient on wait list, currently boarding 1122: [facility], spoke to Francisco, patient on wait list, currently boarding 1136: [facility], went straight to voicemail, left a message 1143: [facility]: spoke to Nik, patient not on wait list, currently at capacity
--- NOTE | 2024-11-10 13:43 | PC.NURSE ---
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 HR 140's. BP repeated and stable. Dr Vidales notified and EKG ordered.
--- NOTE | 2024-11-10 13:44 | EKG_ITS ---
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
--- NOTE | 2024-11-10 13:45 | EKG_ITS ---
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
[2024-11-10 16:07] LABS: Troponin I 0.455 ng/mL (0.01-0.034)
[2024-11-10] MEDS: GABAPENTIN 300 MG CAPSULE PO (16:55)
[2024-11-10 17:24] LABS: PTT Partial Thromboplastin Tim 120 SECONDS (25.1-36.5)
--- NOTE | 2024-11-10 20:22 | PC.NURSE ---
pt declined chest pain during his stay. left wtih NWA in [facility]Ad . vital signs stable
== END 2024-11-10 18:35 | disposition short-term general hospital (02) ==
PROVIDERS: Emergency Medicine; Emergency Provider Emergency Medicine; Family Provider Family Medicine; PCP Student in an Organized Health Care Education/Training Program
DX: I21.4 Non-ST elevation (NSTEMI) myocardial infarction (principal); I25.2 Old myocardial infarction; Z86.73 Personal history of transient ischemic attack (TIA), and cerebral infarction without residual deficits; E11.9 Type 2 diabetes mellitus without complications; Z79.4 Long term (current) use of insulin; I48.91 Unspecified atrial fibrillation; Z79.01 Long term (current) use of anticoagulants; R00.0 Tachycardia, unspecified; Z95.5 Presence of coronary angioplasty implant and graft; I10 Essential (primary) hypertension; Z85.038 Personal history of other malignant neoplasm of large intestine; Z86.79 Personal history of other diseases of the circulatory system; E78.5 Hyperlipidemia, unspecified; I45.10 Unspecified right bundle-branch block; R09.02 Hypoxemia; W18.30XA Fall on same level, unspecified, initial encounter; Z87.09 Personal history of other diseases of the respiratory system
CPT/HCPCS: 0241U; 36415; 71045; 71275; 80053; 82550; 83690; 83880; 84484; 85025; 85610; 85730; 93005; 93307; 96365; 96366; 96375; 99285; J1644; Q9967